=== PATIENT | female | born 1960 | race Caucasian/White ===

== ENCOUNTER 2020-01-18 20:03 | Emergency (ER) | payer MEDICARE, BC, SELFPAY ==
[2020-01-18 20:22] VITALS: BP 141/68; PULSE 72; RESP 16; TEMP 37.1; O2SAT 97; BMI 25.0
--- NOTE | 2020-01-18 20:40 | XR_ITS ---
EXAMINATION: XR ELBOW, RIGHT CLINICAL INFORMATION: Pain. Fall. COMPARISON: None TECHNIQUE: Three views of the right elbow. FINDINGS: There is fluid in the joint consistent with hemarthrosis. The anterior and posterior fat pads of the distal humerus are displaced. There is no displaced fracture. There is no dislocation. Occult fracture cannot be excluded in the presence of hemarthrosis. CTR MRI would be helpful for further assessment. IMPRESSION: 1. Hemarthrosis. 2. No displaced fracture. Occult fracture is not excluded. Consider follow-up MRI or CT for further evaluation.
--- NOTE | 2020-01-18 20:40 | XR_ITS ---
EXAMINATION: XR WRIST, LEFT CLINICAL INFORMATION: Pain. Fall. COMPARISON: None TECHNIQUE: 4 plain film views of the left wrist. FINDINGS: The bones and soft tissues are normal. No fracture. Alignment is anatomic with normal joint spaces. No erosions or abnormal soft tissue calcifications. IMPRESSION: No acute fracture or dislocation seen.
--- NOTE | 2020-01-18 20:40 | XR_ITS ---
EXAMINATION: 1. RIGHT FOREARM. 2. RIGHT WRIST. CLINICAL INFORMATION: Fall. Pain. COMPARISON: Right hand 10/06/2013. Right wrist 08/10/2009. Dictated report only. Images are not available for review TECHNIQUE: 1. Right forearm. 2 views 2. Right wrist. 4 views FINDINGS: 1. Right forearm. No fracture. Radius and ulna are intact. 2. Right wrist. No fracture or dislocation. No soft tissue abnormality. IMPRESSION: 1. Right forearm. No acute abnormality. 2. Right wrist. No acute abnormality.
[2020-01-18] MEDS: oxyCODONE HCl Immed Release 5 MG TABLET PO (21:12)
[2020-01-18] MEDS: Ketorolac Tromethamine 30 MG/ML VIAL IM (21:13)
--- NOTE | 2020-01-18 21:35 | CT_ITS ---
EXAMINATION: CT RIGHT ELBOW. CLINICAL INFORMATION: Trauma. Hemarthrosis on plain film but no displaced fracture. COMPARISON: Plain film exam of the right elbow today TECHNIQUE: Axial images obtained through the right elbow. Coronal and sagittal reformatted images are performed at CT scanner FINDINGS: There is fluid in the joint consistent with hemarthrosis. There is no fracture. There is no dislocation. Joint space is normal. IMPRESSION: Fluid in the joint consistent with a hemarthrosis. There is no fracture. There is no dislocation. If pain persists consider short-term follow-up studies of plain film, CAT scan or MRI.
--- NOTE | 2020-01-18 21:46 | ED_ITS ---
HPI - Fall General Chief Complaint: Fall Stated Complaint: FALL/ELBOW PAIN Time Seen by Provider: 01/18/20 20:40 Source: patient Mode of arrival: ambulatory Limitations: no limitations History of Present Illness HPI Narrative: 59-year-old female presents with right elbow pain, bilateral wrist pain after a fall on outstretched arms. fall occurred just prior to arrival and while she was going up stairs. She stated that she lost her balance and slipped on the step. She is complaining of 10/10 elbow pain, and is unable to move her arm properly. She applied ice prior to arrival but stated that the ice was not helpful. She did not hit her head, lose consciousness, denies dizziness, lightheadedness, chest pain or pressure, palpitations, shortness of breath, abdominal pain, abdominal distention, dysuria, hematuria, fevers and chills. MD complaint: fall Onset (ago): minute(s) ( Just prior to arrival) Fall from: standing Fall witnessed: yes, by family Place fall occurred: home Loss of consciousness: none Prolonged down time: no Symptoms prior to fall: none Context: tripped/slipped Location of injury - extremities: right: elbow ( elbow pain and swelling) and bilateral: hand ( bilateral wrist pain) Severity: severe Severity scale (1-10): 10 Quality: throbbing Associated symptoms (after fall): denies Related Data Previous Rx's Medication Instructions Recorded oxycodone 5 mg PO Q8H PRN #14 tab 01/18/20 Allergies Allergy/AdvReac Type Severity Reaction Status Date / Time No Known Allergies Allergy Unverified 12/24/19 14:37 Review of Systems Review of Systems: Constitutional: No Weight loss, No Fever, No Chills, No Night Sweats, No Fatigue, No Malaise ENT/Mouth: No Hearing loss, No Ear Pain, No Nasal Congestion, No Sinus Pain, No Hoarseness, No sore throat, No Rhinorrhea, No Swallowing Difficulty Eyes: No Eye Pain, No Swelling, No Redness, No Foreign Body, No Discharge, No Vision Changes Cardiovascular: No Chest Pain, No SOB, No Dyspnea on Exertion, No Orthopnea, No Edema, No Palpitations Respiratory: No Cough, No Sputum, No Wheezing, No Smoke Exposure, No Dyspnea Gastrointestinal: No Nausea, No Vomiting, No Diarrhea, No Constipation, No abdominal Pain, No Hematochezia, No Melena Genitourinary: no irregular bleeding, No Dysuria, No Urinary Frequency, No Hematuria, No Urinary Incontinence, No Urgency, No Flank Pain, No Urinary Flow Changes, No Hesitancy Musculoskeletal: positive joint pain bilateral wrists and right elbow, right elbow swelling, No Myalgias, Skin: No Skin Lesions, No rash Neuro: No Weakness, No Numbness, No Paresthesias, No Loss of Consciousness, No Dizziness, No Headache Psych: No Anxiety/Panic, No Depression, No SI/HI/AH/VH, No Social Issues, Heme/Lymph: No Bruising, No Bleeding,No Lymphadenopathy Endocrine: No Polyuria, No Polydipsia, No Temperature Intolerance [facility] Past Medical History Attestation statement: The following information was validated with the patient. Social History Social History Smoking Status: Never smoker Use of substances other than those prescribed or required for medical reasons: No Advance Directives: No Advance Directives Information Provided: Yes Physical Exam Vital Signs: Vital Signs: Vital Signs Temp Pulse Resp BP Pulse Ox 01/18/20 22:33 97.9 F 69 16 152/65 H 98 01/18/20 20:22 98.8 F 72 16 141/68 H 97 Body Mass Index 25.0 Appearance: Alert. Oriented X3. No acute distress. Eyes: Pupils equal, round and reactive to light. ENT: Pharynx normal. Neck: Normal inspection. Neck supple. CVS: Normal heart rate and rhythm. Pulses normal. Respiratory: No respiratory distress. Breath sounds normal. Abdomen: Soft and nontender. Skin: Skin warm and dry. Normal skin color. Normal skin turgor. Extremities: bilateral wrist pain to palpation both radial and ulnar processes, right elbow tenderness to the olecranon, decreased range of motion to the right elbow decreased flexion and extension, unable to pronate and supinate right arm at the elbow. Moderate swelling noted to the lateral aspect of the right elbow. No lower extremity edema. Brisk capillary refill to bilateral upper extremities, Pulses equal to all extremities. Neuro: Oriented X 3. No motor deficit. No sensory deficit. Course Course Course Narrative: based on patient's presentation will order x-rays of bilateral wrists, right elbow, and right forearm. We will give Toradol and oxycodone for pain management. X-rays are negative for fracture, shows hemarthrosis to the right elbow with suggestion for CT scan Rule out occult fracture. Discussion with patient regarding plan of care, patient agrees to CT scan. CT scan negative for occult fracture. Plan of care is to apply sling and have patient follow-up with Dr. Dalton. Discussion with Dr. Datlon via tiger text, he will see her in the office. Patient verbalized understanding of and agrees to plan of care discharge home. Consultations Consultation #1: Sha Time: 22:36 MDM - Fall Differential Diagnosis Differential diagnosis: Likely dislocation, fracture and compression fracture Medical Records Attestation: I reviewed the patient's medical records. Imaging Data X-ray bilateral wrists, right elbow: Attestation: I personally reviewed and interpreted this imaging study as follows: Radiologist's impression: EXAMINATION: XR WRIST, LEFT CLINICAL INFORMATION: Pain. Fall. COMPARISON: None TECHNIQUE: 4 plain film views of the left wrist. FINDINGS: The bones and soft tissues are normal. No fracture. Alignment is anatomic with normal joint spaces. No erosions or abnormal soft tissue calcifications. IMPRESSION: No acute fracture or dislocation seen. EXAMINATION: 1. RIGHT FOREARM. 2. RIGHT WRIST. CLINICAL INFORMATION: Fall. Pain. COMPARISON: Right hand 10/06/2013. Right wrist 08/10/2009. Dictated report only. Images are not available for review TECHNIQUE: 1. Right forearm. 2 views 2. Right wrist. 4 views FINDINGS: 1. Right forearm. No fracture. Radius and ulna are intact. 2. Right wrist. No fracture or dislocation. No soft tissue abnormality. IMPRESSION: 1. Right forearm. No acute abnormality. 2. Right wrist. No acute abnormality. TECHNIQUE: Three views of the right elbow. FINDINGS: There is fluid in the joint consistent with hemarthrosis. The anterior and posterior fat pads of the distal humerus are displaced. There is no displaced fracture. There is no dislocation. Occult fracture cannot be excluded in the presence of hemarthrosis. CTR MRI would be helpful for further assessment. IMPRESSION: 1. Hemarthrosis. 2. No displaced fracture. Occult fracture is not excluded. Consider follow-up MRI or CT for further evaluation. right elbow CT scan: Attestation: I personally reviewed and interpreted this imaging study as follows: Radiologist's impression: EXAMINATION: CT RIGHT ELBOW. CLINICAL INFORMATION: Trauma. Hemarthrosis on plain film but no displaced fracture. COMPARISON: Plain film exam of the right elbow today TECHNIQUE: Axial images obtained through the right elbow. Coronal and sagittal reformatted images are performed at CT scanner FINDINGS: There is fluid in the joint consistent with hemarthrosis. There is no fracture. There is no dislocation. Joint space is normal. IMPRESSION: Fluid in the joint consistent with a hemarthrosis. There is no fracture. There is no dislocation. If pain persists consider short-term follow-up studies of plain film, CAT scan or MRI. Discharge Plan Discharge Clinical Impression: Hemarthrosis involving elbow joint Patient Disposition: Home, Self-Care Instructions: Hemarthrosis (ED) Additional Instructions: you were evaluated for right elbow pain after a fall. X-rays indicate hemarthrosis, CT scan is negative for fracture. Hemarthrosis is a blood collection inside the joint. Please follow-up with orthopedics. I contacted Dr. Dalton regarding your case. Please call and ask for an appointment. Please use oxycodone as needed for pain management. This medication is narcotic and has high risk for addiction and abuse. Please use ice, elevation, And Motrin and Tylenol as needed for breakthrough pain management. Thank you for choosing this emergency department for evaluation. Please follow-up with primary care physician as needed. Return to the emergency department for any new, concerning, or worsening symptoms. Prescriptions: New oxycodone 5 mg tablet 5 mg PO Q8H PRN (Reason: pain) Qty: 14 RF: 0 Referrals: Tor Dalton MD [Physician] - 2 days ( hemarthrosis right elbow) Interventions: ED Discharge Assessment Last Done: 01/18/20 23:08 Discharge Date/Time: 01/18/20 22:55
[2020-01-18 22:33] VITALS: BP 152/65; PULSE 69; RESP 16; TEMP 36.6; O2SAT 98
== END 2020-01-18 22:55 | disposition home or self-care (01) ==
PROVIDERS: Emergency Provider Internal Medicine; PCP Internal Medicine
DX: M25.021 Hemarthrosis, right elbow (principal); S59.901A Unspecified injury of right elbow, initial encounter; W10.8XXA Fall (on) (from) other stairs and steps, initial encounter; M25.532 Pain in left wrist; M25.531 Pain in right wrist; Y93.89 Activity, other specified; Y92.019 Unspecified place in single-family (private) house as the place of occurrence of the external cause; Y99.9 Unspecified external cause status
CPT/HCPCS: 73070; 73090; 73110; 73200; 96372; 99284; J1885

== ENCOUNTER → 2020-01-22 10:22 | Outpatient (BNVA) | payer MEDICARE, BC, SELFPAY | PROVIDERS: PCP Internal Medicine; Referring Provider Internal Medicine; Visit Provider Physician Assistant | DX: S42.401A Unspecified fracture of lower end of right humerus, initial encounter for closed fracture (principal); X58.XXXA Exposure to other specified factors, initial encounter; Y93.9 Activity, unspecified; Y92.9 Unspecified place or not applicable; Y99.9 Unspecified external cause status; Z79.891 Long term (current) use of opiate analgesic | CPT/HCPCS: 99203 ==

== ENCOUNTER 2020-02-05 09:53 | Outpatient (REF) | payer MEDICARE, BC, SELFPAY ==
--- NOTE | 2020-02-05 09:54 | XR_ITS ---
EXAMINATION: XR ELBOW, RIGHT CLINICAL INFORMATION: Follow-up fracture COMPARISON: Previous x-ray and right elbow 01/18/2020 TECHNIQUE: AP, lateral, and oblique views of the right elbow. FINDINGS: There is a vertical lucency seen in the lateral radial head and cortical angulation of the volar or anterior radial head on the lateral view suggestive of a nondisplaced fracture. No other fracture is seen. There is an osteophyte at the triceps tendon insertion to the olecranon and lateral humeral epicondyle. There is a joint effusion. This appears decreased from previous exam. XR/XR elbow RT min 3V IMPRESSION: Probable nondisplaced radial head fracture. Joint effusion decreased from recent exam.
== END 2020-02-05 09:54 | disposition home or self-care (01) ==
LOC: HO.HOSX 09:53
PROVIDERS: Visit Provider Physician Assistant
DX: S42.401A Unspecified fracture of lower end of right humerus, initial encounter for closed fracture (principal); S52.121A Displaced fracture of head of right radius, initial encounter for closed fracture
CPT/HCPCS: 73080; 99212

== ENCOUNTER 2020-03-09 07:03 | Outpatient (REF) | payer MEDICARE, BC, SELFPAY ==
--- NOTE | 2020-03-09 | XR_ITS ---
EXAMINATION: XR ELBOW, RIGHT CLINICAL INFORMATION: M25.521 - pain right elbow. COMPARISON: Radiographs right elbow 02/05/2020, 01/18/2020; CT right elbow 01/18/2020 TECHNIQUE: AP, lateral, and oblique views of the right elbow. FINDINGS: There is subtle transverse linear increased attenuation at base radial head suggesting healed fracture. There is no visible fracture line or interval acute fracture or dislocation or destructive process. Elbow effusion is essentially resolved. There is no joint narrowing. There is minor spurring again seen epicondyles, coronoid process, and olecranon. XR/XR elbow RT min 3V IMPRESSION: Changes suggesting healed fracture base radial head. No acute fracture or destructive process.
[2020-03-09 11:23] LABS: MANUAL DIFF FLAG NO
[2020-03-09 11:41] LABS: Basophils Percent Auto 0.3 % (0-2); Eosinophils Absolute Auto 0.1 X10*3/uL (0.0-0.4); Eosinophils Percent Auto 1.2 % (0-4); Hematocrit 47.4 % (37-47); Imm Gran Abs Auto 0.01 X10*3/uL (0.00-0.03); Imm Gran Pct Auto 0.2 % (0.0-0.4); Lymphocytes Absolute Auto 1.8 X10*3/uL (1.2-4.9); Lymphocytes Percent Auto 28.4 % (20-40); Mean Corpuscular HGB Conc 31.6 g/dl (31.0-35.0); Mean Corpuscular Hemoglobin 29.9 pg (27.0-33.0); Mean Corpuscular Volume 94.6 fL (80-98); Mean Platelet Volume 9.4 fL (9.4-12.3); Monocytes Absolute Auto 0.4 X10*3/uL (0.1-1.2); Monocytes Percent Auto 5.6 % (2-11); Neutrophils Absolute Auto 4.2 X10*3/uL (2.0-8.3); Neutrophils Percent Auto 64.3 % (45-73); Platelet Count 306 X10*3/uL (160-400); Red Blood Count 5.01 X10*6/uL (4.20-5.50); Red Cell Distribution Width 14.5 % (11.0-16.0); White Blood Count 6.5 X10*3/uL (4.8-10.8)
[2020-03-09 11:44] LABS: Glucose Urine UA NEG (NEG); Leukocyte Esterase Urine NEG (NEG); Nitrite Urine NEG (NEG); Urine Blood 2+ (NEG); Urine Ketones NEG (NEG); Urine Protein NEG (NEG-TRACE)
[2020-03-09 11:51] LABS: Appearance Urine CLEAR; Color Urine YELLOW
[2020-03-09 12:07] LABS: Mucus Urine TRACE /LPF; Squamous Epithelial Cell Urine TRACE /LPF; WBC Urine 0 /HPF (0-4)
[2020-03-09 12:14] LABS: Alanine Aminotransferase 24 U/L (0-31); Albumin Level 4.4 g/dL (3.5-5.0); Alkaline Phosphatase 80 U/L (39-117); Anion Gap 12 (12-20); Aspartate Amino Transferase 21 U/L (5-31); Bilirubin Total 0.8 mg/dL (0.0-1.0); Blood Urea Nitrogen 16 mg/dL (9-16); C Reactive Protein 0.08 mg/dL (< or = 0.50); Calcium 9.4 mg/dL (8.4-10.2); Carbon Dioxide 30 mmol/L (22-29); Chloride 104 mmol/L (96-108); Cholesterol 207 mg/dL; Estimated Glomerular Filt Rate > 60; Glucose Fasting 85 mg/dL (60-99); HDL Cholesterol 65 mg/dL; LDL Cholesterol Calculated 123 mg/dl; Potassium 5.1 mmol/l (3.3-5.1); Sodium 141 mmol/L (135-145); Total Protein 7.2 g/dL (6.5-8.0); Triglycerides 95 mg/dL
[2020-03-09 12:20] LABS: Erythrocyte Sedimentation Rate 6 MM/HR (0-20)
[2020-03-09 12:36] LABS: TSH reflex Free T4 0.95 mIU/mL (0.32-4.0); Vitamin D 25-OH Total 33.4 ng/mL (>30)
== END 2020-03-09 07:04 | disposition home or self-care (01) ==
LOC: HO.HMGCLDS 07:03
PROVIDERS: PCP Internal Medicine; Visit Provider Student in an Organized Health Care Education/Training Program
DX: L40.50 Arthropathic psoriasis, unspecified (principal); Z79.899 Other long term (current) drug therapy; E78.5 Hyperlipidemia, unspecified; R94.5 Abnormal results of liver function studies; M79.7 Fibromyalgia; R31.9 Hematuria, unspecified; M35.3 Polymyalgia rheumatica; E55.9 Vitamin D deficiency, unspecified; F32.9 Major depressive disorder, single episode, unspecified; M25.521 Pain in right elbow; S52.123D Displaced fracture of head of unspecified radius, subsequent encounter for closed fracture with routine healing
CPT/HCPCS: 36415; 73080; 80053; 80061; 81001; 82306; 82550; 84443; 85025; 85652; 86140; 99212

== ENCOUNTER 2020-03-09 11:30 | Outpatient (RCR) | payer MEDICARE, BC, SELFPAY ==
--- NOTE | 2020-02-17 13:16 | MHC.OT.OEV ---
[address] [phone] F: [phone] Occupational Therapy Evaluation Diagnosis: RIGHT RADIAL HEAD FRACTURE Date of Onset: 01/18/20 Date of Surgery: Attending Provider: Sebastien Carter Prescribed Treatment: EVAL AND TREAT History of Current Condition: REPORTS SHE TRIPPED UP THE STAIRS AND BRACED HERSELF WITH BOTH ARMS, FOOSH. FOUND TO HAVE NONDISPLACED FRACTURE OF HEAD OF RIGHT RADIUS Significant Medical History: PSORIATIC ARTHRITIS, R WRIST ARTHRTIS WITH CORTISONE INJECTIONS, FIBROMYALGIA, BACK PROBLEMS, H/O C6/67 FUSION (2004) Precautions/Contraindications: UNIVERSAL Patient Goals: TO HAVE LESS PAIN Hand Dominance: Right Prior Level of Function and Occupation Self Care, Employment, Leisure: RETIRED FROM [employer]. 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 Living Situation, Family and/or Social Support: LIVES WITH SHANIKA AND SHANIKA'S TWO GRANDCHILDREN (5 AND 12) Current Level of Function and Occupation Self Care, Employment, Leisure: DIFFICULTIES WITH OPENING TIGHT JAR, PUTTING HAIR INTO PONYTAIL, MILD DIFFICULTIES WITH WASHING DISHES Sleep: DIFFICULTIES GETTING COMFORTABLE AT NIGHT DUE TO PAIN Pain Assessment Pain Score: 2 Pain Scale Used: Numeric (0 - 10) Pain Location and Description: R LATERAL ELBOW, ACHY AND BURNING Aggravating Factors: ROTATIONAL MOVEMENT Alleviating Factors: OCCASIONAL IBUPROPHEN 800, HAS USED ICE/HEAT WITH GOOD RESULTS Skin and Soft Tissue Assessment Skin and Soft Tissue: Swelling Comments: MILD EDEMA TO LATERAL ELBOW Sensory Assessment Temperature: Light Touch: WFL Proprioception: Vibration: Comments: Edema Assessment Upper Extremity: WNL Dexterity Assessment Dexterity: WFL Special Tests Comments: AROM(PROM) Strength Shoulder Flexion: Extension: Abduction: Internal Rotation: External Rotation: Comments: WFL Flexion: Extension: Abduction: Internal Rotation: External Rotation: Comments: Elbow Flexion: R 135, L 150 Extension: R 14, L 3 Pronation: R 80, L 82 Supination: R 70, L 90 Comments: DISCOMFORT AT END RANGE ELBOW FLEX AND EXT Flexion: Extension: Pronation: Supination: Comments: Wrist Flexion: Extension: Ulnar Deviation: Radial Deviation: Comments: WFL Flexion: Extension: Ulnar Deviation: Radial Deviation: Comments: Digits Index MCP: PIP: DIP: Long MCP: PIP: DIP: Ring MCP: PIP: DIP: Small MCP: PIP: DIP: Comments: Gross Grasp: R 25, L 40 Lateral Pinch: R 9, L 9 Two-Point Pinch: Three-Jaw Juan: 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 Patient demonstrates Patient verbalizes Barriers to Learning: None Readiness for Learning: Accepting Who was educated? Patient Comments: Plan of Care Assessment: DEBI IS 4 WEEKS, 2 DAYS S/P FOOSH RESULTING IN NONDISPLACED FRACTURE OF HEAD OF RIGHT RADIUS. SHE REPORTS MINIMAL DIFFICULTIES WITH BADLs AND IADLs AND HAS DISCONTINUED USE OF SLING. AT TIME OF EVALUATION, SHE HAS LOW PAIN WITH END RANGE EXTENSION AND FLEXION OF ELBOW AND OCCASIONAL DISCOMFORT WITH SUPINATION AND PRONATION. ONGOING OT WOULD BE WARRANTED FOR ROM, UE STRENGTHENING, PAIN MANAGEMENT AND PATIENT EDUCATION, AND ACHIEVE OPTIMAL FUNCTIONAL LEVEL. 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 STRENGTH >40 POUNDS COMPLETE IADLs WITH <1/10 PAIN R SUPINATION >85 PAINFREE AT REST REPORT NO INTERRUPTION IN SLEEP DUE TO PAIN ELBOW FLEX >150 DEGREES Frequency and Duration: The patient will be seen 2x/WEEK FOR 4 WEEKS Treatment Plan: Therapeutic Exercise Therapeutic Activity Home Exercise Program Splinting Neuro Re-ed Patient Education Desensitization/Sensory Re-ed Edema Control ADL Training Ultrasound NMES Iontophoresis Paraffin Fluidotherapy MHP Cold Packs Joint Mobilization Soft Tissue Mobilization Kinesiotaping Electronically Signed By: KELSIE VEE OTR/L Please sign and return to therapist, Thank you for your referral.
--- NOTE | 2020-04-05 10:31 | MHC.OT.DC ---
[address] [phone] F: [phone] Occupational Therapy Discharge Note Provider: Sebastien Carter Diagnosis: RIGHT RADIAL HEAD FRACTURE Date of Evaluation: 02/17/20 Date of Discharge: 04/05/20 Treatments to Date: 4 Cancellations to Date: 0 No Shows to Date: 0 Discharge Status: Improved Function Independent with HEP Patient Elected to Stop Discharge Summary: MS. LAU ATTENDED OUTPATIENT OT FOR FOUR SESSIONS IN WHICH SHE HAD ACHIEVED FUNCTIONAL ROM AT HER RIGHT ELBOW AND WAS BEGINNING LIGHT RESISTIVE EXERCISES. AT HER LAST OT VISIT, SHE REPORTED LOW PAIN AND ABILITY TO COMPLETE MOST ADLs/IADLs. SHE HAS ELECTED TO DISCONTINUE OT SERVICES. Electronically Signed By: KELSIE VEE OTR/L Please Sign and return to therapist, thank you for your referral.
== END 2020-04-05 10:37 | disposition home or self-care (01) ==
LOC: HO.OT 11:30
PROVIDERS: Visit Provider Physician Assistant
DX: S52.121D Displaced fracture of head of right radius, subsequent encounter for closed fracture with routine healing (principal)
CPT/HCPCS: 73080; 97110; 97165

== ENCOUNTER → 2020-03-17 08:01 | Outpatient (BNVA) | payer MEDICARE, BC, SELFPAY | PROVIDERS: PCP Internal Medicine; Visit Provider Student in an Organized Health Care Education/Training Program | DX: L40.50 Arthropathic psoriasis, unspecified (principal); Z79.899 Other long term (current) drug therapy; Z79.891 Long term (current) use of opiate analgesic | CPT/HCPCS: Q3014 ==

== ENCOUNTER → 2020-04-21 10:09 | Outpatient (BNVA) | payer MEDICARE, BC, SELFPAY | PROVIDERS: PCP Internal Medicine; Visit Provider Surgery Vascular Surgery | DX: I83.12 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 of left lower extremity with inflammation (principal) | CPT/HCPCS: 99202 ==

== ENCOUNTER 2020-04-27 07:36 | Outpatient (REF) | payer MEDICARE, BC, SELFPAY ==
--- NOTE | 2020-04-27 07:39 | US_ITS ---
EXAMINATION: US VENOUS LOWER EXTREMITY (Reflux Exam), RIGHT AND LEFT CLINICAL INDICATION: Right leg pain and varicose veins. Previous lower extremity venous stripping performed at another institution. COMPARISON: None TECHNIQUE: Color flow triplex imaging and compression Doppler was performed to evaluate both the deep and the superficial systems bilaterally. To evaluate the superficial system, the examination was performed in the upright position. Color-flow Doppler ultrasound and compression ultrasound were utilized. In addition, maneuvers were utilized to demonstrate reflux. FINDINGS: 1. DEEP VENOUS ULTRASOUND OF THE RIGHT LOWER EXTREMITY: Respiratory variation, normal compression and augmented flow are noted in the right common femoral vein as well as the right popliteal vein and there is no evidence of deep venous thrombosis at these locations. There is no evidence of reflux in the deep system in either the common femoral vein or the popliteal vein. No popliteal fossa cyst. No popliteal artery aneurysm. 2. SUPERFICIAL ULTRASOUND WITH DOPPLER OF RIGHT LOWER EXTREMITY: The right great saphenous vein is not identified from the level of the saphenofemoral junction to the ankle. There is a 2 mm distal thigh entry specialists without reflux. The small saphenous vein is not identified. 3. DEEP VENOUS ULTRASOUND OF THE LEFT LOWER EXTREMITY: Respiratory variation, normal compression and augmented flow are noted in the left common femoral vein as well as the left popliteal vein and there is no evidence of deep venous thrombosis at these locations. There is no evidence of reflux in the deep system in either the common femoral vein or the popliteal vein. No popliteal fossa cyst. No popliteal artery aneurysm. 4. SUPERFICIAL ULTRASOUND WITH DOPPLER OF LEFT LOWER EXTREMITY: Left great saphenous vein remnant at the saphenofemoral junction measures 6 mm without reflux, at the mid thigh not seen, [id number] 3 mm with reflux seen up to 1 second in duration, [id number] 2 mm with reflux up to 3.2 seconds, at mid calf 1 mm without reflux and at the ankle measures 2 mm without reflux. The left small saphenous vein measures 2 mm and shows no reflux. Within the mid thigh there is a 3 mm varicose vein with reflux up to 3.2 seconds. US/US venous duplex LE BI IMPRESSION: 1. No evidence of reflux or thrombus in the common femoral veins or popliteal veins bilaterally. 2. Status post bilateral vein stripping with small greater saphenous vein segments with reflux identified in small vessels of the left lower extremity from [id number] to [id number] as described. No reflux at either saphenofemoral junction.
== END 2020-04-27 07:37 | disposition home or self-care (01) ==
LOC: HO.US 07:36
PROVIDERS: PCP Internal Medicine; Visit Provider Surgery Vascular Surgery
DX: I83.12 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 of left lower extremity with inflammation (principal); I83.893 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 of bilateral lower extremities with other complications
CPT/HCPCS: 93970

== ENCOUNTER → 2020-05-12 10:51 | Outpatient (BNVA) | payer MEDICARE, BC, SELFPAY | PROVIDERS: PCP Internal Medicine; Visit Provider Surgery Vascular Surgery | DX: I83.12 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 of left lower extremity with inflammation (principal) | CPT/HCPCS: 99212 ==

== ENCOUNTER → 2020-05-27 07:48 | Outpatient (BNVA) | payer MEDICARE, BC, SELFPAY | PROVIDERS: PCP Internal Medicine; Visit Provider Surgery Vascular Surgery | DX: I83.12 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 of left lower extremity with inflammation (principal) | CPT/HCPCS: 36482 ==

== ENCOUNTER 2020-05-30 15:14 | Outpatient (REF) | payer MEDICARE, BC, SELFPAY ==
--- NOTE | ~2020-05-30 | US_ITS ---
EXAMINATION: US VENOUS ULTRASOUND WITH DOPPLER LOWER EXTREMITY, LEFT CLINICAL INFORMATION: Post left VenaSeal procedure. COMPARISON: Previous exam 04/27/2020. TECHNIQUE: Ultrasound of the deep veins is performed from the hip to the calf with compression sonography and color and pulse Doppler assessment. Spectral analysis with color-flow imaging is performed. FINDINGS: There is normal venous compression and respiratory variation and augmented flow. The visualized common femoral vein, superficial femoral vein, profunda femoral vein, popliteal vein, and the trifurcation region shows no evidence of deep venous thrombosis. There is no significant popliteal fossa cyst. There is echogenic material seen in the left greater saphenous vein remnant. This is 2.5 cm from the saphenofemoral femoral junction. The remainder greater saphenous vein or greater saphenous vein remnant appears small and occluded. US/US venous duplex LE LT IMPRESSION: No DVT demonstrated in the left lower extremity.
== END 2020-05-30 15:15 | disposition home or self-care (01) ==
LOC: HO.US 15:14
PROVIDERS: PCP Internal Medicine; Visit Provider Surgery Vascular Surgery
DX: M79.605 Pain in left leg (principal)
CPT/HCPCS: 93971

== ENCOUNTER → 2020-06-09 09:39 | Outpatient (BNVA) | payer MEDICARE, BC, SELFPAY | PROVIDERS: PCP Internal Medicine; Visit Provider Surgery Vascular Surgery | DX: I83.12 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 of left lower extremity with inflammation (principal) | CPT/HCPCS: 99212 ==

== ENCOUNTER 2020-06-21 10:59 | Outpatient (REF) | payer MEDICARE, BC, SELFPAY ==
[2020-06-21 14:43] LABS: MANUAL DIFF FLAG NO
[2020-06-21 14:47] LABS: Glucose Urine UA NEG (NEG); Leukocyte Esterase Urine NEG (NEG); Nitrite Urine NEG (NEG); PH 5.5 (5.0-8.0); Specific Gravity - Urine >= 1.030 (1.005-1.025); Urine Blood 2+ (NEG); Urine Ketones NEG (NEG); Urine Protein NEG (NEG-TRACE)
[2020-06-21 14:48] LABS: Appearance Urine CLOUDY; Basophils Percent Auto 0.4 % (0-2); Color Urine YELLOW; Eosinophils Absolute Auto 0.1 X10*3/uL (0.0-0.4); Eosinophils Percent Auto 0.9 % (0-4); Hematocrit 45.5 % (37-47); Hemoglobin 14.4 g/dl (12.0-16.0); Lymphocytes Absolute Auto 1.5 X10*3/uL (1.2-4.9); Lymphocytes Percent Auto 26.7 % (20-40); Mean Corpuscular HGB Conc 31.6 g/dl (31.0-35.0); Mean Corpuscular Hemoglobin 29.8 pg (27.0-33.0); Mean Platelet Volume 9.6 fL (9.4-12.3); Monocytes Absolute Auto 0.3 X10*3/uL (0.1-1.2); Monocytes Percent Auto 5.4 % (2-11); Neutrophils Absolute Auto 3.8 X10*3/uL (2.0-8.3); Neutrophils Percent Auto 66.6 % (45-73); Platelet Count 254 X10*3/uL (160-400); Red Blood Count 4.84 X10*6/uL (4.20-5.50); Red Cell Distribution Width 13.9 % (11.0-16.0); White Blood Count 5.7 X10*3/uL (4.8-10.8)
[2020-06-21 15:13] LABS: Amorphous Sediment Urine 4+ /LPF; Bacteria Urine TRACE /LPF; Squamous Epithelial Cell Urine TRACE /LPF; WBC Urine 0-2 /HPF (0-4)
[2020-06-21 15:16] LABS: Alanine Aminotransferase 23 U/L (0-31); Albumin Level 4.3 g/dL (3.5-5.0); Alkaline Phosphatase 74 U/L (39-117); Anion Gap 11 (12-20); Aspartate Amino Transferase 23 U/L (5-31); Bilirubin Total 0.8 mg/dL (0.0-1.0); Blood Urea Nitrogen 21 mg/dL (9-16); C Reactive Protein 0.14 mg/dL (< or = 0.50); Calcium 9.2 mg/dL (8.4-10.2); Carbon Dioxide 29 mmol/L (22-29); Chloride 106 mmol/L (96-108); Cholesterol 166 mg/dL; Estimated Glomerular Filt Rate > 60; Glucose Fasting 88 mg/dL (60-99); HDL Cholesterol 61 mg/dL; LDL Cholesterol Calculated 93 mg/dl; Sodium 141 mmol/L (135-145); Total Protein 6.8 g/dL (6.5-8.0); Triglycerides 61 mg/dL
[2020-06-21 15:42] LABS: TSH reflex Free T4 1.02 uIU/mL (0.32-4.0); Vitamin D 25-OH Total 35.3 ng/mL (>30)
[2020-06-21 15:43] LABS: Erythrocyte Sedimentation Rate 6 MM/HR (0-20)
== END 2020-06-21 11:00 | disposition home or self-care (01) ==
LOC: HO.HMGCLDS 10:59
PROVIDERS: PCP Internal Medicine; Visit Provider Student in an Organized Health Care Education/Training Program
DX: L40.50 Arthropathic psoriasis, unspecified (principal); E78.00 Pure hypercholesterolemia, unspecified; E55.9 Vitamin D deficiency, unspecified; M79.7 Fibromyalgia
CPT/HCPCS: 36415; 80053; 80061; 81001; 82306; 84443; 85025; 85652; 86140

== ENCOUNTER → 2020-06-22 08:22 | Outpatient (BNVA) | payer MEDICARE, BC, SELFPAY | PROVIDERS: PCP Internal Medicine; Referring Provider Internal Medicine; Visit Provider Student in an Organized Health Care Education/Training Program | DX: L40.50 Arthropathic psoriasis, unspecified (principal); Z79.899 Other long term (current) drug therapy | CPT/HCPCS: 99212 ==

== ENCOUNTER → 2020-07-13 11:56 | Outpatient (BNVA) | payer MEDICARE, BC, SELFPAY | PROVIDERS: Visit Provider Physician Assistant | DX: Z01.818 Encounter for other preprocedural examination (principal); Z86.010 Personal history of colon polyps; Z79.899 Other long term (current) drug therapy | CPT/HCPCS: Q3014 ==

== ENCOUNTER 2020-09-16 07:57 | Day surgery (SDC) | payer MEDICARE, BC, SELFPAY ==
[2020-09-12 13:51] VITALS: BMI 22.6
--- NOTE | 2020-09-14 14:00 | P.CONAN_ITS ---
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) 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 of left lower extremity with inflammation (Acute) PTSD (post-traumatic stress disorder) (Acute) History of colon polyps (Acute) Insomnia (Acute) Polymyalgia rheumatica (Acute) Pain in left shoulder (Acute) Failed neck syndrome (Acute) Depression (Acute) Anxiety (Acute) Osteopenia (Acute) Elevated LFTs (Acute) Vitamin D deficiency (Acute) Lumbar degenerative disc disease (Acute) Fibromyalgia (Acute) Pure hypercholesterolemia (Acute) 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 of both lower extremities with pain (Acute) Past Medical History Medical History Anxiety Depression Elevated LFTs Failed neck syndrome Fibromyalgia History of colon polyps Insomnia 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 Lumbar degenerative disc disease Osteopenia Pain in left shoulder Polymyalgia rheumatica Psoriatic arthritis Pure hypercholesterolemia 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 of both lower extremities with pain Vitamin D deficiency Family History Family History Mother Lung cancer Father Drug addict Surgical History Surgical History Hx of abdominoplasty Hx of section Hx of colonoscopy S/P cervical spinal fusion Social History Social History Household Members: Significant Other and Family Are you a primary reproductive healthcare assistant to a significant other at home: No Alcohol intake: never Patient Tobacco Use Status: Never used Tobacco Use of substances other than those prescribed or required for medical reasons: No Are you DNR?: No Advance Directives: No Advance Directives Information Provided: No Advance Directives on File: No Recently lost weight without trying: No Eating poorly because of decreased appetite: No Nutrition Risks: No Nutritional Risk Meds Allergies Allergy/AdvReac Type Severity Reaction Status Date / Time No Known Allergies Allergy Verified 09/12/20 13:47 Home Medications Medication Instructions Recorded Confirmed Last Taken Type diclofenac sodium 1 % topical gel 2 g TRANSDERMAL BID PRN 05/10/20 09/12/20 Unknown History clonazepam 0.5 mg tablet 0.5 mg PO BID 07/04/20 09/12/20 Unknown History trazodone 100 mg tablet 100 mg PO BEDTIME PRN 07/04/20 09/12/20 Unknown History quetiapine 200 mg tablet 200 mg PO 08/17/20 08/17/20 Unknown History venlafaxine 150 mg 150 mg PO DAILY 08/17/20 09/12/20 Unknown History capsule,extended release 24 hr venlafaxine 37.5 mg 37.5 mg PO DAILY 08/17/20 09/12/20 Unknown History capsule,extended release 24 hr Exam Exam Date and Time: September 14, 2020 1400 Height,Weight and Vital Signs: Height 5 ft 3 in Weight 58.06 kg Pertinent Lab Results Pertinent Lab Results: Laboratory Tests 06/21/20 06/21/20 11:10 11:10 WBC 5.7 Hgb 14.4 Hct 45.5 Plt Count 254 Sodium 141 Potassium 5.0 Chloride 106 Carbon Dioxide 29 BUN 21 H Creatinine 0.73 Assessment and Plan Assessment Anesthesia Assessment: Chart Reviewed Documented by User: Nik Longoria 09/16/20 09:20 [facility] Past Medical History Medical History Anxiety Depression Elevated LFTs Failed neck syndrome Fibromyalgia History of colon polyps Insomnia 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 Lumbar degenerative disc disease Osteopenia Pain in left shoulder Polymyalgia rheumatica Psoriatic arthritis Pure hypercholesterolemia 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 of both lower extremities with pain Vitamin D deficiency Family History Family History Mother Lung cancer Father Drug addict Surgical History Surgical History Hx of abdominoplasty Hx of section Hx of colonoscopy S/P cervical spinal fusion Social History Social History Household Members: Significant Other and Family Are you a primary reproductive healthcare assistant to a significant other at home: No Alcohol intake: never Patient Tobacco Use Status: Never used Tobacco Use of substances other than those prescribed or required for medical reasons: No Are you DNR?: No Advance Directives: No Advance Directives Information Provided: No Advance Directives on File: No Recently lost weight without trying: No Eating poorly because of decreased appetite: No Nutrition Risks: No Nutritional Risk Meds Allergies Allergy/AdvReac Type Severity Reaction Status Date / Time No Known Allergies Allergy Verified 09/12/20 13:47 Home Medications Medication Instructions Recorded Confirmed Last Taken Type diclofenac sodium 1 % topical gel 2 g TRANSDERMAL BID PRN 05/10/20 09/12/20 Unknown History clonazepam 0.5 mg tablet 0.5 mg PO BID 07/04/20 09/12/20 Unknown History trazodone 100 mg tablet 100 mg PO BEDTIME PRN 07/04/20 09/12/20 Unknown History quetiapine 200 mg tablet 200 mg PO 08/17/20 08/17/20 Unknown History venlafaxine 150 mg 150 mg PO DAILY 08/17/20 09/12/20 Unknown History capsule,extended release 24 hr venlafaxine 37.5 mg 37.5 mg PO DAILY 08/17/20 09/12/20 Unknown History capsule,extended release 24 hr Exam Airway Mallampati Class: II TM Dist: >3cm Neck ROM: Full Loose/Missing/Broken Teeth: No Heart: [id number] Lungs: cta b/l Assessment and Plan Assessment Anesthesia Assessment: Anesthesia Plan Discussed, PAT Visit and Chart Reviewed Final Anesthetic Review NPO: Yes ASA Class: III Final Preanesthetic Review: No Changes in Pt Med Stat, Meds/Allgs Chart Reviewe d, Consent Obtained/Reviewed and Anes Risks/Benef Reviewed Patient Risk: Intermediate Procedure Risk: Low Assessment/Block/Sedation in SS: Assess/Block/Sedation-SS Anesthetic Plan Anesthetic Plan: MAC: and Agree w/ Assess. and Plan Disposition: Standard PACU
[2020-09-16 08:43] VITALS: BP 127/66; PULSE 60; RESP 16; TEMP 36.8; O2SAT 99
[2020-09-16] MEDS: Lactated Ringers 1,000 ML 100 ML IVCONT (08:47)
--- NOTE | 2020-09-16 09:13 | W.PM.OPN ---
Operative Note Operative Note Date of Service: 09/16/20 Narrative: Pre-op diagnosis: Colon cancer screening, history of colon polyps Post-op diagnosis: other (Colon polyps, diverticulosis, hemorrhoids) Procedure: COLONOSCOPY TILL CECUM WITH SNARE POLYPECTOMY Consent: Indications for the procedure and potential complications of bleeding, perforation, reaction to medications and missed diagnosis were discussed with the patient and informed consent was obtained. Instrument: Olympus PCF H 190 L variable stiffness pediatric colonoscope Monitoring: Vital signs and clinical assessment, intermittent blood pressure monitoring, continuous EKG monitoring, Pulse oximetry and Carbon Dioxide monitoring were done throughout the procedure. Colon withdrawl time was 15 minutes. Procedure: The patient was placed in the left lateral decubitis position and pre-procedure medications were administered. After a digital rectal examination of the ano-rectum, the video colonoscope was inserted into the rectum and advanced through the colon to the cecum. The colonoscope was slowly withdrawn in a retrograde panoramic fashion and the colon mucosa was carefully examined including a retroflexed view of the rectum. Findings and interventions are described below. Procedure Difficulty: Without difficulty Findings: Terminal Ileum: Not evaluated Cecum: Normal Ascending Colon: Normal Transverse Colon: Two 12 - 20 mm sessile polyps removed with a hot snare Descending Colon: Normal Sigmoid Colon: A 15 to 18 mm sessile polyp removed with a hot snare. Moderate diverticulosis Rectum: Normal Ano-rectum: Moderate internal hemorrhoids Colon preparation: Excellent Impression and Post Procedure Diagnosis: Colonoscopy Findings: Three medium sized polyps removed Moderate diverticulosis seen in the sigmoid colon Moderate hemorrhoids on retroflexed exam. Plan: Await pathology results Patient has an appointment on 09/29/20 in the [facility] with POLLO Leon . Repeat Colonoscopy interval based on path results - in 3 years if polyps are adenomatous and due to hx of adenomatous colon polyps. Above findings were reviewed with the patient and colon polyps and diverticulosis handouts were given in the discharge area Surgeon: Drew Avila MD Anesthesia: MAC (Dr De Los Santos) Was an Joint Cleaning Machine Operator used for this Procedure?: Yes Joint Cleaning Machine Operator: Milka Pete Estimated blood loss (mL): 0 Pathology: other (A. TC polyps x 2, B. SC polyp x1) Condition: stable Disposition: PACU
--- NOTE | 2020-09-16 09:13 | MHC.SHP ---
Pre-Procedural Eval Section A The patient is an INPATIENT: No The History & Physical has been completed within 30 days and I have reviewed it.: No Section B Chief Complaint: Hx of Colon Polyps Details of Present Illness: Colon cancer screening, history of colon polyps Relevant Family History (Specify if Yes): No Relevant Social History: None Present Medications: see Short Stay Collaborative assessment Medical History: Significant History (Anxiety Depression Elevated LFTs Failed neck syndrome Fibromyalgia History of colon polyps Insomnia Lumbar degenerative disc disease Osteopenia Pain in left shoulder Polymyalgia rheumatica Psoriatic arthritis Pure hypercholesterolemia 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 of both lower extremities with pain Vitamin D defi) History of Previous Operations: Relevant previous surgery/procedure and date(s) (Hx of abdominoplasty Hx of section S/P cervical spinal fusion) Allergies: Allergies Allergy/AdvReac Type Severity Reaction Status Date / Time No Known Allergies Allergy Verified 09/12/20 13:47 Review of Systems Sugical H&P ROS: Negative: Constitution, Cardiovascular, Respiratory and Gastrointestinal Exam Surgical H&P Exam: Normal: Heart, Normal: Lungs, Normal: Extremities and Normal: Abdomen Plan Diagnosis/Plan: Unchanged I have reviewed the history and physical and performed a pertinent physical examination on my patient. No changes have occurred unless specified.
[2020-09-16 09:54] VITALS: BP 97/47; PULSE 62; RESP 16; TEMP 36.4; O2SAT 96
[2020-09-16 10:09] VITALS: BP 118/62; PULSE 58; RESP 16; O2SAT 100
== END 2020-09-16 10:34 | disposition home or self-care (01) ==
PROVIDERS: PCP Internal Medicine; Visit Provider Internal Medicine Gastroenterology
PROC: 0DJD8ZZ Inspection of Lower Intestinal Tract, Via Natural or Artificial Opening Endoscopic (ICD-10-PCS; CPT 45378; principal; 2020-09-16 09:20)
DX: Z12.11 Encounter for screening for malignant neoplasm of colon (principal); Z86.010 Personal history of colon polyps; D12.3 Benign neoplasm of transverse colon; D12.5 Benign neoplasm of sigmoid colon; K57.30 Diverticulosis of large intestine without perforation or abscess without bleeding; K64.8 Other hemorrhoids; R94.5 Abnormal results of liver function studies; F32.9 Major depressive disorder, single episode, unspecified; M85.80 Other specified disorders of bone density and structure, unspecified site; M35.3 Polymyalgia rheumatica; E55.9 Vitamin D deficiency, unspecified; Z79.899 Other long term (current) drug therapy
CPT/HCPCS: 45385; 88305

== ENCOUNTER 2020-09-19 12:17 | Outpatient (REF) | payer MEDICARE, BC, SELFPAY ==
[2020-09-19 13:53] LABS: MANUAL DIFF FLAG NO
[2020-09-19 14:05] LABS: Basophils Percent Auto 0.6 % (0-2); Eosinophils Percent Auto 0.6 % (0-4); Hematocrit 46.2 % (37-47); Hemoglobin 14.7 g/dl (12.0-16.0); Imm Gran Abs Auto 0.01 X10*3/uL (0.00-0.03); Imm Gran Pct Auto 0.2 % (0.0-0.4); Lymphocytes Absolute Auto 1.5 X10*3/uL (1.2-4.9); Mean Corpuscular HGB Conc 31.8 g/dl (31.0-35.0); Mean Corpuscular Hemoglobin 29.3 pg (27.0-33.0); Mean Corpuscular Volume 92.2 fL (80-98); Mean Platelet Volume 9.3 fL (9.4-12.3); Monocytes Absolute Auto 0.3 X10*3/uL (0.1-1.2); Monocytes Percent Auto 4.7 % (2-11); Neutrophils Absolute Auto 3.5 X10*3/uL (2.0-8.3); Neutrophils Percent Auto 65.9 % (45-73); Platelet Count 257 X10*3/uL (160-400); Red Blood Count 5.01 X10*6/uL (4.20-5.50); Red Cell Distribution Width 13.5 % (11.0-16.0); White Blood Count 5.3 X10*3/uL (4.8-10.8)
[2020-09-19 14:25] LABS: Alanine Aminotransferase 15 U/L (0-31); Albumin Level 4.4 g/dL (3.5-5.0); Alkaline Phosphatase 76 U/L (39-117); Anion Gap 13 (12-20); Aspartate Amino Transferase 22 U/L (5-31); Bilirubin Total 0.6 mg/dL (0.0-1.0); Blood Urea Nitrogen 15 mg/dL (9-16); Calcium 9.5 mg/dL (8.4-10.2); Carbon Dioxide 28 mmol/L (22-29); Chloride 107 mmol/L (96-108); Estimated Glomerular Filt Rate > 60; Glucose Random 83 mg/dL (60-115); Potassium 4.8 mmol/L (3.3-5.1); Sodium 143 mmol/L (135-145); Total Protein 6.9 g/dL (6.5-8.0)
[2020-09-19 14:43] LABS: Erythrocyte Sedimentation Rate 5 MM/HR (0-20)
== END 2020-09-19 12:18 | disposition home or self-care (01) ==
LOC: HO.HMGCLDS 12:17
PROVIDERS: PCP Internal Medicine; Visit Provider Student in an Organized Health Care Education/Training Program
DX: L40.50 Arthropathic psoriasis, unspecified (principal)
CPT/HCPCS: 36415; 80053; 85025; 85652; 86140

== ENCOUNTER → 2020-09-22 07:42 | Outpatient (BNVA) | payer MEDICARE, BC, SELFPAY | PROVIDERS: PCP Internal Medicine; Visit Provider Student in an Organized Health Care Education/Training Program | DX: L40.50 Arthropathic psoriasis, unspecified (principal); Z79.899 Other long term (current) drug therapy | CPT/HCPCS: 99212 ==

== ENCOUNTER → 2020-09-29 11:36 | Outpatient (BNVA) | payer MEDICARE, BC, SELFPAY | PROVIDERS: Referring Provider Internal Medicine; Visit Provider Physician Assistant | DX: K57.90 Diverticulosis of intestine, part unspecified, without perforation or abscess without bleeding (principal); Z86.010 Personal history of colon polyps | CPT/HCPCS: 99212 ==

== ENCOUNTER 2020-11-03 08:11 | Outpatient (REF) | payer MEDICARE, BC, SELFPAY ==
[2020-11-03 11:41] LABS: MANUAL DIFF FLAG NO
[2020-11-03 11:48] LABS: Basophils Percent Auto 0.4 % (0-2); Eosinophils Absolute Auto 0.1 X10*3/uL (0.0-0.4); Eosinophils Percent Auto 2.3 % (0-4); Hematocrit 47.1 % (37-47); Hemoglobin 14.7 g/dl (12.0-16.0); Imm Gran Abs Auto 0.01 X10*3/uL (0.00-0.03); Imm Gran Pct Auto 0.2 % (0.0-0.4); Lymphocytes Absolute Auto 1.7 X10*3/uL (1.2-4.9); Lymphocytes Percent Auto 34.6 % (20-40); Mean Corpuscular HGB Conc 31.2 g/dl (31.0-35.0); Mean Corpuscular Hemoglobin 29.1 pg (27.0-33.0); Mean Corpuscular Volume 93.1 fL (80-98); Mean Platelet Volume 9.4 fL (9.4-12.3); Monocytes Absolute Auto 0.3 X10*3/uL (0.1-1.2); Neutrophils Absolute Auto 2.8 X10*3/uL (2.0-8.3); Neutrophils Percent Auto 56.5 % (45-73); Platelet Count 260 X10*3/uL (160-400); Red Blood Count 5.06 X10*6/uL (4.20-5.50); Red Cell Distribution Width 14.1 % (11.0-16.0); White Blood Count 4.9 X10*3/uL (4.8-10.8)
[2020-11-03 12:03] LABS: Alanine Aminotransferase 25 U/L (0-31); Albumin Level 4.3 g/dL (3.5-5.0); Alkaline Phosphatase 77 U/L (39-117); Anion Gap 12 (12-20); Aspartate Amino Transferase 29 U/L (5-31); Bilirubin Total 0.7 mg/dL (0.0-1.0); Blood Urea Nitrogen 30 mg/dL (9-16); Calcium 9.6 mg/dL (8.4-10.2); Carbon Dioxide 29 mmol/L (22-29); Chloride 105 mmol/L (96-108); Cholesterol 176 mg/dL; Estimated Glomerular Filt Rate > 60; Glucose Fasting 96 mg/dL (60-99); HDL Cholesterol 58 mg/dL; LDL Cholesterol Calculated 103 mg/dl; Potassium 4.8 mmol/L (3.3-5.1); Sodium 141 mmol/L (135-145); Total Protein 6.9 g/dL (6.5-8.0); Triglycerides 78 mg/dL
[2020-11-03 12:10] LABS: Glucose Urine UA NEG (NEG); Leukocyte Esterase Urine NEG (NEG); Nitrite Urine NEG (NEG); Specific Gravity - Urine 1.025 (1.005-1.025); UACC Culture Trigger NO; Urine Blood 2+ (NEG); Urine Ketones NEG (NEG); Urine Protein NEG (NEG-TRACE)
[2020-11-03 12:14] LABS: TSH reflex Free T4 1.25 uIU/mL (0.32-4.0); Vitamin D 25-OH Total 33.9 ng/mL (>30)
[2020-11-03 12:16] LABS: Erythrocyte Sedimentation Rate 6 MM/HR (0-20)
[2020-11-03 12:21] LABS: Appearance Urine HAZY; Color Urine YELLOW
[2020-11-03 12:45] LABS: Calcium Oxalate Crystals Urine TRACE /LPF; RBC Urine 0-2 /HPF (0); Squamous Epithelial Cell Urine TRACE /LPF; WBC Urine 0-2 /HPF (0-4)
== END 2020-11-03 08:12 | disposition home or self-care (01) ==
LOC: HO.HMGCLDS 08:11
PROVIDERS: PCP Internal Medicine; Visit Provider Internal Medicine
DX: L40.50 Arthropathic psoriasis, unspecified (principal); M51.36 Other intervertebral disc degeneration, lumbar region; E78.00 Pure hypercholesterolemia, unspecified; R79.89 Other specified abnormal findings of blood chemistry; M79.7 Fibromyalgia; E55.9 Vitamin D deficiency, unspecified
CPT/HCPCS: 36415; 80053; 80061; 81001; 81003; 82306; 84443; 85025; 85652

== ENCOUNTER 2020-12-27 07:51 | Outpatient (REF) | payer MEDICARE, BC, SELFPAY ==
[2020-12-27 09:12] LABS: MANUAL DIFF FLAG NO
[2020-12-27 09:17] LABS: Basophils Percent Auto 0.4 % (0-2); Eosinophils Absolute Auto 0.1 X10*3/uL (0.0-0.4); Eosinophils Percent Auto 2.4 % (0-4); Hematocrit 46.3 % (37-47); Hemoglobin 14.9 g/dl (12.0-16.0); Imm Gran Abs Auto 0.01 X10*3/uL (0.00-0.03); Imm Gran Pct Auto 0.2 % (0.0-0.4); Lymphocytes Absolute Auto 1.4 X10*3/uL (1.2-4.9); Mean Corpuscular HGB Conc 32.2 g/dl (31.0-35.0); Mean Corpuscular Hemoglobin 29.9 pg (27.0-33.0); Mean Corpuscular Volume 92.8 fL (80-98); Mean Platelet Volume 9.3 fL (9.4-12.3); Monocytes Absolute Auto 0.3 X10*3/uL (0.1-1.2); Monocytes Percent Auto 5.3 % (2-11); Neutrophils Absolute Auto 3.3 X10*3/uL (2.0-8.3); Neutrophils Percent Auto 63.7 % (45-73); Platelet Count 273 X10*3/uL (160-400); Red Blood Count 4.99 X10*6/uL (4.20-5.50); Red Cell Distribution Width 14.4 % (11.0-16.0); White Blood Count 5.1 X10*3/uL (4.8-10.8)
[2020-12-27 09:41] LABS: Alanine Aminotransferase 20 U/L (0-31); Albumin Level 4.2 g/dL (3.5-5.0); Alkaline Phosphatase 79 U/L (39-117); Anion Gap 12 (12-20); Aspartate Amino Transferase 24 U/L (5-31); Bilirubin Total 0.3 mg/dL (0.0-1.0); Blood Urea Nitrogen 20 mg/dL (9-16); C Reactive Protein 0.09 mg/dL (< or = 0.50); Calcium 9.6 mg/dL (8.4-10.2); Carbon Dioxide 29 mmol/L (22-29); Chloride 106 mmol/L (96-108); Estimated Glomerular Filt Rate > 60; Glucose Random 94 mg/dL (60-115); Sodium 142 mmol/L (135-145); Total Protein 6.6 g/dL (6.5-8.0)
[2020-12-27 10:31] LABS: Erythrocyte Sedimentation Rate 4 MM/HR (0-20)
== END 2020-12-27 07:52 | disposition home or self-care (01) ==
LOC: HO.LAB 07:51
PROVIDERS: Absent Provider Student in an Organized Health Care Education/Training Program; PCP Internal Medicine; Visit Provider Nurse Practitioner Family
DX: L40.50 Arthropathic psoriasis, unspecified (principal); Z79.899 Other long term (current) drug therapy
CPT/HCPCS: 36415; 80053; 85025; 85652; 86140; 99212

== ENCOUNTER 2021-04-18 08:52 | Outpatient (REF) | payer MEDICARE, BC, SELFPAY ==
[2021-04-18 10:17] LABS: MANUAL DIFF FLAG NO
[2021-04-18 10:29] LABS: Basophils Percent Auto 0.6 % (0-2); Eosinophils Absolute Auto 0.1 X10*3/uL (0.0-0.4); Eosinophils Percent Auto 2.2 % (0-4); Hematocrit 47.1 % (37.0-47.0); Hemoglobin 15.1 g/dl (12.0-16.0); Imm Gran Abs Auto 0.01 X10*3/uL (0.00-0.03); Imm Gran Pct Auto 0.2 % (0.0-0.4); Lymphocytes Absolute Auto 1.6 X10*3/uL (1.2-4.9); Lymphocytes Percent Auto 32.3 % (20-40); Mean Corpuscular HGB Conc 32.1 g/dl (31.0-35.0); Mean Corpuscular Hemoglobin 29.9 pg (27.0-33.0); Mean Corpuscular Volume 93.3 fL (80.0-98.0); Monocytes Absolute Auto 0.3 X10*3/uL (0.1-1.2); Monocytes Percent Auto 5.7 % (2-11); Neutrophils Absolute Auto 2.9 x10*3/uL (2.0-8.3); Platelet Count 268 X10*3/uL (160-400); Red Blood Count 5.05 X10*6/uL (4.20-5.50); Red Cell Distribution Width 14.2 % (11.0-16.0); White Blood Count 4.9 X10*3/uL (4.8-10.8)
[2021-04-18 10:55] LABS: Alanine Aminotransferase 56 U/L (0-31); Albumin Level 4.2 g/dL (3.5-5.0); Alkaline Phosphatase 80 U/L (39-117); Anion Gap 7 (12-20); Aspartate Amino Transferase 44 U/L (5-31); Bilirubin Total 0.5 mg/dL (0.0-1.0); Blood Urea Nitrogen 19 mg/dL (9-16); C Reactive Protein 0.12 mg/dL (< or = 0.50); Calcium 9.9 mg/dL (8.4-10.2); Carbon Dioxide 30 mmol/L (22-29); Chloride 107 mmol/L (96-108); Estimated Glomerular Filt Rate > 60; Glucose Random 75 mg/dL (60-115); Potassium 4.9 mmol/L (3.3-5.1); Sodium 139 mmol/L (135-145); Total Protein 6.9 g/dL (6.5-8.0)
[2021-04-18 11:53] LABS: Erythrocyte Sedimentation Rate 5 MM/HR (0-20)
== END 2021-04-18 08:53 | disposition home or self-care (01) ==
LOC: HO.LAB 08:52
PROVIDERS: PCP Internal Medicine; Visit Provider Nurse Practitioner Family
DX: L40.50 Arthropathic psoriasis, unspecified (principal); Z79.899 Other long term (current) drug therapy
CPT/HCPCS: 36415; 80053; 85025; 85652; 86140; 99212

== ENCOUNTER 2021-04-26 08:33 | Outpatient (REF) | payer MEDICARE, BC, SELFPAY ==
--- NOTE | ~2021-04-26 | MM_ITS ---
EXAMINATION: BONE DENSITOMETRY CLINICAL INDICATION: Menopause. COMPARISON: Previous BD dated 03/19/2019 and baseline BD dated 05/05/2010. TECHNIQUE: Using a eRALOS3 DXA System (software version: 13.1) manufactured by [employer], dual-energy x-ray absorptiometry was performed of the lumbar spine and left hip. The images are of good technical quality. Summary results are attached. FINDINGS: AP SPINE L1-L4: Current: BMD 1.072 g/cm2, Z-score 0.6, T-score -0.9, normal, 4.8% decrease from previous, 15.2% decrease from baseline (<5% change is not significant). Prior: BMD 1.126 g/cm2. Baseline: BMD 1.264 g/cm2. LEFT FEMUR, NECK: Current: BMD 0.852 g/cm2, Z-score 0.1, T-score -1.3, osteopenia. Prior: BMD 0.856 g/cm2. Baseline: BMD 1.023 g/cm2. LEFT FEMUR, TOTAL: Current: BMD 0.975 g/cm2, Z-score 0.8, T-score -0.3, normal, 1.3% decrease from previous, 14.3% decrease from baseline (<5% change is not significant). Prior: BMD 0.988 g/cm2. Baseline: BMD 1.138 g/cm2. IDENTIFIED RISK FACTORS: Menopause, history of fracture (adult), glucocorticoids (chronic), rheumatoid arthritis. HISTORY OF FRACTURE: Elbow. MEDICATIONS: Calcium, vitamin D. MM/XR DEXA axial skeleton IMPRESSION: 1. DIAGNOSIS: Osteopenia based on the lowest T-score value of -1.3 in the femoral neck applying World Health Organization criteria. 2. 10-YEAR FRACTURE RISK PREDICTION, FRAX: Major osteoporotic fracture (clinical spine, forearm, hip or shoulder) 25.4%. Hip fracture 2.8%. 3. Treatment Recommendations: NOF guidelines recommend consideration for treatment in postmenopausal women and men age 50 and older presenting with the following: -A hip or vertebral (clinical or morphometric) fracture. -T-score less than or equal to -2.5 at the femoral neck or spine after appropriate evaluation to exclude secondary causes. -Low bone mass at the hip or spine and a 10-year fracture probability by FRAX of greater than or equal to 3% for hip fracture or greater than or equal to 20% for major osteoporotic fracture based on the [place] adapted WHO algorithm. 4. Other Recommendations: All treatment decisions require clinical judgment and consideration of individual patient factors, including patient preferences, comorbidities, previous drug use, risk factors not captured in the FRAX model (e.g. frailty, falls, vitamin D deficiency, increased bone turnover, interval significant decline in bone density) and possible under or overestimation of fracture risk by FRAX. Additional medical evaluation for secondary cause of low bone mineral density may be appropriate. FUTURE SCAN RECOMMENDATION: People with diagnosed cases of osteoporosis or at high risk for fracture should have regular bone mineral density tests. For patients eligible for Medicare, routine testing is allowed once every 2 years. The testing frequency can be increased to one year for patients who have rapidly progressing disease, those who are receiving or discontinuing medical therapy to restore bone mass, or have additional risk factors.
== END 2021-04-26 08:34 | disposition home or self-care (01) ==
LOC: HO.MAMMO 08:33
PROVIDERS: Visit Provider Nurse Practitioner Family
DX: Z13.820 Encounter for screening for osteoporosis (principal); M85.80 Other specified disorders of bone density and structure, unspecified site; Z78.0 Asymptomatic menopausal state; Z79.899 Other long term (current) drug therapy
CPT/HCPCS: 77080

== ENCOUNTER 2021-05-15 08:03 | Outpatient (REF) | payer MEDICARE, BC, SELFPAY ==
[2021-05-15 09:57] LABS: Alanine Aminotransferase 37 U/L (0-31); Albumin Level 4.4 g/dL (3.5-5.0); Alkaline Phosphatase 86 U/L (39-117); Anion Gap 11 (12-20); Aspartate Amino Transferase 39 U/L (5-31); Bilirubin Total 0.6 mg/dL (0.0-1.0); Blood Urea Nitrogen 20 mg/dL (9-16); Calcium 9.9 mg/dL (8.4-10.2); Carbon Dioxide 31 mmol/L (22-29); Chloride 103 mmol/L (96-108); Estimated Glomerular Filt Rate > 60; Glucose Random 98 mg/dL (60-115); Potassium 4.8 mmol/L (3.3-5.1); Sodium 140 mmol/L (135-145); Total Protein 7.2 g/dL (6.5-8.0)
== END 2021-05-15 08:04 | disposition home or self-care (01) ==
LOC: HO.LAB 08:03
PROVIDERS: PCP Internal Medicine; Visit Provider Nurse Practitioner Family
DX: L40.50 Arthropathic psoriasis, unspecified (principal)
CPT/HCPCS: 36415; 80053

== ENCOUNTER 2021-06-21 08:38 | Outpatient (REF) | payer MEDICARE, BC, SELFPAY ==
[2021-06-21 09:07] LABS: MANUAL DIFF FLAG NO
[2021-06-21 09:43] LABS: Basophils Percent Auto 0.5 % (0-2); Eosinophils Absolute Auto 0.2 X10*3/uL (0.0-0.4); Hematocrit 47.1 % (37.0-47.0); Hemoglobin 14.9 g/dl (12.0-16.0); Imm Gran Abs Auto 0.01 X10*3/uL (0.00-0.03); Imm Gran Pct Auto 0.2 % (0.0-0.4); Lymphocytes Absolute Auto 1.3 X10*3/uL (1.2-4.9); Lymphocytes Percent Auto 29.2 % (20-40); Mean Corpuscular HGB Conc 31.6 g/dl (31.0-35.0); Mean Corpuscular Hemoglobin 29.6 pg (27.0-33.0); Mean Corpuscular Volume 93.6 fL (80.0-98.0); Mean Platelet Volume 9.2 fL (9.4-12.3); Monocytes Absolute Auto 0.3 X10*3/uL (0.1-1.2); Monocytes Percent Auto 6.1 % (2-11); Neutrophils Absolute Auto 2.6 x10*3/uL (2.0-8.3); Platelet Count 264 X10*3/uL (160-400); Red Blood Count 5.03 X10*6/uL (4.20-5.50); Red Cell Distribution Width 13.8 % (11.0-16.0); White Blood Count 4.4 X10*3/uL (4.8-10.8)
[2021-06-21 10:10] LABS: Alanine Aminotransferase 26 U/L (0-31); Albumin Level 4.2 g/dL (3.5-5.0); Alkaline Phosphatase 81 U/L (39-117); Anion Gap 13 (12-20); Aspartate Amino Transferase 26 U/L (5-31); Bilirubin Total 0.5 mg/dL (0.0-1.0); Blood Urea Nitrogen 19 mg/dL (9-16); C Reactive Protein 0.13 mg/dL (< or = 0.50); Calcium 10.1 mg/dL (8.4-10.2); Carbon Dioxide 29 mmol/L (22-29); Chloride 105 mmol/L (96-108); Cholesterol 162 mg/dL; Estimated Glomerular Filt Rate > 60; Glucose Fasting 89 mg/dL (60-99); HDL Cholesterol 51 mg/dL; LDL Cholesterol Calculated 93 mg/dl; Potassium 5.1 mmol/L (3.3-5.1); Sodium 142 mmol/L (135-145); Total Protein 6.9 g/dL (6.5-8.0); Triglycerides 91 mg/dL
[2021-06-21 10:24] LABS: Erythrocyte Sedimentation Rate 5 MM/HR (0-20)
[2021-06-21 10:26] LABS: Appearance Urine CLEAR; Color Urine YELLOW; Glucose Urine UA NEG (NEG); Leukocyte Esterase Urine NEG (NEG); Nitrite Urine NEG (NEG); PH 5.5 (5.0-8.0); Specific Gravity - Urine >= 1.030 (1.005-1.025); UACC Culture Trigger NO; Urine Blood 2+ (NEG); Urine Ketones NEG (NEG); Urine Protein NEG (NEG-TRACE)
[2021-06-21 10:34] LABS: TSH reflex Free T4 1.27 uIU/mL (0.32-4.0); Vitamin D 25-OH Total 33.2 ng/mL (>30)
[2021-06-21 11:13] LABS: Mucus Urine 1+ /LPF; Squamous Epithelial Cell Urine 1+ /LPF; WBC Urine 0-2 /HPF (0-4)
== END 2021-06-21 08:39 | disposition home or self-care (01) ==
LOC: HO.LAB 08:38
PROVIDERS: PCP Internal Medicine; Visit Provider Internal Medicine
DX: L40.50 Arthropathic psoriasis, unspecified (principal); M79.7 Fibromyalgia; E78.00 Pure hypercholesterolemia, unspecified; I10 Essential (primary) hypertension; E55.9 Vitamin D deficiency, unspecified
CPT/HCPCS: 36415; 80053; 80061; 81001; 82306; 84443; 85025; 85652; 86140

== ENCOUNTER 2021-07-19 08:47 | Outpatient (REF) | payer MEDICARE, BC, SELFPAY ==
[2021-07-19 09:02] LABS: MANUAL DIFF FLAG NO
[2021-07-19 09:20] LABS: Basophils Percent Auto 0.7 % (0-2); Eosinophils Absolute Auto 0.1 X10*3/uL (0.0-0.4); Eosinophils Percent Auto 1.8 % (0-4); Hematocrit 44.1 % (37.0-47.0); Hemoglobin 14.3 g/dl (12.0-16.0); Imm Gran Abs Auto 0.01 X10*3/uL (0.00-0.03); Imm Gran Pct Auto 0.2 % (0.0-0.4); Lymphocytes Absolute Auto 1.3 X10*3/uL (1.2-4.9); Lymphocytes Percent Auto 27.5 % (20-40); Mean Corpuscular HGB Conc 32.4 g/dl (31.0-35.0); Mean Corpuscular Hemoglobin 30.1 pg (27.0-33.0); Mean Corpuscular Volume 92.8 fL (80.0-98.0); Mean Platelet Volume 9.1 fL (9.4-12.3); Monocytes Absolute Auto 0.3 X10*3/uL (0.1-1.2); Monocytes Percent Auto 5.5 % (2-11); Neutrophils Absolute Auto 2.9 x10*3/uL (2.0-8.3); Neutrophils Percent Auto 64.3 % (45-73); Platelet Count 237 X10*3/uL (160-400); Red Blood Count 4.75 X10*6/uL (4.20-5.50); Red Cell Distribution Width 13.4 % (11.0-16.0); White Blood Count 4.5 X10*3/uL (4.8-10.8)
[2021-07-19 09:47] LABS: Alanine Aminotransferase 25 U/L (0-31); Alkaline Phosphatase 85 U/L (39-117); Anion Gap 11 (12-20); Aspartate Amino Transferase 23 U/L (5-31); Bilirubin Total 0.4 mg/dL (0.0-1.0); Blood Urea Nitrogen 17 mg/dL (9-16); C Reactive Protein 0.12 mg/dL (< or = 0.50); Calcium 9.7 mg/dL (8.4-10.2); Carbon Dioxide 29 mmol/L (22-29); Chloride 107 mmol/L (96-108); Estimated Glomerular Filt Rate > 60; Glucose Random 75 mg/dL (60-115); Potassium 4.8 mmol/L (3.3-5.1); Sodium 142 mmol/L (135-145); Total Protein 6.6 g/dL (6.5-8.0)
[2021-07-19 10:00] LABS: Erythrocyte Sedimentation Rate 6 MM/HR (0-20)
== END 2021-07-19 08:48 | disposition home or self-care (01) ==
LOC: HO.LAB 08:47
PROVIDERS: PCP Internal Medicine; Visit Provider Nurse Practitioner Family
DX: L40.50 Arthropathic psoriasis, unspecified (principal)
CPT/HCPCS: 36415; 80053; 85025; 85652; 86140

== ENCOUNTER → 2021-07-20 07:45 | Outpatient (BNVA) | payer MEDICARE, BC, SELFPAY | PROVIDERS: PCP Internal Medicine; Visit Provider Nurse Practitioner Family | DX: L40.50 Arthropathic psoriasis, unspecified (principal); Z79.899 Other long term (current) drug therapy | CPT/HCPCS: 99212 ==

== ENCOUNTER 2021-10-18 08:30 | Outpatient (REF) | payer MEDICARE, BC, SELFPAY ==
[2021-10-18 10:14] LABS: Alanine Aminotransferase 24 U/L (0-31); Albumin Level 4.3 g/dL (3.5-5.0); Alkaline Phosphatase 88 U/L (39-117); Anion Gap 12 (12-20); Aspartate Amino Transferase 27 U/L (5-31); Bilirubin Total 0.6 mg/dL (0.0-1.0); Blood Urea Nitrogen 15 mg/dL (9-16); C Reactive Protein 0.17 mg/dL (< or = 0.50); Calcium 9.8 mg/dL (8.4-10.2); Carbon Dioxide 31 mmol/L (22-29); Chloride 103 mmol/L (96-108); Estimated Glomerular Filt Rate > 60; Glucose Random 109 mg/dL (60-115); Potassium 5.1 mmol/L (3.3-5.1); Sodium 141 mmol/L (135-145); Total Protein 6.9 g/dL (6.5-8.0)
[2021-10-18 10:41] LABS: Erythrocyte Sedimentation Rate 6 MM/HR (0-20)
[2021-10-19 08:44] LABS: MANUAL DIFF FLAG NO
[2021-10-19 08:48] LABS: Basophils Percent Auto 0.4 % (0-2); Eosinophils Absolute Auto 0.1 X10*3/uL (0.0-0.4); Eosinophils Percent Auto 1.8 % (0-4); Hematocrit 46.5 % (37.0-47.0); Hemoglobin 15.4 g/dl (12.0-16.0); Imm Gran Abs Auto 0.03 X10*3/uL (0.00-0.03); Imm Gran Pct Auto 0.5 % (0.0-0.4); Lymphocytes Absolute Auto 1.3 X10*3/uL (1.2-4.9); Lymphocytes Percent Auto 22.8 % (20-40); Mean Corpuscular HGB Conc 33.1 g/dl (31.0-35.0); Mean Corpuscular Volume 90.5 fL (80.0-98.0); Mean Platelet Volume 9.5 fL (9.4-12.3); Monocytes Absolute Auto 0.3 X10*3/uL (0.1-1.2); Monocytes Percent Auto 5.5 % (2-11); Neutrophils Absolute Auto 3.9 x10*3/uL (2.0-8.3); Platelet Count 235 X10*3/uL (160-400); Red Blood Count 5.14 X10*6/uL (4.20-5.50); White Blood Count 5.6 X10*3/uL (4.8-10.8)
== END 2021-10-18 08:31 | disposition home or self-care (01) ==
LOC: HO.LAB 08:30
PROVIDERS: PCP Internal Medicine; Visit Provider Nurse Practitioner Family
DX: M79.7 Fibromyalgia (principal); L40.50 Arthropathic psoriasis, unspecified
CPT/HCPCS: 36415; 80053; 85025; 85652; 86140

== ENCOUNTER → 2021-10-19 07:51 | Outpatient (BNVA) | payer MEDICARE, BC, SELFPAY | PROVIDERS: PCP Internal Medicine; Visit Provider Nurse Practitioner Family | DX: L40.50 Arthropathic psoriasis, unspecified (principal); M79.7 Fibromyalgia; Z79.899 Other long term (current) drug therapy | CPT/HCPCS: 99212 ==

== ENCOUNTER 2021-11-28 06:49 | Outpatient (REF) | payer MEDICARE, BC, SELFPAY ==
[2021-11-28 07:03] LABS: MANUAL DIFF FLAG NO
[2021-11-28 07:29] LABS: Basophils Percent Auto 0.4 % (0-2); Eosinophils Absolute Auto 0.1 X10*3/uL (0.0-0.4); Eosinophils Percent Auto 2.4 % (0-4); Hematocrit 46.6 % (37.0-47.0); Hemoglobin 15.2 g/dl (12.0-16.0); Imm Gran Abs Auto 0.01 X10*3/uL (0.00-0.03); Imm Gran Pct Auto 0.2 % (0.0-0.4); Lymphocytes Absolute Auto 1.9 X10*3/uL (1.2-4.9); Lymphocytes Percent Auto 37.3 % (20-40); Mean Corpuscular HGB Conc 32.6 g/dl (31.0-35.0); Mean Corpuscular Hemoglobin 29.7 pg (27.0-33.0); Monocytes Absolute Auto 0.3 X10*3/uL (0.1-1.2); Monocytes Percent Auto 6.3 % (2-11); Neutrophils Absolute Auto 2.7 x10*3/uL (2.0-8.3); Neutrophils Percent Auto 53.4 % (45-73); Platelet Count 244 X10*3/uL (160-400); Red Blood Count 5.12 X10*6/uL (4.20-5.50); Red Cell Distribution Width 13.6 % (11.0-16.0); White Blood Count 5.1 X10*3/uL (4.8-10.8)
[2021-11-28 07:47] LABS: Appearance Urine Clear; Color Urine Yellow; Glucose Urine UA Negative (Negative); Leukocyte Esterase Urine Negative (Negative); Nitrite Urine Negative (Negative); Specific Gravity - Urine 1.015 (1.005-1.025); Urine Blood Moderate (2+) (Negative); Urine Ketones Negative (Negative); Urine Protein Negative (Neg-Trace)
[2021-11-28 07:52] LABS: Bacteria Urine None Seen (None Seen); Hyaline Casts Urine 0-2 /LPF (0-2); Squamous Epithelial Cell Urine 0-2 /HPF (0-2); WBC Urine 0-5 /HPF (0-5)
[2021-11-28 08:02] LABS: Alanine Aminotransferase 50 U/L (0-31); Albumin Level 4.3 g/dL (3.5-5.0); Alkaline Phosphatase 87 U/L (39-117); Anion Gap 14 (12-20); Aspartate Amino Transferase 46 U/L (5-31); Bilirubin Total 0.9 mg/dL (0.0-1.0); Blood Urea Nitrogen 16 mg/dL (9-16); Calcium 9.3 mg/dL (8.4-10.2); Carbon Dioxide 29 mmol/L (22-29); Chloride 103 mmol/L (96-108); Cholesterol 189 mg/dL; Estimated Glomerular Filt Rate > 60; Glucose Fasting 95 mg/dL (60-99); HDL Cholesterol 59 mg/dL; LDL Cholesterol Calculated 118 mg/dl; Potassium 4.7 mmol/L (3.3-5.1); Sodium 141 mmol/L (135-145); Total Protein 6.8 g/dL (6.5-8.0); Triglycerides 62 mg/dL
[2021-11-28 08:30] LABS: TSH reflex Free T4 1.99 uIU/mL (0.32-4.0); Vitamin D 25-OH Total 42.8 ng/mL (>30)
== END 2021-11-28 06:50 | disposition home or self-care (01) ==
LOC: HO.LAB 06:49
PROVIDERS: PCP Internal Medicine; Visit Provider Internal Medicine
DX: E55.9 Vitamin D deficiency, unspecified (principal); M79.7 Fibromyalgia; E78.00 Pure hypercholesterolemia, unspecified
CPT/HCPCS: 36415; 80053; 80061; 81001; 82306; 84443; 85025

== ENCOUNTER 2022-01-17 08:48 | Outpatient (REF) | payer MEDICARE, BC, SELFPAY ==
[2022-01-17 09:02] LABS: MANUAL DIFF FLAG NO
[2022-01-17 09:15] LABS: Basophils Percent Auto 0.4 % (0-2); Eosinophils Absolute Auto 0.1 X10*3/uL (0.0-0.4); Eosinophils Percent Auto 1.2 % (0-4); Hematocrit 44.8 % (37.0-47.0); Hemoglobin 14.8 g/dl (12.0-16.0); Imm Gran Abs Auto 0.01 X10*3/uL (0.00-0.03); Imm Gran Pct Auto 0.2 % (0.0-0.4); Lymphocytes Absolute Auto 1.4 X10*3/uL (1.2-4.9); Lymphocytes Percent Auto 28.4 % (20-40); Mean Corpuscular Volume 90.9 fL (80.0-98.0); Mean Platelet Volume 8.9 fL (9.4-12.3); Monocytes Absolute Auto 0.3 X10*3/uL (0.1-1.2); Monocytes Percent Auto 5.4 % (2-11); Neutrophils Absolute Auto 3.2 x10*3/uL (2.0-8.3); Neutrophils Percent Auto 64.4 % (45-73); Platelet Count 241 X10*3/uL (160-400); Red Blood Count 4.93 X10*6/uL (4.20-5.50); Red Cell Distribution Width 13.4 % (11.0-16.0)
[2022-01-17 09:59] LABS: Alanine Aminotransferase 24 U/L (0-31); Aspartate Amino Transferase 24 U/L (5-31); C Reactive Protein 0.18 mg/dL (< or = 0.50); Cholesterol 179 mg/dL; Estimated Glomerular Filt Rate > 60; HDL Cholesterol 58 mg/dL; LDL Cholesterol Calculated 105 mg/dl; Triglycerides 83 mg/dL
[2022-01-17 10:01] LABS: Erythrocyte Sedimentation Rate 8 MM/HR (0-20)
[2022-01-17 10:20] LABS: Vitamin D 25-OH Total 43.7 ng/mL (>30)
[2022-01-17 10:26] LABS: Appearance Urine Clear; Color Urine Yellow; Glucose Urine UA Negative (Negative); Leukocyte Esterase Urine Trace (Negative); Nitrite Urine Negative (Negative); PH 5.5 (5.0-9.0); UMIC TRIGGER UACC YES; Urine Blood Moderate (2+) (Negative); Urine Ketones Negative (Negative); Urine Protein Negative (Neg-Trace)
[2022-01-17 10:28] LABS: Bacteria Urine None Seen (None Seen); Hyaline Casts Urine 0-2 /LPF (0-2); Squamous Epithelial Cell Urine 0-2 /HPF (0-2); WBC Urine 0-5 /HPF (0-5)
== END 2022-01-17 08:49 | disposition home or self-care (01) ==
LOC: HO.LAB 08:48
PROVIDERS: PCP Internal Medicine; Visit Provider Nurse Practitioner Family
DX: E78.00 Pure hypercholesterolemia, unspecified (principal); E55.9 Vitamin D deficiency, unspecified; L40.50 Arthropathic psoriasis, unspecified; Z79.899 Other long term (current) drug therapy
CPT/HCPCS: 36415; 80061; 81001; 82306; 82565; 84450; 84460; 85025; 85652; 86140

== ENCOUNTER → 2022-01-19 07:58 | Outpatient (BNVA) | payer MEDICARE, BC, SELFPAY | PROVIDERS: PCP Internal Medicine; Visit Provider Nurse Practitioner Family | DX: L40.50 Arthropathic psoriasis, unspecified (principal); M79.7 Fibromyalgia | CPT/HCPCS: 99212 ==

== ENCOUNTER 2022-04-05 07:20 | Outpatient (REF) | payer MEDICARE, BC, SELFPAY ==
[2022-04-05 07:36] LABS: MANUAL DIFF FLAG NO
[2022-04-05 07:55] LABS: Basophils Percent Auto 0.4 % (0-2); Eosinophils Absolute Auto 0.1 X10*3/uL (0.0-0.4); Eosinophils Percent Auto 1.7 % (0-4); Hemoglobin 15.4 g/dl (12.0-16.0); Imm Gran Abs Auto 0.01 X10*3/uL (0.00-0.03); Imm Gran Pct Auto 0.2 % (0.0-0.4); Lymphocytes Absolute Auto 1.8 X10*3/uL (1.2-4.9); Lymphocytes Percent Auto 32.3 % (20-40); Mean Corpuscular HGB Conc 32.8 g/dl (31.0-35.0); Mean Corpuscular Volume 91.4 fL (80.0-98.0); Mean Platelet Volume 9.1 fL (9.4-12.3); Monocytes Absolute Auto 0.3 X10*3/uL (0.1-1.2); Monocytes Percent Auto 5.5 % (2-11); Neutrophils Absolute Auto 3.3 x10*3/uL (2.0-8.3); Neutrophils Percent Auto 59.9 % (45-73); Platelet Count 245 X10*3/uL (160-400); Red Blood Count 5.14 X10*6/uL (4.20-5.50); Red Cell Distribution Width 13.1 % (11.0-16.0); White Blood Count 5.5 X10*3/uL (4.8-10.8)
[2022-04-05 08:41] LABS: Alanine Aminotransferase 33 U/L (0-31); Albumin Level 4.3 g/dL (3.5-5.0); Alkaline Phosphatase 79 U/L (39-117); Anion Gap 10 (12-20); Aspartate Amino Transferase 25 U/L (5-31); Bilirubin Total 0.8 mg/dL (0.0-1.0); Blood Urea Nitrogen 26 mg/dL (9-16); Calcium 9.6 mg/dL (8.4-10.2); Carbon Dioxide 30 mmol/L (22-29); Chloride 106 mmol/L (96-108); Cholesterol 255 mg/dL; Estimated Glomerular Filt Rate > 60; Glucose Fasting 94 mg/dL (60-99); HDL Cholesterol 60 mg/dL; LDL Cholesterol Calculated 177 mg/dl; Potassium 5.2 mmol/L (3.3-5.1); Sodium 141 mmol/L (135-145); TSH reflex Free T4 1.35 uIU/mL (0.32-4.0); Total Protein 6.9 g/dL (6.5-8.0); Triglycerides 92 mg/dL; Vitamin D 25-OH Total 35.7 ng/mL (>30)
[2022-04-05 09:04] LABS: Appearance Urine Clear; Color Urine Yellow; Glucose Urine UA Negative (Negative); Leukocyte Esterase Urine Negative (Negative); Nitrite Urine Negative (Negative); UMIC TRIGGER UACC YES; Urine Blood Moderate (2+) (Negative); Urine Ketones Negative (Negative); Urine Protein Negative (Neg-Trace)
[2022-04-05 09:08] LABS: Bacteria Urine None Seen (None Seen); Hyaline Casts Urine 0-2 /LPF (0-2); Squamous Epithelial Cell Urine 0-2 /HPF (0-2); WBC Urine 0-5 /HPF (0-5)
== END 2022-04-05 07:21 | disposition home or self-care (01) ==
LOC: HO.LAB 07:20
PROVIDERS: PCP Internal Medicine; Visit Provider Internal Medicine
DX: E78.00 Pure hypercholesterolemia, unspecified (principal); E55.9 Vitamin D deficiency, unspecified
CPT/HCPCS: 36415; 80053; 80061; 81001; 81003; 82306; 84443; 85025

== ENCOUNTER 2022-05-11 07:29 | Outpatient (REF) | payer MEDICARE, BC, SELFPAY ==
[2022-05-11 08:39] LABS: C Reactive Protein 1.88 mg/dL (< or = 0.50); Potassium 4.5 mmol/L (3.3-5.1)
[2022-05-11 09:02] LABS: Erythrocyte Sedimentation Rate 12 MM/HR (0-20)
== END 2022-05-11 07:30 | disposition home or self-care (01) ==
LOC: HO.LAB 07:29
PROVIDERS: PCP Internal Medicine; Visit Provider Nurse Practitioner Family
DX: L40.50 Arthropathic psoriasis, unspecified (principal); E87.5 Hyperkalemia
CPT/HCPCS: 36415; 84132; 85652; 86140

== ENCOUNTER → 2022-05-14 07:51 | Outpatient (BNVA) | payer MEDICARE, BC, SELFPAY | PROVIDERS: PCP Internal Medicine; Visit Provider Nurse Practitioner Family | DX: L40.50 Arthropathic psoriasis, unspecified (principal); M35.3 Polymyalgia rheumatica; M79.7 Fibromyalgia | CPT/HCPCS: 99212 ==

== ENCOUNTER 2022-07-20 06:30 | Outpatient (REF) | payer MEDICARE, BC, SELFPAY ==
[2022-07-20 06:40] LABS: MANUAL DIFF FLAG NO
[2022-07-20 07:34] LABS: Basophils Percent Auto 0.6 % (0-2); Eosinophils Absolute Auto 0.1 X10*3/uL (0.0-0.4); Eosinophils Percent Auto 2.4 % (0-4); Hematocrit 45.1 % (37.0-47.0); Hemoglobin 14.6 g/dl (12.0-16.0); Imm Gran Abs Auto 0.01 X10*3/uL (0.00-0.03); Imm Gran Pct Auto 0.2 % (0.0-0.4); Lymphocytes Absolute Auto 2.1 X10*3/uL (1.2-4.9); Lymphocytes Percent Auto 38.6 % (20-40); Mean Corpuscular HGB Conc 32.4 g/dl (31.0-35.0); Mean Corpuscular Hemoglobin 28.9 pg (27.0-33.0); Mean Corpuscular Volume 89.1 fL (80.0-98.0); Mean Platelet Volume 9.2 fL (9.4-12.3); Monocytes Absolute Auto 0.3 X10*3/uL (0.1-1.2); Monocytes Percent Auto 5.4 % (2-11); Neutrophils Absolute Auto 2.9 x10*3/uL (2.0-8.3); Neutrophils Percent Auto 52.8 % (45-73); Platelet Count 292 X10*3/uL (160-400); Red Blood Count 5.06 X10*6/uL (4.20-5.50); Red Cell Distribution Width 13.4 % (11.0-16.0); White Blood Count 5.4 X10*3/uL (4.8-10.8)
[2022-07-20 08:13] LABS: Alanine Aminotransferase 17 U/L (0-31); Albumin Level 4.1 g/dL (3.5-5.0); Alkaline Phosphatase 79 U/L (39-117); Anion Gap 12 (12-20); Aspartate Amino Transferase 23 U/L (5-31); Bilirubin Total 0.5 mg/dL (0.0-1.0); Blood Urea Nitrogen 23 mg/dL (9-16); Carbon Dioxide 28 mmol/L (22-29); Chloride 108 mmol/L (96-108); Cholesterol 162 mg/dL; Estimated Glomerular Filt Rate > 60; Glucose Fasting 94 mg/dL (60-99); HDL Cholesterol 46 mg/dL; LDL Cholesterol Calculated 101 mg/dl; Potassium 4.7 mmol/L (3.3-5.1); Sodium 143 mmol/L (135-145); Total Protein 6.3 g/dL (6.5-8.0); Triglycerides 77 mg/dL
[2022-07-20 08:21] LABS: Appearance Urine Turbid; Color Urine Yellow; Glucose Urine UA Negative (Negative); Leukocyte Esterase Urine Negative (Negative); Nitrite Urine Negative (Negative); PH 5.5 (5.0-9.0); Specific Gravity - Urine 1.015 (1.005-1.025); UMIC TRIGGER UACC YES; Urine Blood Moderate (2+) (Negative); Urine Ketones Negative (Negative); Urine Protein Negative (Neg-Trace)
[2022-07-20 08:32] LABS: TSH reflex Free T4 1.56 uIU/mL (0.32-4.0); Vitamin D 25-OH Total 43.2 ng/mL (>30)
[2022-07-20 08:37] LABS: Bacteria Urine None Seen (None Seen); Hyaline Casts Urine 0-2 /LPF (0-2); WBC Urine 0-5 /HPF (0-5)
== END 2022-07-20 06:31 | disposition home or self-care (01) ==
LOC: HO.LAB 06:30
PROVIDERS: PCP Internal Medicine; Visit Provider Internal Medicine
DX: E78.00 Pure hypercholesterolemia, unspecified (principal); E55.9 Vitamin D deficiency, unspecified; I10 Essential (primary) hypertension; R30.0 Dysuria
CPT/HCPCS: 36415; 80053; 80061; 81001; 82306; 84443; 85025

== ENCOUNTER 2022-07-31 09:47 | Outpatient (REF) | payer MEDICARE, BC, SELFPAY ==
--- NOTE | ~2022-07-31 | US_ITS ---
EXAMINATION: US RETROPERITONEAL LIMITED (RENAL ONLY) CLINICAL INFORMATION: Benign essential microscopic hematuria. COMPARISON: Renal ultrasound 03/25/2014 and 02/16/2008. TECHNIQUE: Real-time imaging of the kidneys. FINDINGS: RIGHT KIDNEY: 10.4 x 4.7 x 6.4 cm (SAG x AP x TRV). The kidney is normal in size, contour, and echogenicity. Renal cortical thickness is normal. No renal calculi or hydronephrosis. A 4.0 cm benign-appearing cyst. Followup imaging is not routinely recommended for benign appearing cysts. LEFT KIDNEY: 10.9 x 5.0 x 5.1 cm (SAG x AP x TRV). The kidney is normal in size, contour, and echogenicity. Renal cortical thickness is normal. No calculi or focal parenchymal lesions. No hydronephrosis. US/US renal BI IMPRESSION: No hydronephrosis or nephrolithiasis. Benign-appearing right renal cyst. Followup imaging is not routinely recommended for benign appearing cysts.
== END 2022-07-31 09:48 | disposition home or self-care (01) ==
LOC: HO.HMGCX 09:47
PROVIDERS: PCP Internal Medicine; Visit Provider Internal Medicine
DX: R31.1 Benign essential microscopic hematuria (principal); N28.1 Cyst of kidney, acquired
CPT/HCPCS: 76775

== ENCOUNTER 2022-09-07 12:23 | Outpatient (REF) | payer MEDICARE, BC, SELFPAY ==
[2022-09-07 13:46] LABS: C Reactive Protein 0.13 mg/dL (< or = 0.50)
[2022-09-07 13:54] LABS: Erythrocyte Sedimentation Rate 7 MM/HR (0-20)
== END 2022-09-07 12:24 | disposition home or self-care (01) ==
LOC: HO.LAB 12:23
PROVIDERS: PCP Internal Medicine; Visit Provider Nurse Practitioner Family
DX: L40.50 Arthropathic psoriasis, unspecified (principal)
CPT/HCPCS: 36415; 85652; 86140

== ENCOUNTER → 2022-09-11 08:09 | Outpatient (BNVA) | payer MEDICARE, BC, SELFPAY | PROVIDERS: PCP Internal Medicine; Visit Provider Internal Medicine Rheumatology | DX: L40.50 Arthropathic psoriasis, unspecified (principal); M25.551 Pain in right hip; M25.552 Pain in left hip; M79.7 Fibromyalgia; Z79.899 Other long term (current) drug therapy | CPT/HCPCS: 99212 ==

== ENCOUNTER 2022-09-12 06:56 | Outpatient (REF) | payer MEDICARE, BC, SELFPAY ==
--- NOTE | ~2022-09-12 | XR_ITS ---
EXAMINATION: XR HIP, LEFT CLINICAL INFORMATION: Pain in left hip COMPARISON: Left hip 07/30/2016 TECHNIQUE: Two views of the left hip. FINDINGS: There is no significant interval change. There is no fracture or malalignment. There are small marginal osteophytes. There is mild superolateral joint space narrowing. XR/XR hip LT min 2V IMPRESSION: Mild osteoarthritis of the left hip.
--- NOTE | ~2022-09-12 | XR_ITS ---
EXAMINATION: XR HIP, RIGHT CLINICAL INFORMATION: Pain in right hip COMPARISON: Right hip 07/30/2016 TECHNIQUE: Two views of the right hip. FINDINGS: There is no significant interval change. There is no fracture or malalignment. There are small marginal osteophytes. There is mild superior lateral joint space narrowing. XR/XR hip RT min 2V IMPRESSION: Mild osteoarthritis of the right hip.
== END 2022-09-12 06:57 | disposition home or self-care (01) ==
LOC: HO.XRAY 06:56
PROVIDERS: PCP Internal Medicine; Visit Provider Internal Medicine Rheumatology
DX: M25.551 Pain in right hip (principal); M25.552 Pain in left hip
CPT/HCPCS: 73502

== ENCOUNTER 2022-11-22 06:25 | Outpatient (REF) | payer MEDICARE, BC, SELFPAY ==
[2022-11-22 06:34] LABS: MANUAL DIFF FLAG NO
[2022-11-22 07:37] LABS: Appearance Urine Clear; Color Urine Yellow; Glucose Urine UA Negative (Negative); Leukocyte Esterase Urine Negative (Negative); Nitrite Urine Negative (Negative); PH 5.5 (5.0-9.0); UMIC TRIGGER UACC YES; Urine Blood Large (3+) (Negative); Urine Ketones Trace mg/dL (Negative); Urine Protein Trace mg/dL (Neg-Trace)
[2022-11-22 07:42] LABS: Bacteria Urine None Seen (None Seen); Hyaline Casts Urine 0-2 /LPF (0-2); WBC Urine 0-5 /HPF (0-5)
[2022-11-22 07:47] LABS: Basophils Percent Auto 0.4 % (0-2); Eosinophils Absolute Auto 0.4 X10*3/uL (0.0-0.4); Eosinophils Percent Auto 4.6 % (0-4); Hematocrit 47.9 % (37.0-47.0); Hemoglobin 15.5 g/dl (12.0-16.0); Imm Gran Abs Auto 0.02 X10*3/uL (0.00-0.03); Imm Gran Pct Auto 0.3 % (0.0-0.4); Lymphocytes Absolute Auto 1.8 X10*3/uL (1.2-4.9); Lymphocytes Percent Auto 22.3 % (20-40); Mean Corpuscular HGB Conc 32.4 g/dl (31.0-35.0); Mean Corpuscular Volume 89.5 fL (80.0-98.0); Mean Platelet Volume 9.4 fL (9.4-12.3); Monocytes Absolute Auto 0.6 X10*3/uL (0.1-1.2); Monocytes Percent Auto 6.9 % (2-11); Neutrophils Absolute Auto 5.2 x10*3/uL (2.0-8.3); Neutrophils Percent Auto 65.5 % (45-73); Platelet Count 243 X10*3/uL (160-400); Red Blood Count 5.35 X10*6/uL (4.20-5.50); Red Cell Distribution Width 13.7 % (11.0-16.0)
[2022-11-22 08:20] LABS: Alanine Aminotransferase 33 U/L (0-31); Albumin Level 4.3 g/dL (3.5-5.0); Alkaline Phosphatase 92 U/L (39-117); Anion Gap 12 (12-20); Aspartate Amino Transferase 33 U/L (5-31); Bilirubin Total 0.8 mg/dL (0.0-1.0); Blood Urea Nitrogen 13 mg/dL (9-16); Carbon Dioxide 26 mmol/L (22-29); Chloride 105 mmol/L (96-108); Cholesterol 183 mg/dL; Estimated Glomerular Filt Rate > 60; Glucose Fasting 95 mg/dL (60-99); HDL Cholesterol 59 mg/dL; LDL Cholesterol Calculated 108 mg/dl; Potassium 4.3 mmol/L (3.3-5.1); Sodium 139 mmol/L (135-145); Total Protein 7.5 g/dL (6.5-8.0); Triglycerides 82 mg/dL
[2022-11-22 08:29] LABS: TSH reflex Free T4 1.94 uIU/mL (0.32-4.0); Vitamin D 25-OH Total 50.6 ng/mL (>30)
== END 2022-11-22 06:26 | disposition home or self-care (01) ==
LOC: HO.LAB 06:25
PROVIDERS: PCP Internal Medicine; Visit Provider Internal Medicine
DX: E78.00 Pure hypercholesterolemia, unspecified (principal); E55.9 Vitamin D deficiency, unspecified; I10 Essential (primary) hypertension
CPT/HCPCS: 36415; 80053; 80061; 81001; 82306; 84443; 85025

== ENCOUNTER 2022-11-26 08:42 | Outpatient (AMB) | payer MEDICARE, BC, SELFPAY ==
[2022-11-26 08:53] VITALS: BP 110/78; PULSE 67; O2SAT 98; BMI 23.9
--- NOTE | 2022-11-26 08:53 | MHC.PC.OV ---
Vital Signs 11/26/22 08:53 Height 5 ft 2 in Weight 130 lb 8 oz BMI 23.9 BP 110/78 Blood Pressure Location Lt brachial Position Sitting Pulse 67 Pulse Source Pulse Oximeter Pulse Oximetry (%) 98 Oxygen Delivery Method Room Air Intake Visit Reasons: hyperlipidemia, osteopenia, elevated LFTs Collar Setter Required: No Accompanied by: Self / Same As Patient Allergies No Known Allergies Allergy (Verified 11/26/22 09:12) Medication List - Last Reconciled 11/26/22 by Jermaine Berg MD apremilast (Otezla) 30 mg PO BID clonazepam 0.5 mg PO BID PRN lidocaine 4% (Aspercreme (lidocaine)) 2 patches topical DAILY PRN simvastatin 20 mg PO DAILY 90 days tramadol 1 to 2 tablets every 4 to 6 hours as needed for pain (no more than 3 to 4 times a day); 30 days Tobacco use date assessed: 11/26/22 Dental Screening Dental Screen Date: 11/26/22 Did you have a dental visit in the last 12 months?: Yes Did you have a dental problem in the last 6 months where you did not have access to dental care?: No Was dental information given to patient?: Patient has dentist HPI hyperlipidemia, osteopenia, elevated LFTs HPI Details Patient comes in today for her follow up visit States that she feels okay Still has on and off headaches but states that these are mostly manageable; denies any dizziness Denies any chest pains, no SOB No nausea/vomiting, no abdominal pain No change in bowel habits noted Continues to have chronic left-sided neck pain and left shoulder pain that she states are mostly unchanged from before; states that her current meds help her manage the pain Needs her Tramadol Rx refilled Had her follow up labs done a few days ago - to discuss her results [facility] Medical History Anxiety Closed fracture of head of radius with routine healing Depression Elevated LFTs Failed neck syndrome Fibromyalgia Fracture of radial head, right, closed History of colon polyps 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 Lumbar degenerative disc disease Occult fracture of right elbow Osteopenia Pain in left shoulder Polymyalgia rheumatica Psoriatic arthritis Pure hypercholesterolemia 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 of both lower extremities with pain 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 of left lower extremity with inflammation Vitamin D deficiency Surgical History Hx of abdominoplasty Hx of section Hx of colonoscopy S/P cervical spinal fusion Family History Mother Lung cancer Father Drug addict Other Mental health problem Substance abuse Social History Household Members: Significant Other and Family Housing: House Are you a primary transitional care manager to a significant other at home: No Alcohol intake: never Patient Tobacco Use Status: Never used Tobacco e-Cigarette/Vaping Use: Never Used Second Hand Smoke Exposure: Yes service: No Current occupational status: disabled Cognitive needs: No Hearing needs: No Vision needs: Yes (glasses) Questionnaire PHQ-9 Over the last 2 weeks, how often have you been bothered by any of the following problems? 1. Little interest or pleasure in doing things: several days 2. Feeling down, depressed, or hopeless: several days 3. Trouble falling or staying asleep, or sleeping too much: nearly every day 4. Feeling tired or having little energy: more than half the days 5. Poor appetite or overeating: not at all 6. Feeling bad about yourself - or that you are a failure or have let yourself or your family down: several days 7. Trouble concentrating on things, such as reading the newspaper or watching television: more than half the days 8. Moving or speaking so slowly that other people could have noticed. Or the opposite - being so fidgety or restless that you have been moving around a lot more than usual: several days 9. Thoughts that you would be better off or of hurting yourself in some way: not at all Total score: 11 Depression Screening Interpretation: Positive Depression Screening Follow-up: Existing condition and In treatment 41834 - PHQ-9 Billing: Yes Source: Developed by Drs. Yared Ge, Bella Moore, Ellis Ellis and colleagues, with an educational neil from [employer]. Thrive Questionnaire Date Thrive assessed: 11/26/22 I am a: Patient What is your living situation today?: I have a steady place to live Within the past 12 months, did the food you bought not last and you didn't have the money to get more?: Never true Within the past 12 months, did you worry whether your food would run out before you got money to buy more?: Never true Do you have trouble paying for medicines?: No Do you have trouble getting transportation to medical appointments?: No Do you have trouble paying your heating and electricity bill?: No Do you have trouble taking care of your child, family member or friend?: No Do you have trouble with day-to-day activities such as bathing, preparing meals, shopping, managing finances, etc.?: No Are you currently unemployed and looking for a job?: No Are you interested in more education?: No Please select the resources that you would like help with: None Currently or been in a relationship where the following occur: no concerns reported AUDIT C Alcohol Use Questionnaire (AUDIT-C) 1. How often do you have a drink containing alcohol?: Never 3. How often do you have six or more drinks on one occasion?: Never Total Score: 0 Score Reviewed/Action Taken: Yes JOSELO-7 AMB Questionnaire JOSELO-7 Date JOSELO - 7 assessed: 11/26/22 Feeling nervous, anxious, or on edge: 3 = Nearly every day Not being able to stop or control worryin = Nearly every day Worrying too much about different things: 3 = Nearly every day Trouble relaxin = Nearly every day Being so restless that it is hard to sit still: 3 = Nearly every day Becoming easily annoyed or irritable: 2 = More than half the days Feeling afraid as if something awful might happen: 0 = Not at all Total JOSELO-7 score (0-4 normal; 5-9 mild; 10-14 moderate; 15-21 severe): 17 Source: Developed by Drs. Yared Ge, Bella Moore, Ellis Ellis and colleagues, with an educational neil from [employer]. Review of Systems Const Denies chills, Reports fatigue, Denies fever(s) and Reports headache(s) (on and off) ENT Denies dysphagia, Denies dizziness, Denies otalgia, Reports headache(s) (on and off), Reports neck pain (chronic), Denies odynophagia and Denies sore throat Card Denies chest pain, Denies palpitations and Denies dyspnea Resp Denies cough and Denies dyspnea GI Denies abdominal pain, Denies constipation, Denies dysphagia, Denies heartburn, Denies diarrhea, Denies nausea, Denies odynophagia and Denies vomiting Denies difficulty voiding, Denies nocturia and Denies dysuria Musc Reports back pain, Reports arthralgias (left shoulder area - chronic) and Reports neck pain (chronic) Skin/Breast Denies rash Neuro Denies dizziness and Reports headache(s) (on and off) Psych Reports anxiety and Reports depression (increasing lately) Endo Reports fatigue and Denies palpitations Physical exam (Primary Care) Vital Signs: Last Vital Signs Pulse 67 11/26/22 08:53 BP 110/78 11/26/22 08:53 Pulse Ox 98 11/26/22 08:53 Oxygen Delivery Method Room Air 11/26/22 08:53 BMI result Body Mass Index 23.9 Tobacco/Smoking Status: Tobacco use Status Tobacco use date assessed 11/26/22 11/26/22 08:59 Patient Tobacco Use Status Never used Tobacco 11/26/22 08:59 e-Cigarette/Vaping Use Never Used 11/26/22 08:59 PHQ-9: PHQ-9 Score PHQ-9: Total score 11 11/26/22 08:59 Depression Screening Interpretation: Positive Depression Screening Follow-up: Existing condition and In treatment Thrive Assessment: Date of Thrive Assessment Date Thrive assessed 11/26/22 11/26/22 08:59 Currently or been in a relationship where the following occur: no concerns reported Const General: no acute distress and alert HENMT Ears: TM's normal bilaterally and EAC's normal Throat: Yes posterior oropharynx normal and Yes tonsils normal (no TP congestion noted) Neck Neck: Yes no lymphadenopathy and Yes supple Resp Auscultation: clear to auscultation bilaterally, no rales and no wheezes Cardio Rate: regular rate Rhythm: regular rhythm Heart sounds: no murmurs GI Palpation (GI): Soft to palpation and nontender Auscultation: normal bowel sounds Back/Spine/Pelvis Cervical Spine: cervical muscular tenderness (especially over the left side) and Cervical spine tenderness Thoracic/Lumbar Spine: paraspinal muscle tenderness bilaterally in the upper thoracic Extrem General: Yes no clubbing, cyanosis or edema Right upper extremity: shoulder/upper arm Details: tenderness; no swelling Left upper extremity: shoulder/upper arm Details: tenderness; no swelling Results Reviewed Results Reviewed: Laboratory Tests 11/22/22 11/22/22 11/22/22 06:33 06:33 06:42 WBC 8.0 Hgb 15.5 Hct 47.9 H Plt Count 243 Sodium 139 Potassium 4.3 Creatinine 0.79 Estimated GFR > 60 Fasting Glucose 95 Calcium 10.0 D AST 33 H ALT 33 H Triglycerides 82 Cholesterol 183 LDL Cholesterol, Calc 108 HDL Cholesterol 59 25-OH Vitamin D Total 50.6 TSH 1.94 Ur Specific [place] 1.020 Urine Protein Trace Urine Glucose (UA) Negative Urine Blood Large (3+) H Assessment and Plan Assessment & Plan (1) Pure hypercholesterolemia: Code(s): E78.00 - Pure hypercholesterolemia, unspecified Plan: Results of her labs done a few days ago reviewed and discussed with patient - advised that her cholesterol levels have increased slightly from previous but most of her increase involves her HDL Reinforced low cholesterol diet Continue Simvastatin 20 mg QD Will recheck her labs in 4 months for follow-up (2) Lumbar degenerative disc disease: Code(s): M51.36 - Other intervertebral disc degeneration, lumbar region Plan: Reinforced activity and weight-lifting restrictions to minimize flare ups of her back pain Repeat lumbar spine x-rays done a couple of years ago showed only mild lumbar spondylotic changes; SI joints were normal bilaterally (3) Fibromyalgia: Code(s): M79.7 - Fibromyalgia Plan: Patient is again encouraged to continue to stay active and exercise regularly to help manage her fibromyalgia symptoms Continue Tramadol 50 mg 1-2 tablets every 4-6 hours as needed (Rx refilled) and Baclofen 20 mg TID PRN (4) Psoriatic arthritis: Comment: Otezla: 2018- present Methotrexate: 2016 - 01/19/2022. Patient's disease is stable, trial off methotrexate to see how she does. Code(s): L40.50 - Arthropathic psoriasis, unspecified Plan: Continue Otezla 30 mg 1 tablet BID; was taken off Methotrexate by rheumatology a few months ago Follow-up with rheumatology as scheduled (5) Elevated LFTs: Code(s): R79.89 - Other specified abnormal findings of blood chemistry Plan: Advised that her LFTs are again slightly elevated on her recent labs Will continue to monitor her LFTs regularly (6) Vitamin D deficiency: Code(s): E55.9 - Vitamin D deficiency, unspecified Plan: Corrected - continue Vitamin D 600 units QD (7) Osteopenia: Code(s): M85.80 - Other specified disorders of bone density and structure, unspecified site Qualifiers: Osteopenia location: unspecified Qualified Code(s): M85.80 - Other specified disorders of bone density and structure, unspecified site Plan: Repeat BMD done in April 2021 showed (+) osteopenia with 4.8% decline in AP spine BMD from her previous BMD in 02/2019 and 1.3% decline in left femoral BMD from previous in 02/2019 -? will continue to monitor regularly Patient again encouraged to exercise regularly to help slow down decline in her BMD Reminded to continue on her Vitamin D and calcium supplements daily (8) Benign microscopic hematuria: Code(s): R31.1 - Benign essential microscopic hematuria Plan: Still has 2+ blood in her urine (chronic finding); patient remains asymptomatic Renal US last done in 03/2014 revealed (+) right renal cyst that is mostly unchanged from US in 2007 Repeat renal US done a few months ago in July 2022 showed the same findings; no further follow up imaging studies is recommended at this point (9) Renal cyst, right: Code(s): N28.1 - Cyst of kidney, acquired Plan: (+) right renal cyst noted on sonogram done in 2007 and in 2013 as well as most recently in July 2022 - no further follow up imaging studies is recommended (10) Insomnia: Code(s): G47.00 - Insomnia, unspecified Qualifiers: Insomnia type: unspecified Qualified Code(s): G47.00 - Insomnia, unspecified Plan: Sleep hygiene reinforced Continue Trazodone 100 mg QHS (11) Anxiety: Code(s): F41.9 - Anxiety disorder, unspecified Plan: Continue Clonazepam 0.5 mg 1 tablet 2 to 3 times a day as needed for anxiety (12) Depression: Code(s): F32.9 - Major depressive disorder, single episode, unspecified Qualifiers: Depression Type: unspecified Qualified Code(s): F32.9 - Major depressive disorder, single episode, unspecified Plan: Continue Venlafaxine ER 187.5 mg (150 + 37.5 mg) QD Was not able to tolerate Seroquel in the past Follow-up with Psychiatry as scheduled Plan Follow up in 4 months Orders: Orders Comprehensive [place]. Panel Fast 4 Months E78.00 - Pure hypercholesterolemia, unspecified Lipid Panel 4 Months E78.00 - Pure hypercholesterolemia, unspecified TSH reflex Free T4 4 Months E78.00 - Pure hypercholesterolemia, unspecified Vitamin D 25-OH Total 4 Months E55.9 - Vitamin D deficiency, unspecified Complete Blood Count Auto Diff 4 Months I10 - Essential (primary) hypertension UA CC w/rflx Micro + Cult 4 Months R30.0 - Dysuria Medications: Refilled tramadol 1 to 2 tablets every 4 to 6 hours as needed for pain (no more than 3 to 4 times a day); 30 days 90 tabs 1RF Coding Level of Care Code Est Pt Level 4 (86927) Diagnoses Pure hypercholesterolemia E78.00 Lumbar degenerative disc disease M51.36 Fibromyalgia M79.7 Psoriatic arthritis L40.50 Elevated LFTs R79.89 Vitamin D deficiency E55.9 Osteopenia M85.80 Osteopenia location: unspecified Benign microscopic hematuria R31.1 Renal cyst, right N28.1 Insomnia G47.00 Insomnia type: unspecified Anxiety F41.9 Depression F32.9 Depression Type: unspecified
== END 2022-11-26 09:27 | disposition home or self-care (01) ==
PROVIDERS: Visit Provider Internal Medicine
DX: E78.00 Pure hypercholesterolemia, unspecified (principal); L40.50 Arthropathic psoriasis, unspecified; E55.9 Vitamin D deficiency, unspecified; F41.9 Anxiety disorder, unspecified; F32.9 Major depressive disorder, single episode, unspecified; M51.36 Other intervertebral disc degeneration, lumbar region; M79.7 Fibromyalgia; R79.89 Other specified abnormal findings of blood chemistry; M85.80 Other specified disorders of bone density and structure, unspecified site; R31.1 Benign essential microscopic hematuria; N28.1 Cyst of kidney, acquired; G47.00 Insomnia, unspecified
CPT/HCPCS: 99214

== ENCOUNTER 2022-12-27 12:21 | Outpatient (AMB) | payer MEDICARE, BC, SELFPAY ==
--- NOTE | 2022-12-27 13:12 | MHC.OFFWIV ---
Intake Vital Signs 12/27/22 13:18 Height 5 ft 2 in Weight 134 lb 4 oz BMI 24.6 BP 134/76 Blood Pressure Location Lt brachial Position Sitting Pulse 78 Pulse Source Pulse Oximeter Temp 97.8 F Temp Source Temporal Artery Scan Pulse Oximetry (%) 98 Oxygen Delivery Method Room Air Intake Visit Reasons: EST/ear infection [id number] Intake Note: patient here for pain on left side of her head/ear. she thought she had something wrong with her tooth and was seen and they said it was not related. Patient Tobacco Use Status: Never used Tobacco Allergies No Known Allergies Allergy (Verified 12/27/22 13:13) Do you need a note to return to daycare/school/sports/work: No HPI HPI Comments History of Present Illness Details The patient presents urgent care for evaluation of right ear pain. She states that it started up over the weekend and she has been having about 2-3 days worth of ear pain and pressure radiating upper head and into her cheek and jaw. She states that the pain has been present intermittently for about a month and went to her dentist thinking it may be related to a tooth infection and the dentist took x-rays and evaluated her and felt that this was not related to dental issues at all. Patient has a history of otitis externa and has been intermittently using ear drops thinking this might alleviate her discomfort. 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 Lumbar degenerative disc disease Occult fracture of right elbow Osteopenia Pain in left shoulder Polymyalgia rheumatica Psoriatic arthritis Pure hypercholesterolemia 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 of both lower extremities with pain 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 of left lower extremity with inflammation Vitamin D deficiency Surgical History Hx of abdominoplasty Hx of section Hx of colonoscopy S/P cervical spinal fusion Family History Mother Lung cancer Father Drug addict Other Mental health problem Substance abuse Social History Household Members: Significant Other and Family Housing: House Are you a primary client care representative to a significant other at home: No Alcohol intake: never Patient Tobacco Use Status: Never used Tobacco e-Cigarette/Vaping Use: Never Used Second Hand Smoke Exposure: Yes service: No Current occupational status: disabled Cognitive needs: No Hearing needs: No Vision needs: Yes (glasses) Review of Systems Const Denies increased appetite Card Denies radiating jaw, neck or arm pain and Denies dyspnea Resp Denies hemoptysis and Denies dyspnea Physical Exam Vital Signs: Last Vital Signs Temp 97.8 F 12/27/22 13:18 Pulse 78 12/27/22 13:18 BP 134/76 12/27/22 13:18 Pulse Ox 98 12/27/22 13:18 Oxygen Delivery Method Room Air 12/27/22 13:18 BMI result Body Mass Index 24.6 Const General: healthy appearing and no acute distress HEENT Other: Right ear canal occluded with cerumen Head: Yes normal to inspection Throat: Yes posterior oropharynx normal Chest Chest palpation & inspection: normal inspection of the chest Resp Effort & Inspection: normal respiratory effort and able to speak in complete sentences Assessment & Plan Assessment & Plan (1) Cerumen impaction: Code(s): H61.20 - Impacted cerumen, unspecified ear Plan Cerumen impaction The patient presents for evaluation of decreased hearing and cerumen impaction. Hydrogen peroxide was instilled in the ear and the ear was subsequently irrigated with warm water. The impaction was removed well. Patient tolerated the procedure well. Right ear TM appears irritated and red. Will treat with antibiotics. Patient was plan Medications: New amoxicillin 875 mg PO BID 14 tabs 0RF 7 days Coding Level of Care Code Est Pt Level 3 (58022) Diagnoses Cerumen impaction H61.20
[2022-12-27 13:18] VITALS: BP 134/76; PULSE 78; TEMP 36.6; O2SAT 98; BMI 24.6
== END 2022-12-27 14:04 | disposition home or self-care (01) ==
PROVIDERS: PCP Internal Medicine; Visit Provider Emergency Medicine
DX: H61.22 Impacted cerumen, left ear (principal)
CPT/HCPCS: 99213

== ENCOUNTER 2023-01-18 09:13 | Outpatient (AMB) | payer MEDICARE, BC, SELFPAY ==
[2023-01-18 09:15] VITALS: BP 122/86; PULSE 62; O2SAT 99; BMI 24.0
--- NOTE | 2023-01-18 09:15 | AM.OFFVISMDC ---
Intake Vital Signs 01/18/23 09:15 Height 5 ft 2 in Weight 131 lb BMI 24.0 BP 122/86 Blood Pressure Location Lt brachial Position Sitting Pulse 62 Pulse Source Pulse Oximeter Temp Source Skin Pulse Oximetry (%) 99 Oxygen Delivery Method Room Air Intake Visit Reasons: SWV G0439 Intake Note: Patient is here for an Annual Wellness Visit. Allergies No Known Allergies Allergy (Verified 01/18/23 09:40) Medication List - Last Reconciled 01/18/23 by NEEMA Clay apremilast (Otezla) 30 mg PO BID clonazepam 0.5 mg PO BID PRN lidocaine 4% (Aspercreme (lidocaine)) 2 patches topical DAILY PRN simvastatin 20 mg PO DAILY 90 days tramadol 1 to 2 tablets every 4 to 6 hours as needed for pain (no more than 3 to 4 times a day); 30 days HPI SWV G0439 HPI Details Patient is a 62-year-old female presents today for subsequent wellness visit. Patient of Dr. Berg. Patient is up-to-date with her health preventative screenings and immunizations. Pap smear negative 2020 with [facility] Gynecology. Mammogram normal 07/2022. Bone density screen 04/2021 which showed osteopenia. Colonoscopy due 2023. [place] of care was reviewed with the patient and she was provided with a screening schedule. End of life planning was discussed with the patient and she was provided with healthcare proxy and MOLST forms. [facility] Medical History History of colon polyps Insomnia 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 of left lower extremity with inflammation Polymyalgia rheumatica Pain in left shoulder Failed neck syndrome Depression Anxiety Osteopenia Elevated LFTs Vitamin D deficiency Lumbar degenerative disc disease Fibromyalgia Pure hypercholesterolemia 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 of both lower extremities with pain detention methotrexate user Closed fracture of head of radius with routine healing Fracture of radial head, right, closed Occult fracture of right elbow Psoriatic arthritis Surgical History Hx of colonoscopy Hx of abdominoplasty S/P cervical spinal fusion Hx of section Family History Mother Lung cancer Father Drug addict Other Mental health problem Substance abuse Social History Household Members: Significant Other and Family Housing: House Are you a primary director career to a significant other at home: No Alcohol intake: never Patient Tobacco Use Status: Never used Tobacco e-Cigarette/Vaping Use: Never Used Second Hand Smoke Exposure: Yes service: No Current occupational status: disabled Cognitive needs: No Hearing needs: No Vision needs: Yes (glasses) Questionnaire Medicare Wellness Checkup What [age] your [age]?: 65-69 (60) What gender do you identify with?: female During the past 4 weeks, how much have you been bothered by emotional problems such as feeling anxious, depressed, irritable, sad or downhearted, and blue?: quite a bit During the past 4 weeks, has your physical & emotional health limited your social activities with family, friends, neighbors, or groups?: quite a bit During the past 4 weeks, how much bodily pain have you generally had?: severe pain During the past 4 weeks, was someone available to help you if you needed & wanted help?: yes, as much as I wanted During the past 4 weeks, what was the hardest physical activity you could do for at least 2 minutes?: moderate Can you get to places out of walking distance without help? (For eg., can you travel alone on buses, taxis or drive your car?): Yes Can you go shopping for groceries or clothes without someone's help?: Yes Can you prepare your own meals?: Yes Can you do your housework without help?: Yes Because of any health problems, do you need the help of another person with your personal care needs such as eating, bathing, dressing or getting around the house?: No Can you handle your own money without help?: Yes During the past 4 weeks, how would you rate your health in general?: very good During the past 4 weeks how have things been going for you?: good & bad parts about equal Are you having difficulties driving your car?: no Do you always fasten your seat belt when you are in a car?: yes, usually During past 4 weeks, have you been bothered by the following: never: Falling or dizzy when standing up, Sexual problems?, Trouble eating well? and Problems using the telephone?, seldom: Teeth or denture problems? and always: Tiredness or fatigue? Have you fallen 2 or more times in the past year?: No Are you afraid of falling?: No Are you a smoker?: no During the past 4 weeks, how many drinks of wine, beer, or other alcoholic beverages did you have?: no alcohol at all Do you exercise for about 20 minutes 3 or more times a week?: yes, some of the time (try going for walks) Have you been given information to help with the following?: no: Hazards in your house that might hurt you? and no: Keeping track of your medications? How often do you have trouble taking medicines the way you have been told to take them?: I always take medicine as prescribed How confident are you that you can control & manage most of your health problems?: somewhat confident What is your race?: White Mini Mental State Exam (MMSE) Orientation What is the (year) (season) (date) (day) (month)?: year, season, date, day and month Score Score: 5 Activity of Daily Living Bathing - sponge bath, tub bath or shower: receives no assistance (gets in/out by self, if usual bathing means Dressing - getting clothes from closets & drawers, including inner/outer garments & fasteners.: gets clothes & gets completely dressed without help Toileting - going to the 'toilet room' for urine/bowel elimination & cleaning self/arranging clothes: goes to toilet room, cleans self, arranges clothes without help Transfer: moves in & out of bed and chair without help (may use support object) Continence: controls urination/bowel movements completely by self Feeding: feeds self without help Total Score: 0 Information obtained from: patient Using telephone: independent Traveling: independent Shopping: independent Preparing meals: independent Housework: independent Taking medicine: independent Managing money: independent PHQ-9 Over the last 2 weeks, how often have you been bothered by any of the following problems? 1. Little interest or pleasure in doing things: several days 2. Feeling down, depressed, or hopeless: several days 3. Trouble falling or staying asleep, or sleeping too much: nearly every day 4. Feeling tired or having little energy: nearly every day 5. Poor appetite or overeating: not at all 6. Feeling bad about yourself - or that you are a failure or have let yourself or your family down: several days 7. Trouble concentrating on things, such as reading the newspaper or watching television: several days 8. Moving or speaking so slowly that other people could have noticed. Or the opposite - being so fidgety or restless that you have been moving around a lot more than usual: not at all 9. Thoughts that you would be better off or of hurting yourself in some way: not at all Total score: 10 Depression Screening Interpretation: Negative Depression Screening Done: Yes 61427 - PHQ-9 Billing: Yes Source: Developed by Drs. Yared Ge, Bella Moore, Ellis Ellis and colleagues, with an educational neil from [employer]. JOSELO-7 AMB Questionnaire JOSELO-7 Date JOSELO - 7 assessed: 11/26/22 Feeling nervous, anxious, or on edge: 3 = Nearly every day Not being able to stop or control worryin = Nearly every day Worrying too much about different things: 3 = Nearly every day Trouble relaxin = Nearly every day Being so restless that it is hard to sit still: 3 = Nearly every day Becoming easily annoyed or irritable: 2 = More than half the days Feeling afraid as if something awful might happen: 0 = Not at all Total JOSELO-7 score (0-4 normal; 5-9 mild; 10-14 moderate; 15-21 severe): 17 Source: Developed by Drs. Yared Ge, Bella Moore, Ellis Ellis and colleagues, with an educational neil from [employer]. JOSELO-7 Assessment Billing JOSELO-7 Assessment Tool: JOSELO-7 Assessment 15121 AUDIT C Alcohol Use Questionnaire (AUDIT-C) 1. How often do you have a drink containing alcohol?: Never 3. How often do you have six or more drinks on one occasion?: Never Total Score: 0 Score Reviewed/Action Taken: No Thrive Questionnaire Date Thrive assessed: 11/26/22 I am a: Patient What is your living situation today?: I have a steady place to live Within the past 12 months, did the food you bought not last and you didn't have the money to get more?: Never true Within the past 12 months, did you worry whether your food would run out before you got money to buy more?: Never true Do you have trouble paying for medicines?: No Do you have trouble getting transportation to medical appointments?: No Do you have trouble paying your heating and electricity bill?: No Do you have trouble taking care of your child, family member or friend?: No Do you have trouble with day-to-day activities such as bathing, preparing meals, shopping, managing finances, etc.?: No Are you currently unemployed and looking for a job?: No Are you interested in more education?: No Please select the resources that you would like help with: None Currently or been in a relationship where the following occur: no concerns reported Physical Exam Vital Signs: Last Vital Signs Pulse 62 01/18/23 09:15 BP 122/86 01/18/23 09:15 Pulse Ox 99 01/18/23 09:15 Oxygen Delivery Method Room Air 01/18/23 09:15 BMI result Body Mass Index 24.0 Const General: cooperative and no acute distress Orientation/consciousness: patient oriented x3 HEENT Other: Whisper test: pass Neuro Other: Balance: Normal Get up and walk: able to Romberg: negative Tandem gait: able to General: patient oriented x3 Office Procedures Flu Questionnaire Does the patient have a severe egg allergy?: No Does the patient have severe life threatening allergies?: No Does the patient have a fever or illness today?: No Has the patient ever had Guillain-Temple Syndrome?: No Has the patient ever had any past reaction to a flu shot?: No Immunizations flu vacc [id number] 6mos up(PF) 60 mcg(15 mcgx4)/0.5 mL IM syringe Performing Provider: NEEMA Clay [facility] Administered by: AMANDA Burns on 01/18/23 09:52 Dose Route Admin Location Dispensed Lot Number Expiration Date NDC Primary Montessori Teacher 0.5 mL IM Left Deltoid 0.5 mL [id number] 10/06/23 25719-820-20 [employer] VIS Given Date VIS Provided VIS Publication Date 01/18/23 Single Vaccine 20 Eligibility Eligibility Date Funding Source Not [facility] Eligible 01/18/23 Private Assessment & Plan Assessment & Plan (1) Adult general medical exam: Code(s): Z00.00 - Encounter for general adult medical examination without abnormal findings (2) Psoriatic arthritis: Comment: Otezla: 2018- present Methotrexate: 2017 - 01/19/2022. Patient's disease is stable, trial off methotrexate to see how she does. Code(s): L40.50 - Arthropathic psoriasis, unspecified Plan: Patient is on Otezla Continue to follow-up with [facility] (3) PTSD (post-traumatic stress disorder): Code(s): F43.10 - Post-traumatic stress disorder, unspecified Plan: Continue to follow-up with therapist (4) Insomnia: Code(s): G47.00 - Insomnia, unspecified Qualifiers: Insomnia type: unspecified Qualified Code(s): G47.00 - Insomnia, unspecified Plan: Reinforced sleep hygiene (5) Polymyalgia rheumatica: Code(s): M35.3 - Polymyalgia rheumatica Plan: Continue to follow-up with rheumatology (6) Failed neck syndrome: Code(s): M96.1 - Postlaminectomy syndrome, not elsewhere classified Plan: Continue tramadol as prescribed - patient reports takes only as needed (7) Depression: Code(s): F32.9 - Major depressive disorder, single episode, unspecified Qualifiers: Depression Type: unspecified Qualified Code(s): F32.9 - Major depressive disorder, single episode, unspecified Plan: Patient is followed with therapist (8) Anxiety: Code(s): F41.9 - Anxiety disorder, unspecified Plan: Continue to follow-up with therapist (9) Fibromyalgia: Code(s): M79.7 - Fibromyalgia Plan: Continue to follow-up with [facility] (10) Pure hypercholesterolemia: Code(s): E78.00 - Pure hypercholesterolemia, unspecified Plan: Continue current treatment. Low cholesterol diet. Orders: Orders Influenza [id number] Immunization Today Z23 - Encounter for immunization Quality Reporting (2020) Depression/Bipolar (159/160/161/177) PHQ-9: Total score: 10 Coding Level of Care Code Medicare Subsequent (G0439) Diagnoses Adult general medical exam Z00.00 Psoriatic arthritis L40.50 PTSD (post-traumatic stress disorder) F43.10 Insomnia, unspecified type G47.00 Insomnia type: unspecified Polymyalgia rheumatica M35.3 Failed neck syndrome M96.1 Depression, unspecified depression type F32.9 Depression Type: unspecified Anxiety F41.9 Fibromyalgia M79.7 Pure hypercholesterolemia E78.00 CPT Codes Advance Care Planning - Time spent: 1-15 minutes, not on file ([id number]) Additional Codes JOSELO-7 Assessment Billing - JOSELO-7 Assessment Tool: JOSELO-7 Assessment 64296 ([id number]) Advance Care Planning Date of discussion: 01/18/23 Who was present: pt and press feeder broomcorn Forms completed: None Time spent: 1-15 minutes, not on file Actual minutes spent: 2 Did not discuss due to Cultural/Spiritual beliefs: No
== END 2023-01-18 09:57 | disposition home or self-care (01) ==
PROVIDERS: PCP Internal Medicine; Visit Provider Nurse Practitioner Family
DX: Z00.00 Encounter for general adult medical examination without abnormal findings (principal); L40.50 Arthropathic psoriasis, unspecified; M35.3 Polymyalgia rheumatica; F43.10 Post-traumatic stress disorder, unspecified; Z23 Encounter for immunization; G47.00 Insomnia, unspecified; M96.1 Postlaminectomy syndrome, not elsewhere classified; F32.9 Major depressive disorder, single episode, unspecified; F41.9 Anxiety disorder, unspecified; M79.7 Fibromyalgia; E78.00 Pure hypercholesterolemia, unspecified
CPT/HCPCS: 1124F; 90471; 90686; G0439

== ENCOUNTER 2023-02-12 10:37 | Outpatient (AMB) | payer MEDICARE, BC, SELFPAY ==
[2023-02-12 10:46] VITALS: BP 102/70; PULSE 83; TEMP 36.5; O2SAT 99; BMI 24.4
--- NOTE | 2023-02-12 10:46 | MHC.OFFVIS ---
Intake Vital Signs 02/12/23 10:46 Height 5 ft 2 in Weight 133 lb 6.075 oz BMI 24.4 BP 102/70 Blood Pressure Location Lt brachial Position Sitting Pulse 83 Pulse Source Pulse Oximeter Temp 97.7 F Temp Source Skin Pulse Oximetry (%) 99 Oxygen Delivery Method Room Air Intake Visit Reasons: psa Intake Note: Patient here for PMR flare. Generalized joint and bone pain making it difficult to sleep at night. Left shoulder is really bad . Drop Pit Worker Required: No Accompanied by: Self / Same As Patient Allergies No Known Allergies Allergy (Verified 02/12/23 10:49) Medication List - Last Reconciled 02/12/23 by Jg Canas MD apremilast (Otezla) 30 mg PO BID clonazepam 0.5 mg PO BID PRN ibuprofen 800 mg PO BID PRN simvastatin 20 mg PO DAILY 90 days tramadol 1 to 2 tablets every 4 to 6 hours as needed for pain (no more than 3 to 4 times a day); 30 days HPI HPI Comments History of Present Illness Details The patient presents for evaluation of multiple areas of pain. She is followed for what is thought to be psoriatic arthritis and fibromyalgia. At her last visit she had been off the methotrexate for a few months because of LFT elevations. She remained on the Otezla 30 mg b.i.d.. She has had no return of psoriasis but there has been gradual increase in joint pain involving the neck, shoulders, wrists, lower back, lateral hips, anterior thighs and groin, and sometimes the knees in the last 5 months. Symptoms are worse after she has a prolonged period of sitting. They also bother her quite a bit at night. There has been no headache, jaw claudication or visual disturbance. She does have ibuprofen at home but is afraid to take it because of LFT abnormalities. She also has tramadol that is provided by her primary doctor but feels it does not help and makes her feel dysphoric. She has anxiety takes occasional clonazepam. 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 Closed fracture of head of radius with routine healing Fracture of radial head, right, closed Occult fracture of right elbow Psoriatic arthritis Surgical History Hx of colonoscopy Hx of abdominoplasty S/P cervical spinal fusion Hx of section Family History Mother Lung cancer Father Drug addict Other Mental health problem Substance abuse Social History Household Members: Significant Other and Family Housing: House Are you a primary customer care agent to a significant other at home: No Alcohol intake: never Patient Tobacco Use Status: Never used Tobacco e-Cigarette/Vaping Use: Never Used Second Hand Smoke Exposure: Yes service: No Current occupational status: disabled Cognitive needs: No Hearing needs: No Vision needs: Yes (glasses) Review of Systems Const Details: She has been less active, fatigues easily. Negative for appetite change, weight change, fever, chills, malaise Eyes Details: Negative for vision change, dry eyes,headaches and dizziness ENT Details: Negative for hearing change, tinnitus, oral ulcer, nose bleeds and oral dryness. Card Details: Negative chest pain, edema and syncope Resp Details: Negative for SOB, cough and wheezing GI Details: Negative indigestion/heartburn, nausea, abdominal pain, bowel changes, diarrhea, constipation and bloody stool. Skin/Breast Details: Negative for itching, rash, hives, Raynaud's symptoms, sun sensitivity, and skin cancer Psych Details: Intermittent anxiety symptoms, helped with occasional clonazepam. Endo Details: Negative for polyuria and polydypsia Aiden/Lymph Details: Negative for excessive bruising or bleeding. Physical Exam Vital Signs: Last Vital Signs Temp 97.7 F 02/12/23 10:46 Pulse 83 02/12/23 10:46 BP 102/70 02/12/23 10:46 Pulse Ox 99 02/12/23 10:46 Oxygen Delivery Method Room Air 02/12/23 10:46 BMI result Body Mass Index 24.4 APPEARANCE: Patient in no acute distress EYES no redness, pupils equal and reactive to light, eyelids normal no temporal artery tenderness, redness or swelling. EXTREMITIES: No edema, no calf tenderness, normal peripheral pulses. SKIN: No inflammatory or neoplastic lesions. Normal color and turgor. I do not see any areas of hair thinning. JOINT EXAM: ? Cervical Spine:? Mild discomfort with extremes of range of motion. There may be some diminishment in the range of lateral flexion. Slight tenderness in the posterior cervical spinal muscles. Thoracic Spine: No scoliosis.? No tenderness on palpation. Lumbar Spine:? Alignment normal.? Mild lumbar pain with flexion at 60 degrees. There is some paraspinal muscle tenderness. Hands:? Right: Slight thickening at the PIP joints 2 through 4. These are minimally tender but have pain-free range of motion. No other areas of swelling or tenderness. Left: Slight pain with PIP range of motion and some mild thickening and tenderness at the PIP is. No air other areas of tenderness or swelling. Wrists: Slight pain with flexion extension at 75 degrees with some minimal dorsal tenderness but no swelling, increased warmth or erythema. Elbows: There is mild pain with extremes of range of motion but over the joint spaces there is no tenderness, swelling, increased warmth or erythema. Shoulders:?? Mild to moderate pain with abduction at 90 degrees or any attempted internal or external rotation. Pain is felt anteriorly and over the top of the shoulder. There is [id number] anterior, subacromial and posterior tenderness without swelling, adenopathy or abductor weakness. Hips:? There is mild to moderate pain in the groin and buttock region with extremes of normal internal rotation, external rotation or abduction. Hip bursa: Mild to moderate bilateral trochanteric tenderness. Knees:?? Normal pain-free range of motion with mild medial tenderness without effusion, soft tissue swelling, increased warmth or erythema.? ns. Ankles:? Left: Normal pain-free range of motion with some mild tenderness but no swelling. Right: Normal pain-free range of motion with mild tenderness but no swelling, increased warmth or erythema. Feet: There is mild tenderness at the 1st MTP bilaterally with there is some mild bony enlargement, a bit more prominent on the right. No other tenderness or swelling in the feet. Tender points:? Tenderness to digital palpation at the occiput, trapezius, second rib, lateral epicondyle, knees, greater trochanter and gluteal area bilaterally. ? Results Reviewed Results Reviewed: Laboratory Tests 09/07/22 11/22/22 11/22/22 12:52 06:33 06:33 WBC 8.0 Hgb 15.5 ESR 7 Creatinine 0.79 25-OH Vitamin D Total 50.6 Assessment & Plan Assessment & Plan (1) Hip pain, bilateral: Code(s): M25.551 - Pain in right hip; M25.552 - Pain in left hip (2) meterman use of drug: Code(s): Z79.899 - Other detention (current) drug therapy (3) Elevated transaminase level: Code(s): R74.01 - Elevation of levels of liver transaminase levels (4) Fibromyalgia: Code(s): M79.7 - Fibromyalgia (5) Psoriatic arthritis: Comment: Enbrel not clearly helpful Otezla: 2018- present Methotrexate: 2016 - 01/19/2022. LFT elevations - Patient's disease is stable, trial off methotrexate to see how she does. Code(s): L40.50 - Arthropathic psoriasis, unspecified Plan The patient has some gradual return of joint pain over the past 4-5 months. She does not have any small joint swelling to speak of but there is significant morning stiffness and painful range of motion in the hips and the shoulders. This looks more like a presentation of PMR although in the past she was on prednisone and the conclusion was that she had psoriatic arthritis when psoriasis appeared. Currently there is no psoriasis evident however. She has a number of tender points so I think has some underlying fibromyalgia associated with her anxiety disorder. It would appear the methotrexate was the best drug for her in the past but she has had intermittent transaminase elevations. She also had a trial of Enbrel to about 10 years ago. That seemingly had some modest benefit but then was stopped because of insurance issues and lack of efficacy. She is on a Otezla now but clearly she is having a lot of joint pain. Her shoulder pains are certainly more prominent than previously. The hip pains had been a little present when I had seen her before. Radiographs of the hips have shown some mild changes of OA. I think we need to check inflammatory markers and T spot and hepatitis serologies. We discussed a possible trial of prednisone but she is not sure she wants to go back on it; she associated it with weight gain in the past. I think if we are going to treat her as psoriatic arthritis then the next choice would be a trial with Humira. We will discuss that when she returns in a week or 2. In the meantime she is under dosing on the ibuprofen, She could take, if her GI tract tolerates it, 800 mg 3 times a day. Review of her old record, today's history and exam, discussion of possible therapies resulted in a visit that was 44 minutes. Orders: Orders Complete Blood Count Auto Diff Today M25.551 - Pain in right hip, M25.552 - Pain in left hip, Z79.899 - Other terminal operations supervisor (current) drug therapy C Reactive Protein Today M25.551 - Pain in right hip, M25.552 - Pain in left hip, Z79.899 - Other terminal operations supervisor (current) drug therapy XR shoulder RT min 2V Today L40.50 - Arthropathic psoriasis, unspecified Erythrocyte Sedimentation Rate Today M25.551 - Pain in right hip, M25.552 - Pain in left hip, Z79.899 - Other detention (current) drug therapy Comprehensive Met. Panel Today M25.551 - Pain in right hip, M25.552 - Pain in left hip, Z79.899 - Other terminal operations supervisor (current) drug therapy Protein Creatinine Ratio, Ur Today M25.551 - Pain in right hip, M25.552 - Pain in left hip, Z79.899 - Other detention (current) drug therapy T Spot TB Today Z79.899 - Other terminal operations supervisor (current) drug therapy Hepatitis A,B,C Profile Today R74.01 - Elevation of levels of liver transaminase levels XR shoulder LT min 2V Today L40.50 - Arthropathic psoriasis, unspecified Coding Level of Care Code Est Pt Level 5 (52919) Diagnoses Hip pain, bilateral M25.551; M25.552 meterman use of drug Z79.899 Elevated transaminase level R74.01 Fibromyalgia M79.7 Psoriatic arthritis L40.50
== END 2023-02-12 11:40 | disposition home or self-care (01) ==
PROVIDERS: PCP Internal Medicine; Visit Provider Internal Medicine Rheumatology
DX: L40.50 Arthropathic psoriasis, unspecified (principal); M25.551 Pain in right hip; M25.552 Pain in left hip; Z79.899 Other long term (current) drug therapy; R74.01 Elevation of levels of liver transaminase levels; M79.7 Fibromyalgia
CPT/HCPCS: 99215

== ENCOUNTER 2023-02-12 10:37 | Outpatient (REF) | payer MEDICARE, BC, SELFPAY ==
--- NOTE | ~2023-02-12 | XR_ITS ---
EXAMINATION: XR SHOULDER, RIGHT CLINICAL INFORMATION: Arthropathic psoriasis. Right shoulder pain COMPARISON: 12/11/2017 TECHNIQUE: AP external rotation, Grashey, scapular Y, and axillary views of the right shoulder. FINDINGS: The bones and soft tissues are normal. No fracture. Glenohumeral and acromioclavicular alignment is anatomic with normal joint space. No abnormal soft tissue calcifications. XR/XR shoulder RT min 2V IMPRESSION: Normal right shoulder.
--- NOTE | ~2023-02-12 | XR_ITS ---
EXAMINATION: XR SHOULDER, LEFT CLINICAL INFORMATION: Left shoulder pain COMPARISON: None available. TECHNIQUE: AP external rotation, Grashey, scapular Y, and axillary views of the left shoulder. FINDINGS: The bones and soft tissues are normal. No fracture. Glenohumeral and acromioclavicular alignment is anatomic with normal joint space. No abnormal soft tissue calcifications. XR/XR shoulder LT min 2V IMPRESSION: Normal left shoulder.
[2023-02-12 12:29] LABS: MANUAL DIFF FLAG NO
[2023-02-12 13:43] LABS: Basophils Percent Auto 0.4 % (0-2); Eosinophils Absolute Auto 0.1 X10*3/uL (0.0-0.4); Eosinophils Percent Auto 1.3 % (0-4); Hematocrit 46.9 % (37.0-47.0); Hemoglobin 15.1 g/dl (12.0-16.0); Imm Gran Abs Auto 0.03 X10*3/uL (0.00-0.03); Imm Gran Pct Auto 0.4 % (0.0-0.4); Lymphocytes Percent Auto 24.3 % (20-40); Mean Corpuscular HGB Conc 32.2 g/dl (31.0-35.0); Mean Corpuscular Hemoglobin 28.8 pg (27.0-33.0); Mean Corpuscular Volume 89.3 fL (80.0-98.0); Mean Platelet Volume 9.1 fL (9.4-12.3); Monocytes Absolute Auto 0.5 X10*3/uL (0.1-1.2); Monocytes Percent Auto 6.6 % (2-11); Neutrophils Absolute Auto 5.5 x10*3/uL (2.0-8.3); Platelet Count 293 X10*3/uL (160-400); Red Blood Count 5.25 X10*6/uL (4.20-5.50); Red Cell Distribution Width 13.6 % (11.0-16.0); White Blood Count 8.2 X10*3/uL (4.8-10.8)
[2023-02-12 13:59] LABS: Appearance Urine Clear; Color Urine Yellow; Glucose Urine UA Negative (Negative); Leukocyte Esterase Urine Negative (Negative); Nitrite Urine Negative (Negative); PH 5.5 (5.0-9.0); Specific Gravity - Urine <= 1.005 (1.005-1.025); UMIC TRIGGER UACC YES; Urine Blood Trace (Negative); Urine Ketones Negative (Negative); Urine Protein Negative (Neg-Trace)
[2023-02-12 14:04] LABS: Bacteria Urine None Seen (None Seen); Hyaline Casts Urine 0-2 /LPF (0-2); RBC Urine 0-2 /HPF (0-2); Squamous Epithelial Cell Urine 0-2 /HPF (0-2); WBC Urine 0-5 /HPF (0-5)
[2023-02-12 14:10] LABS: Alanine Aminotransferase 21 U/L (0-31); Albumin Level 4.4 g/dL (3.5-5.0); Alkaline Phosphatase 78 U/L (39-117); Anion Gap 10 (12-20); Aspartate Amino Transferase 26 U/L (5-31); Bilirubin Total 0.4 mg/dL (0.0-1.0); Blood Urea Nitrogen 16 mg/dL (9-16); C Reactive Protein 0.28 mg/dL (< or = 0.50); Calcium 10.2 mg/dL (8.4-10.2); Carbon Dioxide 30 mmol/L (22-29); Chloride 105 mmol/L (96-108); Estimated Glomerular Filt Rate > 60; Glucose Random 83 mg/dL (60-115); Potassium 4.4 mmol/L (3.3-5.1); Sodium 141 mmol/L (135-145); Total Protein 7.6 g/dL (6.5-8.0)
[2023-02-12 14:25] LABS: Erythrocyte Sedimentation Rate 26 MM/HR (0-20)
[2023-02-12 14:30] LABS: Total Protein Urine Random < 7 mg/dL (<12)
[2023-02-13 04:26] LABS: HBS Num1 0.27 mIU/mL (0-7.99); HBc Num1 0.09 S/CO (0.00-0.79); HBsAGNum1 0.28 S/CO (0.00-0.99); Hepatitis A Antibody IgM 0.58 Index (0-0.79); Hepatitis B Core Antibody Nonreactive (Nonreactive); Hepatitis B Surface Antigen Negative (Negative); ~HepC Num1 0.05 S/CO (0.00-0.79); ~Hepatitis A Antibody IgM Nonreactive (Nonreactive); ~Hepatitis B Surface Antibody NONREACTIVE (Nonreactive); ~Hepatitis C Antibody Nonreactive (Nonreactive)
[2023-02-14 19:03] LABS: TS Negative Control Passed; TS Panel A 0; TS Panel B 0; TS Positive Control Passed; TSpotTB Negative (Negative)
== END 2023-02-12 10:38 | disposition home or self-care (01) ==
LOC: HO.LAB 10:37
PROVIDERS: PCP Internal Medicine; Visit Provider Internal Medicine Rheumatology
DX: L40.50 Arthropathic psoriasis, unspecified (principal); M25.551 Pain in right hip; M25.552 Pain in left hip; R74.01 Elevation of levels of liver transaminase levels; M79.7 Fibromyalgia; Z79.899 Other long term (current) drug therapy; Z11.59 Encounter for screening for other viral diseases; Z72.89 Other problems related to lifestyle
CPT/HCPCS: 36415; 73030; 80053; 81001; 82570; 84156; 85025; 85652; 86140; 86481; 86704; 86706; 86709; 86803; 87340; 99212

== ENCOUNTER 2023-02-20 09:02 | Outpatient (AMB) | payer MEDICARE, BC, SELFPAY ==
[2023-02-20 09:06] VITALS: BP 124/80; PULSE 79; O2SAT 99; BMI 24.0
--- NOTE | 2023-02-20 09:06 | A.OFFPC_ITS ---
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 Accompanied by: Self / Same As Patient Allergies No Known Allergies Allergy (Verified 02/20/23 09:36) Medication List - Last Reconciled 02/20/23 by Jermaine Berg MD apremilast (Otezla) 30 mg PO BID clonazepam 0.5 mg PO BID PRN ibuprofen 800 mg PO BID PRN simvastatin 20 mg PO DAILY 90 days tramadol 1 to 2 tablets every 4 to 6 hours as needed for pain (no more than 3 to 4 times a day); 30 days Tobacco use date assessed: 02/20/23 Dental Screening Dental Screen Date: 02/20/23 Did you have a dental visit in the last 12 months?: Yes Did you have a dental problem in the last 6 months where you did not have access to dental care?: No Was dental information given to patient?: Patient has dentist HPI worker's comp follow up HPI Details Patient comes in today for her workers' comp follow up She continues to experience increased chronic neck pain and bilateral shoulder pain (worse on the left side) and feels that her pain has increased significantly over the past few weeks She was seen recently by rheumatology (Dr. Canas) and sent for some labs for evaluation Has a follow up appt with Dr. Canas next week and it looks like he will be switching her over to Humira as her current Otezla does not seem to be helping lately She reports still feeling fatigued often Still has on and off headaches, which she thinks are mostly related to her chronic neck and shoulder pain She denies any chest pains, no increased SOB No nausea/vomiting, no abdominal pains No change in bowel habits noted? Past History: So far, patient has failed several trials of pain management regimens and multiple pain medications in the past, including Oxycodone/Oxycontin, Fentanyl and Hydrocodone, as well as surgical intervention (S/P left C6-C7 cervical spine decompression) She was recommended to go for aquatherapy and behavioral therapy by Dr[facility] Niraj [facility] in the [facility] but these have not been done/pursued as WC has reportedly declined to cover any further testings, interventions/treatments or specialty consultations, and all previous attempts to refer her to pain management here at [facility] have also not been completed or helpful Patient was also regularly following up with Dr. Yates for her neck issues in the past but she has been advised to just see pain management as they have nothing else to offer her in terms of intervention or treatment She has been following up with orthopedics for her right shoulder pain and has received cortisone injections as needed in the past, which she states helped temporarily She is still doing the ROM exercises that she was previously taught for her shoulders on a regular basis to help manage her symptoms and preserve as much of her mobility and joint function as possible and is now just following up with rheumatology here at [facility] Medical History History of colon polyps Insomnia 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 of left lower extremity with inflammation Polymyalgia rheumatica Pain in left shoulder Failed neck syndrome Depression Anxiety Osteopenia Elevated LFTs Vitamin D deficiency Lumbar degenerative disc disease Fibromyalgia Pure hypercholesterolemia 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 of both lower extremities with pain 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 Closed fracture of head of radius with routine healing Fracture of radial head, right, closed Occult fracture of right elbow Psoriatic arthritis Surgical History Hx of colonoscopy Hx of abdominoplasty S/P cervical spinal fusion Hx of section Family History Mother Lung cancer Father Drug addict Other Mental health problem Substance abuse Social History Household Members: Significant Other and Family Housing: House Are you a primary patient care manager to a significant other at home: No Alcohol intake: never Patient Tobacco Use Status: Never used Tobacco e-Cigarette/Vaping Use: Never Used Second Hand Smoke Exposure: Yes service: No Current occupational status: disabled Cognitive needs: No Hearing needs: No Vision needs: Yes (glasses) Questionnaire PHQ-9 Over the last 2 weeks, how often have you been bothered by any of the following problems? 1. Little interest or pleasure in doing things: several days 2. Feeling down, depressed, or hopeless: several days 3. Trouble falling or staying asleep, or sleeping too much: nearly every day 4. Feeling tired or having little energy: nearly every day 5. Poor appetite or overeating: not at all 6. Feeling bad about yourself - or that you are a failure or have let yourself or your family down: several days 7. Trouble concentrating on things, such as reading the newspaper or watching television: several days 8. Moving or speaking so slowly that other people could have noticed. Or the opposite - being so fidgety or restless that you have been moving around a lot more than usual: not at all 9. Thoughts that you would be better off or of hurting yourself in some way: not at all Total score: 10 Depression Screening Interpretation: Positive Depression Screening Follow-up: Existing condition, Follow-up Visit Requested and Declines treatment (feels that her depression/mood is most related to her physical issues and limitations) Depression Screening Done: Yes 07991 - PHQ-9 Billing: Yes Source: Developed by Drs. Yared Ge, Bella Moore, Ellis Ellis and colleagues, with an educational neil from [employer]. Thrive Questionnaire Date Thrive assessed: 02/20/23 I am a: Patient What is your living situation today?: I have a steady place to live Within the past 12 months, did the food you bought not last and you didn't have the money to get more?: Never true Within the past 12 months, did you worry whether your food would run out before you got money to buy more?: Never true Do you have trouble paying for medicines?: No Do you have trouble getting transportation to medical appointments?: No Do you have trouble paying your heating and electricity bill?: No Do you have trouble taking care of your child, family member or friend?: No Do you have trouble with day-to-day activities such as bathing, preparing meals, shopping, managing finances, etc.?: No Are you currently unemployed and looking for a job?: No Are you interested in more education?: No Please select the resources that you would like help with: None Currently or been in a relationship where the following occur: no concerns reported AUDIT C Alcohol Use Questionnaire (AUDIT-C) 1. How often do you have a drink containing alcohol?: Never 3. How often do you have six or more drinks on one occasion?: Never Total Score: 0 Score Reviewed/Action Taken: Yes JOSELO-7 AMB Questionnaire JOSELO-7 Date JOSELO - 7 assessed: 02/20/23 Feeling nervous, anxious, or on edge: 3 = Nearly every day Not being able to stop or control worryin = Nearly every day Worrying too much about different things: 3 = Nearly every day Trouble relaxin = Nearly every day Being so restless that it is hard to sit still: 3 = Nearly every day Becoming easily annoyed or irritable: 2 = More than half the days Feeling afraid as if something awful might happen: 0 = Not at all Total JOSELO-7 score (0-4 normal; 5-9 mild; 10-14 moderate; 15-21 severe): 17 Source: Developed by Drs. Yared Ge, Bella Moore, Ellis Ellis and colleagues, with an educational neil from [employer]. JOSELO-7 Assessment Billing JOSELO-7 Assessment Tool: JOSELO-7 Assessment 44141 Review of Systems Const Reports fatigue, Denies fever(s) and Reports headache(s) (on and off) ENT Denies dysphagia, Denies dizziness, Denies otalgia, Reports headache(s) (on and off), Reports neck pain (chronic), Denies odynophagia and Denies sore throat Card Denies chest pain, Denies palpitations and Denies dyspnea Resp Denies cough and Denies dyspnea GI Denies abdominal pain, Denies constipation, Denies dysphagia, Denies heartburn, Denies diarrhea, Denies nausea, Denies odynophagia and Denies vomiting Denies difficulty voiding, Denies nocturia, Denies dysuria and Denies urinary urgency Musc Reports back pain, Reports arthralgias (left shoulder area - chronic) and Re ports neck pain (chronic) Skin/Breast Denies rash Neuro Denies dizziness and Reports headache(s) (on and off) Psych Reports anxiety and Reports depression (increasing lately) Endo Reports fatigue and Denies palpitations Physical exam (Primary Care) Vital Signs: Last Vital Signs Pulse 79 02/20/23 09:06 BP 124/80 02/20/23 09:06 Pulse Ox 99 02/20/23 09:06 Oxygen Delivery Method Room Air 02/20/23 09:06 BMI result Body Mass Index 24.0 Tobacco/Smoking Status: Tobacco use Status Tobacco use date assessed 02/20/23 02/20/23 09:12 Patient Tobacco Use Status Never used Tobacco 02/20/23 09:12 e-Cigarette/Vaping Use Never Used 02/20/23 09:12 PHQ-9: PHQ-9 Score PHQ-9: Total score 10 02/20/23 09:12 Depression Screening Interpretation: Positive Depression Screening Follow-up: Existing condition, Follow-up Visit Requested and Declines treatment (feels that her depression/mood is most related to her physical issues and limitations) Thrive Assessment: Date of Thrive Assessment Date Thrive assessed 02/20/23 02/20/23 09:12 Currently or been in a relationship where the following occur: no concerns reported Const General: no acute distress and alert HENMT Throat: Yes posterior oropharynx normal and Yes tonsils normal (no TP congestion noted) Neck Neck: Yes no lymphadenopathy and Yes supple Resp Auscultation: clear to auscultation bilaterally, no rales and no wheezes Cardio Rate: regular rate Rhythm: regular rhythm Heart sounds: no murmurs GI Palpation (GI): Soft to palpation and nontender Auscultation: normal bowel sounds Back/Spine/Pelvis Cervical Spine: cervical muscular tenderness (especially over the left side) and Cervical spine tenderness Thoracic/Lumbar Spine: paraspinal muscle tenderness bilaterally in the upper thoracic Extrem General: Yes no clubbing, cyanosis or edema Right upper extremity: shoulder/upper arm Details: tenderness; no swelling Left upper extremity: shoulder/upper arm Details: tenderness; no swelling Assessment and Plan Assessment & Plan (1) Failed neck syndrome: Code(s): M96.1 - Postlaminectomy syndrome, not elsewhere classified Plan: Patient reports no changes or further developments in her case overall for the past few years as she has not been able to get coverage for any further treatments / management recommended by all of the specialists that she has been seeing, including attempts to go back to pain management in [place] or here locally in [place] Has also reportedly been advised by Dr. Yates that they have nothing else to offer her and recommended that she just follow up with pain management (2) Pain in left shoulder: Code(s): M25.512 - Pain in left shoulder Qualifiers: Chronicity: chronic Qualified Code(s): M25.512 - Pain in left shoulder; G89.29 - Other chronic pain Plan: Continue Tramadol 50 mg 1 to 2 tablets every 4 to 6 hours as needed for pain (3) Fibromyalgia: Code(s): M79.7 - Fibromyalgia Plan: She reports experiencing increasing diffuse pain and joint pains over the past few weeks - per rheumatology, may be experiencing symptoms of PMR and flare up of her fibromyalgia She was sent for some labs by rheumatology and will be seen again next week for follow up and it appears that Dr. Canas is planning to switch her over from Otezla to Humira as it seems that Otezla is no longer helping patient with her symptoms Patient is encouraged again to stay active and exercise regularly to help manage her fibromyalgia symptoms Continue Tizanidine 4 mg every 8 hours as needed (4) Polymyalgia rheumatica: Code(s): M35.3 - Polymyalgia rheumatica Plan: Is currently on Otezla 30 mg BID; was also on Methotrexate in the past but she was taken off her Methotrexate a few months ago Follow up with rheumatology as scheduled - it appears that rheumatology is planning to switch her over to Humira at her next appointment (5) Anxiety: Code(s): F41.9 - Anxiety disorder, unspecified Plan: Feels that she is doing okay on just her Clonazepam taken PRN Follow up with psychiatry as scheduled (6) Depression: Code(s): F32.9 - Major depressive disorder, single episode, unspecified Qualifiers: Depression Type: unspecified Qualified Code(s): F32.9 - Major depressive disorder, single episode, unspecified Plan: Was on Venlafaxine ER 150mg QD and Quetiapine 200 mg Q HS in the past but patient apparently stopped taking these on her own at some point States that she does not feel any worse since stopping her Rx Follow up with psychiatry as scheduled Plan Follow up in 4 months Coding Level of Care Code Est Pt Level 3 (10050) Diagnoses Failed neck syndrome M96.1 Chronic left shoulder pain M25.512; G89.29 Chronicity: chronic Fibromyalgia M79.7 Polymyalgia rheumatica M35.3 Anxiety F41.9 Depression, unspecified depression type F32.9 Depression Type: unspecified Additional Codes JOSELO-7 Assessment Billing - JOSELO-7 Assessment Tool: JOSELO-7 Assessment [id number] ([id number])
== END 2023-02-20 09:45 | disposition home or self-care (01) ==
PROVIDERS: PCP Internal Medicine; Visit Provider Internal Medicine
DX: M35.3 Polymyalgia rheumatica (principal); M25.512 Pain in left shoulder; G89.29 Other chronic pain; M96.1 Postlaminectomy syndrome, not elsewhere classified; M79.7 Fibromyalgia; F41.9 Anxiety disorder, unspecified; F32.9 Major depressive disorder, single episode, unspecified
CPT/HCPCS: 99213

== ENCOUNTER 2023-02-26 07:47 | Outpatient (AMB) | payer MEDICARE, BC, SELFPAY ==
--- NOTE | 2023-02-26 07:50 | MHC.OFFVIS ---
Intake Vital Signs 02/26/23 07:51 Height 5 ft 2 in Weight 131 lb 6.328 oz BMI 24.0 BP 138/70 Blood Pressure Location Rt brachial Position Sitting Pulse 78 Pulse Source Pulse Oximeter Temp 97.6 F Temp Source Skin Pulse Oximetry (%) 98 Oxygen Delivery Method Room Air Intake Visit Reasons: psa Intake Note: Patient presents today to follow up on test results and PsA. Last seen by Dr. Canas on 02/12/23. Reports sx's have not improved since then. Practice Support Specialist Required: No Accompanied by: Self / Same As Patient Allergies No Known Allergies Allergy (Verified 02/26/23 07:55) Medication List - Last Reconciled 02/26/23 by Jg Canas MD apremilast (Otezla) 30 mg PO BID clonazepam 0.5 mg PO BID PRN ibuprofen 800 mg PO BID PRN simvastatin 20 mg PO DAILY 90 days tramadol 1 to 2 tablets every 4 to 6 hours as needed for pain (no more than 3 to 4 times a day); 30 days HPI HPI Comments History of Present Illness Details The patient returns with continued pains and the shoulders, thighs, hips, neck and hands. She remains on Otezla 30 mg b.i.d.. Increasing the ibuprofen up to 800 t.i.d. helped a bit but she still is very uncomfortable. She has tramadol and clonazepam from other providers that are helpful as well. There has been no return of psoriasis. In the past she was on Enbrel and then subsequently methotrexate. The Enbrel was not all that effective but the methotrexate was helpful for a number of years. She does recall swollen joints in the hands that were helped when she was started on those medications. Methotrexate was held recently because of elevated liver enzymes so it is looking like we can not really use that again. She does not seem to have any side effects so far with the ibuprofen. The pains are worse at night. There is a significant amount of stiffness in the hands, shoulders and hips in the mornings. 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 Closed fracture of head of radius with routine healing Fracture of radial head, right, closed Occult fracture of right elbow Psoriatic arthritis Surgical History Hx of colonoscopy Hx of abdominoplasty S/P cervical spinal fusion Hx of section Family History Mother Lung cancer Father Drug addict Other Mental health problem Substance abuse Social History Household Members: Significant Other and Family Housing: House Are you a primary resident care assistant to a significant other at home: No Alcohol intake: never Patient Tobacco Use Status: Never used Tobacco e-Cigarette/Vaping Use: Never Used Second Hand Smoke Exposure: Yes service: No Current occupational status: disabled Cognitive needs: No Hearing needs: No Vision needs: Yes (glasses) Review of Systems Const Details: Fatigue and low energy. Pains are interfering with sleep. Negative for appetite change, weight change, fever, chills, malaise Eyes Details: Negative for vision change, dry eyes,headaches and dizziness ENT Details: Negative for hearing change, tinnitus, oral ulcer, nose bleeds and oral dryness. Card Details: Negative chest pain, edema and syncope Resp Details: Negative for SOB, cough and wheezing GI Details: Negative indigestion/heartburn, nausea, abdominal pain, bowel changes, diarrhea, constipation and bloody stool. Skin/Breast Details: Negative for itching, rash, hives, Raynaud's symptoms, sun sensitivity, and skin cancer Psych Details: Negative for anxiety, depression and stress Aiden/Lymph Details: Negative for excessive bruising or bleeding. Physical Exam Vital Signs: Last Vital Signs Temp 97.6 F 02/26/23 07:51 Pulse 78 02/26/23 07:51 BP 138/70 02/26/23 07:51 Pulse Ox 98 02/26/23 07:51 Oxygen Delivery Method Room Air 02/26/23 07:51 BMI result Body Mass Index 24.0 APPEARANCE: Patient in no acute distress EYES no redness, pupils equal and reactive to light, eyelids normal no temporal artery tenderness, redness or swelling. EXTREMITIES: No edema, no calf tenderness, normal peripheral pulses. SKIN: No inflammatory or neoplastic lesions. Normal color and turgor. I do not see any areas of hair thinning. JOINT EXAM: ? Cervical Spine:? Mild discomfort with extremes of range of motion. There may be some diminishment in the range of lateral flexion. Slight tenderness in the posterior cervical spinal muscles. Thoracic Spine: No scoliosis.? No tenderness on palpation. Lumbar Spine:? Alignment normal.? Mild lumbar pain with flexion at 60 degrees. There is some paraspinal muscle tenderness. Hands:? Right: Slight thickening at the PIP joints 2 through 4. These are minimally tender but have pain-free range of motion. There is mild tenderness without swelling at the 3rd MCP joint. No other areas of swelling or tenderness. Left: Slight pain with PIP range of motion and some mild thickening and tenderness at the PIP is. No air other areas of tenderness or swelling. Wrists: Right: Mild discomfort with 75 degrees flexion extension. No tenderness or swelling. Left: Slight pain with flexion extension at 75 degrees with some minimal dorsal tenderness but no swelling, increased warmth or erythema. Elbows: There is mild pain with extremes of range of motion but over the joint spaces there is no tenderness, swelling, increased warmth or erythema. Shoulders:?? Right: Mild pain with the extremes of abduction or rotation. Mild anterior tenderness without adenopathy, weakness or swelling. Left: Mild to moderate pain with abduction at 120 degrees or any attempted internal or external rotation. Pain is felt anteriorly and over the top of the shoulder. There is [id number] anterior, subacromial and posterior tenderness without swelling, adenopathy or abductor weakness. Hips:? There is mild to moderate pain in the groin and buttock region with extremes of normal internal rotation, external rotation or abduction. Hip bursa: Mild to moderate bilateral trochanteric tenderness. Knees:?? Normal pain-free range of motion with mild medial tenderness without effusion, soft tissue swelling, increased warmth or erythema.? ns. Ankles:? Left: Normal pain-free range of motion with some mild tenderness but no swelling. Right: Normal pain-free range of motion with mild tenderness but no swelling, increased warmth or erythema. Feet: There is mild tenderness at the 1st MTP bilaterally with there is some mild bony enlargement, a bit more prominent on the right. No other tenderness or swelling in the feet. Tender points:? Mild tenderness to digital palpation at the occiput, trapezius, right second rib, lateral epicondyle, knees, greater trochanter bilaterally. ? Office Procedures Joint Injection/Drain Joint Injection/Drain Primary Site: left shoulder Injected: 40 mg of, Kenalog, with 1 mL of and 1% plain lidocaine Coding Details: With the patient's consent the left shoulder was prepped with ChloraPrep and alcohol. Under a topical ethyl chloride spray the left subacromial space was injected with 40 mg of triamcinolone and 1 cc of 1% lidocaine. The patient tolerated the procedure without any acute adverse effects. 30663 - Large joint Procedure code (CPT) selection complete Results Reviewed Results Reviewed: Laboratory Tests 02/12/23 12:27 WBC 8.2 Hgb 15.1 ESR 26 H AST 26 ALT 21 C-Reactive Protein 0.28 Hep Bs Antigen Negative Hepatitis C Ab (EIA) Nonreactive TB Test (T-Spot) Com Negative [place] [address] XRay Report Signed Patient: Carissa Santos MR#: [id number] : 1960 Acct:[id number] Age/Sex: 62 / F ADM Date: 02/12/[address]: Jg Canas MD Ordering Physician: Jg Canas MD Date of Service: 02/12/23 Procedure(s): XR shoulder LT min 2V Accession Number(s): [id number] cc: Jermaine Berg MD; Jg Canas MD~ EXAMINATION: XR SHOULDER, LEFT CLINICAL INFORMATION: Left shoulder pain COMPARISON: None available. TECHNIQUE: AP external rotation, Grashey, scapular Y, and axillary views of the left shoulder. FINDINGS: The bones and soft tissues are normal. No fracture. Glenohumeral and acromioclavicular alignment is anatomic with normal joint space. No abnormal soft tissue calcifications. XR/XR shoulder LT min 2V IMPRESSION: Normal left shoulder. Dictated By: Junior Shah MD [address] [address] XRay Report Signed Patient: Carissa Santos MR#: [id number] : 1960 Acct:[id number] Age/Sex: 62 / F ADM Date: 02/12/[address]: Jg Canas MD Ordering Physician: Jg Canas MD Date of Service: 02/12/23 Procedure(s): XR shoulder RT min 2V Accession Number(s): [id number] cc: Jermaine Berg MD; Jg Canas MD~ EXAMINATION: XR SHOULDER, RIGHT CLINICAL INFORMATION: Arthropathic psoriasis. Right shoulder pain COMPARISON: 12/11/2017 TECHNIQUE: AP external rotation, Grashey, scapular Y, and axillary views of the right shoulder. FINDINGS: The bones and soft tissues are normal. No fracture. Glenohumeral and acromioclavicular alignment is anatomic with normal joint space. No abnormal soft tissue calcifications. XR/XR shoulder RT min 2V IMPRESSION: Normal right shoulder. Dictated By: Junior Shah MD Signed By: <Electronically signed by Junior Shah MD in OV> 02/14/23 1455 Assessment & Plan Assessment & Plan (1) Fibromyalgia: Code(s): M79.7 - Fibromyalgia (2) Tendinitis of left rotator cuff: Code(s): M75.82 - Other shoulder lesions, left shoulder (3) Psoriatic arthritis: Comment: Allanbrel not clearly helpful Otezla: 2018- present Methotrexate: 2017 - 01/19/2022. LFT elevations - methotrexate discontinued. She did okay until summer 2022 when she had a flare overall joint pains. Code(s): L40.50 - Arthropathic psoriasis, unspecified Plan She continues with many areas of pain. There is some small joint tenderness in the wrist and MCP regions. Most of her discomfort is in the shoulders and hips. The sed rate is higher and in the elevated range as compared to previously and the CRP has risen as well. I think this is return of inflammation from her psoriatic arthritis. The hepatitis serologies and TB serologies were negative. I think we should augment her treatment with the addition of Humira. We reviewed potential side effect some wrist of Humira treatment. I gave her some written information on that drug to review. The methotrexate use seems to be not advisable because of her frequent elevated LFTs. Similarly leflunomide would cause a problem in that regard. She had trials with Enbrel in the past that were not that effective. I think we should try to get prior authorization for the use of Humira. In the meantime she can continue with the ibuprofen. The left shoulder pain is consistent with some rotator cuff tendinitis. This could be on an impingement basis or from her inflammatory disease i.e. her psoriatic arthritis. In any case corticosteroid injection there seems a reasonable option. We reviewed potential benefits and side effects of such injections. With the patient's consent the left shoulder was prepped with ChloraPrep and alcohol. Under a topical ethyl chloride spray the left subacromial space was injected with 40 mg of triamcinolone and 1 cc of 1% lidocaine. The patient tolerated the procedure without any acute adverse effects. She should rest the shoulder for a few days and then begin some gentle [id number] exercises. We will get back to her when we get prior authorization for the Humira. She probably will need a teaching session with the nurse to review techniques administration. Follow-up in 2 months is recommended. Orders: Orders AMB Joint Injection/Aspiration Today M75.82 - Other shoulder lesions, left shoulder Coding Level of Care Code Est Pt Level 4 (90163) Diagnoses Fibromyalgia M79.7 Tendinitis of left rotator cuff M75.82 Psoriatic arthritis L40.50 CPT Codes Coding - 47880 Large joint: 37619 - Large joint ([id number])
[2023-02-26 07:51] VITALS: BP 138/70; PULSE 78; TEMP 36.4; O2SAT 98; BMI 24.0
== END 2023-02-26 08:33 | disposition home or self-care (01) ==
PROVIDERS: PCP Internal Medicine; Visit Provider Internal Medicine Rheumatology
DX: L40.50 Arthropathic psoriasis, unspecified (principal); M79.7 Fibromyalgia; M75.82 Other shoulder lesions, left shoulder
CPT/HCPCS: 20610; 99214

== ENCOUNTER → 2023-02-26 07:47 | Outpatient (BNVA) | payer MEDICARE, BC, SELFPAY | PROVIDERS: PCP Internal Medicine; Visit Provider Internal Medicine Rheumatology | DX: M79.7 Fibromyalgia (principal); M75.82 Other shoulder lesions, left shoulder; L40.50 Arthropathic psoriasis, unspecified | CPT/HCPCS: 20610; 99212 ==

== ENCOUNTER 2023-03-20 06:13 | Outpatient (REF) | payer MEDICARE, BC, SELFPAY ==
[2023-03-20 06:32] LABS: MANUAL DIFF FLAG NO
[2023-03-20 07:16] LABS: Basophils Percent Auto 0.7 % (0-2); Eosinophils Absolute Auto 0.2 X10*3/uL (0.0-0.4); Eosinophils Percent Auto 3.3 % (0-4); Hemoglobin 15.5 g/dl (12.0-16.0); Imm Gran Abs Auto 0.01 X10*3/uL (0.00-0.03); Imm Gran Pct Auto 0.2 % (0.0-0.4); Lymphocytes Percent Auto 33.9 % (20-40); Mean Corpuscular HGB Conc 32.3 g/dl (31.0-35.0); Mean Corpuscular Hemoglobin 28.7 pg (27.0-33.0); Mean Corpuscular Volume 88.9 fL (80.0-98.0); Monocytes Absolute Auto 0.3 X10*3/uL (0.1-1.2); Monocytes Percent Auto 5.6 % (2-11); Neutrophils Absolute Auto 3.4 x10*3/uL (2.0-8.3); Neutrophils Percent Auto 56.3 % (45-73); Platelet Count 241 X10*3/uL (160-400); Red Cell Distribution Width 13.9 % (11.0-16.0)
[2023-03-20 07:41] LABS: Alanine Aminotransferase 18 U/L (0-31); Albumin Level 4.2 g/dL (3.5-5.0); Alkaline Phosphatase 70 U/L (39-117); Anion Gap 12 (12-20); Aspartate Amino Transferase 21 U/L (5-31); Bilirubin Total 0.8 mg/dL (0.0-1.0); Blood Urea Nitrogen 18 mg/dL (9-16); Calcium 9.8 mg/dL (8.4-10.2); Carbon Dioxide 30 mmol/L (22-29); Chloride 104 mmol/L (96-108); Cholesterol 209 mg/dL (<200); Estimated Glomerular Filt Rate > 60; Glucose Fasting 91 mg/dL (60-99); HDL Cholesterol 63 mg/dL (>40); LDL Cholesterol Calculated 128 mg/dL (<100); Potassium 4.8 mmol/L (3.3-5.1); Sodium 141 mmol/L (135-145); Total Protein 7.2 g/dL (6.5-8.0); Triglycerides 91 mg/dL (<150)
[2023-03-20 08:03] LABS: TSH reflex Free T4 2.35 uIU/mL (0.32-4.0); Vitamin D 25-OH Total 40.6 ng/mL (>30)
[2023-03-20 08:16] LABS: Appearance Urine Clear; Color Urine Yellow; Glucose Urine UA Negative (Negative); Leukocyte Esterase Urine Negative (Negative); Nitrite Urine Negative (Negative); PH 6.5 (5.0-9.0); UMIC TRIGGER UACC YES; Urine Blood Trace (Negative); Urine Ketones Negative (Negative); Urine Protein Negative (Neg-Trace)
[2023-03-20 08:48] LABS: Bacteria Urine None Seen (None Seen); Hyaline Casts Urine 0-2 /LPF (0-2); Squamous Epithelial Cell Urine 0-2 /HPF (0-2); WBC Urine 0-5 /HPF (0-5)
== END 2023-03-20 06:14 | disposition home or self-care (01) ==
LOC: HO.LAB 06:13
PROVIDERS: PCP Internal Medicine; Visit Provider Internal Medicine
DX: E78.00 Pure hypercholesterolemia, unspecified (principal); E55.9 Vitamin D deficiency, unspecified; I10 Essential (primary) hypertension
CPT/HCPCS: 36415; 80053; 80061; 81001; 82306; 84443; 85025

== ENCOUNTER 2023-03-21 08:26 | Outpatient (AMB) | payer MEDICARE, BC, SELFPAY ==
[2023-03-21 08:29] VITALS: BP 116/80; PULSE 64; O2SAT 98; BMI 24.2
--- NOTE | 2023-03-21 08:29 | A.OFFPC_ITS ---
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 Accompanied by: Self / Same As Patient Allergies No Known Allergies Allergy (Verified 03/21/23 09:22) Medication List - Last Reconciled 03/21/23 by Jermaine Berg MD adalimumab (Humira(CF) Pen) 40 mg (0.4 mL) subcut Q2W 56 days apremilast (Otezla) 30 mg PO BID clonazepam 0.5 mg PO BID PRN ibuprofen 800 mg PO BID PRN simvastatin 20 mg PO DAILY 90 days tramadol 1 to 2 tablets every 4 to 6 hours as needed for pain (no more than 3 to 4 times a day); 30 days Tobacco use date assessed: 03/21/23 Dental Screening Dental Screen Date: 03/21/23 Did you have a dental visit in the last 12 months?: Yes Did you have a dental problem in the last 6 months where you did not have access to dental care?: No Was dental information given to patient?: Patient has dentist HPI hyperlipidemia, elevated LFTs, depression HPI Details Patient comes in today for her follow up visit States that she is still experiencing diffuse myalgia and multiple joint pains Was going to be started on Humira by rheumatology and was taken off Otezla but states that she could not afford the $3000 co-pay every couple of months that she would have to pay up for Humira so she has not started on that yet Is presently trying to apply for patient assistance for Humira States that her overall pain has increased significantly since she stopped taking her Otezla when Dr. Canas asked her to stop it She denies any headaches or dizziness Denies any chest pains, no increased SOB No nausea/vomiting, no abdominal pain No change in bowel habits noted Had her follow up labs done yesterday - to discuss her results [facility] Medical History History of colon polyps Insomnia 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 of left lower extremity with inflammation Polymyalgia rheumatica Pain in left shoulder Failed neck syndrome Depression Anxiety Osteopenia Elevated LFTs Vitamin D deficiency Lumbar degenerative disc disease Fibromyalgia Pure hypercholesterolemia 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 of both lower extremities with pain 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 Closed fracture of head of radius with routine healing Fracture of radial head, right, closed Occult fracture of right elbow Psoriatic arthritis Surgical History Hx of colonoscopy Hx of abdominoplasty S/P cervical spinal fusion Hx of section Family History Mother Lung cancer Father Drug addict Other Mental health problem Substance abuse Social History Household Members: Significant Other and Family Housing: House Are you a primary acute care registered nurse to a significant other at home: No Alcohol intake: never Patient Tobacco Use Status: Never used Tobacco e-Cigarette/Vaping Use: Never Used Second Hand Smoke Exposure: Yes service: No Current occupational status: disabled Cognitive needs: No Hearing needs: No Vision needs: Yes (glasses) Questionnaire PHQ-9 Over the last 2 weeks, how often have you been bothered by any of the following problems? 1. Little interest or pleasure in doing things: several days 2. Feeling down, depressed, or hopeless: several days 3. Trouble falling or staying asleep, or sleeping too much: nearly every day 4. Feeling tired or having little energy: nearly every day 5. Poor appetite or overeating: not at all 6. Feeling bad about yourself - or that you are a failure or have let yourself or your family down: several days 7. Trouble concentrating on things, such as reading the newspaper or watching television: several days 8. Moving or speaking so slowly that other people could have noticed. Or the opposite - being so fidgety or restless that you have been moving around a lot more than usual: not at all 9. Thoughts that you would be better off or of hurting yourself in some way: not at all Total score: 10 Depression Screening Interpretation: Positive Depression Screening Follow-up: Existing condition, Follow-up Visit Requested and Declines treatment (feels that her depression/mood is most related to her physical issues and limitations) Depression Screening Done: Yes 16238 - PHQ-9 Billing: Yes Source: Developed by Drs. Yared Ge, Bella Moore, Ellis Ellis and colleagues, with an educational neil from [employer]. Thrive Questionnaire Date Thrive assessed: 02/20/23 I am a: Patient What is your living situation today?: I have a steady place to live Within the past 12 months, did the food you bought not last and you didn't have the money to get more?: Never true Within the past 12 months, did you worry whether your food would run out before you got money to buy more?: Never true Do you have trouble paying for medicines?: No Do you have trouble getting transportation to medical appointments?: No Do you have trouble paying your heating and electricity bill?: No Do you have trouble taking care of your child, family member or friend?: No Do you have trouble with day-to-day activities such as bathing, preparing meals, shopping, managing finances, etc.?: No Are you currently unemployed and looking for a job?: No Are you interested in more education?: No Please select the resources that you would like help with: None Currently or been in a relationship where the following occur: no concerns reported AUDIT C Alcohol Use Questionnaire (AUDIT-C) 1. How often do you have a drink containing alcohol?: Never 3. How often do you have six or more drinks on one occasion?: Never Total Score: 0 Score Reviewed/Action Taken: Yes JOSELO-7 AMB Questionnaire JOSELO-7 Date JOSELO - 7 assessed: 03/21/23 Feeling nervous, anxious, or on edge: 3 = Nearly every day Not being able to stop or control worryin = Nearly every day Worrying too much about different things: 3 = Nearly every day Trouble relaxin = Nearly every day Being so restless that it is hard to sit still: 3 = Nearly every day Becoming easily annoyed or irritable: 2 = More than half the days Feeling afraid as if something awful might happen: 0 = Not at all Total JOSELO-7 score (0-4 normal; 5-9 mild; 10-14 moderate; 15-21 severe): 17 Source: Developed by Drs. Yared Ge, Bella Moore, Ellis Ellis and colleagues, with an educational neil from [employer]. JOSELO-7 Assessment Billing JOSELO-7 Assessment Tool: JOSELO-7 Assessment [id number] Review of Systems Const Denies chills, Reports fatigue, Denies fever(s) and Denies headache(s) ENT Denies dysphagia, Denies dizziness, Denies otalgia, Denies headache(s), Reports neck pain (chronic), Denies odynophagia and Denies sore throat Card Denies chest pain, Denies palpitations and Denies dyspnea Resp Denies cough and Denies dyspnea GI Denies abdominal pain, Denies constipation, Denies dysphagia, Denies heartburn, Denies diarrhea, Denies nausea, Denies odynophagia and Denies vomiting Denies difficulty voiding, Denies nocturia and Denies dysuria Musc Reports back pain, Reports myalgias (diffuse), Reports arthralgias (left shoulder area - chronic) and Reports neck pain (chronic) Skin/Breast Denies rash Neuro Denies dizziness and Denies headache(s) Psych Reports anxiety and Reports depression (increasing lately) Endo Reports fatigue and Denies palpitations Physical exam (Primary Care) Vital Signs: Last Vital Signs Pulse 64 03/21/23 08:29 BP 116/80 03/21/23 08:29 Pulse Ox 98 03/21/23 08:29 Oxygen Delivery Method Room Air 03/21/23 08:29 BMI result Body Mass Index 24.2 Tobacco/Smoking Status: Tobacco use Status Tobacco use date assessed 03/21/23 03/21/23 08:37 Patient Tobacco Use Status Never used Tobacco 03/21/23 08:37 e-Cigarette/Vaping Use Never Used 03/21/23 08:37 PHQ-9: PHQ-9 Score PHQ-9: Total score 10 03/21/23 08:37 Depression Screening Interpretation: Positive Depression Screening Follow-up: Existing condition, Follow-up Visit Requested and Declines treatment (feels that her depression/mood is most related to her physical issues and limitations) Thrive Assessment: Date of Thrive Assessment Date Thrive assessed 02/20/23 03/21/23 08:37 Currently or been in a relationship where the following occur: no concerns reported Const General: no acute distress and alert HENMT Ears: TM's normal bilaterally and EAC's normal Throat: Yes posterior oropharynx normal and Yes tonsils normal (no TP congestion noted) Neck Neck: Yes no lymphadenopathy and Yes supple Resp Auscultation: clear to auscultation bilaterally, no rales and no wheezes Cardio Rate: regular rate Rhythm: regular rhythm Heart sounds: no murmurs GI Palpation (GI): Soft to palpation and nontender Auscultation: normal bowel sounds Back/Spine/Pelvis Cervical Spine: cervical muscular tenderness (especially over the left side) and Cervical spine tenderness Thoracic/Lumbar Spine: paraspinal muscle tenderness bilaterally in the upper thoracic Skin Rashes: no rashes Extrem General: Yes no clubbing, cyanosis or edema Right upper extremity: shoulder/upper arm Details: tenderness; no swelling Left upper extremity: shoulder/upper arm Details: tenderness; no swelling Results Reviewed Results Reviewed: Laboratory Tests 11/22/22 11/22/22 03/20/23 06:33 06:33 06:27 WBC Hgb Hct Plt Count Sodium Potassium Creatinine Estimated GFR Fasting Glucose AST ALT Triglycerides Cholesterol 183 LDL Cholesterol, Calc 108 HDL Cholesterol 25-OH Vitamin D Total TSH Ur Specific [place] 1.010 Urine Protein Urine Glucose (UA) Urine Blood 03/20/23 03/20/23 03/20/23 06:27 06:28 06:28 WBC 6.0 Hgb 15.5 Hct 48.0 H Plt Count 241 Sodium 141 Potassium 4.8 Creatinine Estimated GFR Fasting Glucose 91 AST 21 ALT 18 Triglycerides 91 Cholesterol 209 H LDL Cholesterol, Calc 128 H HDL Cholesterol 25-OH Vitamin D Total TSH Ur Specific [place] Urine Protein Negative Urine Glucose (UA) Negative Urine Blood Trace H 03/20/23 03/20/23 06:28 06:28 WBC Hgb Hct Plt Count Sodium Potassium Creatinine 0.75 Estimated GFR > 60 Fasting Glucose AST ALT Triglycerides Cholesterol LDL Cholesterol, Calc HDL Cholesterol 63 25-OH Vitamin D Total 40.6 TSH 2.35 Ur Specific [place] Urine Protein Urine Glucose (UA) Urine Blood Assessment and Plan Assessment & Plan (1) Pure hypercholesterolemia: Code(s): E78.00 - Pure hypercholesterolemia, unspecified Plan: Results of her labs done yesterday reviewed and discussed with patient - advised that her cholesterol levels have again increased slightly from previous Reinforced low cholesterol diet; patient admits that her diet has not been that great during the recent holidays Continue Simvastatin 20 mg QD for now Will recheck her labs and fasting lipids in 4 months for follow-up (2) Lumbar degenerative disc disease: Code(s): M51.36 - Other intervertebral disc degeneration, lumbar region Plan: Reinforced activity and weight-lifting restrictions to minimize flare ups of her back pain Repeat lumbar spine x-rays done a couple of years ago showed only mild lumbar spondylotic changes; SI joints were normal bilaterally (3) Fibromyalgia: Code(s): M79.7 - Fibromyalgia Plan: Patient is again encouraged to continue to stay active and exercise regularly to help manage her fibromyalgia symptoms Continue Tramadol 50 mg 1-2 tablets every 4-6 hours as needed (Rx refilled) and Baclofen 20 mg TID PRN (4) Psoriatic arthritis: Comment: Enbrel not clearly helpful Otezla: 2018- present Methotrexate: 2016 - 01/19/2022. LFT elevations - methotrexate discontinued. She did okay until summer 2022 when she had a flare overall joint pains. Code(s): L40.50 - Arthropathic psoriasis, unspecified Plan: She was taken off Otezla recently and was going to be started on Humira but she could not afford the co-pay and is presently awaiting approval of her patient assistance application for the medication Methotrexate was also discontinued by rheumatology a few months ago Follow-up with rheumatology as scheduled As she will be starting hopefully on Humira soon and considering that she has been on several biologics Rx over the past few years, will have her get an echocardiogram to at least establish a baseline scan just in case she starts experiencing any side effects or symptoms down the road (5) Elevated LFTs: Code(s): R79.89 - Other specified abnormal findings of blood chemistry Plan: Reassured that her LFTs are back to normal on her recent labs Will continue to monitor her LFTs regularly (6) Vitamin D deficiency: Code(s): E55.9 - Vitamin D deficiency, unspecified Plan: Continue Vitamin D 600 units QD (7) Osteopenia: Code(s): M85.80 - Other specified disorders of bone density and structure, unspecified site Qualifiers: Osteopenia location: unspecified Qualified Code(s): M85.80 - Other specified disorders of bone density and structure, unspecified site Plan: Repeat BMD done in April 2021 showed (+) osteopenia with 4.8% decline in AP spine BMD from her previous BMD in 02/2019 and 1.3% decline in left femoral BMD from previous in 02/2019 -? will continue to monitor regularly Patient again encouraged to exercise regularly to help slow down decline in her BMD and is reminded to continue on her Vitamin D and calcium supplements daily (8) Benign microscopic hematuria: Code(s): R31.1 - Benign essential microscopic hematuria Plan: Still has (+) trace blood in her urine (chronic finding); patient remains asymptomatic Renal US last done in 03/2014 revealed (+) right renal cyst that is mostly unchanged from US in 2007 Repeat renal US done a few months ago in July 2022 showed the same findings; no further follow up imaging studies is recommended at this point (9) Renal cyst, right: Code(s): N28.1 - Cyst of kidney, acquired Plan: (+) right renal cyst noted on sonogram done in 2007 and in 2013 as well as most recently in July 2022 - no further follow up imaging studies is recommended (10) Insomnia: Code(s): G47.00 - Insomnia, unspecified Qualifiers: Insomnia type: unspecified Qualified Code(s): G47.00 - Insomnia, unspecified Plan: Sleep hygiene reinforced Continue Trazodone 100 mg QHS (11) Anxiety: Code(s): F41.9 - Anxiety disorder, unspecified Plan: Continue Clonazepam 0.5 mg 1 tablet 2 to 3 times a day as needed for anxiety (12) Depression: Code(s): F32.9 - Major depressive disorder, single episode, unspecified Qualifiers: Depression Type: unspecified Qualified Code(s): F32.9 - Major depressive disorder, single episode, unspecified Plan: Continue Venlafaxine ER 187.5 mg (150 + 37.5 mg) QD Was not able to tolerate Seroquel in the past Follow-up with Psychiatry as scheduled Plan Follow up in 4 months Orders: Orders CA echo transthoracic complete Today R06.09 - Other forms of dyspnea Lipid Panel 4 Months E78.00 - Pure hypercholesterolemia, unspecified Complete Blood Count Auto Diff 4 Months I10 - Essential (primary) hypertension TSH reflex Free T4 4 Months E78.00 - Pure hypercholesterolemia, unspecified Comprehensive [place]. Panel Fast 4 Months E78.00 - Pure hypercholesterolemia, unspecified UA CC w/rflx Micro + Cult 4 Months R30.0 - Dysuria Vitamin D 25-OH Total 4 Months E55.9 - Vitamin D deficiency, unspecified Coding Level of Care Code Est Pt Level 4 (96577) Diagnoses Pure hypercholesterolemia E78.00 Lumbar degenerative disc disease M51.36 Fibromyalgia M79.7 Psoriatic arthritis L40.50 Elevated LFTs R79.89 Vitamin D deficiency E55.9 Osteopenia, unspecified location M85.80 Osteopenia location: unspecified Benign microscopic hematuria R31.1 Renal cyst, right N28.1 Insomnia, unspecified type G47.00 Insomnia type: unspecified Anxiety F41.9 Depression, unspecified depression type F32.9 Depression Type: unspecified Additional Codes JOSELO-7 Assessment Billing - JOSELO-7 Assessment Tool: JOSELO-7 Assessment [id number] ([id number])
== END 2023-03-21 09:41 | disposition home or self-care (01) ==
PROVIDERS: PCP Internal Medicine; Visit Provider Internal Medicine
DX: E78.00 Pure hypercholesterolemia, unspecified (principal); M51.36 Other intervertebral disc degeneration, lumbar region; M79.7 Fibromyalgia; L40.50 Arthropathic psoriasis, unspecified; R79.89 Other specified abnormal findings of blood chemistry; E55.9 Vitamin D deficiency, unspecified; M85.80 Other specified disorders of bone density and structure, unspecified site; R31.1 Benign essential microscopic hematuria; N28.1 Cyst of kidney, acquired; G47.00 Insomnia, unspecified; F41.9 Anxiety disorder, unspecified; F32.9 Major depressive disorder, single episode, unspecified
CPT/HCPCS: 96127; 99214

== ENCOUNTER → 2023-04-09 14:42 | Outpatient (REF) | payer MEDICARE, BC, SELFPAY | LOC: HO.CARD 14:42 | PROVIDERS: PCP Internal Medicine; Visit Provider Internal Medicine | DX: R06.09 Other forms of dyspnea (principal) | CPT/HCPCS: 93306; 93356 ==

== ENCOUNTER → 2023-04-09 14:44 | Outpatient (BNV) | payer MEDICARE, BC, SELFPAY | PROVIDERS: PCP Internal Medicine; Visit Provider Internal Medicine Cardiovascular Disease | DX: R06.09 Other forms of dyspnea (principal) | CPT/HCPCS: 93306 ==

== ENCOUNTER 2023-05-01 08:18 | Outpatient (AMB) | payer MEDICARE, BC, SELFPAY ==
--- NOTE | 2023-05-01 08:23 | A.OFFVIS_ITS ---
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 Canas, presents today for follow up and test results. Reports starting Humira about 2 weeks ago and has noticed improvement. 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 Ferrer 62 yoF returns for follow-up of Psoriatic Arthriti. She was started on Humira at last visit (02/2023) due to continued pains and the shoulders, thighs, hips, neck and hands. She had also received an inection to the shoulder which seemed to help. She was to remain on Otezla 30 mg b.i.d. but had stopped the medication because of possible misunderstaning the instructions. Therefore, she was off of medication since February 26 until 2 weeks ago when she did the first Humira injection (04/17/2023). She also takes buprofen up to 800 t.i.d. helped a bit but she still is very uncomfortable. She has tramadol and clonazepam from other providers that are helpful as well. There has been no return of psoriasis. She does not seem to have any side effects so far with the ibuprofen. Before adding Humira, the pains are worse at night and there is a significant amount of stiffness in the hands, shoulders and hips in the mornings. She has seen some improvement since the first injection. Med Profile: In the past she was on Enbrel and then subsequently methotrexate. The Enbrel was not all that effective but the methotrexate was helpful for a number of years. She does recall swollen joints in the hands that were helped when she was started on those medications. Methotrexate was held recently because of elevated liver enzymes so it is looking like we can not really use that again. 02/2023 Assmt: She continues with many a reas of pain. There is some small joint tenderness in the wrist and MCP regions. Most of her discomfort is in the shoulders and hips. The sed rate is higher and in the elevated range as compared to previously and the CRP has risen as well. I think this is return of inflammation from her psoriatic arthritis. The hepatitis serologies and TB serologies were negative. I think we should augment her treatment with the addition of Humira. We reviewed potential side effect some wrist of Humira treatment. I gave her some written information on that drug to review. The methotrexate use seems to be not advisable because of her frequent elevated LFTs. Similarly leflunomide would cause a problem in that regard. She had trials with Enbrel in the past that were not that effective. I think we should try to get prior authorization for the use of Humira. In the meantime she can continue with the ibuprofen. The left shoulder pain is consistent with some rotator cuff tendinitis. This could be on an impingement basis or from her inflammatory disease i.e. her psoriatic arthritis. In any case corticosteroid injection there seems a reasonable option. We reviewed potential benefits and side effects of such injections. With the patient's consent the left shoulder was prepped with ChloraPrep and alcohol. Under a topical ethyl chloride spray the left subacromial space was injected with 40 mg of triamcinolone and 1 cc of 1% lidocaine. The patient tolerated the procedure without any acute adverse effects. She should rest the shoulder for a few days and then begin some gentle [id number] exercises. We will get back to her when we get prior authorization for the Humira. She probably will need a teaching session with the nurse to review techniques administration. Follow-up in 2 months is recommended. 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 Closed fracture of head of radius with routine healing Fracture of radial head, right, closed Occult fracture of right elbow Psoriatic arthritis Surgical History Hx of colonoscopy Hx of abdominoplasty S/P cervical spinal fusion Hx of section Family History Mother Lung cancer Father Drug addict Other Mental health problem Substance abuse Social History Household Members: Significant Other and Family Housing: House Are you a primary ambulatory care nurse to a significant other at home: No Alcohol intake: never Patient Tobacco Use Status: Never used Tobacco e-Cigarette/Vaping Use: Never Used Second Hand Smoke Exposure: Yes service: No Current occupational status: disabled Cognitive needs: No Hearing needs: No Vision needs: Yes (glasses) Review of Systems Const All systems reviewed & are unremarkable except as noted in HPI and below Physical Exam Vital Signs: Last Vital Signs Temp 97.4 F 05/01/23 08:24 Pulse 82 05/01/23 08:24 BP 110/62 05/01/23 08:24 Pulse Ox 99 05/01/23 08:24 Oxygen Delivery Method Room Air 05/01/23 08:24 BMI result Body Mass Index 25.1 APPEARANCE: Patient in no acute distress EYES no redness, pupils equal and reactive to light, eyelids normal no temporal artery tenderness, redness or swelling. EXTREMITIES: No edema, no calf tenderness, normal peripheral pulses. SKIN: No inflammatory or neoplastic lesions. Normal color and turgor. I do not see any areas of hair thinning. JOINT EXAM: ? Cervical Spine:? Mild discomfort with extremes of range of motion. There may be some diminishment in the range of lateral flexion. Slight tenderness in the posterior cervical spinal muscles. Thoracic Spine: No scoliosis.? No tenderness on palpation. Lumbar Spine:? Alignment normal.? Mild lumbar pain with flexion at 60 degrees. There is some paraspinal muscle tenderness. Hands:? Right: Slight thickening at the PIP joints 2 through 4. These are minimally tender but have pain-free range of motion. There is mild tenderness without swelling at the 3rd MCP joint. No other areas of swelling or tenderness. Left: Slight pain with PIP range of motion and some mild thickening and tenderness at the PIP is. No air other areas of tenderness or swelling. Wrists: Right: Mild discomfort with 75 degrees flexion extension. No tenderness or swelling. Left: Slight pain with flexion extension at 75 degrees with some minimal dorsal tenderness but no swelling, increased warmth or erythema. Elbows: There is mild pain with extremes of range of motion but over the joint spaces there is no tenderness, swelling, increased warmth or erythema. Shoulders:?? Right: Mild pain with the extremes of abduction or rotation. Mild anterior tenderness without adenopathy, weakness or swelling. Left: Mild to moderate pain with abduction at 120 degrees or any attempted internal or external rotation. Pain is felt anteriorly and over the top of the shoulder. There is [id number] anterior, subacromial and posterior tenderness without swelling, adenopathy or abductor weakness. Hips:? There is mild to moderate pain in the groin and buttock region with extremes of normal internal rotation, external rotation or abduction. Hip bursa: Mild to moderate bilateral trochanteric tenderness. Knees:?? Normal pain-free range of motion with mild medial tenderness without effusion, soft tissue swelling, increased warmth or erythema.? ns. Ankles:? Left: Normal pain-free range of motion with some mild tenderness but no swelling. Right: Normal pain-free range of motion with mild tenderness but no swelling, increased warmth or erythema. Feet: There is mild tenderness at the 1st MTP bilaterally with there is some mild bony enlargement, a bit more prominent on the right. No other tenderness or swelling in the feet. Tender points:? Mild tenderness to digital palpation at the occiput, trapezius, right second rib, lateral epicondyle, knees, greater trochanter bilaterally. ? Results Reviewed Results Reviewed: Laboratory Tests 02/12/23 02/12/23 02/12/23 12:27 12:27 12:27 ESR 26 H AST 26 ALT 21 C-Reactive Protein 0.28 25-OH Vitamin D Total Hepatitis A IgM Ab Nonreactive Hep Bs Antigen Negative Hep Bs Antibody NONREACTIVE TB Test Nil Control Passed TB Test Positive Cntr Passed 03/20/23 03/20/23 06:28 06:28 ESR AST 21 ALT 18 C-Reactive Protein 25-OH Vitamin D Total 40.6 Hepatitis A IgM Ab Hep Bs Antigen Hep Bs Antibody TB Test Nil Control TB Test Positive Cnt 02/2023 EXAMINATION: XR SHOULDER, RIGHT CLINICAL INFORMATION: Arthropathic psoriasis. Right shoulder pain COMPARISON: 12/11/2017 TECHNIQUE: AP external rotation, Grashey, scapular Y, and axillary views of the right shoulder. FINDINGS: The bones and soft tissues are normal. No fracture. Glenohumeral and acromioclavicular alignment is anatomic with normal joint space. No abnormal soft tissue calcifications. XR/XR shoulder RT min 2V IMPRESSION: Normal right shoulder. EXAMINATION: XR SHOULDER, LEFT CLINICAL INFORMATION: Left shoulder pain COMPARISON: None available. TECHNIQUE: AP external rotation, Grashey, scapular Y, and axillary views of the left shoulder. FINDINGS: The bones and soft tissues are normal. No fracture. Glenohumeral and acromioclavicular alignment is anatomic with normal joint space. No abnormal soft tissue calcifications. XR/XR shoulder LT min 2V IMPRESSION: Normal left shoulder. Assessment & Plan Assessment & Plan (1) Tendinitis of left rotator cuff: Code(s): M75.82 - Other shoulder lesions, left shoulder (2) Psoriatic arthritis: Comment: Bronson not clearly helpful Otezla: 2017- 2023 Humira 04/2023 - Present Methotrexate: 2016 - 01/19/2022. LFT elevations - methotrexate discontinued. She did okay until summer 2022 when she had a flare overall joint pains. Code(s): L40.50 - Arthropathic psoriasis, unspecified (3) snf use of drug: Code(s): Z79.899 - Other senior care (current) drug therapy Plan #PsA: Ms Ferrer had stopped the Otezla and was without medication for approximately 2 months. Since she has been off medication for 2 months, most of her symptoms are still present on PE. I think the patient misunderstood the instructions at the last visit, where the addition of HUMIRA was to augment the Otezla. Nonetheless, we will continue with HUMIRA 40 mg Q2W and have decided to use up the otezla that she has until it is done to aid in this ramping up period, then continue with HUMIRA solo. If she finds that there was more efficacy and symptom relief with both, we will resubmit for Otezla. 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 Patient knows to stop medication if she develops fever, an infection or would that has delayed healing. EKG was WNL to start HUMIRA. #Tendinitis of Left RC: ROM and pain is Improved with corticosteroid injection from last visit but still present. Xray shows normal shoulder bilaterally. Will reassess in 6 weeks. I spent 35 minutes reviewing chart, evaluating patient and documenting. Orders: Orders Comprehensive Met. Panel Today L40.50 - Arthropathic psoriasis, unspecified, Z79.899 - Other senior care (current) drug therapy Erythrocyte Sedimentation Rate Today L40.50 - Arthropathic psoriasis, unspecified, Z79.899 - Other senior care (current) drug therapy C Reactive Protein Today L40.50 - Arthropathic psoriasis, unspecified, Z79.899 - Other parts counterman (current) drug therapy Complete Blood Count Auto Diff Today L40.50 - Arthropathic psoriasis, unspecified, Z79.899 - Other senior care (current) drug therapy Coding Level of Care Code Est Pt Level 4 (09141) Diagnoses Tendinitis of left rotator cuff M75.82 Psoriatic arthritis L40.50 intermodal customer service use of drug Z79.899
[2023-05-01 08:24] VITALS: BP 110/62; PULSE 82; TEMP 36.3; O2SAT 99; BMI 25.1
== END 2023-05-01 09:11 | disposition home or self-care (01) ==
PROVIDERS: PCP Internal Medicine; Visit Provider Nurse Practitioner Family
DX: M75.82 Other shoulder lesions, left shoulder (principal); L40.50 Arthropathic psoriasis, unspecified; Z79.899 Other long term (current) drug therapy
CPT/HCPCS: 99214

== ENCOUNTER → 2023-05-01 08:18 | Outpatient (BNVA) | payer MEDICARE, BC, SELFPAY | PROVIDERS: PCP Internal Medicine; Visit Provider Nurse Practitioner Family | DX: M75.82 Other shoulder lesions, left shoulder (principal); L40.50 Arthropathic psoriasis, unspecified; Z79.899 Other long term (current) drug therapy | CPT/HCPCS: 99212 ==

== ENCOUNTER 2023-06-08 07:58 | Outpatient (REF) | payer MEDICARE, BC, SELFPAY ==
[2023-06-08 08:15] LABS: MANUAL DIFF FLAG NO
[2023-06-08 08:40] LABS: Basophils Percent Auto 0.7 % (0-2); Eosinophils Absolute Auto 0.2 X10*3/uL (0.0-0.4); Eosinophils Percent Auto 4.1 % (0-4); Hematocrit 46.8 % (37.0-47.0); Hemoglobin 15.3 g/dl (12.0-16.0); Lymphocytes Percent Auto 45.9 % (20-40); Mean Corpuscular HGB Conc 32.7 g/dl (31.0-35.0); Mean Corpuscular Hemoglobin 29.1 pg (27.0-33.0); Mean Corpuscular Volume 89.1 fL (80.0-98.0); Mean Platelet Volume 9.1 fL (9.4-12.3); Monocytes Absolute Auto 0.3 X10*3/uL (0.1-1.2); Monocytes Percent Auto 6.8 % (2-11); Neutrophils Absolute Auto 1.9 x10*3/uL (2.0-8.3); Neutrophils Percent Auto 42.5 % (45-73); Platelet Count 252 X10*3/uL (160-400); Red Blood Count 5.25 X10*6/uL (4.20-5.50); Red Cell Distribution Width 13.2 % (11.0-16.0); White Blood Count 4.4 X10*3/uL (4.8-10.8)
[2023-06-08 09:09] LABS: Alanine Aminotransferase 20 U/L (0-31); Albumin Level 4.1 g/dL (3.5-5.0); Alkaline Phosphatase 72 U/L (39-117); Anion Gap 8 (12-20); Aspartate Amino Transferase 21 U/L (5-31); Bilirubin Total 0.5 mg/dL (0.0-1.0); Blood Urea Nitrogen 16 mg/dL (9-16); C Reactive Protein 0.16 mg/dL (< or = 0.50); Calcium 9.6 mg/dL (8.4-10.2); Carbon Dioxide 31 mmol/L (22-29); Chloride 106 mmol/L (96-108); Estimated Glomerular Filt Rate > 60; Glucose Random 92 mg/dL (60-115); Potassium 4.4 mmol/L (3.3-5.1); Sodium 141 mmol/L (135-145); Total Protein 6.9 g/dL (6.5-8.0)
[2023-06-08 09:26] LABS: Erythrocyte Sedimentation Rate 5 MM/HR (0-20)
== END 2023-06-08 07:59 | disposition home or self-care (01) ==
LOC: HO.LAB 07:58
PROVIDERS: PCP Internal Medicine; Visit Provider Nurse Practitioner Family
DX: L40.50 Arthropathic psoriasis, unspecified (principal); Z79.899 Other long term (current) drug therapy
CPT/HCPCS: 36415; 80053; 85025; 85652; 86140

== ENCOUNTER 2023-06-12 08:23 | Outpatient (AMB) | payer MEDICARE, BC, SELFPAY ==
--- NOTE | 2023-06-12 08:32 | A.OFFVIS_ITS ---
Intake Vital Signs 06/12/23 08:34 Height 5 ft 2 in Weight 137 lb 2.04 oz BMI 25.1 BP 100/70 Blood Pressure Location Rt brachial Position Sitting Pulse 72 Pulse Source Pulse Oximeter Temp 98.1 F Temp Source Skin Pulse Oximetry (%) 100 Oxygen Delivery Method Room Air Intake Visit Reasons: PsO/PsA Intake Note: Patient last seen 05/01/23 by Adrian, presents today for follow up and test results. Reports feeling better since taking Humira and Otezla. Front End Technician Required: No Accompanied by: Self / Same As Patient Allergies No Known Allergies Allergy (Verified 06/12/23 08:32) HPI HPI Comments History of Present Illness Details Today Ms. Carissa Davis yoF returns for follow-up of Psoriatic Arthritis. She continues on Humira at last visit (02/2023) and Otezla 30mg QD and is doing well. She reports that restarting Otezla was a good decision for her joints. due to continued pains and the shoulders, thighs, hips, neck and hands. Her hips do continue to hurt especially at night, it makes sleeping difficult. She has to constantly turn from her sides. She takes buprofen up to 800 t.i.d. occasionally if she has a hard day with the grandchildren. She has tramadol 50 mg up to 4 tablets per day prn and clonazepam from other providers that are helpful as well. There has been no return of psoriasis. She does not seem to have any side effects so far with the medications. Before adding Humira, the pains are worse at night and there was a significant amount of stiffness in the hands, shoulders and hips in the mornings. She has seen much improvement with the HUMIRA and Otezla. 05/01/2023 Visit: Ms. Carissa Davis yoJanusz returns for follow-up of Psoriatic Arthriti. She was started on Humira at last visit (02/2023) due to continued pains and the shoulders, thighs, hips, neck and hands. She had also received an inection to the shoulder which seemed to help. She was to remain on Otezla 30 mg b.i.d. but had stopped the medication because of possible misunderstaning the instructions. Therefore, she was off of medication since February 26 until 2 weeks ago when she did the first Humira injection (04/17/2023). She also takes buprofen up to 800 t.i.d. helped a bit but she still is very uncomfortable. She has tramadol and clonazepam from other providers that are helpful as well. There has been no return of psoriasis. She does not seem to have any side effects so far with the ibuprofen. Before adding Humira, the pains are worse at night and there is a significant amount of stiffness in the hands, shoulders and hips in the mornings. She has seen some improvement since the first injection. Med Profile: In the past she was on Enbrel and then subsequently methotrexate. The Enbrel was not all that effective but the methotrexate was helpful for a number of years. She does recall swollen joints in the hands that were helped when she was started on those medications. Methotrexate was held recently because of elevated liver enzymes so it is looking like we can not really use that again. 02/26/[address] [facility] [address] Young: Elvira maloney continues with many areas of pain. There is some small joint tenderness in the wrist and MCP regions. Most of her discomfort is in the shoulders and hips. The sed rate is higher and in the elevated range as compared to previously and the CRP has risen as well. I think this is return of inflammation from her psoriatic arthritis. The hepatitis serologies and TB serologies were negative. I think we should augment her treatment with the addition of Humira. We reviewed potential side effect some wrist of Humira treatment. I gave her some written information on that drug to review. The methotrexate use seems to be not advisable because of her frequent elevated LFTs. Similarly leflunomide would cause a problem in that regard. She had trials with Enbrel in the past that were not that effective. I think we should try to get prior authorization for the use of Humira. In the meantime she can continue with the ibuprofen. The left shoulder pain is consistent with some rotator cuff tendinitis. This could be on an impingement basis or from her inflammatory disease i.e. her psoriatic arthritis. In any case corticosteroid injection there seems a reasonable option. We reviewed potential benefits and side effects of such injections. With the patient's consent the left shoulder was prepped with ChloraPrep and alcohol. Under a topical ethyl chloride spray the left subacromial space was injected with 40 mg of triamcinolone and 1 cc of 1% lidocaine. The patient tolerated the procedure without any acute adverse effects. She should rest the shoulder for a few days and then begin some gentle [id number] exercises. We will get back to her when we get prior authorization for the Humira. She probably will need a teaching session with the nurse to review techniques administration. Follow-up in 2 months is recommended. 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 Closed fracture of head of radius with routine healing Fracture of radial head, right, closed Occult fracture of right elbow Psoriatic arthritis Surgical History Hx of colonoscopy Hx of abdominoplasty S/P cervical spinal fusion Hx of section Family History Mother Lung cancer Father Drug addict Other Mental health problem Substance abuse Social History Household Members: Significant Other and Family Housing: House Are you a primary children's zoo caretaker to a significant other at home: No Alcohol intake: never Patient Tobacco Use Status: Never used Tobacco e-Cigarette/Vaping Use: Never Used Second Hand Smoke Exposure: Yes service: No Current occupational status: disabled Cognitive needs: No Hearing needs: No Vision needs: Yes (glasses) Review of Systems Const All systems reviewed & are unremarkable except as noted in HPI and below Physical Exam Vital Signs: Last Vital Signs Temp 98.1 F 06/12/23 08:34 Pulse 72 06/12/23 08:34 BP 100/70 06/12/23 08:34 Pulse Ox 100 06/12/23 08:34 Oxygen Delivery Method Room Air 06/12/23 08:34 BMI result Body Mass Index 25.1 APPEARANCE: Patient in no acute distress, groomed EYES no redness, no temporal artery tenderness, redness or swelling. EXTREMITIES: No edema, no calf tenderness, normal peripheral pulses. SKIN: No inflammatory or neoplastic lesions. Normal color and turgor. I do not see any areas of hair thinning. JOINT EXAM: Cervical Spine:? Mild discomfort with extremes of range of motion. There may be some diminishment in the range of lateral flexion. Slight tenderness in the posterior cervical spinal muscles. Thoracic Spine: No scoliosis.? No tenderness on palpation. Lumbar Spine:? Alignment normal.? Mild lumbar pain with flexion at 60 degrees. There is some paraspinal muscle mild tenderness. Hands:? Right: Slight thickening at the PIP joints 2 through 4. These are minimally tender but have pain-free range of motion. There is no more mild tenderness without swelling at the 3rd MCP joint. No other areas of swelling or tenderness. Left: no more slight pain with PIP range of motion and some mild thickening and but no tenderness at the PIPs. No other areas of tenderness or swelling. Wrists: Right: Mild discomfort with 75 degrees flexion extension. No tenderness or swelling. Left: Slight pain with flexion extension at 75 degrees with some minimal dorsal tenderness but no swelling, increased warmth or erythema. Elbows: There is no more mild pain with extremes of range of motion but over the joint spaces there is no tenderness, swelling, increased warmth or erythema. Shoulders:?? Right: Slight discomfort with the extremes of abduction or rotation. Mild anterior tenderness without adenopathy, weakness or swelling. Left: Mild to moderate pain with abduction at 120 degrees or any attempted internal or external rotation. Pain is felt anteriorly and over the top of the shoulder. There is [id number]-[id number] anterior, subacromial and posterior tenderness without swelling, adenopathy or abductor weakness. Hips:? There is mild to moderate pain in the groin and buttock region with extremes of normal internal rotation, external rotation or abduction. Hip bursa: Mild to moderate bilateral trochanteric tenderness. Knees:?? Normal pain-free range of motion with mild medial tenderness without effusion, soft tissue swelling, increased warmth or erythema. Ankles:? Left: Normal pain-free range of motion with some mild tenderness but no swelling. Right: Normal pain-free range of motion with mild tenderness but no swelling, increased warmth or erythema. Feet: There is mild tenderness at the 1st MTP bilaterally with there is some mild bony enlargement, a bit more prominent on the right. No other tenderness or swelling in the feet. Tender points:? Mild tenderness to digital palpation at the occiput, trapezius, right second rib, lateral epicondyle, knees, greater trochanter bilaterally. ? Office Procedures Joint Injection/Drain Joint Injection/Drain Details: Each TB site injected Primary Site: other Secondary Site: other Prep: site was prepped using aseptic technique Injected: 40 mg of and with 1 mL of Approach Used: posterolateral Procedure: The patient tolerated the procedure well Coding 17190 - Large joint 57350 - Glenohumeral/Tronchanteric Bursa/Intraarticular Procedure code (CPT) selection complete Results Reviewed Results Reviewed: Laboratory Tests 02/12/23 02/12/23 02/12/23 12:27 12:27 12:27 ESR 26 H AST 26 ALT 21 C-Reactive Protein 0.28 25-OH Vitamin D Total Hepatitis A IgM Ab Nonreactive Hep Bs Antigen Negative Hep Bs Antibody NONREACTIVE TB Test Nil Control Passed TB Test Positive Cntrl Passed 03/20/23 03/20/23 06:28 06:28 ESR AST 21 ALT 18 C-Reactive Protein 25-OH Vitamin D Total 40.6 Hepatitis A IgM Ab Hep Bs Antigen Hep Bs Antibody TB Test Nil Control TB Test Positive Cntrl 02/2023 EXAMINATION: XR SHOULDER, RIGHT CLINICAL INFORMATION: Arthropathic psoriasis. Right shoulder pain COMPARISON: 12/11/2017 TECHNIQUE: AP external rotation, Grashey, scapular Y, and axillary views of the right shoulder. FINDINGS: The bones and soft tissues are normal. No fracture. Glenohumeral and acromioclavicular alignment is anatomic with normal joint space. No abnormal soft tissue calcifications. XR/XR shoulder RT min 2V IMPRESSION: Normal right shoulder. EXAMINATION: XR SHOULDER, LEFT CLINICAL INFORMATION: Left shoulder pain COMPARISON: None available. TECHNIQUE: AP external rotation, Grashey, scapular Y, and axillary views of the left shoulder. FINDINGS: The bones and soft tissues are normal. No fracture. Glenohumeral and acromioclavicular alignment is anatomic with normal joint space. No abnormal soft tissue calcifications. XR/XR shoulder LT min 2V IMPRESSION: Normal left shoulder. Laboratory Tests 06/08/23 08:14 WBC 4.4 L RBC 5.25 Hgb 15.3 Hct 46.8 Plt Count 252 ESR 5 AST 21 ALT 20 C-Reactive Protein 0.16 Assessment & Plan Assessment & Plan (1) Tendinitis of left rotator cuff: Code(s): M75.82 - Other shoulder lesions, left shoulder (2) Psoriatic arthritis: Comment: [facility] not clearly helpful Otezla: 2017- 2023 Humira 04/2023 - Present Methotrexate: 2016 - 01/19/2022. LFT elevations - methotrexate discontinued. She did okay until summer 2022 when she had a flare overall joint pains. Code(s): L40.50 - Arthropathic psoriasis, unspecified (3) intermediate use of drug: Code(s): Z79.899 - Other [place] [facility] ([facility] drug therapy Plan #PsA: Ms Ferrer restarted the Otezla and has seen the benefit. She is doing with the addition of HUMIRA augmented by the Otezla. We will continue both medication. 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 We will continue to monitor labs for CBC on Humira. Patient knows to stop medication if she develops fever, an infection or would that has delayed healing. EKG was WNL to start HUMIRA. #Tendinitis of Left RC: ROM and pain continues to feel better with corticosteroid injection from 02/2023 visit but mild discomfort still present. At least she can cotton picker her grandchildren. Xray shows normal shoulder bilaterally. #Bilateral Trochanteric Bursitis: Marked tenderness that interferes with sleep. Reasonable to inject today. Discussed with patient precautions for the next few days. Gave patient list of exercises to start in the next few weeks of the injections. Will reassess in 16 weeks. I spent 35 minutes reviewing chart, evaluating patient and documenting. Orders: Orders Alanine Aminotransferase 4 Months L40.50 - Arthropathic psoriasis, unspecified, M75.82 - Other shoulder lesions, left shoulder, Z79.899 - Other terminal [facility] (current) drug therapy Creatinine 4 Months L40.50 - Arthropathic psoriasis, unspecified, M75.82 - Other shoulder lesions, left shoulder, Z79.899 - Other terminal [facility] (current) drug therapy Erythrocyte Sedimentation Rate 4 Months L40.50 - Arthropathic psoriasis, u nspecified, M75.82 - Other shoulder lesions, left shoulder, Z79.899 - Other [place] [facility] drug therapy C Reactive Protein 4 Months L40.50 - Arthropathic psoriasis, unspecified, M75.82 - Other shoulder lesions, left shoulder, Z79.899 - Other terminal [facility] (current) drug therapy Complete Blood Count Auto Diff 4 Months L40.50 - Arthropathic psoriasis, unspecified, M75.82 - Other shoulder lesions, left shoulder, Z79.899 - Other [place] [facility] drug therapy Aspartate Amino Transferase 4 Months L40.50 - Arthropathic psoriasis, unspecified, M75.82 - Other shoulder lesions, left shoulder, Z79.899 - Other terminal [facility] (current) drug therapy AMB Joint Injection/Aspiration Today M70.61 - Trochanteric bursitis, right hip, M70.62 - Trochanteric bursitis, left hip Coding Level of Care Code Est Pt Level 4 (76299) Diagnoses Tendinitis of left rotator cuff M75.82 Psoriatic arthritis L40.50 intermediate use of drug Z79.899 CPT Codes Coding - 37985 Large joint: 52974 - Large joint ([id number]) Coding - Joint 7: 32858 - Glenohumeral/Tronchanteric Bursa/Intraarticular ([id number])
[2023-06-12 08:34] VITALS: BP 100/70; PULSE 72; TEMP 36.7; O2SAT 100; BMI 25.1
== END 2023-06-12 09:12 | disposition home or self-care (01) ==
PROVIDERS: PCP Internal Medicine; Visit Provider Nurse Practitioner Family
DX: L40.50 Arthropathic psoriasis, unspecified (principal); M75.82 Other shoulder lesions, left shoulder; Z79.899 Other long term (current) drug therapy; M70.61 Trochanteric bursitis, right hip; M70.62 Trochanteric bursitis, left hip
CPT/HCPCS: 20610; 99214

== ENCOUNTER → 2023-06-12 08:23 | Outpatient (BNVA) | payer MEDICARE, BC, SELFPAY | PROVIDERS: PCP Internal Medicine; Visit Provider Nurse Practitioner Family | DX: M75.82 Other shoulder lesions, left shoulder (principal); M70.62 Trochanteric bursitis, left hip; M70.61 Trochanteric bursitis, right hip; L40.50 Arthropathic psoriasis, unspecified; Z79.899 Other long term (current) drug therapy | CPT/HCPCS: 20610; 99212 ==

== ENCOUNTER 2023-07-24 07:22 | Outpatient (REF) | payer MEDICARE, BC, SELFPAY ==
[2023-07-24 07:33] LABS: MANUAL DIFF FLAG NO
[2023-07-24 08:49] LABS: Basophils Percent Auto 0.6 % (0-2); Eosinophils Absolute Auto 0.2 X10*3/uL (0.0-0.4); Eosinophils Percent Auto 2.9 % (0-4); Hematocrit 48.7 % (37.0-47.0); Hemoglobin 15.8 g/dl (12.0-16.0); Imm Gran Abs Auto 0.03 X10*3/uL (0.00-0.03); Imm Gran Pct Auto 0.6 % (0.0-0.4); Lymphocytes Absolute Auto 2.3 X10*3/uL (1.2-4.9); Lymphocytes Percent Auto 42.5 % (20-40); Mean Corpuscular HGB Conc 32.4 g/dl (31.0-35.0); Mean Corpuscular Hemoglobin 29.2 pg (27.0-33.0); Mean Platelet Volume 9.1 fL (9.4-12.3); Monocytes Absolute Auto 0.4 X10*3/uL (0.1-1.2); Neutrophils Absolute Auto 2.5 x10*3/uL (2.0-8.3); Neutrophils Percent Auto 46.4 % (45-73); Platelet Count 271 X10*3/uL (160-400); Red Blood Count 5.41 X10*6/uL (4.20-5.50); Red Cell Distribution Width 13.8 % (11.0-16.0); White Blood Count 5.4 X10*3/uL (4.8-10.8)
[2023-07-24 08:54] LABS: Appearance Urine Clear; Color Urine Yellow; Glucose Urine UA Negative (Negative); Leukocyte Esterase Urine Negative (Negative); Nitrite Urine Negative (Negative); Specific Gravity - Urine 1.015 (1.005-1.025); UMIC TRIGGER UACC YES; Urine Blood Moderate (2+) (Negative); Urine Ketones Negative (Negative); Urine Protein Negative (Neg-Trace)
[2023-07-24 08:58] LABS: Bacteria Urine None Seen (None Seen); Hyaline Casts Urine 0-2 /LPF (0-2); Squamous Epithelial Cell Urine 0-2 /HPF (0-2); WBC Urine 0-5 /HPF (0-5)
[2023-07-24 11:09] LABS: Alanine Aminotransferase 29 U/L (0-31); Albumin Level 4.1 g/dL (3.5-5.0); Alkaline Phosphatase 79 U/L (39-117); Anion Gap 9 (12-20); Aspartate Amino Transferase 25 U/L (5-31); Bilirubin Total 0.5 mg/dL (0.0-1.0); Blood Urea Nitrogen 16 mg/dL (9-16); Calcium 9.4 mg/dL (8.4-10.2); Carbon Dioxide 29 mmol/L (22-29); Chloride 106 mmol/L (96-108); Cholesterol 192 mg/dL (<200); Estimated Glomerular Filt Rate > 60; Glucose Fasting 87 mg/dL (60-99); HDL Cholesterol 64 mg/dL (>40); LDL Cholesterol Calculated 117 mg/dL (<100); Potassium 3.8 mmol/L (3.3-5.1); Sodium 140 mmol/L (135-145); Total Protein 7.2 g/dL (6.5-8.0); Triglycerides 59 mg/dL (<150)
[2023-07-24 11:32] LABS: TSH reflex Free T4 1.25 uIU/mL (0.32-4.0); Vitamin D 25-OH Total 37.5 ng/mL (>30)
== END 2023-07-24 07:23 | disposition home or self-care (01) ==
LOC: HO.LAB 07:22
PROVIDERS: PCP Internal Medicine; Visit Provider Internal Medicine
DX: I10 Essential (primary) hypertension (principal); E78.00 Pure hypercholesterolemia, unspecified; E55.9 Vitamin D deficiency, unspecified
CPT/HCPCS: 36415; 80053; 80061; 81001; 82306; 84443; 85025

== ENCOUNTER 2023-07-25 09:04 | Outpatient (AMB) | payer MEDICARE, BC, SELFPAY ==
[2023-07-25 09:24] VITALS: BP 142/80; PULSE 55; O2SAT 100; BMI 24.3
--- NOTE | 2023-07-25 09:24 | MHC.PC.OV ---
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 Wood Required: No Accompanied by: Self / Same As Patient Allergies No Known Allergies Allergy (Verified 07/25/23 10:12) Medication List - Last Reconciled 07/25/23 by Jermaine Berg MD adalimumab (Humira(CF) Pen) 40 mg (0.4 mL) subcut Q2W 56 days apremilast (Otezla) 30 mg PO BID clonazepam 0.5 mg PO BID PRN ibuprofen 800 mg PO BID PRN simvastatin 20 mg PO DAILY 90 days tramadol 1 to 2 tablets every 4 to 6 hours as needed for pain (no more than 3 to 4 times a day); 30 days Tobacco use date assessed: 07/25/23 Dental Screening Dental Screen Date: 07/25/23 Did you have a dental visit in the last 12 months?: Yes Did you have a dental problem in the last 6 months where you did not have access to dental care?: No Was dental information given to patient?: Patient has dentist HPI hyperlipidemia, psoriatic arthritis HPI Details Patient comes in today for her follow up visit States that she feels okay Is now on both Humira as well as Otezla and states that her pain is again much better controlled States that she mistakenly assumed that she had to stop taking her Otezla and she was started on Humira and recalls that her pain increased significantly while she was off Otezla She currently denies any headaches or dizziness Denies any chest pains, no SOB No nausea/vomiting, no abdominal pain No change in bowel habits noted Needs a couple of her Rx refilled; is also requesting for a refill on her Clonazepam as she is currently still only seeing a clinician who cannot prescribe meds and has not seen a psychiatrist yet Patient also adds that she has been experiencing some issues with her swallowing for a few weeks now - feels that it takes longer than usual for what she is trying to swallow to go down all the way to her stomach, and this applies to both liquids and solids She denies any pain when swallowing Had her follow up labs done yesterday - to discuss her results [facility] Medical History Greater trochanteric bursitis of both hips History of colon polyps Insomnia 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 of left lower extremity with inflammation Polymyalgia rheumatica Pain in left shoulder Failed neck syndrome Depression Anxiety Osteopenia Elevated LFTs Vitamin D deficiency Lumbar degenerative disc disease Fibromyalgia Pure hypercholesterolemia 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 of both lower extremities with pain 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 Closed fracture of head of radius with routine healing Fracture of radial head, right, closed Occult fracture of right elbow Psoriatic arthritis Surgical History Hx of colonoscopy Hx of abdominoplasty S/P cervical spinal fusion Hx of section Family History Mother Lung cancer Father Drug addict Other Mental health problem Substance abuse Social History Household Members: Significant Other and Family Housing: House Are you a primary career development coordinator to a significant other at home: No Alcohol intake: never Patient Tobacco Use Status: Never used Tobacco e-Cigarette/Vaping Use: Never Used Second Hand Smoke Exposure: Yes service: No Current occupational status: disabled Cognitive needs: No Hearing needs: No Vision needs: Yes (glasses) Questionnaire PHQ-9 Over the last 2 weeks, how often have you been bothered by any of the following problems? 1. Little interest or pleasure in doing things: more than half the days 2. Feeling down, depressed, or hopeless: more than half the days 3. Trouble falling or staying asleep, or sleeping too much: nearly every day 4. Feeling tired or having little energy: nearly every day 5. Poor appetite or overeating: not at all 6. Feeling bad about yourself - or that you are a failure or have let yourself or your family down: more than half the days 7. Trouble concentrating on things, such as reading the newspaper or watching television: nearly every day 8. Moving or speaking so slowly that other people could have noticed. Or the opposite - being so fidgety or restless that you have been moving around a lot more than usual: not at all 9. Thoughts that you would be better off or of hurting yourself in some way: not at all Total score: 15 Depression Screening Interpretation: Positive Depression Screening Follow-up: Existing condition and In treatment Depression Screening Done: Yes 03056 - PHQ-9 Billing: Yes Source: Developed by Drs. Yared Ge, Bella Moore, Ellis Ellis and colleagues, with an educational neil from [employer]. Thrive Questionnaire Date Thrive assessed: 07/25/23 I am a: Patient What is your living situation today?: I have a steady place to live Within the past 12 months, did the food you bought not last and you didn't have the money to get more?: Never true Within the past 12 months, did you worry whether your food would run out before you got money to buy more?: Never true Do you have trouble paying for medicines?: No Do you have trouble getting transportation to medical appointments?: No Do you have trouble paying your heating and electricity bill?: No Do you have trouble taking care of your child, family member or friend?: No Do you have trouble with day-to-day activities such as bathing, preparing meals, shopping, managing finances, etc.?: No Are you currently unemployed and looking for a job?: No Are you interested in more education?: No Please select the resources that you would like help with: None Currently or been in a relationship where the following occur: no concerns reported THRIVE Score: 0 AUDIT C Alcohol Use Questionnaire (AUDIT-C) 1. How often do you have a drink containing alcohol?: Never 3. How often do you have six or more drinks on one occasion?: Never Total Score: 0 Score Reviewed/Action Taken: Yes JOSELO-7 AMB Questionnaire JOSELO-7 Date JOSELO - 7 assessed: 07/25/23 Feeling nervous, anxious, or on edge: 3 = Nearly every day Not being able to stop or control worryin = Nearly every day Worrying too much about different things: 3 = Nearly every day Trouble relaxin = More than half the days Being so restless that it is hard to sit still: 3 = Nearly every day Becoming easily annoyed or irritable: 2 = More than half the days Feeling afraid as if something awful might happen: 0 = Not at all Total JOSELO-7 score (0-4 normal; 5-9 mild; 10-14 moderate; 15-21 severe): 16 Source: Developed by Drs. Yared Ge, Bella Moore, Ellis Ellis and colleagues, with an educational neil from [employer]. JOSELO-7 Assessment Billing JOSELO-7 Assessment Tool: JOSELO-7 Assessment [id number] Review of Systems Const Denies chills, Reports fatigue, Denies fever(s) and Denies headache(s) ENT Reports dysphagia (lately - see HPI), Denies dizziness, Denies otalgia, Denies headache(s), Reports neck pain (chronic), Denies odynophagia and Denies sore throat Card Denies chest pain, Denies palpitations and Denies dyspnea Resp Denies cough and Denies dyspnea GI Denies abdominal pain, Denies constipation, Reports dysphagia (lately - see HPI), Denies heartburn, Denies diarrhea, Denies nausea, Denies odynophagia and Denies vomiting Denies difficulty voiding, Denies nocturia and Denies dysuria Musc Reports back pain, Reports myalgias (diffuse), Reports arthralgias (left shoulder area - chronic) and Reports neck pain (chronic) Skin/Breast Denies rash Neuro Details: notes increased shaking of both hands especially with increased anxiety - is concerned that these could be due to tremors Denies dizziness and Denies headache(s) Psych Reports anxiety and Reports depression (increasing lately) Endo Reports fatigue and Denies palpitations Physical exam (Primary Care) Vital Signs: Last Vital Signs Pulse 55 07/25/23 09:24 BP 142/80 H 07/25/23 09:24 Pulse Ox 100 07/25/23 09:24 Oxygen Delivery Method Room Air 07/25/23 09:24 BMI result Body Mass Index 24.3 Tobacco/Smoking Status: Tobacco use Status Tobacco use date assessed 07/25/23 07/25/23 09:29 Patient Tobacco Use Status Never used Tobacco 07/25/23 09:29 e-Cigarette/Vaping Use Never Used 07/25/23 09:29 PHQ-9: PHQ-9 Score PHQ-9: Total score 15 07/25/23 11:25 Depression Screening Interpretation: Positive Depression Screening Follow-up: Existing condition and In treatment Thrive Assessment: Date of Thrive Assessment Date Thrive assessed 07/25/23 07/25/23 09:29 Currently or been in a relationship where the following occur: no concerns reported Const General: no acute distress and alert HENMT Ears: TM's normal bilaterally and EAC's normal Throat: Yes posterior oropharynx normal and Yes tonsils normal (no TP congestion noted) Neck Neck: Yes no lymphadenopathy and Yes supple Thyroid: Thyroid normal Resp Auscultation: clear to auscultation bilaterally, no rales and no wheezes Cardio Rate: regular rate Rhythm: regular rhythm Heart sounds: no murmurs GI Palpation (GI): Soft to palpation and nontender Auscultation: normal bowel sounds General: Yes no CVA tenderness Back/Spine/Pelvis Back: no CVA tenderness Cervical Spine: cervical muscular tenderness (especially over the left side) and Cervical spine tenderness Thoracic/Lumbar Spine: paraspinal muscle tenderness bilaterally in the upper thoracic Skin Rashes: no rashes Neuro Other: (+) shaking of both hands but these stop when her hands are held and being examined Extrem General: Yes no clubbing, cyanosis or edema Right upper extremity: shoulder/upper arm Details: tenderness; no swelling Left upper extremity: shoulder/upper arm Details: tenderness; no swelling Results Reviewed Results Reviewed: Laboratory Tests 07/24/23 07/24/23 07:31 07:35 WBC 5.4 Hgb 15.8 Hct 48.7 H Plt Count 271 Sodium 140 Potassium 3.8 Creatinine 0.66 Estimated GFR > 60 Fasting Glucose 87 Calcium 9.4 AST 25 ALT 29 Triglycerides 59 Cholesterol 192 LDL Cholesterol, Calc 117 H HDL Cholesterol 64 25-OH Vitamin D Total 37.5 TSH 1.25 Ur Specific Arpin 1.015 Urine Protein Negative Urine Glucose (UA) Negative Urine Blood Moderate (2+) H Urine Nitrite Negative Ur Leukocyte Esterase Negative Assessment and Plan Assessment & Plan (1) Pure hypercholesterolemia: Code(s): E78.00 - Pure hypercholesterolemia, unspecified Plan: Results of her labs done yesterday reviewed and discussed with patient - advised that her cholesterol levels have now improved slightly from previous Reinforced low cholesterol diet Continue Simvastatin 20 mg QD Will recheck her labs and fasting lipids in 4 months for follow-up (2) Difficulty swallowing: Code(s): R13.10 - Dysphagia, unspecified Qualifiers: Dysphagia type: unspecified Qualified Code(s): R13.10 - Dysphagia, unspecified Plan: Will send her for an upper GI series JAME for further evaluation (3) Lumbar degenerative disc disease: Code(s): M51.36 - Other intervertebral disc degeneration, lumbar region Plan: Reinforced activity and weight-lifting restrictions to minimize flare ups of her back pain Repeat lumbar spine x-rays done a couple of years ago showed only mild lumbar spondylotic changes; SI joints were normal bilaterally (4) Fibromyalgia: Code(s): M79.7 - Fibromyalgia Plan: Patient is again encouraged to continue to stay active and exercise regularly to help manage her fibromyalgia symptoms Continue Tramadol 50 mg 1-2 tablets every 4-6 hours as needed (Rx refilled) and Baclofen 20 mg TID PRN (5) Psoriatic arthritis: Comment: Enbrel not clearly helpful Otezla: 2017- 2023 Humira 04/2023 - Present Methotrexate: 2016 - 01/19/2022. LFT elevations - methotrexate discontinued. She did okay until summer 2022 when she had a flare overall joint pains. Code(s): L40.50 - Arthropathic psoriasis, unspecified Plan: Continue Humira 40 mg SQ every 2 weeks and Otezla 30 mg BID - states that her pain has been better controlled now that she is on both Rx Methotrexate was discontinued by rheumatology a few months ago Patient had a baseline echocardiogram done back in April 2023 that came out grossly normal Follow-up with rheumatology as scheduled (6) Elevated LFTs: Code(s): R79.89 - Other specified abnormal findings of blood chemistry Plan: Reassured that her LFTs have remained normal on her recent labs Will continue to monitor her LFTs regularly (7) Vitamin D deficiency: Code(s): E55.9 - Vitamin D deficiency, unspecified Plan: Continue Vitamin D 600 units QD (8) Osteopenia: Code(s): M85.80 - Other specified disorders of bone density and structure, unspecified site Qualifiers: Osteopenia location: unspecified Qualified Code(s): M85.80 - Other specified disorders of bone density and structure, unspecified site Plan: Repeat BMD done in April 2021 showed (+) osteopenia with 4.8% decline in AP spine BMD from her previous BMD in 02/2019 and 1.3% decline in left femoral BMD from previous in 02/2019 -? will continue to monitor regularly Patient again encouraged to exercise regularly to help slow down decline in her BMD and is reminded to continue on her Vitamin D and calcium supplements daily (9) Benign microscopic hematuria: Code(s): R31.1 - Benign essential microscopic hematuria Plan: Still has (+) trace blood in her urine (chronic finding); patient remains asymptomatic Renal US last done in 03/2014 revealed (+) right renal cyst that is mostly unchanged from US in 2007 Repeat renal US done in July 2022 showed the same findings; no further follow up imaging studies is recommended at this point (10) Renal cyst, right: Code(s): N28.1 - Cyst of kidney, acquired Plan: (+) right renal cyst noted on sonogram done in 2007 and in 2013 as well as most recently in July 2022 - no further follow up imaging studies is recommended (11) Insomnia: Code(s): G47.00 - Insomnia, unspecified Qualifiers: Insomnia type: unspecified Qualified Code(s): G47.00 - Insomnia, unspecified Plan: Sleep hygiene reinforced Continue Trazodone 100 mg QHS (12) Anxiety: Code(s): F41.9 - Anxiety disorder, unspecified Plan: Continue Clonazepam 0.5 mg 1 tablet 2 to 3 times a day as needed for anxiety - Rx refilled (13) Depression: Code(s): F32.9 - Major depressive disorder, single episode, unspecified Qualifiers: Depression Type: unspecified Qualified Code(s): F32.9 - Major depressive disorder, single episode, unspecified Plan: Continue Venlafaxine ER 187.5 mg (150 + 37.5 mg) QD Was not able to tolerate Seroquel in the past Follow-up with Psychiatry as scheduled Plan Follow up in 4 months Orders: Orders TSH reflex Free T4 4 Months E78.00 - Pure hypercholesterolemia, unspecified Vitamin D 25-OH Total 4 Months E55.9 - Vitamin D deficiency, unspecified [place] upper GI series 24 R13.10 - Dysphagia, unspecified Complete Blood Count Auto Diff 4 Months D64.9 - Anemia, unspecified Comprehensive [place]. Panel Fast 4 Months E78.00 - Pure hypercholesterolemia, unspecified Lipid Panel 4 Months E78.00 - Pure hypercholesterolemia, unspecified UA CC w/rflx Micro + Cult 4 Months R30.0 - Dysuria Medications: New clonazepam 0.5 mg PO BID PRN 60 tabs 0RF anxiety Refilled simvastatin 20 mg PO DAILY 90 tabs 3RF 90 days tramadol 1 to 2 tablets every 4 to 6 hours as needed for pain (no more than 3 to 4 times a day); 90 tabs 1RF 30 days Coding Level of Care Code Est Pt Level 4 (33058) Diagnoses Pure hypercholesterolemia E78.00 Dysphagia, unspecified type R13.10 Dysphagia type: unspecified Lumbar degenerative disc disease M51.36 Fibromyalgia M79.7 Psoriatic arthritis L40.50 Elevated LFTs R79.89 Vitamin D deficiency E55.9 Osteopenia, unspecified location M85.80 Osteopenia location: unspecified Benign microscopic hematuria R31.1 Renal cyst, right N28.1 Insomnia, unspecified type G47.00 Insomnia type: unspecified Anxiety F41.9 Depression, unspecified depression type F32.9 Depression Type: unspecified Additional Codes JOSELO-7 Assessment Billing - JOSELO-7 Assessment Tool: JOSELO-7 Assessment [id number] ([id number])
== END 2023-07-25 10:29 | disposition home or self-care (01) ==
PROVIDERS: PCP Internal Medicine; Visit Provider Internal Medicine
DX: E78.00 Pure hypercholesterolemia, unspecified (principal); R13.10 Dysphagia, unspecified; M51.36 Other intervertebral disc degeneration, lumbar region; M79.7 Fibromyalgia; R79.89 Other specified abnormal findings of blood chemistry; E55.9 Vitamin D deficiency, unspecified; M85.80 Other specified disorders of bone density and structure, unspecified site; R31.1 Benign essential microscopic hematuria; N28.1 Cyst of kidney, acquired; G47.00 Insomnia, unspecified; F41.9 Anxiety disorder, unspecified
CPT/HCPCS: 99214

== ENCOUNTER 2023-08-29 13:35 | Outpatient (AMB) | payer MEDICARE, BC, SELFPAY ==
--- NOTE | 2023-08-29 13:41 | MHC.PC.OV ---
Vital Signs 08/29/23 13:42 Height 5 ft 2 in Weight 133 lb 4 oz BMI 24.4 BP 120/72 Blood Pressure Location Lt brachial Position Sitting Pulse 68 Pulse Source Pulse Oximeter Pulse Oximetry (%) 98 Oxygen Delivery Method Room Air Intake Visit Reasons: Worker's Comp Follow up Intake Note: Patient is here to follow up on workerSocial 2 Step, incident happened in 2003. Online Journalist Required: No Landscape Engineer: Not Required per policy Accompanied by: Self / Same As Patient Allergies No Known Allergies Allergy (Verified 08/29/23 13:54) Medication List - Last Reconciled 08/29/23 by Jermaine Berg MD adalimumab (Humira(CF) Pen) 40 mg (0.4 mL) subcut Q2W 56 days clonazepam 0.5 mg PO BID PRN ibuprofen 800 mg PO BID PRN simvastatin 20 mg PO DAILY 90 days tramadol 1 to 2 tablets every 4 to 6 hours as needed for pain (no more than 3 to 4 times a day); 30 days Tobacco use date assessed: 08/29/23 Dental Screening Dental Screen Date: 07/25/23 HPI Worker's Comp Follow up HPI Details Patient comes in today for her Proxino' comp follow up States that she continues to experience increased chronic neck pain and bilateral shoulder pain (worse on the left side) Is currently on Humira 40 mg Q 2 weeks and she feels that this is helping her much better than Otezla did - she has failed Otezla in the past Patient reports still feeling fatigued often and still has on and off headache Thinks that her headaches are likely related to her chronic neck and shoulder pain She denies any chest pains, no increased SOB No nausea/vomiting, no abdominal pains No change in bowel habits noted? Past History: Patient has failed several documented trials of pain management regimens and multiple pain medications in the past, including Oxycodone/Oxycontin, Fentanyl and Hydrocodone, as well as surgical intervention (S/P left C6-C7 cervical spine decompression) She was recommended to go for aquatherapy and behavioral therapy by Dr. Niraj [facility] in the [facility] but these have not been done as has reportedly declined to cover any further testings, interventions/treatments or specialty consultations, and all previous attempts to refer her to pain management here at [facility] [place] have also not been completed or helpful Patient was also regularly following up with Dr. Yates for her neck issues in the past but she has been advised to just see pain management as they have nothing else to offer her in terms of intervention or treatment She has been following up with orthopedics for her right shoulder pain and has received cortisone injections as needed in the past, which she states helped temporarily She is still doing the ROM exercises that she was previously taught for her shoulders on a regular basis to help manage her symptoms and preserve as much of her mobility and joint function as possible and is now just following up with rheumatology here at [facility] Medical History Greater trochanteric bursitis of both hips History of colon polyps Insomnia 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 of left lower extremity with inflammation Polymyalgia rheumatica Pain in left shoulder Failed neck syndrome Depression Anxiety Osteopenia Elevated LFTs Vitamin D deficiency Lumbar degenerative disc disease Fibromyalgia Pure hypercholesterolemia 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 Closed fracture of head of radius with routine healing Fracture of radial head, right, closed Occult fracture of right elbow Psoriatic arthritis Surgical History Hx of colonoscopy Hx of abdominoplasty S/P cervical spinal fusion Hx of section Family History Mother Lung cancer Father Drug addict Other Mental health problem Substance abuse Social History Household Members: Significant Other and Family Housing: House Are you a primary long term care phlebotomist to a significant other at home: No Alcohol intake: never Patient Tobacco Use Status: Never used Tobacco e-Cigarette/Vaping Use: Never Used Second Hand Smoke Exposure: Yes service: No Current occupational status: disabled Cognitive needs: No Hearing needs: No Vision needs: Yes (glasses) Questionnaire Thrive Questionnaire Date Thrive assessed: 07/25/23 JOSELO-7 AMB Questionnaire JOSELO-7 Date JOSELO - 7 assessed: 07/25/23 Source: Developed by Drs. Yared Ge, Bella Moore, Ellis Ellis and colleagues, with an educational neil from [employer]. Review of Systems Const Denies chills, Reports fatigue, Denies fever(s) and Reports headache(s) (on and off) ENT Denies dysphagia, Denies dizziness, Denies otalgia, Reports headache(s) (on and off), Reports neck pain (chronic), Denies odynophagia and Denies sore throat Card Denies chest pain, Denies palpitations and Denies dyspnea Resp Denies cough and Denies dyspnea GI Denies abdominal pain, Denies constipation, Denies dysphagia, Denies heartburn, Denies diarrhea, Denies nausea, Denies odynophagia and Denies vomiting Denies difficulty voiding, Denies nocturia, Denies dysuria and Denies urinary urgency Musc Reports back pain, Reports arthralgias (left shoulder area - chronic) and Reports neck pain (chronic) Skin/Breast Denies rash Neuro Denies dizziness and Reports headache(s) (on and off) Psych Reports anxiety and Reports depression (increasing lately) Endo Reports fatigue and Denies palpitations Physical exam (Primary Care) Vital Signs: Last Vital Signs Pulse 68 08/29/23 13:42 BP 120/72 08/29/23 13:42 Pulse Ox 98 08/29/23 13:42 Oxygen Delivery Method Room Air 08/29/23 13:42 BMI result Body Mass Index 24.4 Tobacco/Smoking Status: Tobacco use Status Tobacco use date assessed 08/29/23 08/29/23 13:46 Patient Tobacco Use Status Never used Tobacco 08/29/23 13:46 e-Cigarette/Vaping Use Never Used 08/29/23 13:46 Thrive Assessment: Date of Thrive Assessment Date Thrive assessed 07/25/23 08/29/23 13:46 Const General: no acute distress and alert HENMT Throat: Yes posterior oropharynx normal and Yes tonsils normal (no TP congestion noted) Neck Neck: Yes no lymphadenopathy and Yes supple Resp Auscultation: clear to auscultation bilaterally, no rales and no wheezes Cardio Rate: regular rate Rhythm: regular rhythm Heart sounds: no murmurs GI Palpation (GI): Soft to palpation and nontender Auscultation: normal bowel sounds General: Yes no CVA tenderness Back/Spine/Pelvis Back: no CVA tenderness Cervical Spine: cervical muscular tenderness (especially over the left side) and Cervical spine tenderness Thoracic/Lumbar Spine: paraspinal muscle tenderness bilaterally in the upper thoracic Extrem General: Yes no clubbing, cyanosis or edema Right upper extremity: shoulder/upper arm Details: tenderness; no swelling Left upper extremity: shoulder/upper arm Details: tenderness; no swelling Assessment and Plan Assessment & Plan (1) Failed neck syndrome: Code(s): M96.1 - Postlaminectomy syndrome, not elsewhere classified Plan: Patient reports no changes or further developments in her case overall for the past few years as she has not been able to get coverage for any further treatments / management recommended by all of the specialists that she has been seeing, including attempts to go back to pain management in [place] or here locally in [place] Has also reportedly been advised by Dr. Yates that they have nothing else to offer her and recommended that she just follow up with pain management (2) Pain in left shoulder: Code(s): M25.512 - Pain in left shoulder Qualifiers: Chronicity: chronic Qualified Code(s): M25.512 - Pain in left shoulder; G89.29 - Other chronic pain Plan: Continue Tramadol 50 mg 1 to 2 tablets every 4 to 6 hours as needed for pain (3) Fibromyalgia: Code(s): M79.7 - Fibromyalgia Plan: She reports experiencing increasing diffuse pain and joint pains over the past few weeks - per rheumatology, may be experiencing symptoms of PMR and flare up of her fibromyalgia She was sent for some labs by rheumatology and was eventually switched from Otezla to Humira, which patient states has been working better for her and she reports (+) improvement of her diffuse pain Patient is encouraged again to stay active and exercise regularly to help manage her fibromyalgia symptoms Continue Tizanidine 4 mg every 8 hours as needed (4) Polymyalgia rheumatica: Code(s): M35.3 - Polymyalgia rheumatica Plan: She is now on Humira 40 mg Q 2 weeks; she was also taken off Methotrexate several months ago Follow up with rheumatology as scheduled (5) Anxiety: Code(s): F41.9 - Anxiety disorder, unspecified Plan: Feels that she is doing okay on just her Clonazepam taken as needed Follow up with psychiatry as scheduled (6) Depression: Code(s): F32.9 - Major depressive disorder, single episode, unspecified Qualifiers: Depression Type: unspecified Qualified Code(s): F32.9 - Major depressive disorder, single episode, unspecified Plan: Was on Venlafaxine ER 150mg QD and Quetiapine 200 mg Q HS in the past but patient apparently stopped taking these on her own at some point States that she does not feel any worse since stopping her Rx Follow up with psychiatry as scheduled Plan Follow up in 4 months Coding Level of Care Code Est Pt Level 3 (76189) Diagnoses Failed neck syndrome M96.1 Chronic left shoulder pain M25.512; G89.29 Chronicity: chronic Fibromyalgia M79.7 Polymyalgia rheumatica M35.3 Anxiety F41.9 Depression, unspecified depression type F32.9 Depression Type: unspecified
[2023-08-29 13:42] VITALS: BP 120/72; PULSE 68; O2SAT 98; BMI 24.4
== END 2023-08-29 14:09 | disposition home or self-care (01) ==
LOC: HO.HMGH 13:35
PROVIDERS: PCP Internal Medicine; Visit Provider Internal Medicine
DX: M96.1 Postlaminectomy syndrome, not elsewhere classified (principal); M25.512 Pain in left shoulder; M35.3 Polymyalgia rheumatica; G89.29 Other chronic pain; M79.7 Fibromyalgia; F41.9 Anxiety disorder, unspecified; F32.9 Major depressive disorder, single episode, unspecified
CPT/HCPCS: 99213

== ENCOUNTER 2023-09-23 08:34 | Outpatient (REF) | payer MEDICARE, BC, SELFPAY ==
--- NOTE | ~2023-09-23 | FL_ITS ---
EXAMINATION: XR FLUOROSCOPY UPPER GI WITH AIR CLINICAL INFORMATION: Epigastric pain COMPARISON: None TECHNIQUE: Fluoroscopic air contrast upper GI examination was performed utilizing standard techniques with thin and thick barium and effervescent granules. Numerous spot images were obtained. FINDINGS: Status post ACDF C6-C7 Dual and single contrast images of the esophagus demonstrate a normal caliber, and contour. There is a granular appearance of the esophageal mucosa. No evidence of stricture, mass, or ulcerations identified. Esophageal peristalsis was mildly disorganized. A small type I hiatal hernia is present. No significant gastroesophageal reflux was seen during the course of the examination and on reflux views. Dual contrast and single contrast images of the stomach demonstrated a normal contour. There is a thickened appearance of the areae gastricae. No masses or ulcerations are seen. Contrast freely passed into the gastric antrum and duodenal bulb without delay. Single and air-contrast images of the duodenal bulb demonstrate no abnormality. The duodenal sweep has a normal appearance, course, and mucosal fold appearance. The imaged proximal jejunum has a normal fold pattern and caliber. FLUOROSCOPY TIME: 3 minutes 50 seconds Number of Spot Images: 12 Number of Cine: 13 DOSE AREA PRODUCT: 1990 uGy-m2 (microgray-meter squared) FL/FL upper GI w air IMPRESSION: 1. Granular appearance of the mid esophageal mucosa that likely represent esophagitis. 2. Mildly disorganized esophageal peristalsis 3. Thickened appearance of the areae gastricae likely representing gastritis due to H. pylori 4. Status post ACDF C6-C7 This procedure was performed by Patrick Bello PA-C, and supervised by Dr. Mirza
== END 2023-09-23 08:35 | disposition home or self-care (01) ==
LOC: HO.XRAY 08:34
PROVIDERS: PCP Internal Medicine; Visit Provider Internal Medicine
DX: R13.10 Dysphagia, unspecified (principal)
CPT/HCPCS: 74240; 74246

== ENCOUNTER → 2023-09-23 08:36 | Outpatient (BNV) | payer MEDICARE, BC, SELFPAY | PROVIDERS: PCP Internal Medicine; Visit Provider Physician Assistant Surgical | DX: R10.13 Epigastric pain (principal) | CPT/HCPCS: 74246 ==

== ENCOUNTER 2023-10-02 08:34 | Outpatient (REF) | payer MEDICARE, BC, SELFPAY ==
[2023-10-02 08:57] LABS: MANUAL DIFF FLAG NO
[2023-10-02 09:16] LABS: Basophils Percent Auto 0.8 % (0-2); Eosinophils Absolute Auto 0.2 X10*3/uL (0.0-0.4); Hematocrit 47.1 % (37.0-47.0); Hemoglobin 15.7 g/dl (12.0-16.0); Imm Gran Abs Auto 0.01 X10*3/uL (0.00-0.03); Imm Gran Pct Auto 0.2 % (0.0-0.4); Lymphocytes Absolute Auto 1.9 X10*3/uL (1.2-4.9); Lymphocytes Percent Auto 40.3 % (20-40); Mean Corpuscular HGB Conc 33.3 g/dl (31.0-35.0); Mean Corpuscular Hemoglobin 29.8 pg (27.0-33.0); Mean Corpuscular Volume 89.5 fL (80.0-98.0); Mean Platelet Volume 9.1 fL (9.4-12.3); Monocytes Absolute Auto 0.3 X10*3/uL (0.1-1.2); Monocytes Percent Auto 6.1 % (2-11); Neutrophils Absolute Auto 2.3 x10*3/uL (2.0-8.3); Neutrophils Percent Auto 47.6 % (45-73); Platelet Count 230 X10*3/uL (160-400); Red Blood Count 5.26 X10*6/uL (4.20-5.50); Red Cell Distribution Width 13.5 % (11.0-16.0); White Blood Count 4.8 X10*3/uL (4.8-10.8)
[2023-10-02 09:40] LABS: Alanine Aminotransferase 17 U/L (0-31); Aspartate Amino Transferase 22 U/L (5-31); C Reactive Protein 0.11 mg/dL (< or = 0.50); Estimated Glomerular Filt Rate > 60
[2023-10-02 09:54] LABS: Erythrocyte Sedimentation Rate 3 MM/HR (0-20)
== END 2023-10-02 08:35 | disposition home or self-care (01) ==
LOC: HO.LAB 08:34
PROVIDERS: PCP Internal Medicine; Visit Provider Nurse Practitioner Family
DX: L40.50 Arthropathic psoriasis, unspecified (principal); M75.82 Other shoulder lesions, left shoulder; Z79.899 Other long term (current) drug therapy
CPT/HCPCS: 36415; 82565; 84450; 84460; 85025; 85652; 86140

== ENCOUNTER 2023-10-04 07:44 | Outpatient (AMB) | payer MEDICARE, BC, SELFPAY ==
[2023-10-04 07:58] VITALS: BP 118/62; PULSE 69; O2SAT 98; BMI 24.2
--- NOTE | 2023-10-04 07:58 | MHC.OFFVIS ---
Vital Signs 10/04/23 07:58 Height 5 ft 2 in Weight 132 lb 4.438 oz BMI 24.2 BP 118/62 Blood Pressure Location Rt brachial Position Sitting Pulse 69 Pulse Source Pulse Oximeter Pulse Oximetry (%) 98 Oxygen Delivery Method Room Air Intake Visit Reasons: PSO/PSA/CM Intake Note: Pt last seen by Mariajose on 06/12/23 presents today for 3mo follow up visit. Reports cortisone injections have bee really helpful. Supervisor Conditioning Yard Required: No Accompanied by: Self / Same As Patient Allergies No Known Allergies Allergy (Verified 10/04/23 08:04) Medication List - Last Reconciled 10/04/23 by Jak Gomes MD adalimumab (Humira(CF) Pen) 40 mg (0.4 mL) subcut Q2W 56 days clonazepam 0.5 mg PO BID PRN ibuprofen 800 mg PO BID PRN simvastatin 20 mg PO DAILY 90 days tramadol 1 to 2 tablets every 4 to 6 hours as needed for pain (no more than 3 to 4 times a day); 30 days HPI Comments Details: This is a 62-year-old female with psoriasis and psoriatic arthritis who presents for follow-up. She is on Otezla 30 mg Twice daily and Humira 40 mg every other week. Doing very well overall. Denies any skin rashes or joint pain or swelling. States that she received bilateral hip bursa steroid injections last visit and they were quite helpful. 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 Closed fracture of head of radius with routine healing Fracture of radial head, right, closed Occult fracture of right elbow Psoriatic arthritis Surgical History Hx of colonoscopy Hx of abdominoplasty S/P cervical spinal fusion Hx of section Family History Mother Lung cancer Father Drug addict Other Mental health problem Substance abuse Social History Household Members: Significant Other and Family Housing: House Are you a primary hospice care transitions coordinator to a significant other at home: No Alcohol intake: never Patient Tobacco Use Status: Never used Tobacco e-Cigarette/Vaping Use: Never Used Second Hand Smoke Exposure: Yes service: No Current occupational status: disabled Cognitive needs: No Hearing needs: No Vision needs: Yes (glasses) Review of Systems Musc Denies arthralgias and Denies joint swelling Skin/Breast Denies rash Physical Exam Vital Signs: Last Vital Signs Pulse 69 10/04/23 07:58 BP 118/62 10/04/23 07:58 Pulse Ox 98 10/04/23 07:58 Oxygen Delivery Method Room Air 10/04/23 07:58 BMI result Body Mass Index 24.2 Const General: cooperative, healthy appearing and comfortable Nutritional Appearance: average body habitus Orientation/consciousness: patient oriented x3 Limitations: no limitations HEENT Head: Yes normocephalic and Yes atraumatic Mouth: moist mucous membranes Resp Effort & Inspection: normal respiratory effort and able to speak in complete sentences Auscultation: clear to auscultation bilaterally Cardio Rate: regular rate Rhythm: regular rhythm Skin General skin exam: no rashes or lesions noted Neuro General: patient oriented x3 Extrem Other: No active synovitis Assessment & Plan Assessment & Plan (1) Psoriatic arthritis: Comment: Enbrel not clearly helpful Otezla: 2017- 2023 Humira 04/2023 - Present. Methotrexate: 2016 - 01/19/2022. LFT elevations - methotrexate discontinued. She did okay until summer 2022 when she had a flare overall joint pains. Code(s): L40.50 - Arthropathic psoriasis, unspecified Category: Medical Plan: This is a 62-year-old female with psoriasis and psoriatic arthritis who presents for follow-up. Doing very well on Otezla 30 mg Twice daily and Humira 40 mg every other week. She pays out of pocket for her Otezla. She is doing very well today with no active synovitis and no active psoriasis skin rashes. Advised patient to lower her Otezla to 30 mg daily. Continue Humira prescribed. 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 I gave patient a printout of home exercises for greater trochanteric pain syndrome Plan I spent 25 minutes reviewing patient's chart, evaluating patient, ordering diagnostic workup, counseling patient and documenting in the chart Orders: Orders Complete Blood Count Auto Diff 4 Months L40.50 - Arthropathic psoriasis, unspecified Comprehensive Met. Panel 4 Months L40.50 - Arthropathic psoriasis, unspecified C Reactive Protein 4 Months L40.50 - Arthropathic psoriasis, unspecified Erythrocyte Sedimentation Rate 4 Months L40.50 - Arthropathic psoriasis, unspecified Coding Level of Care Code Est Pt Level 4 (02249) Diagnoses Psoriatic arthritis L40.50 senior living use of drug Z79.899 Greater trochanteric bursitis of both hips M70.61; M70.62
== END 2023-10-04 08:28 | disposition home or self-care (01) ==
PROVIDERS: PCP Internal Medicine; Visit Provider Student in an Organized Health Care Education/Training Program
DX: L40.50 Arthropathic psoriasis, unspecified (principal); Z79.899 Other long term (current) drug therapy; M70.61 Trochanteric bursitis, right hip; M70.62 Trochanteric bursitis, left hip
CPT/HCPCS: 99214

== ENCOUNTER → 2023-10-04 07:44 | Outpatient (BNVA) | payer MEDICARE, BC, SELFPAY | PROVIDERS: PCP Internal Medicine; Visit Provider Student in an Organized Health Care Education/Training Program | DX: L40.50 Arthropathic psoriasis, unspecified (principal); M70.61 Trochanteric bursitis, right hip; M70.62 Trochanteric bursitis, left hip; Z79.899 Other long term (current) drug therapy | CPT/HCPCS: 99212 ==

== ENCOUNTER 2023-12-13 06:34 | Outpatient (REF) | payer MEDICARE, BC, SELFPAY ==
[2023-12-13 06:47] LABS: MANUAL DIFF FLAG NO
[2023-12-13 07:12] LABS: Basophils Percent Auto 0.6 % (0-2); Eosinophils Absolute Auto 0.3 X10*3/uL (0.0-0.4); Eosinophils Percent Auto 6.1 % (0-4); Hematocrit 48.8 % (37.0-47.0); Hemoglobin 15.8 g/dl (12.0-16.0); Imm Gran Abs Auto 0.01 X10*3/uL (0.00-0.03); Imm Gran Pct Auto 0.2 % (0.0-0.4); Lymphocytes Absolute Auto 2.2 X10*3/uL (1.2-4.9); Lymphocytes Percent Auto 43.5 % (20-40); Mean Corpuscular HGB Conc 32.4 g/dl (31.0-35.0); Mean Corpuscular Hemoglobin 29.2 pg (27.0-33.0); Mean Corpuscular Volume 90.2 fL (80.0-98.0); Mean Platelet Volume 9.3 fL (9.4-12.3); Monocytes Absolute Auto 0.3 X10*3/uL (0.1-1.2); Monocytes Percent Auto 6.1 % (2-11); Neutrophils Absolute Auto 2.2 x10*3/uL (2.0-8.3); Neutrophils Percent Auto 43.5 % (45-73); Platelet Count 223 X10*3/uL (160-400); Red Blood Count 5.41 X10*6/uL (4.20-5.50); Red Cell Distribution Width 13.6 % (11.0-16.0); White Blood Count 5.1 X10*3/uL (4.8-10.8)
[2023-12-13 07:32] LABS: Appearance Urine Clear; Color Urine Yellow; Glucose Urine UA Negative (Negative); Leukocyte Esterase Urine Negative (Negative); Nitrite Urine Negative (Negative); PH 5.5 (5.0-9.0); UMIC TRIGGER UACC YES; Urine Blood Moderate (2+) (Negative); Urine Ketones Negative (Negative); Urine Protein Negative (Neg-Trace)
[2023-12-13 07:43] LABS: Alanine Aminotransferase 17 U/L (0-31); Albumin Level 4.2 g/dL (3.5-5.0); Alkaline Phosphatase 67 U/L (39-117); Anion Gap 11 (12-20); Aspartate Amino Transferase 23 U/L (5-31); Bilirubin Total 0.7 mg/dL (0.0-1.0); Blood Urea Nitrogen 19 mg/dL (9-16); Calcium 9.6 mg/dL (8.4-10.2); Carbon Dioxide 28 mmol/L (22-29); Chloride 107 mmol/L (96-108); Cholesterol 183 mg/dL (<200); Estimated Glomerular Filt Rate > 60; Glucose Fasting 86 mg/dL (60-99); HDL Cholesterol 59 mg/dL (>40); LDL Cholesterol Calculated 109 mg/dL (<100); Potassium 4.1 mmol/L (3.3-5.1); Sodium 142 mmol/L (135-145); Total Protein 7.1 g/dL (6.5-8.0); Triglycerides 77 mg/dL (<150)
[2023-12-13 08:00] LABS: Vitamin D 25-OH Total 46.4 ng/mL (>30)
[2023-12-13 08:27] LABS: Bacteria Urine None Seen (None Seen); Hyaline Casts Urine 0-2 /LPF (0-2); Squamous Epithelial Cell Urine 0-2 /HPF (0-2); WBC Urine 0-5 /HPF (0-5)
== END 2023-12-13 06:35 | disposition home or self-care (01) ==
LOC: HO.LAB 06:34
PROVIDERS: PCP Internal Medicine; Visit Provider Internal Medicine
DX: E78.00 Pure hypercholesterolemia, unspecified (principal); E55.9 Vitamin D deficiency, unspecified; D64.9 Anemia, unspecified
CPT/HCPCS: 36415; 80053; 80061; 81001; 81003; 82306; 84443; 85025

== ENCOUNTER 2023-12-17 09:14 | Outpatient (AMB) | payer OTHER, MEDICARE, BC, SELFPAY ==
[2023-12-17 09:18] VITALS: BP 124/82; PULSE 62; O2SAT 99; BMI 23.8
--- NOTE | 2023-12-17 09:18 | A.OFFPC_ITS ---
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 Accompanied by: Self / Same As Patient Allergies No Known Allergies Allergy (Verified 12/17/23 09:35) Medication List - Last Reconciled 12/17/23 by eJrmaine Berg MD adalimumab (Humira(CF) Pen) 40 mg (0.4 mL) subcut Q2W 56 days apremilast (Otezla) 30 mg PO DAILY clonazepam 0.5 mg PO BID PRN ibuprofen 800 mg PO BID PRN simvastatin 20 mg PO DAILY 90 days tramadol 1 to 2 tablets every 4 to 6 hours as needed for pain (no more than 3 to 4 times a day); 30 days Tobacco use date assessed: 12/17/23 Dental Screening Dental Screen Date: 12/17/23 Did you have a dental visit in the last 12 months?: Yes Did you have a dental problem in the last 6 months where you did not have access to dental care?: No Was dental information given to patient?: Patient has dentist HPI [facility] f/u HPI Details Patient comes in today for her workers' comp follow up visit States that she continues to experience increased chronic neck pain and bilateral shoulder pain (worse on the left side), which she has had for years now She is currently on Humira 40 mg Q 2 weeks and Otezla 30 mg, which was lowered from BID to QD dosing by rheumatology a couple of months ago as she was reportedly doing very well on her current regimen with regards to her psoriatic arthritis She feels that to some extent, these help with her chronic neck/cervical and shoulder pains as well Patient reports still feeling fatigued often Also still has on and off headaches - thinks that her headaches are most likely related to her chronic neck and shoulder pain issues Denies any dizziness She denies any chest pains, no increased SOB No nausea/vomiting, no abdominal pains No change in bowel habits noted She will need her Tramadol and Clonazepam Rx refilled today? Past History: Patient has failed several documented trials of pain management regimens and multiple pain medications in the past, including Oxycodone, Oxycontin, Fentanyl and Hydrocodone, as well as surgical intervention (S/P left C6-C7 cervical spine decompression) She was recommended to go for aquatherapy and behavioral therapy by Dr[facility] Niraj [facility] in the [facility] but these have not been done as has reportedly declined to cover any further testings, interventions/treatments or specialty consultations, and all previous attempts to refer her to pain management here at [facility] have also not been completed or helpful Patient was also regularly following up with Dr. Yates for her neck issues in the past but she has been advised to just see pain management as they have nothi ng else to offer her in terms of intervention or treatment She has been following up with orthopedics for her right shoulder pain and has received cortisone injections as needed in the past, which she states helped temporarily She has been doing the ROM exercises that she was previously taught for her shoulders on a regular basis to help manage her symptoms and preserve as much of her mobility and joint function as possible and she is now just following up with rheumatology here at [facility], primarily for her psoriatic arthritis and joint pains [facility] Greater trochanteric bursitis of both hips History of colon polyps Insomnia 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 of left lower extremity with inflammation Polymyalgia rheumatica Pain in left shoulder Failed neck syndrome Depression Anxiety Osteopenia Elevated LFTs Vitamin D deficiency Lumbar degenerative disc disease Fibromyalgia Pure hypercholesterolemia 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 of 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 lower extremities with pain 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 Closed fracture of head of radius with routine healing Fracture of radial head, right, closed Occult fracture of right elbow Psoriatic arthritis Surgical History Hx of colonoscopy Hx of abdominoplasty S/P cervical spinal fusion Hx of section Family History Mother Lung cancer Father Drug addict Other Mental health problem Substance abuse Social History Household Members: Significant Other and Family Housing: House Are you a primary healthcare specialist to a significant other at home: No Alcohol intake: never Patient Tobacco Use Status: Never used Tobacco e-Cigarette/Vaping Use: Never Used Second Hand Smoke Exposure: Yes service: No Current occupational status: disabled Cognitive needs: No Hearing needs: No Vision needs: Yes (glasses) Questionnaire PHQ-9 Over the last 2 weeks, how often have you been bothered by any of the following problems? 1. Little interest or pleasure in doing things: more than half the days 2. Feeling down, depressed, or hopeless: more than half the days 3. Trouble falling or staying asleep, or sleeping too much: nearly every day 4. Feeling tired or having little energy: nearly every day 5. Poor appetite or overeating: not at all 6. Feeling bad about yourself - or that you are a failure or have let yourself or your family down: more than half the days 7. Trouble concentrating on things, such as reading the newspaper or watching television: nearly every day 8. Moving or speaking so slowly that other people could have noticed. Or the opposite - being so fidgety or restless that you have been moving around a lot more than usual: not at all 9. Thoughts that you would be better off or of hurting yourself in some way: not at all Total score: 15 Depression Screening Interpretation: Positive Depression Screening Follow-up: Existing condition and In treatment Depression Screening Done: Yes 22367 - PHQ-9 Billing: Yes Source: Developed by Drs. Yared Ge, Bella Moore, Ellis Ellis and colleagues, with an educational neil from [employer]. Thrive Questionnaire Date Thrive assessed: 12/17/23 I am a: Patient What is your living situation today?: I have a steady place to live Within the past 12 months, did the food you bought not last and you didn't have the money to get more?: Never true Within the past 12 months, did you worry whether your food would run out before you got money to buy more?: Never true Do you have trouble paying for medicines?: No Do you have trouble getting transportation to medical appointments?: No Do you have trouble paying your heating and electricity bill?: No Do you have trouble taking care of your child, family member or friend?: No Do you have trouble with day-to-day activities such as bathing, preparing meals, shopping, managing finances, etc.?: No Are you currently unemployed and looking for a job?: No Are you interested in more education?: No Please select the resources that you would like help with: None Currently or been in a relationship where the following occur: No concerns reported THRIVE Score: 0 AUDIT C Alcohol Use Questionnaire (AUDIT-C) 1. How often do you have a drink containing alcohol?: Never 3. How often do you have six or more drinks on one occasion?: Never Total Score: 0 Score Reviewed/Action Taken: Yes JOSELO-7 AMB Questionnaire JOSELO-7 Date JOSELO - 7 assessed: 12/17/23 Feeling nervous, anxious, or on edge: 3 = Nearly every day Not being able to stop or control worryin = Nearly every day Worrying too much about different things: 3 = Nearly every day Trouble relaxin = Nearly every day Being so restless that it is hard to sit still: 3 = Nearly every day Becoming easily annoyed or irritable: 1 = Several days Feeling afraid as if something awful might happen: 1 = Several days Total JOSELO-7 score (0-4 normal; 5-9 mild; 10-14 moderate; 15-21 severe): 17 Source: Developed by Drs. Yared Ge, Bella Moore, Ellis Ellis and colleagues, with an educational neil from [employer]. Review of Systems Const Denies chills, Reports fatigue, Denies fever(s) and Reports headache(s) (on and off) ENT Denies dysphagia, Denies dizziness, Denies otalgia, Reports headache(s) (on and off), Reports neck pain (chronic), Denies odynophagia and Denies sore throat Card Denies chest pain, Denies palpitations and Denies dyspnea Resp Denies cough and Denies dyspnea GI Denies abdominal pain, Denies constipation, Denies dysphagia, Denies heartburn, Denies diarrhea, Denies nausea, Denies odynophagia and Denies vomiting Denies difficulty voiding, Denies nocturia, Denies dysuria and Denies urinary urgency Musc Reports back pain, Reports arthralgias (left shoulder area - chronic) and Reports neck pain (chronic) Skin/Breast Denies rash Neuro Denies dizziness and Reports headache(s) (on and off) Psych Reports anxiety and Reports depression Endo Reports fatigue and Denies palpitations Physical exam (Primary Care) Vital Signs: Last Vital Signs Pulse 62 12/17/23 09:18 BP 124/82 12/17/23 09:18 Pulse Ox 99 12/17/23 09:18 Oxygen Delivery Method Room Air 12/17/23 09:18 BMI result Body Mass Index 23.8 Tobacco/Smoking Status: Tobacco use Status Tobacco use date assessed 12/17/23 12/17/23 09:24 Patient Tobacco Use Status Never used Tobacco 12/17/23 09:19 e-Cigarette/Vaping Use Never Used 12/17/23 09:19 PHQ-9: PHQ-9 Score PHQ-9: Total score 15 12/17/23 09:31 Depression Screening Interpretation: Positive Depression Screening Follow-up: Existing condition and In treatment Thrive Assessment: Date of Thrive Assessment Date Thrive assessed 12/17/23 12/17/23 09:24 Currently or been in a relationship where the following occur: No concerns reported Const General: no acute distress and alert HENMT Throat: Yes posterior oropharynx normal and Yes tonsils normal (no TP congestion noted) Neck Neck: Yes no lymphadenopathy and Yes supple Thyroid: Thyroid normal Resp Auscultation: clear to auscultation bilaterally, no rales and no wheezes Cardio Rate: regular rate Rhythm: regular rhythm Heart sounds: no murmurs GI Palpation (GI): Soft to palpation and nontender Auscultation: normal bowel sounds General: Yes no CVA tenderness Back/Spine/Pelvis Back: no CVA tenderness Cervical Spine: cervical muscular tenderness (especially over the left side) and Cervical spine tenderness Thoracic/Lumbar Spine: paraspinal muscle tenderness bilaterally in the upper thoracic and No lumbar spinal tenderness Skin Rashes: no rashes Extrem General: Yes no clubbing, cyanosis or edema Right upper extremity: shoulder/upper arm Details: tenderness; no swelling Left upper extremity: shoulder/upper arm Details: tenderness; no swelling Assessment and Plan Assessment & Plan (1) Failed neck syndrome: Code(s): M96.1 - Postlaminectomy syndrome, not elsewhere classified Plan: Patient reports no further changes or developments in her case overall for the past few years as she has not been able to get coverage for any further treatments / management recommended by all of the specialists that she has been seeing, including attempts to go back to pain management in [place] or here locally in [place] Has reportedly been advised by Dr. Trudy a while back that they have nothing else to offer her and recommended that she just follow up with pain management (2) Pain in left shoulder: Code(s): M25.512 - Pain in left shoulder Qualifiers: Chronicity: chronic Qualified Code(s): M25.512 - Pain in left shoulder; G89.29 - Other chronic pain Plan: Continue Tramadol 50 mg 1 to 2 tablets every 4 to 6 hours as needed for pain - Rx refilled (3) Fibromyalgia: Code(s): M79.7 - Fibromyalgia Plan: She reports experiencing increasing diffuse pain and joint pains often - per rheumatology, she is likely experiencing flare ups of her fibromyalgia She is currently on Otezla and Humira, which patient states have been working well for her and she reports (+) improvement of her diffuse pain - Otezla was lowered to QD dosing by rheumatology a couple of months ago Patient is encouraged again to continue to stay active and exercise regularly to help manage her fibromyalgia symptoms Continue Tizanidine 4 mg every 8 hours as needed (4) Psoriatic arthritis: Comment: [facility]onson not clearly helpful Otezla: 2017- 2023 Humira 04/2023 - Present. Methotrexate: 2016 - 01/19/2022. LFT elevations - methotrexate discontinued. She did okay until summer 2022 when she had a flare overall joint pains. Code(s): L40.50 - Arthropathic psoriasis, unspecified Plan: She is now on Humira 40 mg Q 2 weeks and Otezla 30 mg QD; she was taken off Methotrexate about a year ago now Follow up with rheumatology as scheduled (5) Anxiety: Code(s): F41.9 - Anxiety disorder, unspecified Plan: Feels that she is doing okay on just her Clonazepam taken 0.5 mg BID as needed - Rx refilled Follow up with psychiatry as scheduled (6) Depression: Code(s): F32.9 - Major depressive disorder, single episode, unspecified Qualifiers: Depression Type: unspecified Qualified Code(s): F32.9 - Major depressive disorder, single episode, unspecified Plan: She was on Venlafaxine ER 150mg QD and Quetiapine 200 mg Q HS in the past but patient apparently stopped taking these on her own at some point States that she does not feel any worse since stopping her Rx Follow up with psychiatry as scheduled Plan Follow up in 4 months Medications: Refilled tramadol 1 to 2 tablets every 4 to 6 hours as needed for pain (no more than 3 to 4 times a day); 30 days 90 tabs 1RF clonazepam 0.5 mg PO BID PRN 60 tabs 0RF anxiety Coding Level of Care Code Est Pt Level 3 (32588) Diagnoses Failed neck syndrome M96.1 Chronic left shoulder pain M25.512; G89.29 Chronicity: chronic Fibromyalgia M79.7 Psoriatic arthritis L40.50 Anxiety F41.9 Depression, unspecified depression type F32.9 Depression Type: unspecified
== END 2023-12-17 09:56 | disposition home or self-care (01) ==
PROVIDERS: PCP Internal Medicine; Visit Provider Internal Medicine
DX: M25.512 Pain in left shoulder (principal); L40.50 Arthropathic psoriasis, unspecified; M96.1 Postlaminectomy syndrome, not elsewhere classified; G89.29 Other chronic pain; M79.7 Fibromyalgia; F41.9 Anxiety disorder, unspecified; F32.9 Major depressive disorder, single episode, unspecified
CPT/HCPCS: 99213

== ENCOUNTER 2024-01-13 11:14 | Outpatient (REF) | payer MEDICARE, BC, SELFPAY ==
[2024-01-13 11:26] LABS: MANUAL DIFF FLAG NO
[2024-01-13 11:46] LABS: Basophils Percent Auto 0.4 % (0-2); Eosinophils Absolute Auto 0.1 X10*3/uL (0.0-0.4); Eosinophils Percent Auto 1.8 % (0-4); Hematocrit 47.2 % (37.0-47.0); Hemoglobin 15.5 g/dl (12.0-16.0); Imm Gran Abs Auto 0.03 X10*3/uL (0.00-0.03); Imm Gran Pct Auto 0.4 % (0.0-0.4); Lymphocytes Absolute Auto 2.1 X10*3/uL (1.2-4.9); Lymphocytes Percent Auto 27.9 % (20-40); Mean Corpuscular HGB Conc 32.8 g/dl (31.0-35.0); Mean Corpuscular Hemoglobin 29.8 pg (27.0-33.0); Mean Corpuscular Volume 90.6 fL (80.0-98.0); Mean Platelet Volume 9.4 fL (9.4-12.3); Monocytes Absolute Auto 0.4 X10*3/uL (0.1-1.2); Monocytes Percent Auto 5.4 % (2-11); Neutrophils Absolute Auto 4.9 x10*3/uL (2.0-8.3); Neutrophils Percent Auto 64.1 % (45-73); Platelet Count 239 X10*3/uL (160-400); Red Blood Count 5.21 X10*6/uL (4.20-5.50); Red Cell Distribution Width 13.5 % (11.0-16.0); White Blood Count 7.6 X10*3/uL (4.8-10.8)
[2024-01-13 12:18] LABS: Alanine Aminotransferase 22 U/L (0-31); Albumin Level 4.1 g/dL (3.5-5.0); Alkaline Phosphatase 80 U/L (39-117); Anion Gap 6 (12-20); Aspartate Amino Transferase 26 U/L (5-31); Bilirubin Total 0.3 mg/dL (0.0-1.0); Blood Urea Nitrogen 18 mg/dL (9-16); C Reactive Protein 0.17 mg/dL (< or = 0.50); Calcium 9.9 mg/dL (8.4-10.2); Carbon Dioxide 31 mmol/L (22-29); Chloride 108 mmol/L (96-108); Estimated Glomerular Filt Rate > 60; Glucose Random 77 mg/dL (60-115); Potassium 4.4 mmol/L (3.3-5.1); Sodium 141 mmol/L (135-145); Total Protein 6.8 g/dL (6.5-8.0)
[2024-01-13 12:20] LABS: Erythrocyte Sedimentation Rate 3 MM/HR (0-20)
== END 2024-01-13 11:15 | disposition home or self-care (01) ==
LOC: HO.LAB 11:14
PROVIDERS: PCP Internal Medicine; Visit Provider Student in an Organized Health Care Education/Training Program
DX: L40.50 Arthropathic psoriasis, unspecified (principal)
CPT/HCPCS: 36415; 80053; 85025; 85652; 86140

== ENCOUNTER 2024-01-20 09:05 | Outpatient (AMB) | payer MEDICARE, BC, OTHER, SELFPAY ==
[2024-01-20 09:14] VITALS: BP 130/80; PULSE 63; O2SAT 99; BMI 24.6
--- NOTE | 2024-01-20 09:14 | AM.OFFVISMDC ---
Intake Vital Signs 01/20/24 09:14 Height 5 ft 2 in Weight 134 lb 8 oz BMI 24.6 BP 130/80 Blood Pressure Location Lt brachial Position Sitting Pulse 63 Pulse Source Pulse Oximeter Pulse Oximetry (%) 99 Oxygen Delivery Method Room Air Intake Visit Reasons: SA[facility] [employer] Rolls Required: No Accompanied by: Self / Same As Patient Allergies No Known Allergies Allergy (Verified 01/20/24 09:53) Medication List - Last Reconciled 01/20/24 by Jermaine Berg MD adalimumab (Humira(CF) Pen) 40 mg (0.4 mL) subcut Q2W 56 days apremilast (Otezla) 30 mg PO DAILY clonazepam 0.5 mg PO BID PRN ibuprofen 800 mg PO BID PRN simvastatin 20 mg PO DAILY 90 days tramadol 1 to 2 tablets every 4 to 6 hours as needed for pain (no more than 3 to 4 times a day); 30 days Do you need a note to return to daycare/school/sports/work: No HPI SAWV HPI Details Patient comes in today for her Annual Medicare Wellness Exam AND follow up visit States that she has been experiencing increased pain and discomfort in her right ear for a while now She denies any ear drainage but notes that every time the wind blows and her ear is not covered, she would feel some pain in the ear Thinks that this started after her most recent bout with COVID several months ago She currently denies any fever or sore throat and denies any cough/cold symptoms at present She denies any headaches or dizziness Denies any chest pains, no increased SOB No nausea/vomiting, still has on and off epigastric pain but states that this has not been as bad as it was a few months ago No change in bowel habits noted She had her follow up labs done last week - to discuss her results She would also like to know how her upper GI series done a few months ago came out Would also like to get her flu shot today [place] of care was reviewed and updated today Patient has a healthcare proxy in place and on file; they were provided with a MOLST form and instructed to complete these as soon as possible IPPE/AWV: c/o of Annual Wellness Visit, subsequent visit. Medical / Social History Reviewed Past Medical History Yes . [place] of Care / Care Team list updated Yes . Surgical/Hospitalization History Yes . Current Medications (including OTC and supplements) Yes . Family History Yes . Tobacco Control form Yes . AUDIT-C (Alcohol use) form Yes . Illicit drug use in Social History Yes . Current diagnosis of depression? No Appropriate PHQ2/PHQ9 completed Yes . Data entered by Donor Relations Coordinator and reviewed by provider Home Safety Throw rugs? No Grab bars? No Raised toilet seats? No Working smoke detectors? Yes Working carbon monoxide detectors? Yes Data entered by Donor Relations Coordinator and reviewed by provider Activities of Daily Living (ADLs) Difficulty bathing or showering? No Difficulty dressing? No Difficulty using the toilet? No Difficulty getting in and out of bed? No Difficulty walking? No Receives help from another person with any of the above tasks? No Instrumental Activities of Daily Living (IADLs) Uses the telephone without help Gets to places out of walking distance without help Goes shopping for groceries without help Prepares own meals without help Does own minor home maintenance without help Does own laundry without help Does own housework without help Manages own money without help Currently takes medications? Yes Takes medication without help End-of-Life Planning Discussed advance directive Yes Advance directive on file Discussed wishes expressed in advance directive agreed to following patient's wishes Fall Risk: Fall History Have you had any falls with injury in the past year? No . Have you had two or more falls in the past year? No . Fall Risk Assessment: No falls in the past year . HRA filled out by the patient, reviewed by Provider and scanned. 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 Closed fracture of head of radius with routine healing Fracture of radial head, right, closed Occult fracture of right elbow Psoriatic arthritis Surgical History (Updated 01/20/24 @ 10:54 by Jermaine Berg MD) Hx of colonoscopy Hx of abdominoplasty S/P cervical spinal fusion Hx of section Family History Mother Lung cancer Father Drug addict Other Mental health problem Substance abuse Social History Household Members: Significant Other and Family Housing: House Are you a primary home health care provider to a significant other at home: No Alcohol intake: never Patient Tobacco Use Status: Never used Tobacco e-Cigarette/Vaping Use: Never Used Second Hand Smoke Exposure: Yes service: No Current occupational status: disabled Cognitive needs: No Hearing needs: No Vision needs: Yes (glasses) Questionnaire Medicare Wellness Checkup What [age] 65-69 (63) What gender do you identify with?: female During the past 4 weeks, how much have you been bothered by emotional problems such as feeling anxious, depressed, irritable, sad or downhearted, and blue?: quite a bit During the past 4 weeks, has your physical & emotional health limited your social activities with family, friends, neighbors, or groups?: moderately During the past 4 weeks, how much bodily pain have you generally had?: severe pain During the past 4 weeks, was someone available to help you if you needed & wanted help?: yes, quite a bit During the past 4 weeks, what was the hardest physical activity you could do for at least 2 minutes?: moderate Can you get to places out of walking distance without help? (For eg., can you travel alone on buses, taxis or drive your car?): Yes Can you go shopping for groceries or clothes without someone's help?: Yes Can you prepare your own meals?: Yes Can you do your housework without help?: Yes Because of any health problems, do you need the help of another person with your personal care needs such as eating, bathing, dressing or getting around the house?: No Can you handle your own money without help?: Yes During the past 4 weeks, how would you rate your health in general?: good During the past 4 weeks how have things been going for you?: good & bad parts about equal Are you having difficulties driving your car?: no Do you always fasten your seat belt when you are in a car?: yes, sometimes During past 4 weeks, have you been bothered by the following: never: Falling or dizzy when standing up and Problems using the telephone?, seldom: Trouble eating well?, sometimes: Sexual problems?, often: Teeth or denture problems? and always: Tiredness or fatigue? Have you fallen 2 or more times in the past year?: No Are you afraid of falling?: Yes Are you a smoker?: no During the past 4 weeks, how many drinks of wine, beer, or other alcoholic beverages did you have?: no alcohol at all Do you exercise for about 20 minutes 3 or more times a week?: yes, some of the time Have you been given information to help with the following?: no: Hazards in your house that might hurt you? and no: Keeping track of your medications? How often do you have trouble taking medicines the way you have been told to take them?: I always take medicine as prescribed How confident are you that you can control & manage most of your health problems?: somewhat confident What is your race?: White Mini Mental State Exam (MMSE) Orientation What is the (year) (season) (date) (day) (month)?: year, season, date, day and month Where are we (state) (county) (town or city) (hospital) (floor)?: state, county, town or city, hospital/clinic and floor Score Score: 10 Activity of Daily Living Bathing - sponge bath, tub bath or shower: receives no assistance (gets in/out by self, if usual bathing means Dressing - getting clothes from closets & drawers, including inner/outer garments & fasteners.: gets clothes & gets completely dressed without help Toileting - going to the 'toilet room' for urine/bowel elimination & cleaning self/arranging clothes: goes to toilet room, cleans self, arranges clothes without help Transfer: moves in & out of bed and chair without help (may use support object) Continence: controls urination/bowel movements completely by self Feeding: feeds self without help Total Score: 0 Information obtained from: patient Using telephone: independent Traveling: independent Shopping: independent Preparing meals: independent Housework: independent Taking medicine: independent Managing money: independent PHQ-9 Over the last 2 weeks, how often have you been bothered by any of the following problems? 1. Little interest or pleasure in doing things: more than half the days 2. Feeling down, depressed, or hopeless: more than half the days 3. Trouble falling or staying asleep, or sleeping too much: nearly every day 4. Feeling tired or having little energy: nearly every day 5. Poor appetite or overeating: not at all 6. Feeling bad about yourself - or that you are a failure or have let yourself or your family down: more than half the days 7. Trouble concentrating on things, such as reading the newspaper or watching television: nearly every day 8. Moving or speaking so slowly that other people could have noticed. Or the opposite - being so fidgety or restless that you have been moving around a lot more than usual: nearly every day 9. Thoughts that you would be better off or of hurting yourself in some way: not at all Total score: 18 Depression Screening Interpretation: Positive Depression Screening Follow-up: Existing condition and In treatment Depression Screening Done: Yes 60403 - PHQ-9 Billing: Yes Source: Developed by Drs. Yared Ge, Bella Moore, Ellis Ellis and colleagues, with an educational neil from [employer]. PHQ-2/PHQ-9 PHQ-2 Over the last 2 weeks, how often have you been bothered by any of the following problems? 1. Little interest or pleasure in doing things: more than half the days 2. Feeling down, depressed, or hopeless: more than half the days Total score: 4 If score is 3 or greater, continue 3. Trouble falling or staying asleep, or sleeping too much: nearly every day 4. Feeling tired or having little energy: nearly every day 5. Poor appetite or overeating: not at all 6. Feeling bad about yourself - or that you are a failure or have let yourself or your family down: more than half the days 7. Trouble concentrating on things, such as reading the newspaper or watching television: nearly every day 8. Moving or speaking so slowly that other people could have noticed. Or the opposite - being so fidgety or restless that you have been moving around a lot more than usual: nearly every day 9. Thoughts that you would be better off or of hurting yourself in some way: not at all Total score: 18 0-4 None-Minimal, 5-9 Mild, 10-14 Moderate, 15-19 Moderately Severe, 20-27 Severe Source: Developed by Drs. Yared Ge, Bella Moore, Ellis Ellis and colleagues, with an educational neil from [employer]. Thrive Questionnaire Date Thrive assessed: 01/20/24 I am a: Patient What is your living situation today?: I have a steady place to live Within the past 12 months, did the food you bought not last and you didn't have the money to get more?: Never true Within the past 12 months, did you worry whether your food would run out before you got money to buy more?: Never true Do you have trouble paying for medicines?: No Do you have trouble getting transportation to medical appointments?: No Do you have trouble paying your heating and electricity bill?: No Do you have trouble taking care of your child, family member or friend?: No Do you have trouble with day-to-day activities such as bathing, preparing meals, shopping, managing finances, etc.?: No Are you currently unemployed and looking for a job?: I choose not to answer this question Are you interested in more education?: No Please select the resources that you would like help with: None Currently or been in a relationship where the following occur: No concerns reported THRIVE Score: 0 JOSELO-7 AMB Questionnaire JOSELO-7 Date JOSELO - 7 assessed: 01/20/24 Feeling nervous, anxious, or on edge: 3 = Nearly every day Not being able to stop or control worryin = Nearly every day Worrying too much about different things: 3 = Nearly every day Trouble relaxin = Nearly every day Being so restless that it is hard to sit still: 3 = Nearly every day Becoming easily annoyed or irritable: 1 = Several days Feeling afraid as if something awful might happen: 1 = Several days Total JOSELO-7 score (0-4 normal; 5-9 mild; 10-14 moderate; 15-21 severe): 17 Source: Developed by Drs. Yared Ge, Bella Moore, Ellis Ellis and colleagues, with an educational neil from [employer]. Review of Systems Const Denies chills, Denies fatigue, Denies fever(s) and Denies headache(s) ENT Denies dysphagia, Denies dizziness, Reports otalgia (increased pain in the right ear; no drainage), Denies headache(s), Reports neck pain (chronic; more on the left side), Denies odynophagia and Denies sore throat Card Denies chest pain, Denies palpitations and Denies dyspnea Resp Denies cough and Denies dyspnea GI Reports abdominal pain (on and off, over the epigastric area), Denies constipation, Denies dysphagia, Denies heartburn, Denies diarrhea, Denies nausea, Denies odynophagia and Denies vomiting Denies difficulty voiding, Denies nocturia and Denies dysuria Musc Reports back pain, Reports arthralgias (in the left shoulder - chronic) and Reports neck pain (chronic; more on the left side) Skin/Breast Denies rash Neuro Denies dizziness and Denies headache(s) Endo Denies fatigue and Denies palpitations Physical Exam Vital Signs: Last Vital Signs Pulse 63 01/20/24 09:14 BP 130/80 01/20/24 09:14 Pulse Ox 99 01/20/24 09:14 Oxygen Delivery Method Room Air 01/20/24 09:14 BMI result Body Mass Index 24.6 IPPE/AWV: Balance Romberg Yes . Tandem walk Yes . Walk and Turn Yes . Rise from sit to stand Yes . Vision Corrective lens No Vision screen pass Hearing Whisper test pass . Urinary incont. no. EKG Not clinically necessary. Const General: no acute distress and alert Orientation/consciousness: patient oriented x3 HEENT Ears: TM normal on the left, EAC's normal and TM abnormal bulging on the right and with fluid behind the TM on the right; not with effusion Throat: Yes posterior oropharynx normal and Yes tonsils normal (no TP congestion) Neck Neck: Yes no lymphadenopathy and Yes tender (on the left side) Thyroid: Thyroid normal Resp Auscultation: clear to auscultation bilaterally, no rales and no wheezes Cardio Rate: regular rate Rhythm: regular rhythm Heart sounds: no murmurs GI Palpation (GI): Soft to palpation, Tenderness to palpation present (GI) (mild) in the epigastrum, no guarding, not rigid and No Rebound tenderness present Auscultation: normal bowel sounds General: Yes no CVA tenderness Back/Spine/Pelvis Back: no CVA tenderness Cervical Spine: Cervical spine tenderness Thoracic/Lumbar Spine: No lumbar spinal tenderness Skin Rashes: no rashes Neuro General: patient oriented x3 Cognition (Neuro): normal cognition Extrem General: Yes no clubbing, cyanosis or edema Psych Thought process: Normal thought process present Office Procedures Flu Questionnaire Does the patient have a severe egg allergy?: No Does the patient have severe life threatening allergies?: No Does the patient have a fever or illness today?: No Has the patient ever had Guillain-[place] Syndrome?: No Has the patient ever had any past reaction to a flu shot?: No Immunizations Fluarix Triv 9542-0588 (PF) 45 mcg (15 mcg x 3)/0.5 mL IM syringe Performing Provider: Jermaine Berg MD [facility] [place] [facility] Administered by: AMANDA Fu on 01/20/24 10:09 Dose Route Admin Location Dispensed Lot Number Expiration Date NDC Station Supervisor 0.5 mL IM Left Deltoid 0.5 mL [id number] 10/05/24 [id number] Datalink VIS Given Date VIS Provided VIS Publication Date 01/20/24 Single Vaccine 20 Eligibility Eligibility Date Funding Source Not [facility] Eligible 01/20/24 Private Results Reviewed Results Reviewed: Laboratory Tests 12/13/23 12/13/23 01/13/24 06:43 06:45 11:21 WBC 7.6 Hgb 15.5 Hct 47.2 H Plt Count 239 ESR 3 Sodium 141 Potassium 4.4 Creatinine 0.77 Estimated GFR > 60 Random Glucose 77 Fasting Glucose 86 Calcium 9.9 AST 26 ALT 22 Triglycerides 77 Cholesterol 183 LDL Cholesterol, Calc 109 H HDL Cholesterol 59 25-OH Vitamin D Total 46.4 TSH 1.50 Ur Specific [place] 1.020 Urine Protein Negative Urine Glucose (UA) Negative Urine Blood Moderate (2+) H Urine Nitrite Negative Ur Leukocyte Esterase Negative Assessment & Plan Assessment & Plan (1) Medicare annual wellness visit, subsequent: Code(s): Z00.00 - Encounter for general adult medical examination without abnormal findings Plan: HRA form discussed and completed with patient; form will be scanned into patient's chart PEPE updated She is up-to-date with her annual mammogram and pap smear/gynecology exam She is scheduled for her repeat colonoscopy in March 2024 Repeat BMD will be due next year (2024) (2) Otitis media of right ear: Code(s): H66.91 - Otitis media, unspecified, right ear Qualifiers: Otitis media type: unspecified Qualified Code(s): H66.91 - Otitis media, unspecified, right ear Plan: Will start her on Augmentin 875 mg BID x 10 days (3) Gastritis: Code(s): K29.70 - Gastritis, unspecified, without bleeding Qualifiers: Gastritis type: unspecified gastritis Chronicity: unspecified Gastritis bleeding: without bleeding Qualified Code(s): K29.70 - Gastritis, unspecified, without bleeding Plan: Results of her upper GI series done a few months ago in September 2023 reviewed and discussed with patient Have advised her that her test revealed (+) granular appearance of the mid esophageal mucosa that likely represent esophagitis. There is mildly disorganized esophageal peristalsis and a thickened appearance of the areae gastricae likely representing gastritis due to H. pylori Will send patient to the lab to check for H. pylori and if positive, this will need to be treated Will start her for now on Omeprazole 40 mg QD Will refer her to GI for consideration for EGD - she has a colonoscopy scheduled in March 2024 and if necessary, they can hopefull combine her EGD with her colonoscopy then (4) Pure hypercholesterolemia: Code(s): E78.00 - Pure hypercholesterolemia, unspecified Plan: Results of her labs done last week reviewed and discussed with patient - advised that her cholesterol levels have again improved slightly from previous Reinforced low cholesterol diet Continue Simvastatin 20 mg QD Will recheck her labs and fasting lipids in 4 months for follow-up (5) Psoriatic arthritis: Comment: Enbrel not clearly helpful Otezla: 2017- 2023 Humira 04/2023 - Present. Methotrexate: 2016 - 01/19/2022. LFT elevations - methotrexate discontinued. She did okay until summer 2022 when she had a flare overall joint pains. Code(s): L40.50 - Arthropathic psoriasis, unspecified Plan: Continue Humira 40 mg SQ every 2 weeks and Otezla 30 mg QD - states that her pain has been better controlled now that she is on both Rx Methotrexate was discontinued by rheumatology a few months ago She had a baseline echocardiogram done back in April 2023 that came out grossly normal Follow-up with rheumatology as scheduled (6) Fibromyalgia: Code(s): M79.7 - Fibromyalgia Plan: Patient is again encouraged to continue to stay active and exercise regularly to help manage her fibromyalgia symptoms Continue Tramadol 50 mg 1-2 tablets every 4-6 hours as needed (Rx refilled) and Baclofen 20 mg TID PRN (7) Failed neck syndrome: Code(s): M96.1 - Postlaminectomy syndrome, not elsewhere classified Plan: She had a cervical spine fusion (ADCF of C5 and C6) back in 2003 but the surgery failed to provide her with any lasting or significant relief of her chronic pain and she is currently on disability because of this issue She has been seen by pain management in the past and has failed trials of several pain meds and opioids as well as interventional treatments Continue Tramadol 50 mg TID PRN for pain (8) Lumbar degenerative disc disease: Code(s): M51.36 - Other intervertebral disc degeneration, lumbar region Qualifiers: Disc-related pain type: discogenic back pain only Qualified Code(s): M51.360 - Other intervertebral disc degeneration, lumbar region with discogenic back pain only Plan: Reinforced activity and weight-lifting restrictions to minimize flare ups of her low back pain Repeat lumbar spine x-rays done a couple of years ago showed only mild lumbar spondylotic changes; SI joints were normal bilaterally (9) Elevated LFTs: Code(s): R79.89 - Other specified abnormal findings of blood chemistry Plan: Were likely related to her weight (steatosis); her LFTs have remained normal on her recent labs Will continue to monitor her LFTs regularly (10) Vitamin D deficiency: Code(s): E55.9 - Vitamin D deficiency, unspecified Plan: Continue OTC Vitamin D supplements daily Will recheck her Vitamin D level in 4 months for follow up (11) Osteopenia: Code(s): M85.80 - Other specified disorders of bone density and structure, unspecified site Qualifiers: Osteopenia location: unspecified Qualified Code(s): M85.80 - Other specified disorders of bone density and structure, unspecified site Plan: Repeat BMD done in April 2021 showed (+) osteopenia with 4.8% decline in AP spine BMD from her previous BMD in 02/2019 and 1.3% decline in left femoral BMD from previous in 02/2019 -? will continue to monitor this regularly Patient is again encouraged to exercise regularly to help slow down the decline of her BMD and she is reminded to continue on her Vitamin D and calcium supplements daily (12) Benign microscopic hematuria: Code(s): R31.1 - Benign essential microscopic hematuria Plan: She still has (+) trace blood in her urine (chronic finding); patient remains asymptomatic Renal US last done in 03/2014 revealed (+) right renal cyst that is mostly unchanged from her US in 2007 Repeat renal US done in July 2022 showed the same findings; no further follow up imaging studies is recommended at this point (13) Renal cyst, right: Code(s): N28.1 - Cyst of kidney, acquired Plan: (+) right renal cyst noted on sonogram done in 2007 and in 2013 as well as most recently in July 2022 - no further follow up imaging studies is recommended (14) Insomnia: Code(s): G47.00 - Insomnia, unspecified Qualifiers: Insomnia type: unspecified Qualified Code(s): G47.00 - Insomnia, unspecified Plan: Sleep hygiene reinforced Continue Trazodone 100 mg Q HS (15) Anxiety: Code(s): F41.9 - Anxiety disorder, unspecified Plan: Continue Clonazepam 0.5 mg 1 tablet 2 to 3 times a day as needed for anxiety (16) Depression: Code(s): F32.9 - Major depressive disorder, single episode, unspecified Qualifiers: Depression Type: unspecified Qualified Code(s): F32.9 - Major depressive disorder, single episode, unspecified Plan: Continue Venlafaxine ER 187.5 mg (150 + 37.5 mg) QD She was not able to tolerate Seroquel in the past Follow-up with Psychiatry as scheduled Plan As requested, flu vaccine given to patient today Follow up in 4 months Orders: Orders Comprehensive [place]. Panel Fast 4 Months E78.00 - Pure hypercholesterolemia, unspecified TSH reflex Free T4 4 Months E78.00 - Pure hypercholesterolemia, unspecified C Reactive Protein 4 Months L40.50 - Arthropathic psoriasis, unspecified Influenza [id number] Immunization Today Z23 - Encounter for immunization Complete Blood Count Auto Diff 4 Months D64.9 - Anemia, unspecified Lipid Panel 4 Months E78.00 - Pure hypercholesterolemia, unspecified H pylori Ag Stool Today K20.90 - Esophagitis, unspecified without bleeding, K29.70 - Gastritis, unspecified, without bleeding UA CC w/rflx Micro + Cult 4 Months R30.0 - Dysuria Vitamin D 25-OH Total 4 Months E55.9 - Vitamin D deficiency, unspecified Erythrocyte Sedimentation Rate 4 Months M79.7 - Fibromyalgia Referrals Gastroenterology Referral K20.90 - Esophagitis, unspecified without bleeding, K29.70 - Gastritis, unspecified, without bleeding Medications: New omeprazole 40 mg PO DAILY 30 days 30 caps 3RF K20.90 - Esophagitis, unspecified without bleeding, K29.70 - Gastritis, unspecified, without bleeding amoxicillin-pot clavulanate 875-125 mg 1 tab PO BID 10 days 20 tabs 0RF Quality Reporting (2019) Depression/Bipolar (159/160/161/177) PHQ-9: Total score: 18 Coding Level of Care Code Medicare Subsequent (G0439) Est Pt Level 4 (29393) Diagnoses Medicare annual wellness visit, subsequent Z00.00 Right otitis media, unspecified otitis media type H66.91 Otitis media type: unspecified Gastritis without bleeding, unspecified chronicity, unspecified gastritis type K29.70 Gastritis type: unspecified gastritis Chronicity: unspecified Gastritis bleeding: without bleeding Pure hypercholesterolemia E78.00 Psoriatic arthritis L40.50 Fibromyalgia M79.7 Failed neck syndrome M96.1 Degeneration of intervertebral disc of lumbar region with discogenic back pain M51.360 Disc-related pain type: discogenic back pain only Elevated LFTs R79.89 Vitamin D deficiency E55.9 Osteopenia, unspecified location M85.80 Osteopenia location: unspecified Benign microscopic hematuria R31.1 Renal cyst, right N28.1 Insomnia, unspecified type G47.00 Insomnia type: unspecified Anxiety F41.9 Depression, unspecified depression type F32.9 Depression Type: unspecified
== END 2024-01-20 10:14 | disposition home or self-care (01) ==
PROVIDERS: PCP Internal Medicine; Visit Provider Internal Medicine
DX: Z00.00 Encounter for general adult medical examination without abnormal findings (principal); H66.91 Otitis media, unspecified, right ear; L40.50 Arthropathic psoriasis, unspecified; K29.70 Gastritis, unspecified, without bleeding; E78.00 Pure hypercholesterolemia, unspecified; M79.7 Fibromyalgia; M96.1 Postlaminectomy syndrome, not elsewhere classified; M51.360 Other intervertebral disc degeneration, lumbar region with discogenic back pain only; E55.9 Vitamin D deficiency, unspecified; M85.80 Other specified disorders of bone density and structure, unspecified site; R31.1 Benign essential microscopic hematuria; N28.1 Cyst of kidney, acquired

== ENCOUNTER 2024-01-20 09:05 | Outpatient (REF) | payer MEDICARE, BC, SELFPAY | END 2024-01-20 09:06 | disposition home or self-care (01) | LOC: HO.LAB 09:05 | PROVIDERS: PCP Internal Medicine; Visit Provider Internal Medicine | DX: Z00.00 Encounter for general adult medical examination without abnormal findings (principal); Z23 Encounter for immunization; H66.91 Otitis media, unspecified, right ear; K29.70 Gastritis, unspecified, without bleeding; E78.00 Pure hypercholesterolemia, unspecified; L40.50 Arthropathic psoriasis, unspecified; M79.7 Fibromyalgia; M96.1 Postlaminectomy syndrome, not elsewhere classified; M51.360 Other intervertebral disc degeneration, lumbar region with discogenic back pain only; R79.89 Other specified abnormal findings of blood chemistry; E55.9 Vitamin D deficiency, unspecified; M85.80 Other specified disorders of bone density and structure, unspecified site; R31.1 Benign essential microscopic hematuria; N28.1 Cyst of kidney, acquired; G47.00 Insomnia, unspecified; F41.9 Anxiety disorder, unspecified; F32.9 Major depressive disorder, single episode, unspecified | CPT/HCPCS: 90471; 90656; 96127; 99212 ==

== ENCOUNTER 2024-01-21 08:11 | Outpatient (REF) | payer MEDICARE, BC, SELFPAY | END 2024-01-21 08:12 | disposition home or self-care (01) | LOC: HO.LNP 08:11 | PROVIDERS: Visit Provider Internal Medicine | DX: K20.90 Esophagitis, unspecified without bleeding (principal); K29.70 Gastritis, unspecified, without bleeding | CPT/HCPCS: 87338 ==

== ENCOUNTER 2024-02-03 07:26 | Outpatient (AMB) | payer MEDICARE, BC, SELFPAY ==
--- NOTE | 2024-02-03 07:30 | MHC.OFFVIS ---
Vital Signs 02/03/24 07:33 Height 5 ft 2 in Weight 134 lb 4.184 oz BMI 24.6 BP 124/72 Blood Pressure Location Rt brachial Position Sitting Pulse 64 Pulse Source Pulse Oximeter Pulse Oximetry (%) 97 Oxygen Delivery Method Room Air Intake Visit Reasons: PsA/CM Intake Note: Patient presents for PsA. Allergies No Known Allergies Allergy (Verified 02/03/24 07:32) Medication List - Last Reconciled 02/03/24 by Jak Gomes MD adalimumab (Humira(CF) Pen) 40 mg (0.4 mL) subcut Q2W 56 days amoxicillin-pot clavulanate 875-125 mg 1 tab PO BID 10 days clonazepam 0.5 mg PO BID PRN ibuprofen 800 mg PO BID PRN omeprazole 40 mg PO DAILY 30 days simvastatin 20 mg PO DAILY 90 days tramadol 1 to 2 tablets every 4 to 6 hours as needed for pain (no more than 3 to 4 times a day); 30 days HPI Comments Details: This is a 63-year-old female with psoriasis and psoriatic arthritis who presents for follow-up. She is on Otezla 30 mg once daily and Humira 40 mg every other week. Doing very well overall. She states that she has been having some recurrence of left hip pain but it is quite mild and does not feel it is bad enough to warrant an injection. He has done some home exercises for trochanteric bursitis but she stopped doing them. She is doing well otherwise with no joint swelling or skin rashes. [facility] Medical History Gastritis Greater trochanteric bursitis of both hips History of colon polyps Insomnia 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 of left lower extremity with inflammation Polymyalgia rheumatica Pain in left shoulder Failed neck syndrome Depression Anxiety Osteopenia Elevated LFTs Vitamin D deficiency Lumbar degenerative disc disease Fibromyalgia Pure hypercholesterolemia 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 of both lower extremities with pain manager terminal methotrexate user Closed fracture of head of radius with routine healing Fracture of radial head, right, closed Occult fracture of right elbow Psoriatic arthritis Surgical History Hx of colonoscopy Hx of abdominoplasty S/P cervical spinal fusion Hx of section Family History Mother Lung cancer Father Drug addict Other Mental health problem Substance abuse Social History Household Members: Significant Other and Family Housing: House Are you a primary critical care cns to a significant other at home: No Alcohol intake: never Patient Tobacco Use Status: Never used Tobacco e-Cigarette/Vaping Use: Never Used Second Hand Smoke Exposure: Yes service: No Current occupational status: disabled Cognitive needs: No Hearing needs: No Vision needs: Yes (glasses) Review of Systems Musc Reports arthralgias Skin/Breast Reports rash Physical Exam Vital Signs: Last Vital Signs Pulse 64 02/03/24 07:33 BP 124/72 02/03/24 07:33 Pulse Ox 97 02/03/24 07:33 Oxygen Delivery Method Room Air 02/03/24 07:33 BMI result Body Mass Index 24.6 Const General: cooperative, healthy appearing and comfortable Nutritional Appearance: average body habitus Orientation/consciousness: patient oriented x3 Limitations: no limitations HEENT Head: Yes normocephalic and Yes atraumatic Mouth: moist mucous membranes Resp Effort & Inspection: normal respiratory effort and able to speak in complete sentences Skin General skin exam: no rashes or lesions noted Neuro General: patient oriented x3 Extrem Other: No active synovitis Left trochanteric bursa area tenderness with negative Armaan's test Nail ridging Assessment & Plan Assessment & Plan (1) Psoriatic arthritis: Comment: Enbrel not clearly helpful Otezla: 2017- 2023 Humira 04/2023 - Present. Methotrexate: 2016 - 01/19/2022. LFT elevations - methotrexate discontinued. She did okay until summer 2022 when she had a flare overall joint pains. Code(s): L40.50 - Arthropathic psoriasis, unspecified Category: Medical Plan: This is a 63-year-old female with psoriasis and psoriatic arthritis who presents for follow-up. Doing very well on Otezla 30 mg once daily and Humira 40 mg every other week. She pays out of pocket for her Otezla. She is doing very well today with no active synovitis and no active psoriasis skin rashes. Discontinue Otezla. Continue Humira prescribed. Labs before next visit in 4 months (2) detention use of drug: Code(s): Z79.899 - Other terminologist (current) drug therapy Category: Medical Plan: Side effects of Humira were discussed with the patient in detail including increased risk of infection, demyelinating disease, reactivation of latent TB, possible increased risk of solid and skin tumors. Patient fully aware. Advised patient to seek medical care JAME if patient has an infection and advised patient to stop the medication until the infection is resolved. (3) Greater trochanteric bursitis of both hips: Code(s): M70.61 - Trochanteric bursitis, right hip; M70.62 - Trochanteric bursitis, left hip Category: Medical Plan: Received bilateral trochanteric bursitis Kenalog injections (06/2023) which were helpful. Symptoms recurring but are quite mild and only affecting her left side. Advised patient to restart home exercises Plan I spent 25 minutes reviewing patient's chart, evaluating patient, ordering diagnostic workup, counseling patient and documenting in the chart Orders: Orders Complete Blood Count Auto Diff 4 Months L40.50 - Arthropathic psoriasis, unspecified Comprehensive Met. Panel 4 Months L40.50 - Arthropathic psoriasis, unspecified Erythrocyte Sedimentation Rate 4 Months L40.50 - Arthropathic psoriasis, unspecified Hepatitis A,B,C Profile 4 Months Z11.59 - Encounter for screening for other viral diseases C Reactive Protein 4 Months L40.50 - Arthropathic psoriasis, unspecified T Spot TB 4 Months Z11.7 - Encounter for testing for latent tuberculosis infection Medications: Refilled adalimumab (Humira(CF) Pen) 40 mg (0.4 mL) subcut Q2W 56 days 2 ea 3RF L40.50 - Arthropathic psoriasis, unspecified Coding Level of Care Code Est Pt Level 4 (80397) Complex EM visit Add On G2211 Diagnoses Psoriatic arthritis L40.50 detention use of drug Z79.899 Greater trochanteric bursitis of both hips M70.61; M70.62
[2024-02-03 07:33] VITALS: BP 124/72; PULSE 64; O2SAT 97; BMI 24.6
== END 2024-02-03 07:59 | disposition home or self-care (01) ==
PROVIDERS: PCP Internal Medicine; Visit Provider Student in an Organized Health Care Education/Training Program
DX: L40.50 Arthropathic psoriasis, unspecified (principal); Z79.899 Other long term (current) drug therapy; M70.61 Trochanteric bursitis, right hip; M70.62 Trochanteric bursitis, left hip
CPT/HCPCS: 99214; G2211

== ENCOUNTER → 2024-02-03 07:26 | Outpatient (BNVA) | payer MEDICARE, BC, SELFPAY | PROVIDERS: PCP Internal Medicine; Visit Provider Student in an Organized Health Care Education/Training Program | DX: L40.50 Arthropathic psoriasis, unspecified (principal); M70.61 Trochanteric bursitis, right hip; M70.62 Trochanteric bursitis, left hip; Z79.899 Other long term (current) drug therapy | CPT/HCPCS: 99212 ==

== ENCOUNTER → 2024-03-09 15:09 | Outpatient (BNVA) | payer MEDICARE, BC, SELFPAY | PROVIDERS: PCP Internal Medicine; Visit Provider Internal Medicine Gastroenterology ==

== ENCOUNTER → 2024-03-09 15:09 | Outpatient (AMB) | payer MEDICARE, BC, SELFPAY ==
--- NOTE | 2024-03-09 15:09 | MHC.OFFVIS ---
Intake Visit Reasons: S/P DOUBLE SCREENING Intake Note: Carissa presents as a telehealth for consult appt for a EGD and COLO. CC: She states pains in her ribcage -- was told there was a tear in her esophagus during a BA swallow. Was told she had an infection and did a stool sample. She was treated for H Pylori by PCP. Lots of pains in her throat. Burps are burning. Feels a ball in her chest. [facility] Required: No Allergies No Known Allergies Allergy (Verified 02/03/24 07:32) HPI HPI S/P DOUBLE SCREENING: Details: 63 yr old f been called for f/u She had colonoscopy 2020 and had polyps removed, due another she had treatment for H pylori was checked after c/o a ball like sensation in chest PCP did ba swallow which revealed possible esophagitis and gastritis she has noted constipation, and stool shape she is taking metamucil and feels its is not helping --she has good intake of water she takes tramadol prn, rarely A/P: 1/ Esophagitis on Ba swallow 2/ Abn bowel habit hx of polyps PLAN: 1/ she has Colonoscopy coming up, we can add EGD -already scheduled with Dr Avila--re eval and r/o polyps, neoplasia, persistent H pylori PFSH Medical History Gastritis Greater trochanteric bursitis of both hips History of colon polyps Insomnia 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 of left lower extremity with inflammation Polymyalgia rheumatica Pain in left shoulder Failed neck syndrome Depression Anxiety Osteopenia Elevated LFTs Vitamin D deficiency Lumbar degenerative disc disease Fibromyalgia Pure hypercholesterolemia 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 of both lower extremities with pain 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 Closed fracture of head of radius with routine healing Fracture of radial head, right, closed Occult fracture of right elbow Psoriatic arthritis Surgical History Hx of colonoscopy Hx of abdominoplasty S/P cervical spinal fusion Hx of section Family History Mother Lung cancer Father Drug addict Other Mental health problem Substance abuse Social History Household Members: Significant Other and Family Housing: House Are you a primary career guidance counselor to a significant other at home: No Alcohol intake: never Patient Tobacco Use Status: Never used Tobacco e-Cigarette/Vaping Use: Never Used Second Hand Smoke Exposure: Yes service: No Current occupational status: disabled Cognitive needs: No Hearing needs: No Vision needs: Yes (glasses) Telehealth Telehealth Telehealth Platform: Telephone Location of provider rendering services: other Location of patient: other Patient Identification confirmed using: Name, : Yes Telehealth method: voice only Patient verbally consented to treatment: Yes Patient verbally consented to billing insurance company: Yes Minutes spent on Phone/Video with Pt.: 10 Assessment & Plan Assessment & Plan (1) Gastritis: Code(s): K29.70 - Gastritis, unspecified, without bleeding Category: Medical Qualifiers: Gastritis type: unspecified gastritis Chronicity: unspecified Gastritis bleeding: without bleeding Qualified Code(s): K29.70 - Gastritis, unspecified, without bleeding Plan: see above Coding Level of Care Code Tele Est Pt Level 3 (02078) Diagnoses Gastritis without bleeding, unspecified chronicity, unspecified gastritis type K29.70 Gastritis type: unspecified gastritis Chronicity: unspecified Gastritis bleeding: without bleeding
== END ==
LOC: HO.HGI 15:09
PROVIDERS: PCP Internal Medicine; Visit Provider Internal Medicine Gastroenterology
DX: K29.70 Gastritis, unspecified, without bleeding (principal)
CPT/HCPCS: 99441

== ENCOUNTER 2024-03-20 08:56 | Day surgery (SDC) | payer MEDICARE, BC, SELFPAY ==
--- NOTE | 2024-03-19 10:53 | HO.ANESPROP2 ---
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) Renal cyst, right (Acute) Benign microscopic hematuria (Acute) Post-menopausal (Acute) Diverticulosis (Acute) Psoriatic arthritis (Acute) PTSD (post-traumatic stress disorder) (Acute) History of colon polyps (Acute) Insomnia (Acute) Failed neck syndrome (Acute) Depression (Acute) Anxiety (Acute) Osteopenia (Acute) Elevated LFTs (Acute) Vitamin D deficiency (Acute) Lumbar degenerative disc disease (Acute) Fibromyalgia (Acute) Pure hypercholesterolemia (Acute) 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 of both lower extremities with pain (Acute) Past Medical History Medical History Gastritis Greater trochanteric bursitis of both hips History of colon polyps Insomnia 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 of left lower extremity with inflammation Polymyalgia rheumatica Pain in left shoulder Failed neck syndrome Depression Anxiety Osteopenia Elevated LFTs Vitamin D deficiency Lumbar degenerative disc disease Fibromyalgia Pure hypercholesterolemia 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 of both lower extremities with pain 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 Closed fracture of head of radius with routine healing Fracture of radial head, right, closed Occult fracture of right elbow Psoriatic arthritis Family History Family History Mother Lung cancer Father Drug addict Other Mental health problem Substance abuse Surgical History Surgical History Hx of colonoscopy Hx of abdominoplasty S/P cervical spinal fusion Hx of section Social History Social History Household Members: Significant Other and Family Housing: House Are you a primary pet caregiver to a significant other at home: No Alcohol intake: never Patient Tobacco Use Status: Never used Tobacco e-Cigarette/Vaping Use: Never Used Second Hand Smoke Exposure: Yes Advance Directives: No Advance Directives Information Provided: Yes service: No Current occupational status: disabled Cognitive needs: No Hearing needs: No Vision needs: Yes (glasses) Meds Allergies Allergy/AdvReac Type Severity Reaction Status Date / Time No Known Allergies Allergy Verified 03/20/24 09:58 Home Medications ?Medication ?Instructions ?Recorded ?Confirmed ?Last Taken ?Type ibuprofen 800 mg tablet 800 mg PO BID PRN 02/12/23 01/20/24 Unknown History Exam Pertinent Lab Results Pertinent Lab Results: Laboratory Tests 01/13/24 11:21 WBC 7.6 Hgb 15.5 Hct 47.2 H Plt Count 239 Sodium 141 Potassium 4.4 Chloride 108 Carbon Dioxide 31 H BUN 18 H Creatinine 0.77 Narrative Narrative: ECHO 2023 Conclusions: - Normal left ventricular size and systolic function. There is mildly increased left ventricular wall thickness. The visually estimated ejection fraction is between 55-60%. There is no evidence of regional wall motion abnormalities. Diastolic function is normal for age. Normal GLS. - Normal right ventricular cavity size and systolic function. - There is mild dilatation of the sinuses of Valsalva measuring 3.50 cm and mild dilatation of the ascending aorta measuring 3.40 cm. Assessment and Plan Assessment Anesthesia Assessment: Chart Reviewed Documented by User: Radha Braga MD 03/20/24 10:27 [facility] Past Medical History Medical History Gastritis Greater trochanteric bursitis of both hips History of colon polyps Insomnia 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 of left lower extremity with inflammation Polymyalgia rheumatica Pain in left shoulder Failed neck syndrome Depression Anxiety Osteopenia Elevated LFTs Vitamin D deficiency Lumbar degenerative disc disease Fibromyalgia Pure hypercholesterolemia 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 of both lower extremities with pain care home methotrexate user Closed fracture of head of radius with routine healing Fracture of radial head, right, closed Occult fracture of right elbow Psoriatic arthritis Family History Family History Mother Lung cancer Father Drug addict Other Mental health problem Substance abuse Family history of problems with anesthesia: No Surgical History Surgical History Hx of colonoscopy Hx of abdominoplasty S/P cervical spinal fusion Hx of section History of Problems with Anesthesia: No Social History Social History Household Members: Significant Other and Family Housing: House Are you a primary pet caregiver to a significant other at home: No Alcohol intake: never Patient Tobacco Use Status: Never used Tobacco e-Cigarette/Vaping Use: Never Used Second Hand Smoke Exposure: Yes Advance Directives: No Advance Directives Information Provided: Yes service: No Current occupational status: disabled Cognitive needs: No Hearing needs: No Vision needs: Yes (glasses) Meds Allergies Allergy/AdvReac Type Severity Reaction Status Date / Time No Known Allergies Allergy Verified 03/20/24 09:58 Home Medications ?Medication ?Instructions ?Recorded ?Confirmed ?Last Taken ?Type ibuprofen 800 mg tablet 800 mg PO BID PRN 02/12/23 01/20/24 Unknown History Exam Height,Weight and Vital Signs: Height 5 ft 2 in Weight 61.235 kg Vital Signs Temp Pulse Resp BP Pulse Ox O2 Del Method 03/20/24 10:01 98.4 F 67 14 104/77 99 Room Air Pertinent Lab Results Pertinent Lab Results: Laboratory Tests 01/13/24 11:21 WBC 7.6 Hgb 15.5 Hct 47.2 H Plt Count 239 Sodium 141 Potassium 4.4 Chloride 108 Carbon Dioxide 31 H BUN 18 H Creatinine 0.77 Airway Mallampati Class: I TM Dist: >3cm Neck ROM: Full (Pain at end of full extension. H/o ACDF) Loose/Missing/Broken Teeth: Yes (Missing tooth bottom left back. Denies broken or loose teeth) Heart: RRR Lungs: CTAB Assessment and Plan Assessment Anesthesia Assessment: Anesthesia Plan Discussed and Chart Reviewed Final Anesthetic Review Family History of Problems with Anesthesia: No History of Problems with Anesthesia: No NPO: Yes ASA Class: II Final Preanesthetic Review: No Changes in Pt Med Stat, Meds/Allgs Chart Reviewed, Consent Obtained/Reviewed and Anes Risks/Benef Reviewed Patient Risk: Low Procedure Risk: Low Assessment/Block/Sedation in SS: Assess/Block/Sedation-SS Anesthetic Plan Anesthetic Plan: TIVA Disposition: Standard PACU
--- NOTE | 2024-03-20 09:44 | MHC.SHP ---
Pre-Procedural Eval Section A - 24 Hr Update-Section A only Date of Service: 03/20/24 The patient is an INPATIENT: No Changes since office visit: Yes Patient answered all questions; No Cold of Flu in the past 2 weeks, No New Medical Problems and No Changes in Medication The patient has been examined within 24 hours of the surgical procedure. The History & Physical has been completed within 30 days and I have reviewed it.: Yes Section B - Complete if H&P > 30 days Chief Complaint: Personal history of colonic polyps Allergies: Allergies Allergy/AdvReac Type Severity Reaction Status Date / Time No Known Allergies Allergy Verified 02/03/24 07:32 Exam Surgical H&P Exam: Normal: Heart, Normal: Lungs, Normal: Extremities and Normal: Abdomen Plan Diagnosis/Plan: Unchanged I have reviewed the history and physical and performed a pertinent physical examination on my patient. No changes have occurred unless specified. Time Spent With Patient Time: Total time managing care of this patient today ____ minutes.
[2024-03-20 10:01] VITALS: BP 104/77; PULSE 67; RESP 14; TEMP 36.9; O2SAT 99; BMI 24.7
[2024-03-20] MEDS: Lactated Ringers 1,000 ML 100 ML IVCONT (10:06)
--- NOTE | 2024-03-20 10:56 | P.OPN-COLO_ITS ---
Colonoscopy Operative Note Operative Note Date of Service: 03/20/24 Narrative: FLEXIBLE TRANSORAL UPPER GASTROINTESTINAL ENDOSCOPY WITH BIOPSIES AND COLONOSCOPY TILL CECUM WITH BIOPSIES Pre-op diagnosis: Surveillance for colon polyps, GERD, abnormal barium swallow Post-op diagnosis: GERD, Gastritis, Colon Polyps, Diverticulosis, hemorrhoids Endoscopist:? Drew Avila MD Anesthesia:?MAC UPPER ENDOSCOPY Consent: Indications for the procedure and potential complications of bleeding, perforation, reaction to medications and missed diagnosis were discussed with the patient and informed consent was obtained. Instrument: Olympus GIF H 190 mid size upper endoscope Monitoring: Vital signs and clinical assessment, continuous EKG monitoring, Pulse oximetry, Carbon Dioxide monitoring and blood pressure monitoring were done throughout the procedure. Procedure: The patient was placed in the left lateral decubitis position and pre-procedure medications were administered and a bite block was placed. The endoscope was inserted into the mouth and advanced under direct vision to the third part of duodenum. A careful inspection was made as the upper endoscope was withdrawn including a retroflexed examination of the proximal stomach; Findings and interventions are described below. Findings: Larynx: Normal Esophagus: GE junction at 38 cms. Mildly tortuous esophagus No esophagitis or Chahal's. Stomach: Moderate diffuse gastric erythema with nodular appearing mucosa in the gastric body - biopsies were obtained from the body and antrum. Grade 2 flap valve on retroflexed examination of the cardia. Duodenum: Normal bulb and descending duodenum Intervention: Biopsies as noted above COLONOSCOPY PROCEDURE NOTE Instrument: Olympus PCF H 190 L variable stiffness pediatric colonoscope Monitoring: Vital signs and clinical assessment, intermittent blood pressure monitoring, continuous EKG monitoring, Pulse oximetry and Carbon Dioxide monitoring were done throughout the procedure. Please see anesthesia flowsheet. Colon withdrawl time was 16 minutes. Procedure: The patient was placed in the left lateral decubitis position and pre-procedure medications were administered. After a digital rectal examination of the ano-rectum, the video colonoscope was inserted into the rectum and advanced through the colon to the cecum. The colonoscope was slowly withdrawn in a retrograde panoramic fashion and the colon mucosa was carefully examined including a retroflexed view of the rectum. Findings and interventions are described below. Procedure Difficulty: without difficulty Findings: Terminal Ileum: Not evaluated Cecum: Normal Ascending Colon: Moderate diverticulosis throughout the entire colon Transverse Colon: A 2-3 mm diminutive appearing polyp in the proximal transverse colon - removed with a cold biopsy. Moderate diverticulosis throughout the entire colon Descending Colon: Moderate diverticulosis throughout the entire colon Sigmoid Colon: Moderate diverticulosis Rectum: Normal Ano-rectum: Moderate internal hemorrhoids Colon preparation: Good after some irrigation. [place] Bowel Preparation Scale Right colon; 2 Transverse colon: 2 Left colon; 2 (0 = Unprepared colon segment with mucosa not seen due to solid stool that cannot be cleared. 1 = Portion of mucosa of the colon segment seen, but other areas of the colon segment not well seen due to staining, residual stool and/or opaque liquid. 2 = Minor amount of residual staining, small fragments of stool and/or opaque liquid, but mucosa of colon segment seen well. 3 = Entire mucosa of colon segment seen well with no residual staining, small fragments of stool or opaque liquid) Impression and Post Procedure Diagnosis: Endoscopy Findings: ESOPHAGUS: GE junction at 38 cms. Mildly tortuous esophagus No esophagitis or Chahal's. STOMACH: Moderate diffuse gastric erythema with nodular appearing mucosa in the gastric body - biopsies were obtained from the body and antrum. DUODENUM: Normal Colonoscopy Findings: One small polyp was removed Moderate diverticulosis seen in the entire colon Moderate hemorrhoids on retroflexed exam. Plan: Repeat Colonoscopy in 5 years if polyps are adenomatous and due to a hx of adenomatous polyps. Above findings were reviewed with the patient and relevant handouts were given and the discharge area. BIOPSIES SHOWED: A. Gastric antrum, biopsy: Gastric antral mucosa with mild chronic gastritis without activity; negative for intestinal metaplasia and dysplasia. B. Gastric body, biopsy: Gastric body mucosa with mild chronic gastritis without activity; negative for intestinal metaplasia and dysplasia. C. Colon, transverse, polyp: Polypoid colonic mucosa with no specific change seen on initial levels. Comment: (A and B): Immunostains for H. pylori were negative
[2024-03-20 11:34] VITALS: BP 98/56; PULSE 88; RESP 20; TEMP 36.2; O2SAT 97
[2024-03-20 11:49] VITALS: BP 118/75; PULSE 72; RESP 16; TEMP 36.2; O2SAT 98
== END 2024-03-20 12:23 | disposition home or self-care (01) ==
PROVIDERS: PCP Internal Medicine; Visit Provider Internal Medicine Gastroenterology
PROC: (CPT 45380; principal; 2024-03-20 11:10)
DX: Z12.11 Encounter for screening for malignant neoplasm of colon (principal); Z86.0101 Personal history of adenomatous and serrated colon polyps; K63.5 Polyp of colon; K57.30 Diverticulosis of large intestine without perforation or abscess without bleeding; K64.8 Other hemorrhoids; R93.3 Abnormal findings on diagnostic imaging of other parts of digestive tract; K22.89 Other specified disease of esophagus; K21.9 Gastro-esophageal reflux disease without esophagitis; K29.50 Unspecified chronic gastritis without bleeding
CPT/HCPCS: 45380; 43239; 88305; 88342; J1596; J2003; J2704

== ENCOUNTER → 2024-03-20 08:56 | Outpatient (BNV) | payer MEDICARE, BC, SELFPAY | PROVIDERS: PCP Internal Medicine; Visit Provider Internal Medicine Gastroenterology | DX: Z12.11 Encounter for screening for malignant neoplasm of colon (principal); Z86.0100 Personal history of colon polyps, unspecified; K63.5 Polyp of colon; K57.90 Diverticulosis of intestine, part unspecified, without perforation or abscess without bleeding; K21.9 Gastro-esophageal reflux disease without esophagitis; K29.70 Gastritis, unspecified, without bleeding; R93.3 Abnormal findings on diagnostic imaging of other parts of digestive tract | CPT/HCPCS: 43239; 45380 ==

== ENCOUNTER 2024-04-16 07:07 | Outpatient (AMB) | payer MEDICARE, BC, SELFPAY ==
--- NOTE | 2024-04-16 07:21 | A.OFFVIS_ITS ---
Vital Signs 04/16/24 07:30 Height 5 ft 2 in Weight 138 lb BMI 25.2 BP 141/83 H Blood Pressure Location Lt brachial Position Sitting Pulse 63 Intake Visit Reasons: Post op from 03/20/24 short stay Intake Note: Patient follow up for Colonoscopy results. Patient cc: abdominal discomfort, constipation, acid reflex with burping. Denies any other GI issues. 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 Pt was previously followed by POLLO Maza Patient is on Humira for psoriatic arthritis TODAY'S VISIT: Patient cc: abdominal discomfort, constipation, acid reflex with burping. Pt feels everything sits in the upper abdomen and it hurts. Had a bagel yesterday and was burping all day. Feels her belly is huge. Complains of chronic constipation - has a BM every other day associated with straining and hard stools Takes Metamucil every other day if she does not have a BM and has not used Miralax in along time. Patient denies symptoms of acid reflux/heartburn, dysphagia, nausea, vomiting, change in appetite. Weight has been going up. Denies recent diarrhea, black stools or rectal bleeding. Patient denies major cardiac or pulmonary problems, loud snoring or sleep apnea Denies problems with anesthesia in the past. Denies being on chronic anticoagulation. Denies smoking and rare ETOH. Worked at the [employer] for 22 years. Broke her neck at work in and stopped working. Lives with her boyfriend and raising his 2 GK. Patient denies known family history of colon polyps, colon cancer or other GI malignancies. LABS IN [facility] : Reviewed IMAGING STUDIES: 09/23/23 UGI SHOWED: 1. Granular appearance of the mid esophageal mucosa that likely represent esophagitis. 2. Mildly disorganized esophageal peristalsis 3. Thickened appearance of the areae gastricae likely representing gastritis due to H. pylori 4. Status post ACDF C6-C7 ENDOSCOPIC STUDIES: 03/20/24 EGD AND COLON WAS PERFORMED: Endoscopy Findings: ESOPHAGUS: GE junction at 38 cms. Mildly tortuous esophagus No esophagitis or Chahal's. STOMACH: Moderate diffuse gastric erythema with nodular appearing mucosa in the gastric body - biopsies were obtained from the body and antrum. DUODENUM: Normal Colonoscopy Findings: One small polyp was removed Moderate diverticulosis seen in the entire colon Moderate hemorrhoids on retroflexed exam. Plan: Repeat Colonoscopy in 5 years if polyps are adenomatous and due to a hx of adenomatous polyps. Above findings were reviewed with the patient and relevant handouts were given and the discharge area. BIOPSIES SHOWED: A. Gastric antrum, biopsy: Gastric antral mucosa with mild chronic gastritis without activity; negative for intestinal metaplasia and dysplasia. B. Gastric body, biopsy: Gastric body mucosa with mild chronic gastritis without activity; negative for intestinal metaplasia and dysplasia. C. Colon, transverse, polyp: Polypoid colonic mucosa with no specific change seen on initial levels (see comment). Comment: (A and B): Immunostains for H. pylori were negative PAST GI HISTORY BY REVIEW OF MEDICAL RECORDS: 03/09/24 PATIENT HAD A TELEVISIT WITH DR. BERNSTEIN: CC: She states pains in her ribcage -- was told there was a tear in her esophagus during a BA swallow. Was told she had an infection and did a stool sample. She was treated for H Pylori by PCP. Lots of pains in her throat. Burps are burning. Feels a ball in her chest. 63 yr old f been called for f/u She had colonoscopy 2020 and had polyps removed, due another she had treatment for H pylori was checked after c/o a ball like sensation in chest PCP did ba swallow which revealed possible esophagitis and gastritis she has noted constipation, and stool shape she is taking metamucil and feels its is not helping --she has good intake of water she takes tramadol prn, rarely A/P: 1/ Esophagitis on Ba swallow 2/ Abn bowel habit hx of polyps PLAN: 1/ she has Colonoscopy coming up, we can add EGD -already scheduled with Dr Austin--re eval and r/o polyps, neoplasia, persistent H pylori PFSH Medical History (Updated 04/16/24 @ 08:04 by Drew Avila MD) Gastritis Greater trochanteric bursitis of both hips History of colon polyps Insomnia 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 of left lower extremity with inflammation Polymyalgia rheumatica Pain in left shoulder Failed neck syndrome Depression Anxiety Osteopenia Elevated LFTs Vitamin D deficiency Lumbar degenerative disc disease Fibromyalgia Pure hypercholesterolemia 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 of both lower extremities with pain USP methotrexate user Closed fracture of head of radius with routine healing Fracture of radial head, right, closed Occult fracture of right elbow Psoriatic arthritis Surgical History Hx of colonoscopy Hx of abdominoplasty S/P cervical spinal fusion Hx of section Family History Mother Lung cancer Father Drug addict Other Mental health problem Substance abuse Social History Household Members: Significant Other and Family Housing: House Are you a primary coronary care unit nurse to a significant other at home: No Do you presently have visiting nurse or other home services: No Alcohol intake: never Patient Tobacco Use Status: Never used Tobacco e-Cigarette/Vaping Use: Never Used Second Hand Smoke Exposure: Yes service: No Current occupational status: disabled Cognitive needs: No Hearing needs: No Vision needs: Yes (glasses) Review of Systems Const All systems reviewed & are unremarkable except as noted in HPI and below Physical Exam Vital Signs: Last Vital Signs Pulse 63 04/16/24 07:30 BP 141/83 H 04/16/24 07:30 BMI result Body Mass Index 25.2 Const General: healthy appearing and no acute distress Nutritional Appearance: average body habitus Orientation/consciousness: patient oriented x3 Limitations: no limitations HEENT Head: Yes normal to inspection Ears: hearing grossly normal bilaterally Eyes Sclerae: sclerae normal Pupils: Equal, round and reactive pupils present Neck Neck: Yes normal visual inspection Chest Chest palpation & inspection: normal inspection of the chest Resp Effort & Inspection: normal respiratory effort Auscultation: clear to auscultation bilaterally Cardio Palpation: normal PMI Rate: regular rate Rhythm: regular rhythm Heart sounds: S1 normal heart sound present, S2 normal heart sound present and no murmurs GI Palpation (GI): Soft to palpation, nontender and No hepatosplenomegaly present Auscultation: normal bowel sounds Rectal Exam - Female: deferred Skin General skin exam: no rashes or lesions noted Neuro General: patient oriented x3, gait normal and moves all extremities Cranial nerves: Yes Equal, round and reactive pupils present Psych Appearance: grossly normal Mental Status: mental status grossly normal Assessment & Plan Assessment & Plan (1) Upper abdominal pain: Code(s): R10.10 - Upper abdominal pain, unspecified Category: Medical (2) History of colon polyps: Comment: Personal history colon adenomas, repeat colonoscopy-a 3 year Discuss family history, FDR begin screening at age 40 Code(s): Z86.010 - Personal history of colon polyps Category: Medical Plan 63 YF with psoriatic arthritis complains of postprandial abdominal discomfort and constipation. 03/20/24 she and colonoscopy were performed in results as noted Patient was advised repeat colonoscopy in 5 years surveilance for colon polyps - placed on colonoscopy recall list Pt was advised to schedule an abd US and take Miralax every other day for constipation Pt handout on Constipation was given to the patient Follow-up in 3 months. Orders: Orders US abdomen complete Today R10.10 - Upper abdominal pain, unspecified Medications: New polyethylene glycol 3350 (Miralax) 17 grams PO DAILY 30 days 510 grams 3RF K59.09 - Other constipation Coding Level of Care Code Est Pt Level 4 (46093) Diagnoses Upper abdominal pain R10.10 History of colon polyps Z86.010 Time Spent (min) 20
[2024-04-16 07:30] VITALS: BP 141/83; PULSE 63; BMI 25.2
== END 2024-04-16 08:17 | disposition home or self-care (01) ==
PROVIDERS: PCP Internal Medicine; Visit Provider Internal Medicine Gastroenterology
DX: R10.10 Upper abdominal pain, unspecified (principal); Z86.0100 Personal history of colon polyps, unspecified
CPT/HCPCS: 99214

== ENCOUNTER → 2024-04-16 07:07 | Outpatient (BNVA) | payer MEDICARE, BC, SELFPAY | PROVIDERS: PCP Internal Medicine; Visit Provider Internal Medicine Gastroenterology | DX: R10.10 Upper abdominal pain, unspecified (principal); Z86.0100 Personal history of colon polyps, unspecified | CPT/HCPCS: 99212 ==

== ENCOUNTER → 2024-04-17 09:02 | Outpatient (BNVA) | payer OTHER, BC, SELFPAY | PROVIDERS: PCP Internal Medicine | DX: M96.1 Postlaminectomy syndrome, not elsewhere classified (principal); L40.50 Arthropathic psoriasis, unspecified; M79.7 Fibromyalgia; G89.29 Other chronic pain; M25.512 Pain in left shoulder; F41.9 Anxiety disorder, unspecified; F32.9 Major depressive disorder, single episode, unspecified; Z79.891 Long term (current) use of opiate analgesic; Z79.899 Other long term (current) drug therapy | CPT/HCPCS: 96127 ==

== ENCOUNTER 2024-04-24 09:30 | Outpatient (REF) | payer MEDICARE, BC, SELFPAY ==
--- NOTE | ~2024-04-24 | US_ITS ---
CLINICAL HISTORY: R10.10 - Upper abdominal pain, unspecified US abdomen complete Comparison: None Findings: The visualized pancreas is normal. The aorta and inferior vena cava are normal caliber. The appearance of the liver suggests fatty infiltration without focal lesion.. There is no intrahepatic bile duct dilatation. The common duct is 6.5 mm in diameter. There are gallstones. The gallbladder is otherwise normal. There is no sonographic Hoffmann sign. The main portal vein is antegrade. The right kidney is 11.0 cm in length. There is a thin-walled, likely Bosniak 1, 3.8 x 3.5 x 3.0 cm cyst. The left kidney is 9.3 cm in length. The spleen is normal. No ascites. IMPRESSION: 1. Hepatocytic ptosis. 2. Cholelithiasis This document has been electronically signed by: Anjum Gamez MD on 04/25/2024 05:48:42
== END 2024-04-24 09:31 | disposition home or self-care (01) ==
LOC: HO.HMGCX 09:30
PROVIDERS: PCP Internal Medicine; Visit Provider Internal Medicine Gastroenterology
DX: R10.10 Upper abdominal pain, unspecified (principal)
CPT/HCPCS: 76700

== ENCOUNTER → 2024-04-24 09:31 | Outpatient (BNV) | payer MEDICARE, BC, SELFPAY | PROVIDERS: PCP Internal Medicine; Visit Provider Specialist | DX: R10.10 Upper abdominal pain, unspecified (principal) | CPT/HCPCS: 76700 ==

== ENCOUNTER 2024-05-20 07:17 | Outpatient (REF) | payer BC, MEDICARE, SELFPAY ==
[2024-05-20 07:39] LABS: MANUAL DIFF FLAG NO
[2024-05-20 08:28] LABS: Basophils Percent Auto 0.5 % (0-2); Eosinophils Absolute Auto 0.2 X10*3/uL (0.0-0.4); Eosinophils Percent Auto 4.4 % (0-4); Hematocrit 49.1 % (37.0-47.0); Imm Gran Abs Auto 0.01 X10*3/uL (0.00-0.03); Imm Gran Pct Auto 0.2 % (0.0-0.4); Lymphocytes Absolute Auto 2.2 X10*3/uL (1.2-4.9); Lymphocytes Percent Auto 49.9 % (20-40); Mean Corpuscular HGB Conc 32.6 g/dl (31.0-35.0); Mean Corpuscular Hemoglobin 29.5 pg (27.0-33.0); Mean Corpuscular Volume 90.4 fL (80.0-98.0); Mean Platelet Volume 9.3 fL (9.4-12.3); Monocytes Absolute Auto 0.3 X10*3/uL (0.1-1.2); Neutrophils Absolute Auto 1.7 x10*3/uL (2.0-8.3); Platelet Count 240 X10*3/uL (160-400); Red Blood Count 5.43 X10*6/uL (4.20-5.50); Red Cell Distribution Width 13.5 % (11.0-16.0); White Blood Count 4.4 X10*3/uL (4.8-10.8)
[2024-05-20 09:05] LABS: Alanine Aminotransferase 22 U/L (0-31); Albumin Level 4.2 g/dL (3.5-5.0); Anion Gap 9 (12-20); Aspartate Amino Transferase 32 U/L (5-31); Bilirubin Total 0.5 mg/dL (0.0-1.0); Blood Urea Nitrogen 20 mg/dL (9-16); Calcium 9.6 mg/dL (8.4-10.2); Carbon Dioxide 31 mmol/L (22-29); Chloride 107 mmol/L (96-108); Cholesterol 218 mg/dL (<200); Estimated Glomerular Filt Rate > 60; Glucose Fasting 91 mg/dL (60-99); HDL Cholesterol 69 mg/dL (>40); LDL Cholesterol Calculated 133 mg/dL (<100); Potassium 4.8 mmol/L (3.3-5.1); Sodium 142 mmol/L (135-145); Total Protein 7.6 g/dL (6.5-8.0); Triglycerides 82 mg/dL (<150)
[2024-05-20 09:12] LABS: Erythrocyte Sedimentation Rate 3 MM/HR (0-20)
[2024-05-20 09:16] LABS: Alkaline Phosphatase 71 U/L (39-117)
[2024-05-20 09:29] LABS: HBS Num1 0.33 mIU/mL (0-7.99); HBc Num1 0.11 S/CO (0.00-0.79); HBsAGNum1 0.34 S/CO (0.00-0.99); Hepatitis A Antibody IgM 0.48 Index (0-0.79); Hepatitis B Core Antibody Nonreactive (Nonreactive); Hepatitis B Surface Antigen Negative (Negative); TSH reflex Free T4 1.78 uIU/mL (0.32-4.0); Vitamin D 25-OH Total 41.3 ng/mL (>30); ~Hepatitis A Antibody IgM Nonreactive (Nonreactive); ~Hepatitis B Surface Antibody NONREACTIVE (Nonreactive); ~Hepatitis C Antibody Nonreactive (Nonreactive)
[2024-05-20 09:50] LABS: Appearance Urine Clear; Color Urine Yellow; Glucose Urine UA Negative (Negative); Leukocyte Esterase Urine Negative (Negative); Nitrite Urine Negative (Negative); PH 6.5 (5.0-9.0); Specific Gravity - Urine 1.015 (1.005-1.025); UMIC TRIGGER UACC YES; Urine Blood Moderate (2+) (Negative); Urine Ketones Negative (Negative); Urine Protein Negative (Neg-Trace)
[2024-05-20 09:54] LABS: Bacteria Urine None Seen (None Seen); Hyaline Casts Urine 0-2 /LPF (0-2); Squamous Epithelial Cell Urine 0-2 /HPF (0-2); WBC Urine 0-5 /HPF (0-5)
[2024-05-23 11:08] LABS: TS Negative Control Passed; TS Panel A 0; TS Panel B 0; TS Positive Control Passed; TSpotTB Negative (Negative)
== END 2024-05-20 07:18 | disposition home or self-care (01) ==
LOC: HO.LAB 07:17
PROVIDERS: Absent Provider Student in an Organized Health Care Education/Training Program; PCP Internal Medicine; Visit Provider Internal Medicine
DX: L40.50 Arthropathic psoriasis, unspecified (principal); E78.00 Pure hypercholesterolemia, unspecified; M79.7 Fibromyalgia; D64.9 Anemia, unspecified; E55.9 Vitamin D deficiency, unspecified; Z11.59 Encounter for screening for other viral diseases; Z11.7 Encounter for testing for latent tuberculosis infection; Z72.89 Other problems related to lifestyle
CPT/HCPCS: 36415; 80053; 80061; 81001; 82306; 84443; 85025; 85652; 86140; 86481; 86704; 86706; 86709; 86803; 87340

== ENCOUNTER 2024-05-22 09:03 | Outpatient (AMB) | payer MEDICARE, BC, OTHER, SELFPAY ==
[2024-05-22 09:15] VITALS: BP 116/76; PULSE 62; BMI 25.6
--- NOTE | 2024-05-22 09:15 | MHC.PC.OV ---
Vital Signs 05/22/24 09:15 Height 5 ft 2 in Weight 140 lb 2 oz BMI 25.6 BP 116/76 Blood Pressure Location Lt brachial Position Sitting Pulse 62 Pulse Source Pulse Oximeter Oxygen Delivery Method Room Air Intake Visit Reasons: hyperlipidemia, gastritis, psoriatic arthritis Supervisor Loading Required: No Accompanied by: Self / Same As Patient Allergies No Known Allergies Allergy (Verified 05/22/24 09:48) Medication List - Last Reconciled 05/22/24 by Jermaine Berg MD adalimumab (Humira(CF) Pen) 40 mg (0.4 mL) subcut Q2W 56 days clonazepam 0.5 mg PO BID PRN ibuprofen 800 mg PO BID PRN omeprazole 40 mg PO DAILY 30 days polyethylene glycol 3350 (Miralax) 17 grams PO DAILY 30 days simvastatin 20 mg PO DAILY 90 days tramadol 1 to 2 tablets every 4 to 6 hours as needed for pain (no more than 3 to 4 times a day); 30 days Tobacco use date assessed: 05/22/24 Dental Screening Dental Screen Date: 05/22/24 Did you have a dental visit in the last 12 months?: Yes Did you have a dental problem in the last 6 months where you did not have access to dental care?: No Was dental information given to patient?: Patient has dentist HPI hyperlipidemia, gastritis, psoriatic arthritis HPI Details Patient comes in today for her follow up visit States that she feels okay Reports that her chronic joint pains are well-managed/maintained on her current regimen of both Humira and Otezla She denies any headaches or dizziness Denies any chest pains, no increased SOB No nausea/vomiting, no abdominal pain No change in bowel habits noted Needs her Clonazepam Rx refilled She had her follow up labs done a few days ago - to discuss her results COUNTS INCLUDE 234 BEDS AT THE [facility] Medical History Pain in left shoulder Gastritis Greater trochanteric bursitis of both hips History of colon polyps Insomnia 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 of left lower extremity with inflammation Polymyalgia rheumatica Failed neck syndrome Depression Anxiety Osteopenia Elevated LFTs Vitamin D deficiency Lumbar degenerative disc disease Fibromyalgia Pure hypercholesterolemia 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 of both lower extremities with pain 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 Closed fracture of head of radius with routine healing Fracture of radial head, right, closed Occult fracture of right elbow Psoriatic arthritis Surgical History Hx of colonoscopy Hx of abdominoplasty S/P cervical spinal fusion Hx of section Family History Mother Lung cancer Father Drug addict Other Mental health problem Substance abuse Social History Household Members: Significant Other and Family Housing: House Are you a primary adult day care worker to a significant other at home: No Do you presently have visiting nurse or other home services: No Alcohol intake: never Patient Tobacco Use Status: Never used Tobacco e-Cigarette/Vaping Use: Never Used Second Hand Smoke Exposure: Yes service: No Current occupational status: disabled Cognitive needs: No Hearing needs: No Vision needs: Yes (glasses) Questionnaire PHQ-9 Over the last 2 weeks, how often have you been bothered by any of the following problems? 1. Little interest or pleasure in doing things: more than half the days 2. Feeling down, depressed, or hopeless: more than half the days (currently has therapist) 3. Trouble falling or staying asleep, or sleeping too much: nearly every day 4. Feeling tired or having little energy: nearly every day 5. Poor appetite or overeating: several days 6. Feeling bad about yourself - or that you are a failure or have let yourself or your family down: nearly every day 7. Trouble concentrating on things, such as reading the newspaper or watching television: several days 8. Moving or speaking so slowly that other people could have noticed. Or the opposite - being so fidgety or restless that you have been moving around a lot more than usual: more than half the days 9. Thoughts that you would be better off or of hurting yourself in some way: not at all Total score: 17 Depression Screening Interpretation: Positive Depression Screening Follow-up: Existing condition and In treatment Depression Screening Done: Yes 38363 - PHQ-9 Billing: Yes Source: Developed by Drs. Yared Ge, Bella Moore, Ellis Ellis and colleagues, with an educational neil from [email or web address]. Thrive Questionnaire Date Thrive assessed: 05/22/24 I am a: Patient What is your living situation today?: I have a steady place to live Within the past 12 months, did the food you bought not last and you didn't have the money to get more?: Never true Within the past 12 months, did you worry whether your food would run out before you got money to buy more?: Never true Do you have trouble paying for medicines?: No Do you have trouble getting transportation to medical appointments?: No Do you have trouble paying your heating and electricity bill?: No Do you have trouble taking care of your child, family member or friend?: No Do you have trouble with day-to-day activities such as bathing, preparing meals, shopping, managing finances, etc.?: No Are you currently unemployed and looking for a job?: No Are you interested in more education?: No Please select the resources that you would like help with: None Currently or been in a relationship where the following occur: No concerns reported THRIVE Score: 0 AUDIT C Alcohol Use Questionnaire (AUDIT-C) 1. How often do you have a drink containing alcohol?: Never 3. How often do you have six or more drinks on one occasion?: Never Total Score: 0 Score Reviewed/Action Taken: Yes JOSELO-7 AMB Questionnaire JOSELO-7 Date JOSELO - 7 assessed: 05/22/24 Feeling nervous, anxious, or on edge: 3 = Nearly every day (currently has therapist) Not being able to stop or control worryin = Nearly every day Worrying too much about different things: 3 = Nearly every day Trouble relaxin = Nearly every day Being so restless that it is hard to sit still: 3 = Nearly every day Becoming easily annoyed or irritable: 3 = Nearly every day Feeling afraid as if something awful might happen: 1 = Several days Total JOSELO-7 score (0-4 normal; 5-9 mild; 10-14 moderate; 15-21 severe): 19 Source: Developed by Drs. Yared Ge, Bella Moore, Ellis Ellis and colleagues, with an educational neil from [email or web address]. Review of Systems Const Denies chills, Reports fatigue, Denies fever(s) and Denies headache(s) ENT Reports dysphagia (lately - see HPI), Denies dizziness, Denies otalgia, Denies headache(s), Reports neck pain (chronic), Denies odynophagia and Denies sore throat Card Denies chest pain, Denies palpitations and Denies dyspnea Resp Denies cough and Denies dyspnea GI Denies abdominal pain, Denies constipation, Reports dysphagia (lately - see HPI), Denies heartburn, Denies diarrhea, Denies nausea, Denies odynophagia and Denies vomiting Denies difficulty voiding, Denies nocturia, Denies dysuria and Denies urinary urgency Musc Reports back pain, Reports myalgias (diffuse), Reports arthralgias (left shoulder area - chronic) and Reports neck pain (chronic) Skin/Breast Denies rash Neuro Details: notes increased shaking of both hands especially with increased anxiety - is concerned that these could be due to tremors Denies dizziness and Denies headache(s) Psych Reports anxiety and Reports depression (increasing lately) Endo Reports fatigue and Denies palpitations Physical exam (Primary Care) Vital Signs: Last Vital Signs Pulse 62 05/22/24 09:15 BP 116/76 05/22/24 09:15 Oxygen Delivery Method Room Air 05/22/24 09:15 BMI result Body Mass Index 25.6 Tobacco/Smoking Status: Tobacco use Status Tobacco use date assessed 05/22/24 05/22/24 09:16 Patient Tobacco Use Status Never used Tobacco 05/22/24 09:16 e-Cigarette/Vaping Use Never Used 05/22/24 09:16 PHQ-9: PHQ-9 Score PHQ-9: Total score 17 05/24/24 18:01 Depression Screening Interpretation: Positive Depression Screening Follow-up: Existing condition and In treatment Thrive Assessment: Date of Thrive Assessment Date Thrive assessed 05/22/24 05/22/24 09:16 Currently or been in a relationship where the following occur: No concerns reported Const General: no acute distress and alert HENMT Ears: TM's normal bilaterally and EAC's normal Throat: Yes posterior oropharynx normal and Yes tonsils normal (no TP congestion noted) Neck Neck: No lymphadenopathy Thyroid: Thyroid normal Resp Auscultation: clear to auscultation bilaterally, no rales and no wheezes Cardio Rate: regular rate Rhythm: regular rhythm Heart sounds: no murmurs GI Palpation (GI): Soft to palpation and nontender Auscultation: normal bowel sounds General: Yes no CVA tenderness Back/Spine/Pelvis Back: no CVA tenderness Cervical Spine: cervical muscular tenderness (especially over the left side) and Cervical spine tenderness Thoracic/Lumbar Spine: paraspinal muscle tenderness bilaterally in the upper thoracic and No lumbar spinal tenderness Skin Rashes: no rashes Extrem General: Yes no clubbing, cyanosis or edema Right upper extremity: shoulder/upper arm Details: tenderness; no swelling Left upper extremity: shoulder/upper arm Details: tenderness; no swelling Results Reviewed Results Reviewed: Laboratory Tests 12/13/23 05/20/24 05/20/24 06:43 07:30 07:38 WBC 4.4 L Hgb 16.0 Hct 49.1 H Plt Count 240 Sodium 142 Potassium 4.8 Creatinine 0.73 Estimated GFR > 60 Fasting Glucose 91 Calcium 9.6 AST 32 H ALT 22 C-Reactive Protein 0.20 Cholesterol 183 218 H Triglycerides 82 LDL Cholesterol, Calc 109 H 133 H HDL Cholesterol 69 25-OH Vitamin D Total 41.3 TSH 1.78 Ur Specific Madelia 1.015 Urine Protein Negative Urine Glucose (UA) Negative Urine Blood Moderate (2+) H Urine Nitrite Negative Ur Leukocyte Esterase Negative Hepatitis A IgM Ab Nonreactive Hep Bs Antigen Negative Hep Bs Antibody NONREACTIVE Hep B Core Total Ab Nonreactive Hepatitis C Ab (EIA) Nonreactive Coding Level of Care Code Est Pt Level 4 (82702) Complex EM visit Add On G2211 Diagnoses Pure hypercholesterolemia E78.00 Psoriatic arthritis L40.50 Fibromyalgia M79.7 Failed neck syndrome M96.1 Degeneration of intervertebral disc of lumbar region with discogenic back pain M51.360 Disc-related pain type: discogenic back pain only Gastritis without bleeding, unspecified chronicity, unspecified gastritis type K29.70 Chronicity: unspecified Gastritis bleeding: without bleeding Gastritis type: unspecified gastritis Elevated LFTs R79.89 Vitamin D deficiency E55.9 Osteopenia, unspecified location M85.80 Osteopenia location: unspecified Benign microscopic hematuria R31.1 Renal cyst, right N28.1 Insomnia, unspecified type G47.00 Insomnia type: unspecified Anxiety F41.9 Depression, unspecified depression type F32.9 Depression Type: unspecified Additional Codes PHQ-9 - 88392 - PHQ-9 Billing: Yes ([id number]) Assessment & Plan Assessment & Plan (1) Pure hypercholesterolemia: Code(s): E78.00 - Pure hypercholesterolemia, unspecified Category: Medical Plan: Results of her labs done a couple of days ago reviewed and discussed with patient - advised that her cholesterol levels have increased slightly from previous this time Reinforced low cholesterol diet - goal is LDL cholesterol of at least < 100 mg/dL Will try switching her from Simvastatin 20 mg QD 2 Atorvastatin 20 mg QD for better efficacy Will recheck her labs and fasting lipids in 4 months for follow-up (2) Psoriatic arthritis: Comment: Enbrel not clearly helpful Otezla: 2023 Humira 04/2023 - Present. Methotrexate: 2016 - 01/19/2022. LFT elevations - methotrexate discontinued. She did okay until summer 2022 when she had a flare overall joint pains. Code(s): L40.50 - Arthropathic psoriasis, unspecified Category: Medical Plan: Continue Humira 40 mg SQ every 2 weeks and Otezla 30 mg QD - states that her pain is again better controlled on both Rx Methotrexate was discontinued by rheumatology last year She had a baseline echocardiogram done back in April 2023 that came out grossly normal Follow-up with rheumatology as scheduled (3) Fibromyalgia: Code(s): M79.7 - Fibromyalgia Category: Medical Plan: Patient is again encouraged to continue to stay active and exercise regularly to help manage her fibromyalgia symptoms Continue Tramadol 50 mg 1-2 tablets every 4-6 hours as needed (Rx refilled) and Baclofen 20 mg TID PRN (4) Failed neck syndrome: Code(s): M96.1 - Postlaminectomy syndrome, not elsewhere classified Category: Medical Plan: She had a cervical spine fusion (ADCF of C5 and C6) back in 2003 but the surgery failed to provide her with any lasting or significant relief of her chronic pain and she is currently on disability because of this issue She has been seen by pain management in the past and has failed trials of several pain meds and opioids as well as interventional treatments Continue Tramadol 50 mg TID PRN for pain (5) Lumbar degenerative disc disease: Code(s): M51.36 - Other intervertebral disc degeneration, lumbar region Category: Medical Qualifiers: Disc-related pain type: discogenic back pain only Qualified Code(s): M51.360 - Other intervertebral disc degeneration, lumbar region with discogenic back pain only Plan: Reinforced activity and weight-lifting restrictions to minimize flare ups of her low back pain Repeat lumbar spine x-rays done a couple of years ago showed only mild lumbar spondylotic changes; SI joints were normal bilaterally (6) Gastritis: Code(s): K29.70 - Gastritis, unspecified, without bleeding Category: Medical Qualifiers: Chronicity: unspecified Gastritis bleeding: without bleeding Gastritis type: unspecified gastritis Qualified Code(s): K29.70 - Gastritis, unspecified, without bleeding Plan: Her upper GI series done back in September 2023 revealed (+) granular appearance of the mid esophageal mucosa that likely represent esophagitis. There is mildly disorganized esophageal peristalsis and a thickened appearance of the areae gastricae likely representing gastritis due to H. pylori She was then checked for H. pylori, which came back positive and she was subsequently treated for this with 2 weeks of Bismuth quadruple therapy, which patient was able to complete back in February 2024 She eventually underwent EGD as well when she had her repeat colonoscopy done in March 2024 - EGD revealed (+) mildly tortuous esophagus but no evidence of esophagitis or Chahal's. There is moderate diffuse gastric erythema with nodular appearing mucosa in the gastric body. Biopsies obtained from the body and antrum both came back as mild chronic gastritis without activity and negative for intestinal metaplasia and dysplasia. Immunostains for H pylori were negative. The duodenum was normal in appearance Continue Omeprazole 40 mg QD Follow-up with GI as scheduled (7) Elevated LFTs: Code(s): R79.89 - Other specified abnormal findings of blood chemistry Category: Medical Plan: These were likely related to her weight (steatosis); her LFTs have remained normal on her recent labs Will continue to monitor her LFTs regularly (8) Vitamin D deficiency: Code(s): E55.9 - Vitamin D deficiency, unspecified Category: Medical Plan: Continue OTC Vitamin D supplements daily Will recheck her Vitamin D level in 4 months for follow up (9) Osteopenia: Code(s): M85.80 - Other specified disorders of bone density and structure, unspecified site Category: Medical Qualifiers: Osteopenia location: unspecified Qualified Code(s): M85.80 - Other specified disorders of bone density and structure, unspecified site Plan: Repeat BMD done in April 2021 showed (+) osteopenia with 4.8% decline in AP spine BMD from her previous BMD in 02/2019 and 1.3% decline in left femoral BMD from previous in 02/2019 -? will continue to monitor this regularly Patient is again encouraged to exercise regularly to help slow down the decline of her BMD and she is reminded to continue on her Vitamin D and calcium supplements daily We will recheck her bone density scan again later this year for follow-up (10) Benign microscopic hematuria: Code(s): R31.1 - Benign essential microscopic hematuria Category: Medical Plan: Patient continues to have (+) RBCs in her urine (chronic finding); she remains asymptomatic Renal US last done in 03/2014 revealed (+) right renal cyst that is mostly unchanged from her US in 2007 Repeat renal US done in July 2022 showed the same findings; no further follow up imaging studies is recommended at this point (11) Renal cyst, right: Code(s): N28.1 - Cyst of kidney, acquired Category: Medical Plan: (+) right renal cyst noted on sonogram done in 2007 and in 2013 as well as most recently in July 2022 - no further follow up imaging studies is recommended (12) Insomnia: Code(s): G47.00 - Insomnia, unspecified Category: Medical Qualifiers: Insomnia type: unspecified Qualified Code(s): G47.00 - Insomnia, unspecified Plan: Sleep hygiene reinforced Continue Trazodone 100 mg Q HS (13) Anxiety: Code(s): F41.9 - Anxiety disorder, unspecified Category: Medical Plan: Continue Clonazepam 0.5 mg 1 tablet 2 to 3 times a day as needed for anxiety - Rx refilled (14) Depression: Code(s): F32.9 - Major depressive disorder, single episode, unspecified Category: Medical Qualifiers: Depression Type: unspecified Qualified Code(s): F32.9 - Major depressive disorder, single episode, unspecified Plan: Continue Venlafaxine ER 187.5 mg (150 + 37.5 mg) QD She was not able to tolerate Seroquel in the past Follow-up with Psychiatry as scheduled Plan Follow-up in 4 months Orders: Orders Lipid Panel 4 Months E78.00 - Pure hypercholesterolemia, unspecified Complete Blood Count Auto Diff 4 Months D64.9 - Anemia, unspecified Comprehensive Rupert. Panel Fast 4 Months E78.00 - Pure hypercholesterolemia, unspecified UA CC w/rflx Micro + Cult 4 Months R30.0 - Dysuria TSH reflex Free T4 4 Months E78.00 - Pure hypercholesterolemia, unspecified Vitamin D 25-OH Total 4 Months E55.9 - Vitamin D deficiency, unspecified Medications: New atorvastatin 20 mg PO BEDTIME 90 days 90 tabs 1RF Refilled clonazepam 0.5 mg PO BID PRN 60 tabs 0RF anxiety Discontinued simvastatin Discontinued Reason: Doctor's Order 20 mg PO DAILY 90 days 90 tabs 3RF
== END 2024-05-22 10:12 | disposition home or self-care (01) ==
PROVIDERS: PCP Internal Medicine; Visit Provider Internal Medicine
DX: E78.00 Pure hypercholesterolemia, unspecified (principal); L40.50 Arthropathic psoriasis, unspecified; M79.7 Fibromyalgia; M96.1 Postlaminectomy syndrome, not elsewhere classified; M51.360 Other intervertebral disc degeneration, lumbar region with discogenic back pain only; K29.70 Gastritis, unspecified, without bleeding; R79.89 Other specified abnormal findings of blood chemistry; E55.9 Vitamin D deficiency, unspecified; M85.80 Other specified disorders of bone density and structure, unspecified site; R31.1 Benign essential microscopic hematuria; N28.1 Cyst of kidney, acquired; G47.00 Insomnia, unspecified; F41.9 Anxiety disorder, unspecified; F32.9 Major depressive disorder, single episode, unspecified

== ENCOUNTER → 2024-05-22 09:03 | Outpatient (BNVA) | payer MEDICARE, BC, OTHER, SELFPAY | PROVIDERS: PCP Internal Medicine; Visit Provider Internal Medicine | DX: E78.00 Pure hypercholesterolemia, unspecified (principal); L40.50 Arthropathic psoriasis, unspecified; M79.7 Fibromyalgia; M96.1 Postlaminectomy syndrome, not elsewhere classified; M51.360 Other intervertebral disc degeneration, lumbar region with discogenic back pain only; K29.70 Gastritis, unspecified, without bleeding; R79.89 Other specified abnormal findings of blood chemistry; E55.9 Vitamin D deficiency, unspecified; R31.1 Benign essential microscopic hematuria; M85.80 Other specified disorders of bone density and structure, unspecified site | CPT/HCPCS: 96127; 99212 ==

== ENCOUNTER 2024-06-04 07:19 | Outpatient (AMB) | payer MEDICARE, BC, SELFPAY ==
--- OUTSIDE RECORDS SUMMARY | 2024-06-04 07:21 | XMS_ITS | Clinical Summary ---
Author Organization [employer] [facility] Address [address] [place] [address] Care Team Providers Care Freight Tallier Name Role Phone Jermaine Berg MD Primary Care Provider [phone] Family History Medical History Relation Name Comments Drug abuse Brother Drug abuse Father Other: Other Father Lung cancer Mother Relation Name Status Comments Brother Father Mother Social History Tobacco Use Types Packs/Day Years Used Date Smoking Tobacco: Never Smokeless Tobacco: Never Comments Unknown Sex and Gender Information Value Date Recorded Sex Assigned at Female 06/02/2024 1:46 PM EST Legal Sex Female 7:15 PM EST Gender Identity Female 06/02/2024 1:46 PM EST Sexual Orientation Choose not to disclose 2024 1:46 PM EST Obstetrics History Plan of Treatment Upcoming Encounters Date Type Department Care Team (Late st Contact Info) Description 07/23/2024 8:00 AM EDT [facility]ment [facility] at [address] [address] Health Maintenance Due Date Last Done Comments COVID-19 Vaccine (#1) 1965 DTaP,Tdap,and Td Vaccines (1 - Tdap) 10/26/1979 Pneumococcal Vaccine: 50+ Years (1 of 2 - PCV) 10/26/1979 Pneumococcal Vaccine: Pediatrics (0 to 5 Years) and At-Risk Patients (6 to 64 Years) (1 of 2 - PCV) 10/26/1979 Zoster Vaccines (1 of 2) 10/26/1979 Cervical Cancer Screening: Pap Smear 1981 Colorectal Cancer Screening: Colonoscopy 03/10/2022 Depression Screening 03/10/2022 HIV Screening 03/10/2022 Hepatitis C Screening 03/10/2022 Medicare Annual Wellness Visit 03/10/2022 Social Influencers of Health Screening 03/10/2022 Influenza Vaccine (#1) 2023 Breast Cancer Screening 07/22/2025 07/23/19, 07/22/2022, 07/17/2021, Additional history exists RSV Immunization Patients 60+ Years Old (1 - 1-dose 75+ series) 10/26/2035 HIB Vaccines Aged Out No longer eligi ble based on patient's age to complete this topic HPV Vaccines Aged Out No longer eligi ble based on patient's age to complete this topic Hepatitis A Vaccines Aged Out No long er eligible based on patient's age to complete this topic Hepatitis B Vaccines Aged Out No long er eligible based on patient's age to complete this topic IPV Vaccines Aged Out No longer eligi ble based on patient's age to complete this topic MMR Vaccines Aged Out No longer eligi ble based on patient's age to complete this topic Meningococcal ACWY Vaccine Aged Out N o longer eligible based on patient's age to complete this topic Meningococcal B Vacine Aged Out No lo nger eligible based on patient's age to complete this topic RSV Immunization Patients Under 20 months Aged Out No longer eligible based on patient's age to complete this topic Varicella Vaccines Aged Out No longer eligible based on patient's age to complete this topic Procedures Procedure Name Priority Date/Time Associated Diagnosis Comments [facility] SCREENING DIGITAL Routine 07/23/2023 9:09 AM EDT Encounter for screening mammogram for malignant neoplasm of breast from Last 3 Months or Most Recently Relevant to Health Maintenance Results * [facility] SCREENING DIGITAL (07/23/2023 9:09 AM EDT) Anatomical Region Laterality Modality Mammography 07/23/2023 8:40 AM EDT Narrative 07/23/2023 9:09 AM EDT [facility] Diagnostic Imaging Department [address] [place] [address] Patient: ??DEBI LAU ?/Age/Sex: 1960 - 62 - F Unit#: ??[id number] ? Location/Status: ??SPDIMAM/REG CLI ? Mnemonic/Ordering Site: ??DIGSC/SPMAM Ordering Physician: ??PAULIE PRECIADO MD [facility] Screening Digital - 07/23/23 - 0856 Report Status:Signed EXAM: [facility] Screening Digital EXAM DATE AND TIME: 07/23/2023 8:57 AM HISTORY: ??Screening. COMPARISON: ??07/20/22, 07/17/21, 07/06/20 TECHNIQUE: Bilateral digital breast tomosynthesis was performed in the CC and MLO projections. Computer aided detection with [employer] 3D 3.1 was employed. TISSUE DENSITY: b. There are scattered areas of fibroglandular density. FINDINGS: No suspicious masses, grouped microcalcifications, or areas of architectural distortion are seen. The skin and vascularity are unremarkable. IMPRESSION: Stable mammographic appearance of the breasts. ??No evidence of malignancy is seen. A negative mammogram in the presence of a clinically suspicious palpable abnormality does not preclude the possibility of malignancy or alter the indications for biopsy. BI-RADS: ??Category 1: Negative RECOMMENDATION(S): 1: Routine screening mammogram BILATERAL in 1 year. Dictating Physician: ??ANABELLA COCHRAN MD Electronically Signed by: ??ANABELLA COCHRAN MD Dic Date/Time: ??07/23/23908 Sign date/Time: ??07/23/23908 Procedure Note Anabella Cochran MD - 11/25/2023 [facility] Diagnostic Imaging Department [address] [place] [address] Patient: DEBI LAU /Age/Sex: 1960 - 62 - F Unit#: [id number] Location/Status: SPDIMAM/REG CLI Mnemonic/Ordering Site: [facility] Ordering Physician: PAULIE PRECIADO MD [facility] Screening Digital - 07/23/23 - 0856 Report Status:Signed EXAM: [facility] Screening Digital EXAM DATE AND TIME: 07/23/2023 8:57 AM HISTORY: Screening. COMPARISON: 07/20/22, 07/17/21, 07/06/20 TECHNIQUE: Bilateral digital breast tomosynthesis was performed in the CCand MLO projections. Computer aided detection with [employer] AI 3D 3.1was employed. TISSUE DENSITY: b. There are scattered areas of fibroglandular density. FINDINGS: No suspicious masses, grouped microcalcifications, or areas ofarchitectural distortion are seen. The skin and vascularity are unremarkable. IMPRESSION: Stable mammographic appearance of the breasts. No evidence of malignancyis seen. A negative mammogram in the presence of a clinically suspicious palpable abnormality does not preclude the possibility of malignancy or alter the indications for biopsy. BI-RADS: Category 1: Negative RECOMMENDATION(S): 1: Routine screening mammogram BILATERAL in 1 year. Dictating Physician: ANABELLA COCHRAN MD Electronically Signed by: ANABELLA COCHRAN MD Dic Date/Time: 07/23/23908 Sign date/Time: 07/23/23908 us Paulie Preciado MD IMG BI PROCEDURES Final Result from Last 3 Months or Most Recently Relevant to Health Maintenance Insurance MEDICARE Care Teams Freight Tallier Relationship Specialty Start Date End Date Jermaine Berg MD [address] [place] [address] [address] [place], [place] PCP - General Internal Medicine 02/11/12
--- NOTE | 2024-06-04 07:29 | MHC.OFFVIS ---
Vital Signs 06/04/24 07:37 Height 5 ft 2 in Weight 143 lb 4.807 oz BMI 26.2 BP 116/70 Blood Pressure Location Lt brachial Position Sitting Pulse 63 Pulse Source Pulse Oximeter Pulse Oximetry (%) 99 Oxygen Delivery Method Room Air Intake Visit Reasons: PSA Intake Note: Patient presents for PsA. Allergies No Known Allergies Allergy (Verified 06/04/24 07:36) Medication List - Last Reconciled 06/04/24 by Farzaneh Walker MD adalimumab (Humira(CF) Pen) 40 mg (0.4 mL) subcut Q2W 56 days atorvastatin 20 mg PO BEDTIME 90 days clonazepam 0.5 mg PO BID PRN ibuprofen 800 mg PO BID PRN omeprazole 40 mg PO DAILY 30 days polyethylene glycol 3350 (Miralax) 17 grams PO DAILY 30 days tramadol 1 to 2 tablets every 4 to 6 hours as needed for pain (no more than 3 to 4 times a day); 30 days HPI Comments Details: Patient is a 63-year-old female with hyperlipidemia, polyarticular osteoarthritis (hands, shoulders, lumbar degenerative disc disease), psoriasis/psoriatic arthritis here today for follow up Interval History: Patient last seen 02/03/2024 with Mireya Gomes. At that time her psoriasis and psoriatic arthritis was stable. She was tapering off her Otezla and was down to 30 mg once daily and was not having any flares of either her psoriasis or psoriatic arthritis. Her Otezla was stopped at the last visit. She also complained of bilateral trochanteric bursitis but was recommended to do home exercises. Today, Since stopping her Otezla she has not had any flares of her psoriasis or psoriatic arthritis. She continues to intermittently have tenderness to palpation of her bilateral trochanteric bursa but we will do exercises at home to help this. Complains today: Left shoulder pain Rheumatologic History: PsO/PsA Enbrel 2014- not clearly helpful Otezla: 2017- 2023 Humira 04/2023 - Present. Methotrexate: 2016 - 01/19/2022. LFT elevations - methotrexate discontinued. She did okay until summer 2022 when she had a flare overall joint pains. Current Rheumatology Medication(s): Humira 40mg every other week [facility] Medical History (Updated 06/04/24 @ 08:42 by Farzaneh Wlaker MD) Encounter for monitoring of adalimumab therapy Pain in left shoulder Gastritis Greater trochanteric bursitis of both hips History of colon polyps Insomnia 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 of left lower extremity with inflammation Polymyalgia rheumatica Failed neck syndrome Depression Anxiety Osteopenia Elevated LFTs Vitamin D deficiency Lumbar degenerative disc disease Fibromyalgia Pure hypercholesterolemia 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 of both lower extremities with pain 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 Closed fracture of head of radius with routine healing Fracture of radial head, right, closed Occult fracture of right elbow Psoriatic arthritis Surgical History Hx of colonoscopy Hx of abdominoplasty S/P cervical spinal fusion Hx of section Family History Mother Lung cancer Father Drug addict Other Mental health problem Substance abuse Social History Household Members: Significant Other and Family Housing: House Are you a primary direct care specialist to a significant other at home: No Do you presently have visiting nurse or other home services: No Alcohol intake: never Patient Tobacco Use Status: Never used Tobacco e-Cigarette/Vaping Use: Never Used Second Hand Smoke Exposure: Yes service: No Current occupational status: disabled Cognitive needs: No Hearing needs: No Vision needs: Yes (glasses) Review of Systems Const Details: Review of Systems Constitutional: Denies fever, chills, weight loss ENT: Denies vision changes, eye pain or eye redness, dental caries, dry mouth GI: Denies nausea, vomiting, diarrhea, abdominal pain, change in BM Pulm: Denies SOB, HELLER, hemoptysis, wheezing Cards: Denies chest pain, palpitations Skin: Denies Raynaud's, rash, nail changes, photosensitivity, RECONCILIATION MANAGER: Denies headaches, weakness, paresthesias, recurrent falls MSK: as per HPI All other systems reviewed and are unremarkable except noted above Physical Exam Vital Signs: Last Vital Signs Pulse 63 06/04/24 07:37 BP 116/70 06/04/24 07:37 Pulse Ox 99 06/04/24 07:37 Oxygen Delivery Method Room Air 06/04/24 07:37 BMI result Body Mass Index 26.2 Vital signs reviewed Physical Examination CONSTITUITIONAL Patient alert and cooperative. Well appearing and in no apparent painful distress HEENT Conjunctiva and sclera clear. ?Pupils equal round and reactive to light. ?No lymphadenopathy. ? CHEST/RESPIRATORY SYSTEM Normal respiratory effort and able to speak in complete sentences. ?Clear to auscultation bilaterally. ?No crackles, rales, rhonchi, wheezes heard. CARDIAC SYSTEM Regular rate and rhythm. ?S1 and S2 heard no murmurs. 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 No deformities noted. ?No synovitis noted to the MCPs, PIPs or DIPs. ?No tenderness to palpation of these joints. Heberden's nodes noted bilateral hands. Wrists: ?Full range of motion at the wrists without pain. ?No tenderness to palpation or synovitis noted to the wrists. Elbows: Full range of motion without pain. No tenderness, weakness, swelling, increased warmth or erythema. Shoulders: Full range of motion. Tenderness to palpation of the left subacromial bursa. Hips: Full range of motion without pain. Hip bursa: Mild TTP of bilateral hip bursa Knees: ?Full range of motion. ?No tenderness, swelling, increased warmth or erythema.?No effusion or crepitations Ankles: Full range of motion. ?No tenderness, swelling, increased warmth or erythema.? Feet: ?Negative squeeze test. ?No tenderness to palpation or swelling of the MTPs. Tender points:?No tenderness to palpation of the bilateral trapezius, supraspinatus, anterior costochondral junctions, bilateral gluteal areas, bilateral suboccipital muscle insertions SKIN Skin intact without rashes. Office Procedures AMB Joint Injection/Aspiration Joint Injection/Aspiration Details: Procedure was explained to the patient and consent was obtained. ? The area of interest was identified and confirmed with patient. ?This was subsequently cleaned with chlorhexidine x3. ? The area was then anesthetized using ethyl chloride spray. 40 mg Kenalog with 1 cc 1% lidocaine was injected without issue. ?Minimal to no bleeding. ?Patient tolerated procedure. Primary Site: left shoulder (Left subacromial bursa) Prep: site was prepped using aseptic technique and ethochloride spray was applied Injected: 40 mg of, Kenalog, with 1 mL of, 1% plain lidocaine and in the subcromial space Approach Used: other Procedure: The patient tolerated the procedure well Coding 55857 - Glenohumeral/Tronchanteric Bursa/Intraarticular Procedure code (CPT) selection complete Office Meds lidocaine (PF) 10 mg/mL (1 %) injection solution Performing Provider: Farzaneh Walker MD [place] [facility] [place] Administered by: Farzaneh Walker MD on 06/04/24 08:44 Dose Route Admin Location Dispensed Lot Number Expiration Date NDC [employer]eller 1 mL Infiltration left subacromial bursa 2 mL [id number] 07/07/26 33349-779-94 [facility] Kenalog 40 mg/mL suspension for injection Performing Provider: Farzaneh Walker MD Performing [place] [facility] Administered by: Farzaneh Walker MD on 06/04/24 08:44 Dose Route Admin Location Dispensed Lot Number Expiration Date ND [employer]eller 40 mg intrabursal left subacromial burs 1 mL [id number] 10/06/25 [address]-0 [employer] Results Reviewed Results Reviewed: Laboratory Tests 05/20/24 07:38 WBC 4.4 L RBC 5.43 Hgb 16.0 Hct 49.1 H Plt Count 240 ESR 3 Sodium 142 Potassium 4.8 Chloride 107 Carbon Dioxide 31 H BUN 20 H Creatinine 0.73 Calcium 9.6 Total Bilirubin 0.5 AST 32 H ALT 22 Alkaline Phosphatase 71 C-Reactive Protein 0.20 25-OH Vitamin D Total 41.3 Hepatitis A IgM Ab Nonreactive Hep Bs Antigen Negative Hep Bs Antibody NONREACTIVE Hep B Core Total Ab Nonreactive Hepatitis C Ab (EIA) Nonreactive TB Test (T-Spot) Com Negative Assessment & Plan Assessment & Plan (1) Psoriatic arthritis: Comment: Enbrel not clearly helpful Otezla: 2017- 2023 Humira 04/2023 - Present. Methotrexate: 2016 - 01/19/2022. LFT elevations - methotrexate discontinued. She did okay until summer 2022 when she had a flare overall joint pains. Code(s): L40.50 - Arthropathic psoriasis, unspecified Category: Medical Plan: #PsO/PsA Patient is a 63-year-old female with psoriasis/psoriatic arthritis currently in remission on Humira monotherapy. Doing well off Otezla. Plan - Humira 40mg SC every other week - RTC 4 months - Labs before visit: CBC, CMP, ESR, CRP, hepatitis panel, T spot (2) Subacromial bursitis of left shoulder joint: Code(s): M75.52 - Bursitis of left shoulder Plan: #Subacromial bursitis left shoulder Patient with subacromial bursitis of the left shoulder as evidenced by tenderness to palpation of the left subacromial bursa. Status post steroid injection today (3) Elevated LFTs: Code(s): R79.89 - Other specified abnormal findings of blood chemistry Category: Medical Plan: #Elevated LFTs Patient with mildly elevated LFTs today. Discussed with patient that we can repeat the blood work in 2 weeks to see if it improves. She did note that she recently changed her cholesterol-lowering medication and this may be contributing to it. Advised to avoid Tylenol and ibuprofen as well as alcohol for the time being. Humira is not known to cause LFT abnormalities specifically so I have a lower suspicion that this is due to Humira Plan - CMP in 2 weeks (4) Encounter for monitoring of adalimumab therapy: Code(s): Z51.81 - Encounter for therapeutic drug level monitoring; Z79.620 - intermediate designer (current) use of immunosuppressive biologic Category: Medical Plan: #Long-term Use of TNF Inhibitors: Humira Discussed with the patient the benefits and risks of TNF inhibitors for the management of the rheumatic condition Benefits include reduce pain, maintenance of remission and reduction of flares as well as ?progression of the disease Risks include injection sites/infusion reactions, serious infections (such as bacterial infections, opportunistic infections), malignancy, delaminating syndromes, autoimmune phenomena, CHF exacerbations, palmar plantar psoriasis and cytopenias Recommended rotating injection sites, and holding medication during and for up to 1 week after resolution of a febrile illness or open skin wound Plan I spent 30 minutes reviewing the record and labs, taking a history, examining the patient, discussing the treatment plan and documenting in the medical record Orders: Orders Complete Blood Count Auto Diff 4 Months L40.50 - Arthropathic psoriasis, unspecified Comprehensive Met. Panel 4 Months L40.50 - Arthropathic psoriasis, unspecified C Reactive Protein 4 Months L40.50 - Arthropathic psoriasis, unspecified T Spot TB 4 Months L40.50 - Arthropathic psoriasis, unspecified Comprehensive Met. Panel 2 Weeks R74.01 - Elevation of levels of liver transaminase levels Erythrocyte Sedimentation Rate 4 Months L40.50 - Arthropathic psoriasis, unspecified Hepatitis A,B,C Profile 4 Months L40.50 - Arthropathic psoriasis, unspecified AMB Joint Injection/Aspiration Today M75.52 - Bursitis of left shoulder Medications: New lidocaine (PF) 1 mL Infiltration ONCE 2 mL 0RF M75.52 - Bursitis of left shoulder Kenalog (triamcinolone acetonide) 40 mg intrabursal ONCE 1 mL 0RF NS M75.52 - Bursitis of left shoulder Changed From adalimumab (Humira(CF) Pen) 40 mg (0.4 mL) subcut Q2W 56 days 2 ea 3RF L40.50 - Arthropathic psoriasis, unspecified To adalimumab (Humira(CF) Pen) 40 mg (0.4 mL) subcut Q2W 30 days 2 ea 5RF L40.50 - Arthropathic psoriasis, unspecified Refilled adalimumab (Humira(CF) Pen) 40 mg (0.4 mL) subcut Q2W 2 ea 5RF 30 days L40.50 - Arthropathic psoriasis, unspecified Coding Level of Care Code Est Pt Level 4 (63080) Complex EM visit Add On G2211 Diagnoses Psoriatic arthritis L40.50 Subacromial bursitis of left shoulder joint M75.52 Elevated LFTs R79.89 Encounter for monitoring of adalimumab therapy Z51.81; Z79.620 CPT Codes Coding - Joint 7: 20632 - Glenohumeral/Tronchanteric Bursa/Intraarticular ([id number])
[2024-06-04 07:37] VITALS: BP 116/70; PULSE 63; O2SAT 99; BMI 26.2
== END 2024-06-04 08:04 | disposition home or self-care (01) ==
PROVIDERS: PCP Internal Medicine; Visit Provider Student in an Organized Health Care Education/Training Program
DX: L40.50 Arthropathic psoriasis, unspecified (principal); M75.52 Bursitis of left shoulder; R79.89 Other specified abnormal findings of blood chemistry; Z51.81 Encounter for therapeutic drug level monitoring; Z79.620 Long term (current) use of immunosuppressive biologic
CPT/HCPCS: 20610; 99214

== ENCOUNTER → 2024-06-04 07:19 | Outpatient (BNVA) | payer BC, MEDICARE, SELFPAY | PROVIDERS: PCP Internal Medicine; Visit Provider Student in an Organized Health Care Education/Training Program | DX: L40.50 Arthropathic psoriasis, unspecified (principal); M75.52 Bursitis of left shoulder; R79.89 Other specified abnormal findings of blood chemistry; Z79.620 Long term (current) use of immunosuppressive biologic | CPT/HCPCS: 20610; 99212; J3300 ==

== ENCOUNTER 2024-06-19 06:47 | Outpatient (REF) | payer BC, MEDICARE, SELFPAY ==
--- OUTSIDE RECORDS SUMMARY | 2024-06-19 06:50 | XMS_ITS | Clinical Summary ---
Author Organization [employer] [facility] Address [address] [place] [address] Care Team Providers Care Lining Cementer Name Role Phone Jermaine Berg MD Primary Care Provider Family History Medical History Relation Name Comments [...] AM EDT [facility]ointment [facility] at [address] [address] Health Maintenance Due Date Last [...] Procedure Name Priority Date/Time Associated Diagnosis Comments [facility] SCREENING DIGITAL Routine 07/23/2023 9:09 AM EDT Encounter for screening mammogram for malignant neoplasm of breast from Last 3 Months or Most Recently Relevant to Health Maintenance Results * [facility] SCREENING DIGITAL (07/23/2023 9:09 AM EDT) Anatomical Region Laterality Modality Mammography 07/23/2023 8:40 AM EDT Narrative 07/23/2023 9:09 AM EDT [facility] Diagnostic Imaging Department [address] [place] [address] Patient: ??DEBI LAU ?/Age/Sex: 1960 - 62 - F Unit#: ??[id number] ? Location/Status: ??SPDIMAM/REG CLI ? Mnemonic/Ordering Site: ??DIGSC/SPMAM Ordering Physician: ??PAULIE PRECIADO MD [facility] Screening Digital - 07/23/23 - 0856 Report Status:Signed EXAM: [facility] Screening Digital EXAM DATE AND TIME: 07/23/2023 8:57 AM HISTORY: ??Screening. COMPARISON: ??07/20/22, 07/17/21, 07/06/20 TECHNIQUE: Bilateral digital breast tomosynthesis was performed in the CC and MLO projections. Computer aided detection with [employer] 3D 3.1 was employed. TISSUE DENSITY: b. [...] Procedure Note Anabella Cochran MD - 11/25/2023 [facility] Diagnostic Imaging Department [address] [place] [address] Patient: DEBI LAU /Age/Sex: 1960 - 62 - F Unit#: [id number] Location/Status: SPDIMAM/REG CLI Mnemonic/Ordering Site: [facility] Ordering Physician: PAULIE PRECIADO MD [facility] Screening Digital - 07/23/23 - 0856 Report Status:Signed EXAM: [facility] Screening Digital EXAM DATE AND TIME: 07/23/2023 8:57 AM HISTORY: Screening. COMPARISON: 07/20/22, 07/17/21, 07/06/20 TECHNIQUE: Bilateral digital breast tomosynthesis was performed in the CCand MLO projections. Computer aided detection with [employer] AI 3D 3.1was employed. TISSUE DENSITY: b. [...] to Health Maintenance Insurance MEDICARE Care Teams Lining Cementer Relationship Specialty Start Date End Date Jermaine Berg MD [address] [place] [address] [address] [place], [place] PCP - General Internal Medicine 02/11/12
[2024-06-19 07:49] LABS: Alanine Aminotransferase 27 U/L (0-31); Albumin Level 4.2 g/dL (3.5-5.0); Alkaline Phosphatase 85 U/L (39-117); Anion Gap 12 (12-20); Aspartate Amino Transferase 30 U/L (5-31); Bilirubin Total 0.5 mg/dL (0.0-1.0); Blood Urea Nitrogen 20 mg/dL (9-16); Calcium 9.2 mg/dL (8.4-10.2); Carbon Dioxide 27 mmol/L (22-29); Chloride 106 mmol/L (96-108); Estimated Glomerular Filt Rate > 60; Glucose Random 94 mg/dL (60-115); Potassium 4.7 mmol/L (3.3-5.1); Sodium 140 mmol/L (135-145); Total Protein 7.3 g/dL (6.5-8.0)
== END 2024-06-19 06:48 | disposition home or self-care (01) ==
LOC: HO.LAB 06:47
PROVIDERS: PCP Internal Medicine; Visit Provider Student in an Organized Health Care Education/Training Program
DX: R74.01 Elevation of levels of liver transaminase levels (principal)
CPT/HCPCS: 36415; 80053

== ENCOUNTER 2024-08-13 08:51 | Outpatient (AMB) | payer OTHER, BC, SELFPAY ==
--- NOTE | 2024-08-13 09:07 | MHC.PC.OV ---
Vital Signs 08/13/24 09:08 Height 5 ft 2 in Weight 141 lb 4 oz BMI 25.8 BP 140/82 H Blood Pressure Location Lt brachial Position Sitting Pulse 60 Pulse Source Pulse Oximeter Temp 97.1 F Temp Source Temporal Artery Scan Pulse Oximetry (%) 98 Oxygen Delivery Method Room Air Intake Visit Reasons: worker's comp Intake Note: Patient is here to follow up on Workers Compensation Claim that occurred on 01/04/2004. Telecommunications Officer Required: No Health Service Coordinator: Not Required per policy Accompanied by: Self / Same As Patient Allergies No Known Allergies Allergy (Verified 08/13/24 09:41) Medication List - Last Reconciled 08/13/24 by Jermaine Berg MD adalimumab (Humira(CF) Pen) 40 mg (0.4 mL) subcut Q2W 30 days atorvastatin 20 mg PO BEDTIME 90 days clonazepam 0.5 mg PO BID PRN ibuprofen 800 mg PO BID PRN omeprazole 40 mg PO DAILY 30 days polyethylene glycol 3350 (Miralax) 17 grams PO DAILY 30 days tramadol 1 to 2 tablets every 4 to 6 hours as needed for pain (no more than 3 to 4 times a day); 30 days Tobacco use date assessed: 08/13/24 Dental Screening Dental Screen Date: 05/22/24 HPI worker's comp HPI Details Patient comes in today for her workers' comp follow up visit States that she continues to experience increased chronic neck pain and bilateral shoulder pain (worse on the left side), which she has had for years now and that they are mostly unchanged from before She is currently still on Humira 40 mg Q 2 weeks and appears to be doing very well on her current regimen with regards to her psoriatic arthritis; she was taken off Otezla last year She feels that to some extent, this helps with her chronic neck/cervical and shoulder pains as well Patient reports still feeling fatigued often States that she still has on and off headaches - thinks that her headaches are most likely related to her chronic neck and shoulder pain issues Denies any dizziness She denies any chest pains, no increased SOB No nausea/vomiting, no abdominal pains No change in bowel habits noted She will need her Tramadol and Clonazepam Rx refilled today? 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 Closed fracture of head of radius with routine healing Fracture of radial head, right, closed Occult fracture of right elbow Psoriatic arthritis Surgical History Hx of colonoscopy Hx of abdominoplasty S/P cervical spinal fusion Hx of section Family History Mother Lung cancer Father Drug addict Other Mental health problem Substance abuse Social History Household Members: Significant Other and Family Housing: House Are you a primary home care liaison to a significant other at home: No Do you presently have visiting nurse or other home services: No Alcohol intake: never Patient Tobacco Use Status: Never used Tobacco e-Cigarette/Vaping Use: Never Used Second Hand Smoke Exposure: Yes service: No Current occupational status: disabled Cognitive needs: No Hearing needs: No Vision needs: Yes (glasses) Questionnaire PHQ-9 Over the last 2 weeks, how often have you been bothered by any of the following problems? 1. Little interest or pleasure in doing things: several days 2. Feeling down, depressed, or hopeless: several days 3. Trouble falling or staying asleep, or sleeping too much: nearly every day 4. Feeling tired or having little energy: more than half the days 5. Poor appetite or overeating: more than half the days 6. Feeling bad about yourself - or that you are a failure or have let yourself or your family down: more than half the days 7. Trouble concentrating on things, such as reading the newspaper or watching television: nearly every day 8. Moving or speaking so slowly that other people could have noticed. Or the opposite - being so fidgety or restless that you have been moving around a lot more than usual: nearly every day 9. Thoughts that you would be better off or of hurting yourself in some way: not at all Total score: 17 Depression Screening Interpretation: Positive Depression Screening Follow-up: Existing condition and In treatment Depression Screening Done: Yes 49929 - PHQ-9 Billing: Yes Source: Developed by Drs. Yared Ge, Bella Moore, Ellis Ellis and colleagues, with an educational neil from [employer]. Thrive Questionnaire Date Thrive assessed: 08/13/24 I am a: Patient What is your living situation today?: I have a steady place to live Within the past 12 months, did the food you bought not last and you didn't have the money to get more?: I choose not to answer this question Within the past 12 months, did you worry whether your food would run out before you got money to buy more?: Sometimes True Do you have trouble paying for medicines?: No Do you have trouble getting transportation to medical appointments?: No Do you have trouble paying your heating and electricity bill?: I choose not to answer this question Do you have trouble taking care of your child, family member or friend?: I choose not to answer this question Do you have trouble with day-to-day activities such as bathing, preparing meals, shopping, managing finances, etc.?: No Are you currently unemployed and looking for a job?: I choose not to answer this question Are you interested in more education?: I choose not to answer this question Please select the resources that you would like help with: None Currently or been in a relationship where the following occur: No concerns reported THRIVE Score: 1 AUDIT C Alcohol Use Questionnaire (AUDIT-C) 1. How often do you have a drink containing alcohol?: Never 3. How often do you have six or more drinks on one occasion?: Never Total Score: 0 Score Reviewed/Action Taken: Yes JOSELO-7 AMB Questionnaire JOSELO-7 Date JOSELO - 7 assessed: 05/22/24 Feeling nervous, anxious, or on edge: 3 = Nearly every day Not being able to stop or control worryin = Nearly every day Worrying too much about different things: 3 = Nearly every day Trouble relaxin = Nearly every day Being so restless that it is hard to sit still: 3 = Nearly every day Becoming easily annoyed or irritable: 2 = More than half the days Feeling afraid as if something awful might happen: 0 = Not at all Total JOSELO-7 score (0-4 normal; 5-9 mild; 10-14 moderate; 15-21 severe): 17 Source: Developed by Drs. Yared Ge, Bella Moore, Ellis Ellis and colleagues, with an educational neil from [employer]. Review of Systems Const Denies chills, Reports fatigue, Denies fever(s) and Reports headache(s) (on and off) ENT Denies dysphagia, Denies dizziness, Denies otalgia, Reports headache(s) (on and off), Reports neck pain (chronic), Denies odynophagia and Denies sore throat Card Denies chest pain, Denies palpitations and Denies dyspnea Resp Denies cough and Denies dyspnea GI Denies abdominal pain, Denies constipation, Denies dysphagia, Denies heartburn, Denies diarrhea, Denies nausea, Denies odynophagia and Denies vomiting Denies difficulty voiding, Denies nocturia, Denies dysuria and Denies urinary urgency Musc Reports back pain, Reports arthralgias (left shoulder area - chronic) and Reports neck pain (chronic) Skin/Breast Denies rash Neuro Denies dizziness and Reports headache(s) (on and off) Psych Reports anxiety and Reports depression Endo Reports fatigue and Denies palpitations Physical exam (Primary Care) Vital Signs: Last Vital Signs Temp 97.1 F 08/13/24 09:08 Pulse 60 08/13/24 09:08 BP 140/82 H 08/13/24 09:08 Pulse Ox 98 08/13/24 09:08 Oxygen Delivery Method Room Air 08/13/24 09:08 BMI result Body Mass Index 25.8 Tobacco/Smoking Status: Tobacco use Status Tobacco use date assessed 08/13/24 08/13/24 09:12 Patient Tobacco Use Status Never used Tobacco 08/13/24 09:12 e-Cigarette/Vaping Use Never Used 08/13/24 09:12 PHQ-9: PHQ-9 Score PHQ-9: Total score 17 08/13/24 09:52 Depression Screening Interpretation: Positive Depression Screening Follow-up: Existing condition and In treatment Thrive Assessment: Date of Thrive Assessment Date Thrive assessed 08/13/24 08/13/24 09:52 Currently or been in a relationship where the following occur: No concerns reported Const General: no acute distress and alert HENMT Throat: Yes posterior oropharynx normal and Yes tonsils normal (no TP congestion noted) Neck Neck: Yes no lymphadenopathy and Yes supple Thyroid: Thyroid normal Resp Auscultation: clear to auscultation bilaterally, no rales and no wheezes Cardio Rate: regular rate Rhythm: regular rhythm Heart sounds: no murmurs GI Palpation (GI): Soft to palpation and nontender Auscultation: normal bowel sounds General: Yes no CVA tenderness Back/Spine/Pelvis Back: no CVA tenderness Cervical Spine: cervical muscular tenderness (especially over the left side) and Cervical spine tenderness Thoracic/Lumbar Spine: paraspinal muscle tenderness bilaterally in the upper thoracic and No lumbar spinal tenderness Skin Rashes: no rashes Extrem General: Yes no clubbing, cyanosis or edema Right upper extremity: shoulder/upper arm Details: tenderness; no swelling Left upper extremity: shoulder/upper arm Details: tenderness; no swelling Coding Level of Care Code Est Pt Level 3 (63942) Diagnoses Failed neck syndrome M96.1 Chronic left shoulder pain M25.512; G89.29 Chronicity: chronic Fibromyalgia M79.7 Psoriatic arthritis L40.50 Anxiety F41.9 Depression, unspecified depression type F32.9 Depression Type: unspecified Additional Codes PHQ-9 - 38599 - PHQ-9 Billing: Yes ([id number]) Assessment & Plan Assessment & Plan (1) Failed neck syndrome: Code(s): M96.1 - Postlaminectomy syndrome, not elsewhere classified Category: Medical Plan: Patient reports no changes or developments in her case overall since her last visit and for the past few years as she has not been able to get coverage for any further treatments / management recommended by all of the specialists that she has been seeing, including attempts to go back to pain management in [place] or here locally in [place] She has reportedly been advised by Dr. Yates a while back that they have nothing else to offer her and recommended that she just follow up with pain management (2) Pain in left shoulder: Code(s): M25.512 - Pain in left shoulder Category: Medical Qualifiers: Chronicity: chronic Qualified Code(s): M25.512 - Pain in left shoulder; G89.29 - Other chronic pain Plan: Continue Tramadol 50 mg 1 to 2 tablets every 4 to 6 hours as needed for pain - Rx refilled (3) Fibromyalgia: Code(s): M79.7 - Fibromyalgia Category: Medical Plan: She reports experiencing increased diffuse pain and joint pains often - per rheumatology, she is likely experiencing recurrent flare ups of her fibromyalgia She is currently on Humira, which patient states have been working well for her and she reports (+) improvement of her diffuse pain - Otezla was lowered to QD dosing by rheumatology a few months ago and eventually discontinued Patient states that she has not had any significant change in her condition with discontinuation of her Otezla recently She is encouraged again to continue to stay active and exercise regularly to help manage her fibromyalgia symptoms Continue Tizanidine 4 mg every 8 hours as needed (4) Psoriatic arthritis: Comment: Enbrel not clearly helpful Otezla: 2023 Humira 04/2023 - Present. Methotrexate: 2016 - 01/19/2022. LFT elevations - methotrexate discontinued. She did okay until summer 2022 when she had a flare overall joint pains. Code(s): L40.50 - Arthropathic psoriasis, unspecified Category: Medical Plan: Patient is now only on Humira 40 mg Q 2 weeks Otezla was discontinued by rheumatology a few months ago and she was also taken off Methotrexate over a year ago Follow up with rheumatology as scheduled (5) Anxiety: Code(s): F41.9 - Anxiety disorder, unspecified Category: Medical Plan: Patient feels that she is doing okay on just her Clonazepam 0.5 mg BID as needed (Rx refilled) Follow up with psychiatry as scheduled (6) Depression: Code(s): F32.9 - Major depressive disorder, single episode, unspecified Category: Medical Qualifiers: Depression Type: unspecified Qualified Code(s): F32.9 - Major depressive disorder, single episode, unspecified Plan: She was on Venlafaxine ER 150mg QD and Quetiapine 200 mg Q HS in the past but patient apparently stopped taking these on her own at some point States that she does not feel any worse since stopping her Rx Follow up with psychiatry as scheduled Plan Follow up in 4 months Medications: Refilled clonazepam 0.5 mg PO BID PRN 60 tabs 0RF anxiety tramadol 1 to 2 tablets every 4 to 6 hours as needed for pain (no more than 3 to 4 times a day); 30 days 90 tabs 1RF
[2024-08-13 09:08] VITALS: BP 140/82; PULSE 60; TEMP 36.2; O2SAT 98; BMI 25.8
--- OUTSIDE RECORDS SUMMARY | 2024-08-13 09:14 | XMS_ITS | Continuity of Care Document ---
Author Organization [facility] Address [address] [place] [address] [address] [place] [phone] Phone Care Team Providers Care Postie Name Role Phone Everardo MATSON, HEDY, Yared ROMERO Unavailable U navailable Procedures Procedure Date Office/Oupt E&M New Pt 45 Mins- CT & [place] Duplex Scan-extrem Veins; Comp- CT & [place] Advance Directives Directive Yes / No Effective Date File Name No Information Encounters Encounter Description Practice Location Reason(s) For Visit Diagnoses Date Provider Providers Copied on Encounter Office/Oupt E&M New Pt 45 Mins- CT & [place] [facility], [address] [place] [address] [address]Kael [place], [id number], tel:[phone] CVR - [place] - [place] Chronic venous hypertension (idiopathic) with other complications of bilateral lower extremityCramp and spasm Apr-0 5 Everardo MATSON RVT, RPVI Robert. [address] [place] [address], [facility] [place] [id number] , [place]. tel:[phone] [facility], [address] [place] [address] [address], [id number], tel:[phone] CVR [place] 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 of bilateral lower extremities with pain Apr-0 5 Everardo MATSON RVT, RPVI Robert. [address] [place] [address], [facility] [place], [id number] , [place]. tel:[phone] Referring Provider: Yared Mcgee MD, RVT, RPVI, [address] [facility] [address], [place], [address] . tel:[phone] Family History Family Member Type Diagnosis Age At Onset No Information Payers Payer name Insurance type Covered republican ID Authoriza pedroasad(s) BCBS [facility] [id number] Medicare [facility] [id number] Social History Type Description Quantity Date Captured Comments Alcohol Use Details Unknown Caffeine Use Details Unknown Tobacco Use Status Current non-smoker Smoking Status Never Smoker Non-Smoking Tobacco Use Details : No Details Available : No Details Available Sex Female Vital Signs Date / Time: Height Weight BMI Pulse Rate Blood Pressure Temperature Respiratory Rate Body Surface Area Head Circumference Head Circ. Percentile Wt./Lee. Percentile BMI percentile Pulse Ox Inhaled Ox 61.230 kg (135.00 lbs) 23.9 5 kg/m eter (2) 128/76 mm[Hg] Chief Complaint And Reason For Visit No Information Reason For Referral Reason For Referral No Information Plan Of Treatment Date Type Action Status Goal Diet education completed Referral Ordered: Weight management: Referral to physician timeframe: 3 Months (related to Body mass index (BMI) 23.0-23.9, adult) ordered Appointment Carissa Santos BOOKED Appointment Carissa Santos BOOKED Appointment Carissa Santos BOOKED Appointment Carissa Santos BOOKED Appointment Carissa Santos BOOKED History Of Present Illness Encounter Date Complaint History Of Prese nt Illness No Information Functional Status Date Functional Assessmen t No Information Instructions Date Instruction Additional Infor mation Diet education Related to Body mass index (BMI) 23.0-23.9, adult Giving Encouragement to exercise Related to Body mass index (BMI) 23.0-23.9, adult Lifestyle education Related to B kane mass index (BMI) 23.0-23.9, adult Pre and post instruc tions reviewed and provided Related to Chronic venous hypertension (idiopathic) with other complications of bilateral lower extremity Patient education booklet given Related to Chronic venous hypertension (idiopathic) with other complications of bilateral lower extremity Assessments Type Assessment Date No Information Patient Care Teams Name Effective Dates (start - stop) Status Members No Information
--- OUTSIDE RECORDS SUMMARY | 2024-08-13 09:14 | XMS_ITS | Clinical Summary ---
Author Organization [facility] Address [address] [place] [address] Phone Care Team Providers Care Senior Business Objects Developer Name Role Phone Jermaine Berg MD Primary Care Provider [phone] Encounters Date Type Department Care Team Description 07/23/2024 7:46 AM EDT - 07/23/2024 11:59 PM EDT Hospital [facility] [address] [address] Encounter for screening mammogram for breast cancer Discharge Disposition: Home or Self Care from Last 3 Months Family History Medical History Relation Name Comments Drug abuse Brother Drug abuse Father Other: Other Father Lung cancer Mother Breast cancer Mother's Sister Relation Name Status Comments Brother Father Mother Mother's Sister Social History Tobacco Use Types Packs/Day Years Used Date Smoking Tobacco: Never Smokeless Tobacco: Never Comments No Sex and Gender Information Value Date Recorded Sex Assigned at Female 06/02/2024 1:46 PM EST Legal Sex Female 7:15 PM EST Gender Identity Female 06/02/2024 1:46 PM EST Sexual Orientation Choose not to disclose 2024 1:46 PM EST Obstetrics History Para Term AB IAB SAB Ectopic Multiple Livin g Live Births 2 Last Filed Vital Signs Vital Sign Reading Time Taken Comments Blood Pressure - - Pulse - - Temperature - - Respiratory Rate - - Oxygen Saturation - - Inhaled Oxygen Concentration - - Weight 61.2 kg (135 lb) 07/23/2024 7:56 AM EDT Height 157.5 cm (5' 2 ) 07/23/2024 7:56 AM EDT Body Mass Index 24.69 07/23/2024 7:56 AM EDT Plan of Treatment Health Maintenance Due Date Last Done Comments Pneumococcal Vaccine: 50+ Years (1 of 2 - PCV) 10/26/1979 Pneumococcal Vaccine: Pediatrics (0 to 5 Years) and At-Risk Patients (6 to 64 Years) (1 of 2 - PCV) 10/26/1979 Zoster Vaccines (1 of 2) 10/26/1979 Cervical Cancer Screening: Pap Smear 1981 COVID-19 Vaccine (3 - Pfizer risk series) 09/13/2020 08/16/2020, 07/26/2020 RSV Immunization Adult Patients (1 - Risk 60-74 years 1-dose series) 2020 Colorectal Cancer Screening: Colonoscopy 03/10/2022 Depression Screening 03/10/2022 HIV Screening 03/10/2022 Hepatitis C Screening 03/10/2022 Medicare Annual Wellness Visit 03/10/2022 Social Influencers of Health Screening 03/10/2022 DTaP,Tdap,and Td Vaccines (2 - Td or Tdap) 03/19/2026 03/19/2016 Breast Cancer Screening 07/23/2026 07/24/19 25, 07/23/2023, 07/22/2022, Additional history exists Influenza Vaccine Completed 01/20/2024, , 01/18/2022, Additional history exists HIB Vaccines Aged Out No longer eligi [...] age to complete this topic Meningococcal B Vaccine Aged Out No l onger eligible based on patient's age to complete this topic RSV Immunization Patients Under 20 months Aged Out No longer eligible based on patient's age to complete this topic Varicella Vaccines Aged Out No longer eligible based on patient's age to complete this topic Procedures Procedure Name Priority Date/Time Associated Diagnosis Comments MG MAMMO DIGITAL SCREENING W MARTIR BILAT Routine 07/23/2024 8:01 AM EDT Encounter for screening mammogram for breast cancer from Last 3 Months Results * MG Mammo Digital Screening w Martir bilat (07/23/2024 8:01 AM EDT) Anatomical Region Laterality Modality Breast Bilateral Mammography 07/23/2024 8:38 AM EDT Impressions 07/23/2024 8:43 AM EDT No mammographic evidence of malignancy. A negative mammogram in the presence of a clinically suspicious palpable abnormality does not preclude the possibility of malignancy or alter the indications for biopsy. PQRI CPT II 3342F Code 84615, 20455 PQRI 225 CPT II 7025F TISSUE DENSITY: There are scattered areas of fibroglandular density. (BI-RADS category B) IMPRESSION: Benign. BI-RADS CATEGORY: 2 - BENIGN RECOMMENDATION: Screening bilateral mammogram is recommended in 1 year. Mammo Location: [facility], [address] [place] [address] -------- FINAL REPORT -------- Dictated By: Anjum Mota Dictated Date: 07/23/2024 08:38 ET Assigned Physician: Anjum Mota Reviewed and Electronically Signed By: Anjum Mota Signed Date: 07/23/2024 08:43 ET Workstation ID: [id number] Transcribed By: Self Edit Transcribed Date: 07/23/2024 08:38 ET Narrative 07/23/2024 8:43 AM EDT CLINICAL: The patient is a 63 years Female presenting for routine screening mammography. COMPARISON: Most recently 07/23/2023 and most remotely 02/18/2017. ?? TECHNIQUE: Full-field digital mammography of the breasts bilaterally consisting of tomosynthesis in MLO and CC projection is performed in the Digital Room, Ince 2000-D unit. ??Computer aided detection utilizing the [employer]Net[employer]D system was utilized. FINDINGS: The breasts are again seen to be composed of a combination of fatty and fibroglandular elements. ??A 5 mm oval density at the 12:00 position of the left breast, anterior to middle depth, is stable over many years and is therefore again regarded as being benign. ??There is no suspicious cluster of microcalcifications, mass, or area of architectural distortion. There is no skin thickening or nipple retraction. Procedure Note Anjum Mota MD - 07/23/2024 CLINICAL: The patient is a 63 years Female presenting for routinescreening mammography. COMPARISON: Most recently 07/23/2023 and most remotely 02/18/2017. TECHNIQUE: Full-field digital mammography of the breasts bilaterallyconsisting of tomosynthesis in MLO and CC projection is performed in theCollective Biasographe 2000-D unit. Computer aided detection utilizing the Mont[employer]ystem was utilized. FINDINGS: The breasts are again seen to be composed of a combination offatty and fibroglandular elements. A 5 mm oval density at the 12:00position of the left breast, anterior to middle depth, is stable over manyyears and is therefore again regarded as being benign. There is nosuspicious cluster of microcalcifications, mass, or area of architecturaldistortion. There is no skin thickening or nipple retraction. IMPRESSION: No mammographic evidence of malignancy. A negative mammogram in the presence of a clinically suspicious palpableabnormality does not preclude the possibility of malignancy or alter theindications for biopsy. PQRI CPT II 3342F Code 35036, 11806 PQRI 225 CPT II 7025F TISSUE DENSITY: There are scattered areas of fibroglandular density.(BI-RADS category B) IMPRESSION: Benign. BI-RADS CATEGORY: 2 - BENIGN RECOMMENDATION: Screening bilateral mammogram is recommended in 1 year. Mammo Location: [facility], [address] [place] [id number] -------- FINAL REPORT -------- Dictated By: Anjum Mota Dictated Date: 07/23/2024 08:38 ET Assigned Physician: Anjum Mota Reviewed and Electronically Signed By: Anjum Mota Signed Date: 07/23/2024 08:43 ET Workstation ID: [id number] Transcribed By: Self Edit Transcribed Date: 07/23/2024 08:38 ET us Self Referral Sppl IMG BI PROCEDURES Final Resul t from Last 3 Months Insurance MEDICARE [facility] Care Teams Senior Business Objects Developer Relationship Specialty Start Date End Date Jermaine Berg MD [address] [place] [address] PCP - General Internal Medicine 02/11/12
== END 2024-08-13 09:52 | disposition home or self-care (01) ==
LOC: HO.HMCH 08:52
PROVIDERS: PCP Internal Medicine; Visit Provider Internal Medicine
DX: M25.512 Pain in left shoulder (principal); M96.1 Postlaminectomy syndrome, not elsewhere classified; L40.50 Arthropathic psoriasis, unspecified; G89.29 Other chronic pain; M79.7 Fibromyalgia; F41.9 Anxiety disorder, unspecified; F32.9 Major depressive disorder, single episode, unspecified

== ENCOUNTER → 2024-08-13 08:51 | Outpatient (BNVA) | payer OTHER, BC, SELFPAY | PROVIDERS: PCP Internal Medicine; Visit Provider Internal Medicine | DX: M96.1 Postlaminectomy syndrome, not elsewhere classified (principal); M25.512 Pain in left shoulder; G89.29 Other chronic pain; M79.7 Fibromyalgia; L40.50 Arthropathic psoriasis, unspecified; F41.9 Anxiety disorder, unspecified; F32.9 Major depressive disorder, single episode, unspecified; Z79.891 Long term (current) use of opiate analgesic; Z79.620 Long term (current) use of immunosuppressive biologic | CPT/HCPCS: 96127 ==

== ENCOUNTER 2024-08-27 12:25 | Outpatient (AMB) | payer MEDICARE, SELFPAY ==
--- NOTE | 2024-08-27 12:35 | A.OFFVIS_ITS ---
Vital Signs 08/27/24 12:36 Height 5 ft 2 in Weight 146 lb BMI 26.7 BP 124/60 Blood Pressure Location Lt brachial Position Sitting Pulse 67 Pulse Oximetry (%) 96 Oxygen Delivery Method Room Air Intake Visit Reasons: f/u US abdominal pain Intake Note: Patient follow up for History of colon polyps and US result. Patient cc: constipation, swallowing difficulty on and off and acid reflux. Multifocal Button Inspector Required: No Accompanied by: Self / Same As Patient Allergies No Known Allergies Allergy (Verified 08/27/24 12:35) Medication List - Last Reconciled 08/27/24 by Drew Avila MD adalimumab (Humira(CF) Pen) 40 mg (0.4 mL) subcut Q2W 30 days atorvastatin 20 mg PO BEDTIME 90 days clonazepam 0.5 mg PO BID PRN ibuprofen 800 mg PO BID PRN omeprazole 40 mg PO DAILY 30 days polyethylene glycol 3350 (Miralax) 17 grams PO DAILY 30 days tramadol 1 to 2 tablets every 4 to 6 hours as needed for pain (no more than 3 to 4 times a day); 30 days HPI HPI f/u US abdominal pain: Details: GI clinic visit for this 63 YF for FU after EGD and colon. Pt was previously followed by POLLO Maza Patient is on Humira for psoriatic arthritis TODAY'S VISIT: Patient follow up for History of colon polyps and US result. Patient cc: constipation, swallowing difficulty on and off and acid reflux. Abd pain is not too bad at present - can have epigastric pain once in a while. Last episode was a week ago. Unable to eat late - can have nocturnal regurgitation of acid in her throat. Denies dysphagia. Has a BM every other day and can have small stool BM associated with straining and hard stools Not taking any medication - takes the powder every few days. PAST VISITS: Pt feels everything sits in the upper abdomen and it hurts. Had a bagel yesterday and was burping all day. Feels her belly is huge. Complains of chronic constipation - has a BM every other day associated with straining and hard stools Takes Metamucil every other day if she does not have a BM and has not used Miralax in along time. Patient denies symptoms of acid reflux/heartburn, dysphagia, nausea, vomiting, change in appetite. Weight has been going up. Denies recent diarrhea, black stools or rectal bleeding. Patient denies major cardiac or pulmonary problems, loud snoring or sleep apnea Denies problems with anesthesia in the past. Denies being on chronic anticoagulation. Denies smoking and rare ETOH. Worked at the [employer] for 22 years. Broke her neck at work in and stopped working. Lives with her boyfriend and raising his 2 GK. Patient denies known family history of colon polyps, colon cancer or other GI malignancies. LABS IN [facility] : Reviewed IMAGING STUDIES: 09/23/23 UGI SHOWED: 1. Granular appearance of the mid esophageal mucosa that likely represent esophagitis. 2. Mildly disorganized esophageal peristalsis 3. Thickened appearance of the areae gastricae likely representing gastritis due to H. pylori 4. Status post ACDF C6-C7 ENDOSCOPIC STUDIES: 03/20/24 EGD AND COLON WAS PERFORMED: Endoscopy Findings: ESOPHAGUS: GE junction at 38 cms. Mildly tortuous esophagus No esophagitis or Chahal's. STOMACH: Moderate diffuse gastric erythema with nodular appearing mucosa in the gastric body - biopsies were obtained from the body and antrum. DUODENUM: Normal Colonoscopy Findings: One small polyp was removed Moderate diverticulosis seen in the entire colon Moderate hemorrhoids on retroflexed exam. Plan: Repeat Colonoscopy in 5 years if polyps are adenomatous and due to a hx of adenomatous polyps. Above findings were reviewed with the patient and relevant handouts were given and the discharge area. BIOPSIES SHOWED: A. Gastric antrum, biopsy: Gastric antral mucosa with mild chronic gastritis without activity; negative for intestinal metaplasia and dysplasia. B. Gastric body, biopsy: Gastric body mucosa with mild chronic gastritis without activity; negative for intestinal metaplasia and dysplasia. C. Colon, transverse, polyp: Polypoid colonic mucosa with no specific change seen on initial levels (see comment). Comment: (A and B): Immunostains for H. pylori were negative PAST GI HISTORY BY REVIEW OF MEDICAL RECORDS: 03/09/24 PATIENT HAD A TELEVISIT WITH DR. BERNSTEIN: CC: She states pains in her ribcage -- was told there was a tear in her esophagus during a BA swallow. Was told she had an infection and did a stool sample. She was treated for H Pylori by PCP. Lots of pains in her throat. Burps are burning. Feels a ball in her chest. 63 yr old f been called for f/u She had colonoscopy 2020 and had polyps removed, due another she had treatment for H pylori was checked after c/o a ball like sensation in chest PCP did ba swallow which revealed possible esophagitis and gastritis she has noted constipation, and stool shape she is taking metamucil and feels its is not helping --she has good intake of water she takes tramadol prn, rarely A/P: 1/ Esophagitis on Ba swallow 2/ Abn bowel habit hx of polyps PLAN: 1/ she has Colonoscopy coming up, we can add EGD -already scheduled with Dr Avila--re eval and r/o polyps, neoplasia, persistent H pylori PFS Medical History Encounter for monitoring of adalimumab therapy Pain in left shoulder Gastritis Greater trochanteric bursitis of both hips History of colon polyps Insomnia 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 of left lower extremity with inflammation Polymyalgia rheumatica Failed neck syndrome Depression Anxiety Osteopenia Elevated LFTs Vitamin D deficiency Lumbar degenerative disc disease Fibromyalgia Pure hypercholesterolemia 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 of both lower extremities with pain 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 Closed fracture of head of radius with routine healing Fracture of radial head, right, closed Occult fracture of right elbow Psoriatic arthritis Surgical History Hx of colonoscopy Hx of abdominoplasty S/P cervical spinal fusion Hx of section Family History Mother Lung cancer Father Drug addict Other Mental health problem Substance abuse Social History Household Members: Significant Other and Family Housing: House Are you a primary behavioral health care coordinator to a significant other at home: No Do you presently have visiting nurse or other home services: No Alcohol intake: never Patient Tobacco Use Status: Never used Tobacco e-Cigarette/Vaping Use: Never Used Second Hand Smoke Exposure: Yes service: No Current occupational status: disabled Cognitive needs: No Hearing needs: No Vision needs: Yes (glasses) Review of Systems Const All systems reviewed & are unremarkable except as noted in HPI and below Physical Exam Vital Signs: Last Vital Signs Pulse 67 08/27/24 12:36 BP 124/60 08/27/24 12:36 Pulse Ox 96 08/27/24 12:36 Oxygen Delivery Method Room Air 08/27/24 12:36 BMI result Body Mass Index 26.7 Const General: healthy appearing and no acute distress Nutritional Appearance: average body habitus Orientation/consciousness: patient oriented x3 Limitations: no limitations HEENT Head: Yes normal to inspection Ears: hearing grossly normal bilaterally Mouth: Normal oral and palatal mucosa present Eyes Sclerae: sclerae normal Pupils: Equal, round and reactive pupils present Neck Neck: Yes normal visual inspection Chest Chest palpation & inspection: normal inspection of the chest Resp Effort & Inspection: normal respiratory effort Auscultation: clear to auscultation bilaterally Cardio Palpation: normal PMI Rate: regular rate Rhythm: regular rhythm Heart sounds: S1 normal heart sound present, S2 normal heart sound present and no murmurs GI Palpation (GI): Soft to palpation, nontender and No hepatosplenomegaly present Auscultation: normal bowel sounds Rectal Exam - Female: deferred Skin General skin exam: no rashes or lesions noted Neuro General: patient oriented x3, gait normal and moves all extremities Cranial nerves: Yes Equal, round and reactive pupils present Psych Appearance: grossly normal Mental Status: mental status grossly normal Assessment & Plan Assessment & Plan (1) Elevated LFTs: Code(s): R79.89 - Other specified abnormal findings of blood chemistry Category: Medical (2) History of colon polyps: Comment: Personal history colon adenomas, repeat colonoscopy-a 3 year Discuss family history, FDR begin screening at age 40 Code(s): Z86.010 - Personal history of colon polyps Category: Medical (3) Diverticulosis: Comment: HFD-discuss diverticulosis/diverticulitis Code(s): K57.90 - Diverticulosis of intestine, part unspecified, without perforation or abscess without bleeding Category: Medical (4) Difficulty swallowing: Code(s): R13.10 - Dysphagia, unspecified Category: Medical Qualifiers: Dysphagia type: unspecified Qualified Code(s): R13.10 - Dysphagia, unspecified (5) Gastritis: Code(s): K29.70 - Gastritis, unspecified, without bleeding Category: Medical Qualifiers: Gastritis type: unspecified gastritis Chronicity: unspecified Gastritis bleeding: without bleeding Qualified Code(s): K29.70 - Gastritis, unspecified, without bleeding (6) Esophagitis: Code(s): K20.90 - Esophagitis, unspecified without bleeding Category: Medical (7) Upper abdominal pain: Code(s): R10.10 - Upper abdominal pain, unspecified Category: Medical (8) Cholelithiasis: Code(s): K80.20 - Calculus of gallbladder without cholecystitis without obstruction Category: Medical (9) Chronic constipation: Code(s): K59.09 - Other constipation Category: Medical Plan 63 YF with psoriatic arthritis complains of postprandial abdominal discomfort and constipation. 03/20/24 she and colonoscopy were performed in results as noted Patient was advised repeat colonoscopy in 5 years surveilance for colon polyps - placed on colonoscopy recall list Pt was advised to schedule an abd US and take Miralax every other day for constipation Pt handout on Constipation was given to the patient 08/27/24 Pt advised to schedule a HIDA scan, take Miralax 3 times a week and start taking probiotics for constipation Follow-up in 4 months. Orders: Orders NM hepatobiliary w pharm Today K80.20 - Calculus of gallbladder without cholecystitis without obstruction, R10.10 - Upper abdominal pain, unspecified Medications: New Lactobacillus rhamnosus GG (Culturelle) 1 cap PO DAILY 90 days 90 caps 1RF K59.09 - Other constipation Patient Instructions: Align and Culturelle are 2 probiotics used for GI symptoms Coding Level of Care Code Est Pt Level 4 (97936) Diagnoses Elevated LFTs R79.89 History of colon polyps Z86.010 Diverticulosis K57.90 Dysphagia, unspecified type R13.10 Dysphagia type: unspecified Gastritis without bleeding, unspecified chronicity, unspecified gastritis type K29.70 Gastritis type: unspecified gastritis Chronicity: unspecified Gastritis bleeding: without bleeding Esophagitis K20.90 Upper abdominal pain R10.10 Cholelithiasis K80.20 Chronic constipation K59.09 Time Spent (min) 21
--- OUTSIDE RECORDS SUMMARY | 2024-08-27 12:35 | XMS_ITS | Clinical Summary ---
Author Organization [facility] Address [address] [place] [address] Phone Care Team Providers Care Supervisor Securities Vault Name Role Phone Jermaine Berg MD Primary Care Provider [phone] Encounters Date Type Department Care Team Description 07/23/2024 7:46 AM EDT - 07/23/2024 11:59 PM EDT [facility] [address] [address] Encounter for screening mammogram for [...] - Pfizer risk series) 09/13/2020 08/16/2020, 07/26/2020 Colorectal Cancer Screening: Colonoscopy 03/10/2022 Depression Screening 03/10/2022 HIV Screening 03/10/2022 Hepatitis C Screening 03/10/2022 Medicare Annual Wellness Visit 03/10/2022 Social Influencers of Health Screening 03/10/2022 DTaP,Tdap,and Td Vaccines (2 - Td or Tdap) 03/19/2026 03/19/2016 Breast Cancer Screening 07/23/2026 07/24/19 25, 07/23/2023, 07/22/2022, Additional history exists RSV Immunization Adult Patients (1 - 1-dose 75+ series) 10/26/2035 Influenza Vaccine Completed 01/20/2024, , 01/18/2022, Additional [...] for biopsy. PQRI CPT II 3342F Code 07031, 40150 PQRI 225 CPT II 7025F TISSUE DENSITY: There are scattered areas of fibroglandular density. (BI-RADS category B) IMPRESSION: Benign. BI-RADS CATEGORY: 2 - BENIGN RECOMMENDATION: Screening bilateral mammogram is recommended in 1 year. Mammo Location: [facility], [address] [place] [address] -------- FINAL REPORT -------- Dictated By: Anjum Mota Dictated Date: 07/23/2024 08:38 ET Assigned Physician: Anjum Mota Reviewed and Electronically Signed By: Anjum Mota Signed Date: 07/23/2024 08:43 ET Workstation ID: [id number] Transcribed By: Self Edit Transcribed Date: 07/23/2024 08:38 ET Narrative 07/23/2024 8:43 AM EDT CLINICAL: The patient is a 63 years Female presenting for routine screening mammography. COMPARISON: Most recently 07/23/2023 and most remotely 02/18/2017. ?? TECHNIQUE: Full-field digital mammography of the breasts bilaterally consisting of tomosynthesis in MLO and CC projection is performed in the [employer] 2000-D unit. ??Computer aided detection utilizing the iCAD system was utilized. FINDINGS: The breasts are [...] MLO and CC projection is performed in the[employer] 2000-D unit. Computer aided detection utilizing the [employer]ystem was utilized. FINDINGS: The breasts are again [...] for biopsy. PQRI CPT II 3342F Code 48129, 93801 PQRI 225 CPT II 7025F TISSUE DENSITY: There are scattered areas of fibroglandular density.(BI-RADS category B) IMPRESSION: Benign. BI-RADS CATEGORY: 2 - BENIGN RECOMMENDATION: Screening bilateral mammogram is recommended in 1 year. Mammo Location: [facility], [address] [place] [address] -------- FINAL REPORT -------- Dictated By: Anjum Mota Dictated Date: 07/23/2024 08:38 ET Assigned Physician: Anjum Mota Reviewed and Electronically Signed By: Anjum Mota Signed Date: 07/23/2024 08:43 ET Workstation ID: [id number] Transcribed By: Self Edit Transcribed Date: 07/23/2024 08:38 ET us Self Referral Sppl IMG BI PROCEDURES Final Resul t from Last 3 Months Insurance MEDICARE [facility] Care Teams Supervisor Securities Vault Relationship Specialty Start Date End Date Jermaine Berg MD 2 [facility] [place] PCP - General Internal Medicine 02/11/12
[2024-08-27 12:36] VITALS: BP 124/60; PULSE 67; O2SAT 96; BMI 26.7
== END 2024-08-27 13:28 | disposition home or self-care (01) ==
PROVIDERS: PCP Internal Medicine; Visit Provider Internal Medicine Gastroenterology
DX: R79.89 Other specified abnormal findings of blood chemistry (principal); Z86.0100 Personal history of colon polyps, unspecified; K57.90 Diverticulosis of intestine, part unspecified, without perforation or abscess without bleeding; R13.10 Dysphagia, unspecified; K29.70 Gastritis, unspecified, without bleeding; K20.90 Esophagitis, unspecified without bleeding; R10.10 Upper abdominal pain, unspecified; K80.20 Calculus of gallbladder without cholecystitis without obstruction; K59.09 Other constipation
CPT/HCPCS: 99214

== ENCOUNTER → 2024-08-27 12:25 | Outpatient (BNVA) | payer OTHER, SELFPAY | PROVIDERS: PCP Internal Medicine; Visit Provider Internal Medicine Gastroenterology | DX: K80.20 Calculus of gallbladder without cholecystitis without obstruction (principal); R79.89 Other specified abnormal findings of blood chemistry; K57.90 Diverticulosis of intestine, part unspecified, without perforation or abscess without bleeding; R13.10 Dysphagia, unspecified; Z86.0100 Personal history of colon polyps, unspecified; R10.10 Upper abdominal pain, unspecified; K59.09 Other constipation | CPT/HCPCS: 99212 ==

== ENCOUNTER → 2024-09-21 07:32 | Outpatient (REF) | payer BC, MEDICARE, SELFPAY ==
--- NOTE | ~2024-09-21 | NM_ITS ---
EXAMINATION: NM BILIARY TRACT CLINICAL INFORMATION: Upper abdominal pain, unspecified. COMPARISON: No prior hepatobiliary scan. TECHNIQUE: Hepatobiliary scanning was performed after the IV administration of 5 mCi technetium 99m-mebrofenin. Dynamic images were obtained over a 60 minute period. Subsequently, 1.3 mcg CCK was administered over 30 minutes by syringe pump, and images were obtained during administration to calculate gallbladder ejection fraction. FINDINGS: There was rapid uptake of radiotracer from blood pool into the hepatic parenchyma, and rapid excretion into the common bile duct. There were no hepatic photopenic defects or regions of increased activity identified. The gallbladder was visualized at 10 minutes, and normally filled with increasing activity. The small bowel was visualized at 30 minutes, and radiotracer normally cleared from the hepatic parenchyma. After the administration of CCK, Gallbladder ejection fraction is calculated at 89%. Fractional ejection fraction: 10 minutes = 73% 20 minutes = 81% 30 minutes = 89% NM/NM hepatobiliary w pharm IMPRESSION: 1. Normal hepatobiliary scan. 2. Normal gallbladder ejection fraction 89%. There is no evidence of biliary dyskinesia. Electronically signed by: Sterling Mirza MD 09/21/2024 11:16 AM EDT
--- OUTSIDE RECORDS SUMMARY | 2024-09-21 07:34 | XMS_ITS | Continuity of Care Document ---
Author Organization [facility] Address [address] [place] [address] [address] [place] [address] Phone Care Team Providers Care Phlebotomy Services Representative Name Role Phone Everardo MATSON, HEDY, NICK, Yared Unavailable U navailable Procedures Procedure Date Duplex Scan-extrem Veins; Uni/ CT & [place] M Inj Scleros Solut; Mx Veins 1- CT & [place] M Ultrason Guidan Needle Bx-rad- CT & [place] M Offic/outpt E&m Estab 5 Min Trial- Telem edicine CT & [place] Office/Oupt E&M New Pt 45 Mins- CT & [place] Duplex Scan-extrem Veins; Comp- CT & [place] Advance Directives Directive Yes / No Effective Date File Name No Information Encounters Encounter Description Practice Location Reason(s) For Visit Diagnoses Date Provider Providers Copied on Encounter [facility], [address] [place] [address] [address], [place], [id number], [place] tel:[phone] CVR - [facility] Encounter for follow-up examination after completed treatment for conditions other than malignant neoplasm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 of left lower extremity with pain 5 Everardo MATSON, HEDY, NICK [place]. [address] [facility], [address], [place], [id number], [place]. tel:[phone] Referring Provider: Jermaine Berg MD, [address] [place] [address] Dr [address], [place], [address]. tel:[phone] [facility], [address] [place] [address] Dr [place] [address], [id number], [place] tel:[phone] [place] - [place] 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 of left lower extremity with other complications 5 Everardo MATSON RVT, NICK [place]. [address] [place] [address], [facility] [place], [id number], [place]. tel:[phone] Referring Provider: Jermaine Berg MD, [address] [place] [address] Dr [address], [place], [address]. tel:[phone] Offic/outpt E&m Estab 5 Min Trial- Telemedicine CT & [place] [facility], [address] [place] [address] Dr [place] [address]ael [place], [id number], [place] tel:[phone] CVR - [place] - [place] Cramp and spasmVenous insufficiency (chronic) (peripheral) 5 Martha Katz. [address] [place] [address], [facility] [place], [id number], [place]. tel:[phone] Referring Provider: Jermaine Berg MD, [address] [place] [address] Dr [address], [place], [address]. tel:[phone] Office/Oupt E&M New Pt 45 Mins- CT & [place] [facility], [address] [place] [address] Dr [place] [address]ael [place], [id number], [place] tel:[phone] CVR - [place] Chronic venous hypertension (idiopathic) with other complications of bilateral lower extremityCram p and spasm Jul- 5 Everardo MATSON RVT, NICK [place]. [address] [place] [address], [facility] [place] [place] [id number], [place]. tel:[phone] [facility], [address] [place] [address] Dr [place] [address]SuKael [place], [id number], [place] tel:[phone] CVR - [place] 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 of bilateral lower extremities with pain Everardo MATSON, HEDY, NICK [place]. [address] [facility], [address], [place], [id number], [place]. tel:[phone] Referring Provider: Yared Mcgee MD, HEDY, NICK, [address] [facility] [address], [place], [address] . tel:[phone] Family History Family Member Type Diagnosis Age At Onset No Information Payers Payer name Insurance type Covered democrat ID Authoriza tion(s) [facility] [id number] [place] [id number] Social History Type Description Quantity Date Captured Comments Sex Female Smoking Status No Information Chief Complaint And Reason For Visit No [...] Information Instructions Date Instruction Additional Infor mation Pre and post instruc tions reviewed and provided Related to Cramp and spasm Patient education booklet given Related to Cramp and spasm Pre and post instruc tions reviewed and provided Related to Chronic venous hypertension (idiopathic) with other complications of bilateral lower extremity Patient education booklet given Related to Chronic venous hypertension (idiopathic) with other complications of bilateral lower extremity Lifestyle education Related to B kane mass index (BMI) 23.0-23.9, adult Giving Encouragement to exercise Related to Body mass index (BMI) 23.0-23.9, adult Diet education Related to Body mass index (BMI) 23.0-23.9, adult Assessments Type Assessment Date No Information Patient Care Teams Name Effective Dates (start - stop) Status Members No Information
== END ==
LOC: HO.NUCMED 07:32
PROVIDERS: PCP Internal Medicine; Visit Provider Internal Medicine Gastroenterology
DX: R10.10 Upper abdominal pain, unspecified (principal); K80.20 Calculus of gallbladder without cholecystitis without obstruction
CPT/HCPCS: 78227; A9537; J2805

== ENCOUNTER → 2024-09-21 07:33 | Outpatient (BNV) | payer BC, MEDICARE, SELFPAY | PROVIDERS: PCP Internal Medicine; Visit Provider Radiology Diagnostic Radiology | DX: R10.10 Upper abdominal pain, unspecified (principal) | CPT/HCPCS: 78227 ==

== ENCOUNTER 2024-09-29 08:32 | Outpatient (REF) | payer MEDICARE, BC, SELFPAY ==
--- OUTSIDE RECORDS SUMMARY | 2024-09-29 08:49 | XMS_ITS | Clinical Summary ---
Author Organization [facility] Address [address] [place] [address] Phone Care Team Providers Care Nail Machine Operator Name Role Phone Jermaine Berg MD Primary Care Provider [phone] Encounters Date Type Department Care Team Description 07/23/2024 7:46 AM EDT - 07/23/2024 11:59 PM EDT Hospital [facility] [address] [address] Encounter for screening mammogram for [...] for biopsy. PQRI CPT II 3342F Code 51804, 12439 PQRI 225 CPT II 7025F TISSUE DENSITY: There are scattered areas of fibroglandular density. (BI-RADS category B) IMPRESSION: Benign. BI-RADS CATEGORY: 2 - BENIGN RECOMMENDATION: Screening bilateral mammogram is recommended in 1 year. Mammo Location: [facility], [address] [place] [address] -------- FINAL REPORT -------- Dictated By: Anjum Mota Dictated Date: 07/23/2024 08:38 ET Assigned Physician: Anjum Mota Reviewed and Electronically Signed By: Anjum Mota Signed Date: 07/23/2024 08:43 ET Workstation ID: [id number] Transcribed By: Self Edit Transcribed Date: 07/23/2024 08:38 ET Narrative 07/23/2024 8:43 AM EDT CLINICAL: The patient is a 63 years Female presenting for routine screening mammography. COMPARISON: Most recently 07/23/2023 and most remotely 02/18/2017. TECHNIQUE: Full-field digital mammography of the breasts bilaterally consisting of tomosynthesis in MLO and CC projection is performed in the [employer] 2000-D unit. Computer aided detection utilizing the iCAD system was utilized. FINDINGS: The breasts are again seen to be composed of a combination of fatty and fibroglandular elements. A 5 mm oval density at the 12:00 position of the left breast, anterior to middle depth, is stable over many years and is therefore again regarded as being benign. There is no suspicious cluster of microcalcifications, mass, [...] MLO and CC projection is performed in the[employer] 2000-D unit. Computer aided detection utilizing the Theravascystem was utilized. FINDINGS: The breasts are again [...] for biopsy. PQRI CPT II 3342F Code 23066, 04507 PQRI 225 CPT II 7025F TISSUE DENSITY: There are scattered areas of fibroglandular density.(BI-RADS category B) IMPRESSION: Benign. BI-RADS CATEGORY: 2 - BENIGN RECOMMENDATION: Screening bilateral mammogram is recommended in 1 year. Mammo Location: [facility], [address] [place] [address] -------- FINAL REPORT -------- Dictated By: Anjum Mota Dictated Date: 07/23/2024 08:38 ET Assigned Physician: Anjum Mota Reviewed and Electronically Signed By: Anjum Mota Signed Date: 07/23/2024 08:43 ET Workstation ID: [id number] Transcribed By: Self Edit Transcribed Date: 07/23/2024 08:38 ET us Self Referral Sppl IMG BI PROCEDURES Final Resul t from Last 3 Months Insurance MEDICARE [facility] Care Teams Nail Machine Operator Relationship Specialty Start Date End Date Jermaine Berg MD [address] [place] [address] [address] DIANA Morton PCP - General Internal Medicine 02/11/12
[2024-09-29 08:55] LABS: MANUAL DIFF FLAG NO
[2024-09-29 09:08] LABS: Basophils Percent Auto 0.5 % (0-2); Eosinophils Absolute Auto 0.1 X10*3/uL (0.0-0.4); Eosinophils Percent Auto 1.8 % (0-4); Hematocrit 47.6 % (37.0-47.0); Hemoglobin 15.8 g/dl (12.0-16.0); Imm Gran Abs Auto 0.01 X10*3/uL (0.00-0.03); Imm Gran Pct Auto 0.2 % (0.0-0.4); Lymphocytes Absolute Auto 2.1 X10*3/uL (1.2-4.9); Lymphocytes Percent Auto 37.3 % (20-40); Mean Corpuscular HGB Conc 33.2 g/dl (31.0-35.0); Mean Corpuscular Hemoglobin 30.1 pg (27.0-33.0); Mean Corpuscular Volume 90.7 fL (80.0-98.0); Mean Platelet Volume 9.2 fL (9.4-12.3); Monocytes Absolute Auto 0.4 X10*3/uL (0.1-1.2); Monocytes Percent Auto 6.4 % (2-11); Neutrophils Absolute Auto 3.1 x10*3/uL (2.0-8.3); Neutrophils Percent Auto 53.8 % (45-73); Platelet Count 222 X10*3/uL (160-400); Red Blood Count 5.25 X10*6/uL (4.20-5.50); Red Cell Distribution Width 13.9 % (11.0-16.0); White Blood Count 5.7 X10*3/uL (4.8-10.8)
[2024-09-29 09:41] LABS: Alanine Aminotransferase 45 U/L (0-31); Albumin Level 4.5 g/dL (3.5-5.0); Alkaline Phosphatase 82 U/L (39-117); Anion Gap 12 (12-20); Aspartate Amino Transferase 41 U/L (5-31); Bilirubin Total 0.6 mg/dL (0.0-1.0); Blood Urea Nitrogen 30 mg/dL (9-16); C Reactive Protein 0.14 mg/dL (< or = 0.50); Calcium 9.5 mg/dL (8.4-10.2); Carbon Dioxide 26 mmol/L (22-29); Chloride 108 mmol/L (96-108); Estimated Glomerular Filt Rate > 60; Glucose Random 90 mg/dL (60-115); Potassium 4.6 mmol/L (3.3-5.1); Sodium 141 mmol/L (135-145); Total Protein 7.1 g/dL (6.5-8.0)
[2024-09-29 09:47] LABS: Erythrocyte Sedimentation Rate 5 MM/HR (0-20)
[2024-09-29 09:55] LABS: HBc Num1 0.09 S/CO (0.00-0.79); HBsAGNum1 0.57 S/CO (0.00-0.99); Hepatitis A Antibody IgM 0.56 Index (0-0.79); Hepatitis B Core Antibody Nonreactive (Nonreactive); Hepatitis B Surface Antigen Negative (Negative); ~HepC Num1 0.13 S/CO (0.00-0.79); ~Hepatitis A Antibody IgM Nonreactive (Nonreactive); ~Hepatitis B Surface Antibody NONREACTIVE (Nonreactive); ~Hepatitis C Antibody Nonreactive (Nonreactive)
[2024-10-01 19:54] LABS: TS Negative Control Passed; TS Panel A 0; TS Panel B 0; TS Positive Control Passed; TSpotTB Negative (Negative)
== END 2024-09-29 08:33 | disposition home or self-care (01) ==
LOC: HO.LAB 08:32
PROVIDERS: PCP Internal Medicine; Visit Provider Student in an Organized Health Care Education/Training Program
DX: L40.50 Arthropathic psoriasis, unspecified (principal)
CPT/HCPCS: 36415; 80053; 85025; 85652; 86140; 86481; 86704; 86706; 86709; 86803; 87340

== ENCOUNTER 2024-10-01 07:33 | Outpatient (AMB) | payer MEDICARE, BC, SELFPAY ==
--- OUTSIDE RECORDS SUMMARY | 2024-09-29 06:30 | XMS_ITS | Continuity of Care Document ---
Author Organization [facility] Address [address] [place] [address] Dr [address] [place] [address] Phone Care Team Providers Care Clinical Account Specialist Name Role Phone Everardo MATSON, HEDY, Yared ROMERO Unavailable U navailable Procedures Procedure Date Office/Outpt E&M Established 15 Mins- CT & [place] Duplex Scan-extrem Veins; Uni/ CT & [place] J Duplex Scan-extrem Veins; Uni/ CT & MA [...] Diagnoses Date Provider Providers Copied on Encounter Office/Outpt E&M Established 15 Mins- CT & [place] [facility], [address] [place] [address] Dr Hudson [address]K[place], [id number], [place] tel:[phone] CVR - [place] - Dahinda Chronic venous hypertension (idiopathic) without complications of left lower extremity Everardo MATSON, NICK KNOTT. [address] [facility] 302, [place], [id number], [place]. tel:[phone] Referring Provider: Jermaine Berg MD, [address] [place] [address] Dr [address], [place], [address]. tel:[phone] [facility], [address] [place] [address] Dr Becca [address]Kael [place], [id number], [place] tel:[phone] CVR - [place] - Dahinda 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 of left lower extremity with pain 5 Everardo MATSON RVT, NICK [place]. [address] [place] [address], [address], [place], [id number], [place]. tel:[phone] Referring Provider: Jermaine Berg MD, [address] [place] [address] Dr [address], [place], [address]. tel:[phone] [facility], [address] [place] [address] Dr [address]Kael [place], [id number], [place] tel:[phone] CVR - [place] - Dahinda Encounter for follow-up examination after completed treatment for conditions other than malignant neoplasm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 of left lower extremity with pain 5 Everardo MATSON RVT, NICK [place]. [address] [place] [address], [facility] 302, [place], [id number], [place]. tel:[phone] Referring Provider: Jermaine Berg MD, [address] [place] [address] Dr [address], [place], [address]. tel:[phone] [facility], [address] [place] [address] Dr [address]Kael [place], [id number], [place] tel:[phone] CVR - [place] - Dahinda 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 of left lower extremity with other complications 5 Everardo MATSON RVT, NICK [place]. [address] [place] [address], [address], [place], [id number], [place]. tel:[phone] Referring Provider: Jermaine Berg MD, [address] [place] [address] Dr [address], [place], [address]. tel:[phone] Offic/outpt E&m Estab 5 Min Trial- Telemedicine CT & [place] [facility], [address] [place] [address] Dr [address]Kael [place], [id number], [place] tel:[phone] CVR - [place] - Dahinda Cramp and spasmVenous insufficiency (chronic) (peripheral) 5 Martha Katz. [address] [place] [address], [place], [id number], [place]. tel:[phone] Referring Provider: Jermaine Berg MD, [address] [place] [address] Dr [address], [place], [address]. tel:[phone] Office/Oupt E&M New Pt 45 Mins- CT & [place] [facility], [address] [place] [address] Dr Hudson [address]ael [place], [id number], [place] tel:[phone] CVR - [place] - Dahinda Chronic venous hypertension (idiopathic) with other complications of bilateral lower extremityCram p and spasm 5 Everardo MATSON, RVT, NICK [place]. [address] [place] [address], [place], [id number], [place]. tel:[phone] [facility], [address] [place] [address] Dr Hudson 1000[facility] 1000[place], [id number], [place] tel:[phone] CVR - [place] - Dahinda 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 of bilateral lower extremities with pain 5 Everardo MATSON, ZAIDT, NICK [place]. [address] [place] [address], [place], [id number], [place]. tel:[phone] Referring Provider: Yared Mcgee MD, ZAIDT, NICK, [address] [place] [address], [place], [address] . tel:[phone] Family History Family Member Type Diagnosis Age At Onset No Information Payers Payer name Insurance type Covered green party ID Authoriza tion(s) [facility] [id number] Medicare [facility] [id number] Social History Type Description Quantity Date Captured [...] Type Action Status Goal Diet education completed Goal Diet education completed Referral Ordered: Weight management: Referral to physician timeframe: 3 Months (related to Body mass index (BMI) 23.0-23.9, adult) ordered Referral Ordered: Weight management: Referral to physician [...] No Information Instructions Date Instruction Additional Infor delio Pre and post instruc tions reviewed and provided Related to Chronic venous hypertension (idiopathic) without complications of left lower extremity Patient education booklet given Related to Chronic venous hypertension (idiopathic) without complications of left lower extremity Lifestyle education Related to B kaen mass index (BMI) 23.0-23.9, adult Giving Encouragement to exercise Related to Body mass index (BMI) 23.0-23.9, adult Diet education Related to Body mass index (BMI) 23.0-23.9, adult Pre and post instruc tions reviewed and provided Related to Cramp and spasm Patient education booklet given Related to Cramp and spasm Patient education booklet given Related to Chronic venous hypertension (idiopathic) with other complications of bilateral lower extremity Pre and post instruc tions reviewed and [...]
--- NOTE | 2024-10-01 07:35 | A.OFFVIS_ITS ---
Vital Signs 10/01/24 07:44 Height 5 ft 2 in Weight 144 lb 2.917 oz BMI 26.4 BP 120/70 Blood Pressure Location Lt brachial Position Sitting Pulse 72 Pulse Source Pulse Oximeter Pulse Oximetry (%) 96 Oxygen Delivery Method Room Air Intake Visit Reasons: PSA Intake Note: Patient presents for PsA follow up. 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 At that time she was doing well after stopping her Otezla. No PsO or PsA. Complained of left shoulder pain and received a steroid injection. Today, Continues to do well No PsO or PsA Left shoulder improved after injection Not doing any further exercises for her bilateral greater trochanteric bursitis as they have improved. Rheumatologic History: PsO/PsA Enbrel 2014- not clearly helpful Otezla: 2017- 2023 Humira 04/2023 - Present. Methotrexate: 2016 - 01/19/2022. LFT elevations - methotrexate discontinued. She did okay until summer 2022 when she had a flare overall joint pains. Current Rheumatology Medication(s): Humira 40mg every other week [facility] Medical History Encounter for monitoring of adalimumab therapy Pain in left shoulder Gastritis Greater trochanteric bursitis of both hips History of colon polyps Insomnia 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 of left lower extremity with inflammation Polymyalgia rheumatica Failed neck syndrome Depression Anxiety Osteopenia Elevated LFTs Vitamin D deficiency Lumbar degenerative disc disease Fibromyalgia Pure hypercholesterolemia 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 of both lower extremities with pain intermediate methotrexate user Closed fracture of head of radius with routine healing Fracture of radial head, right, closed Occult fracture of right elbow Psoriatic arthritis Surgical History Hx of colonoscopy Hx of abdominoplasty S/P cervical spinal fusion Hx of section Family History Mother Lung cancer Father Drug addict Other Mental health problem Substance abuse Social History Household Members: Significant Other and Family Housing: House Are you a primary healthcare consulting manager to a significant other at home: No Do you presently have visiting nurse or other home services: No Alcohol intake: never Patient Tobacco Use Status: Never used Tobacco e-Cigarette/Vaping Use: Never Used Second Hand Smoke Exposure: Yes service: No Current occupational status: disabled Cognitive needs: No Hearing needs: No Vision needs: Yes (glasses) Review of Systems Const Details: Review of Systems Constitutional: Denies fever, chills, weight loss ENT: Denies vision changes, eye pain or eye redness, dental caries, dry mouth GI: Denies nausea, vomiting, diarrhea, abdominal pain, change in BM Pulm: Denies SOB, HELLER, hemoptysis, wheezing Cards: Denies chest pain, palpitations Skin: Denies Raynaud's, rash, nail changes, photosensitivity, LIBRARY PARAPROFESSIONAL: Denies headaches, weakness, paresthesias, recurrent falls MSK: as per HPI All other systems reviewed and are unremarkable except noted above Physical Exam Vital Signs: Last Vital Signs Pulse 72 10/01/24 07:44 BP 120/70 10/01/24 07:44 Pulse Ox 96 10/01/24 07:44 Oxygen Delivery Method Room Air 10/01/24 07:44 BMI result Body Mass Index 26.4 Vital signs reviewed Physical Examination CONSTITUITIONAL Patient alert and cooperative. Well appearing and in no apparent painful distress HEENT Conjunctiva and sclera clear. ?Pupils equal round and reactive to light. ?No lymphadenopathy. ? CHEST/RESPIRATORY SYSTEM Normal respiratory effort and able to speak in complete sentences. ?Clear to auscultation bilaterally. ?No crackles, rales, rhonchi, wheezes heard. CARDIAC SYSTEM Regular rate and rhythm. ?S1 and S2 heard no murmurs. ?Radial pulses intact bilaterally MSK Hands: ?Good auto clutch rebuilder strength bilaterally. No deformities noted. ?No synovitis noted to the MCPs, PIPs or DIPs. ?No tenderness to palpation of these joints. Heberden's nodes noted bilateral hands. Wrists: ?Full range of motion at the wrists without pain. ?No tenderness to palpation or synovitis noted to the wrists. Elbows: Full range of motion without pain. No tenderness, weakness, swelling, increased warmth or erythema. Shoulders: Full range of motion. Tenderness to palpation of the left subacromial bursa. Hips: Full range of motion without pain. Hip bursa: No TTP of bilateral hip bursa Knees: ?Full range of motion. ?No tenderness, swelling, increased warmth or erythema.?No effusion or crepitations Ankles: Full range of motion. ?No tenderness, swelling, increased warmth or erythema.? Feet: ?Negative squeeze test. ?No tenderness to palpation or swelling of the MTPs. Tender points:?No tenderness to palpation of the bilateral trapezius, supraspinatus, anterior costochondral junctions, bilateral gluteal areas, bilateral suboccipital muscle insertions SKIN Skin intact without rashes. Results Reviewed Results Reviewed: Laboratory Tests 06/19/24 09/29/24 06:57 08:51 WBC 5.7 RBC 5.25 Hgb 15.8 Hct 47.6 H ESR 5 Sodium 141 Potassium 4.6 Chloride 108 Carbon Dioxide 26 BUN 30 H Creatinine 0.79 Total Bilirubin 0.6 AST 30 41 H ALT 27 45 H C-Reactive Protein 0.14 Infectious serologies 05/20/24 09/29/24 07:38 08:51 Hepatitis A IgM Ab Nonreactive Hep Bs Antigen Negative Hep Bs Antibody NONREACTIVE Hep B Core Total Ab Nonreactive Hepatitis C Ab (EIA) Nonreactive TB Test (T-Spot) Com Negative Pending US Abdomen 04/2024 indings: The visualized pancreas is normal. The aorta and inferior vena cava are normal caliber. The appearance of the liver suggests fatty infiltration without focal lesion.. There is no intrahepatic bile duct dilatation. The common duct is 6.5 mm in diameter. There are gallstones. The gallbladder is otherwise normal. There is no sonographic Hoffmann sign. The main portal vein is antegrade. The right kidney is 11.0 cm in length. There is a thin-walled, likely Bosniak 1, 3.8 x 3.5 x 3.0 cm cyst. The left kidney is 9.3 cm in length. The spleen is normal. No ascites. IMPRESSION: 1. Hepatocytic ptosis. 2. Cholelithiasis Assessment & Plan Assessment & Plan (1) Psoriatic arthritis: Comment: Enbrel not clearly helpful Otezla: 2017- 2023 Humira 04/2023 - Present. Methotrexate: 2016 - 01/19/2022. LFT elevations - methotrexate discontinued. She did okay until summer 2022 when she had a flare overall joint pains. Code(s): L40.50 - Arthropathic psoriasis, unspecified Category: Medical Plan: #PsO/PsA Patient is a 63-year-old female with psoriasis/psoriatic arthritis currently in remission on Humira monotherapy. Doing well off Otezla. Plan - Humira 40mg SC every other week - RTC 6 months - Labs before visit: CBC, CMP, ESR, CRP (2) Subacromial bursitis of left shoulder joint: Code(s): M75.52 - Bursitis of left shoulder Plan: #Subacromial bursitis left shoulder Patient with subacromial bursitis of the left shoulder s/p steroid injection 05/2024 with improvement (3) Elevated LFTs: Code(s): R79.89 - Other specified abnormal findings of blood chemistry Category: Medical Plan: #Elevated LFTs Patient with mildly elevated LFTs today again today. Liver US 04/2024 showed hepatic steatosis. Will check liver elastography Plan - US abdomen with elastography - Printed pamphlet for patient on NAFLD diet recs (4) Encounter for monitoring of adalimumab therapy: Code(s): Z51.81 - Encounter for therapeutic drug level monitoring; Z79.620 - intermediate (current) use of immunosuppressive biologic Category: Medical Plan: #Long-term Use of TNF Inhibitors: Humira Discussed with the patient the benefits and risks of TNF inhibitors for the management of the rheumatic condition Benefits include reduce pain, maintenance of remission and reduction of flares as well as ?progression of the disease Risks include injection sites/infusion reactions, serious infections (such as bacterial infections, opportunistic infections), malignancy, delaminating syndromes, autoimmune phenomena, CHF exacerbations, palmar plantar psoriasis and cytopenias Recommended rotating injection sites, and holding medication during and for up to 1 week after resolution of a febrile illness or open skin wound Plan I spent 30 minutes reviewing the record and labs, taking a history, examining the patient, counseling about fatty liver disease, discussing the treatment plan and documenting in the medical record Orders: Orders Complete Blood Count Auto Diff 6 Months L40.50 - Arthropathic psoriasis, unspecified Erythrocyte Sedimentation Rate 6 Months L40.50 - Arthropathic psoriasis, unspecified US abdomen boss w elastography Today K76.0 - Fatty (change of) liver, not elsewhere classified Comprehensive Met. Panel 6 Months L40.50 - Arthropathic psoriasis, unspecified C Reactive Protein 6 Months L40.50 - Arthropathic psoriasis, unspecified Coding Level of Care Code Est Pt Level 4 (00806) Complex EM visit Add On G2211 Diagnoses Psoriatic arthritis L40.50 Subacromial bursitis of left shoulder joint M75.52 Elevated LFTs R79.89 Encounter for monitoring of adalimumab therapy Z51.81; Z79.620
[2024-10-01 07:44] VITALS: BP 120/70; PULSE 72; O2SAT 96; BMI 26.4
== END 2024-10-01 08:16 | disposition home or self-care (01) ==
LOC: HO.RHE 07:34
PROVIDERS: PCP Internal Medicine; Visit Provider Student in an Organized Health Care Education/Training Program
DX: L40.50 Arthropathic psoriasis, unspecified (principal); M75.52 Bursitis of left shoulder; R79.89 Other specified abnormal findings of blood chemistry; Z51.81 Encounter for therapeutic drug level monitoring; Z79.620 Long term (current) use of immunosuppressive biologic
CPT/HCPCS: 99214; G2211

== ENCOUNTER → 2024-10-01 07:33 | Outpatient (BNVA) | payer BC, MEDICARE, SELFPAY | PROVIDERS: PCP Internal Medicine; Visit Provider Student in an Organized Health Care Education/Training Program | DX: R74.01 Elevation of levels of liver transaminase levels (principal); L40.50 Arthropathic psoriasis, unspecified | CPT/HCPCS: 99212 ==

== ENCOUNTER 2024-10-08 08:52 | Outpatient (REF) | payer BC, MEDICARE, SELFPAY ==
--- OUTSIDE RECORDS SUMMARY | 2024-09-29 06:30 | XMS_ITS | Continuity of Care Document ---
Author Organization [facility] Address [address] [place] [address] Dr [address] [place] [address] Phone Care Team Providers Care Criminal Researcher Name Role Phone Everardo MATSON, HEDY, Yared [...] Mins- CT & [place] [facility], [address] [place] [address] Dr Hudson [address] 1000[place]ael [place], [id number], [place] tel:[phone] CVR - [place] - [place] Chronic venous hypertension (idiopathic) without complications of left lower extremity Everardo MATSON, NICK KNOTT. [address] [facility] 302, [place], [id number], [place]. tel:[phone] Referring Provider: Jermaine Berg MD, [address] [place] [address] Dr [address], [place], [address]. tel:[phone] [facility], [address] [place] [address] Dr Becca [address] 1000Kael [place], [id number], [place] tel:[phone] CVR - [place] - [place] 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 of left lower extremity with pain 5 Everardo MATSON RVT, NICK [place]. [address] [place] [address], [address], [place], [id number], [place]. tel:[phone] Referring Provider: Jermaine Berg MD, [address] [place] [address] Dr [address], [place], [address]. tel:[phone] [facility], [address] [place] [address] Dr [address] 1000Kael [place], [id number], [place] tel:[phone] CVR - [place] - [place] Encounter for follow-up examination after completed treatment for conditions other than malignant neoplasm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 of left lower extremity with pain 5 Everardo MATSON RVT, NICK [place]. [address] [place] [address], [facility] 302, [place], [id number], [place]. tel:[phone] Referring Provider: Jermaine Berg MD, [address] [place] [address] Dr [address], [place], [address]. tel:[phone] [facility], [address] [place] [address] Dr [address] 1000Kael [place], [id number], [place] tel:[phone] CVR - [place] - [place] 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 of left lower extremity with other complications 5 Everardo MATSON RVT, NICK [place]. [address] [place] [address], [address], [place], [id number], [place]. tel:[phone] Referring Provider: Jermaine Berg MD, [address] [place] [address] Dr [address], [place], [address]. tel:[phone] Offic/outpt E&m Estab 5 Min Trial- Telemedicine CT & [place] [facility], [address] [place] [address] Dr [address] 1000Kael [place], [id number], [place] tel:[phone] CVR - [place] - [place] Cramp and spasmVenous insufficiency (chronic) (peripheral) 5 Martha Katz. [address] [place] [address], [place], [id number], [place]. tel:[phone] Referring Provider: Jermaine Berg MD, [address] [place] [address] Dr [address], [place], [address]. tel:[phone] Office/Oupt E&M New Pt 45 Mins- CT & [place] [facility], [address] [place] [address] Dr [address] 1000Kael [place], [id number], [place] tel:[phone] CVR - [place] - [place] Chronic venous hypertension (idiopathic) with other complications of bilateral lower extremityCram p and spasm 5 Everardo MATSON, RVT, NICK [place]. [address] [place] [address], [place], [id number], [place]. tel:[phone] [facility], [address] [place] [address] Dr Hudson [facility] 1000Kael [place], [id number], [place] tel:[phone] CVR - [place] - [place] 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 of bilateral lower extremities with pain 5 Everardo MATSON, ZAIDT, NICK [place]. [address] [place] [address], [place], [id number], [place]. tel:[phone] Referring Provider: Yared Mcgee MD, ZAIDT, NICK, [address] [place] [address], [place], [address] . tel:[phone] Family History Family Member Type Diagnosis Age At Onset No Information Payers Payer name Insurance type Covered green party ID Authoriza tion(s) [facility] [id number] Medicare [facility] [id number] Social History Type Description Quantity Date Captured [...] Information Instructions Date Instruction Additional Infor delio Diet education Related to Body mass index (BMI) 23.0-23.9, adult Giving Encouragement to exercise Related to Body mass index (BMI) 23.0-23.9, adult Lifestyle education Related to B kane mass index (BMI) 23.0-23.9, adult Patient education booklet given Related to Chronic venous hypertension (idiopathic) without complications of left lower extremity Pre and post instruc tions reviewed and provided Related to Chronic venous hypertension (idiopathic) without complications of left lower extremity Patient education booklet given Related to Cramp and spasm Pre and post instruc tions reviewed and provided Related to Cramp and spasm Diet education Related to Body mass index (BMI) 23.0-23.9, adult Giving Encouragement to exercise Related to Body mass index (BMI) 23.0-23.9, adult Lifestyle education Related to B kane mass index (BMI) 23.0-23.9, adult Patient education booklet given Related to Chronic [...]
--- OUTSIDE RECORDS SUMMARY | 2024-10-08 09:03 | XMS_ITS | Clinical Summary ---
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 PQRI CPT II 3342F Code 85928, 00492 PQRI 225 CPT II 7025F TISSUE DENSITY: There are scattered areas of fibroglandular density. (BI-RADS category B) IMPRESSION: Benign. BI-RADS CATEGORY: 2 - BENIGN RECOMMENDATION: Screening bilateral mammogram is recommended in 1 year. Mammo Location: [facility], [address] [place] [address] -------- FINAL REPORT -------- Dictated By: Anjum Mota Dictated Date: 07/23/2024 08:38 ET Assigned Physician: Anjum Mota Reviewed and Electronically Signed By: Anjum Mota Signed Date: 07/23/2024 08:43 ET Workstation ID: [id number] Transcribed By: Self Edit Transcribed Date: 07/23/2024 08:38 ET Narrative 07/23/2024 8:43 AM EDT CLINICAL: The patient is a 63 years Female presenting for routine screening mammography. COMPARISON: Most recently 07/23/2023 and most remotely 02/18/2017. TECHNIQUE: Full-field digital mammography of the breasts bilaterally consisting of tomosynthesis in MLO and CC projection is performed in the Muute 2000-D unit. Computer aided detection utilizing the [...] MLO and CC projection is performed in theKnexxLocalographe 2000-D unit. Computer aided detection utilizing the Tesla Motorsystem was utilized. FINDINGS: The breasts are again [...] for biopsy. PQRI CPT II 3342F Code 04556, 83299 PQRI 225 CPT II 7025F TISSUE DENSITY: There are scattered areas of fibroglandular density.(BI-RADS category B) IMPRESSION: Benign. BI-RADS CATEGORY: 2 - BENIGN RECOMMENDATION: Screening bilateral mammogram is recommended in 1 year. Mammo Location: [facility], [address] [place] [id number] -------- FINAL REPORT -------- Dictated By: Anjum Mota Dictated Date: 07/23/2024 08:38 ET Assigned Physician: Anjum Mota Reviewed and Electronically Signed By: Anjum Mota Signed Date: 07/23/2024 08:43 ET Workstation ID: [id number] Transcribed By: Self Edit Transcribed Date: 07/23/2024 08:38 ET us Self Referral Sppl IMG BI PROCEDURES Final Resul t from Last 3 Months Insurance MEDICARE [facility] Care Teams Glass Crusher Relationship Specialty Start Date End Date Jermaine Berg MD [address] [place] [address] [address] DIANA Morton PCP - General Internal Medicine 02/11/12
[2024-10-08 09:13] LABS: MANUAL DIFF FLAG NO
[2024-10-08 09:40] LABS: Hematocrit 47.2 % (37.0-47.0); Hemoglobin 15.6 g/dl (12.0-16.0); Imm Gran Abs Auto 0.02 X10*3/uL (0.00-0.03); Imm Gran Pct Auto 0.2 % (0.0-0.4); Lymphocytes Absolute Auto 2.3 X10*3/uL (1.2-4.9); Mean Corpuscular HGB Conc 33.1 g/dl (31.0-35.0); Mean Corpuscular Hemoglobin 29.9 pg (27.0-33.0); Mean Corpuscular Volume 90.6 fL (80.0-98.0); NRBC Abs Auto 0.000 X10*3/uL (0.0-0.012); NRBC Pct Auto 0.0 /100WBC (0.0-0.2); Platelet Count 215 X10*3/uL (160-400); Red Blood Count 5.21 X10*6/uL (4.20-5.50); White Blood Count 8.8 X10*3/uL (4.8-10.8)
[2024-10-08 10:21] LABS: Appearance Urine Clear; Glucose Urine UA Negative (Negative); PH 5.5 (5.0-9.0); Specific Gravity - Urine 1.025 (1.005-1.025); UMIC TRIGGER UACC YES
[2024-10-08 10:25] LABS: Alanine Aminotransferase 26 U/L (0-31); Albumin Level 4.5 g/dL (3.5-5.0); Alkaline Phosphatase 70 U/L (39-117); Anion Gap 12 (12-20); Aspartate Amino Transferase 31 U/L (5-31); Blood Urea Nitrogen 24 mg/dL (9-16); Calcium 9.2 mg/dL (8.4-10.2); Carbon Dioxide 27 mmol/L (22-29); Chloride 107 mmol/L (96-108); Cholesterol 180 mg/dL (<200); Estimated Glomerular Filt Rate > 60; HDL Cholesterol 59 mg/dL (>40); Potassium 4.5 mmol/L (3.3-5.1); Sodium 141 mmol/L (135-145); Total Protein 7.0 g/dL (6.5-8.0); Triglycerides 86 mg/dL (<150)
== END 2024-10-08 08:53 | disposition home or self-care (01) ==
LOC: HO.LAB 08:52
PROVIDERS: PCP Internal Medicine; Visit Provider Internal Medicine
DX: D64.9 Anemia, unspecified (principal); E55.9 Vitamin D deficiency, unspecified; E78.00 Pure hypercholesterolemia, unspecified
CPT/HCPCS: 36415; 80053; 80061; 81001; 81003; 82306; 84443; 85025

== ENCOUNTER 2024-10-12 08:52 | Outpatient (AMB) | payer BC, MEDICARE, SELFPAY ==
[2024-10-12 08:54] VITALS: BP 122/86; PULSE 65; O2SAT 98; BMI 26.5
--- NOTE | 2024-10-12 08:54 | A.OFFPC_ITS ---
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 Required: No Accompanied by: Self / Same As Patient Allergies No Known Allergies Allergy (Verified 10/12/24 09:27) Medication List - Last Reconciled 10/12/24 by Jermaine Berg MD adalimumab (Humira(CF) Pen) 40 mg (0.4 mL) subcut Q2W 30 days atorvastatin 20 mg PO BEDTIME 90 days clonazepam 0.5 mg PO BID PRN ibuprofen 800 mg PO BID PRN Lactobacillus rhamnosus GG (Culturelle) 1 cap PO DAILY 90 days omeprazole 40 mg PO DAILY 30 days polyethylene glycol 3350 (Miralax) 17 grams PO DAILY 30 days tramadol 1 to 2 tablets every 4 to 6 hours as needed for pain (no more than 3 to 4 times a day); 30 days Tobacco use date assessed: 10/12/24 Dental Screening Dental Screen Date: 10/12/24 Did you have a dental visit in the last 12 months?: Yes Did you have a dental problem in the last 6 months where you did not have access to dental care?: No Was dental information given to patient?: Patient has dentist HPI 4 month f/u HPI Details Patient comes in today for her follow up visit States that she feels okay She denies any headaches or dizziness Denies any chest pains, no increased SOB No nausea/vomiting; she reports experiencing on and off cramping pains over her lower abdomen over the past couple of days No change in bowel habits noted - denies any loose stools or diarrhea lately in related to her cramping lower abdominal pain She reports that her chronic joint pains are adequately managed on her current regimen of both Humira and Otezla She had her follow up labs done a few days ago - to discuss her results [facility] Medical History Encounter for monitoring of adalimumab therapy Pain in left shoulder Gastritis Greater trochanteric bursitis of both hips History of colon polyps Insomnia 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 of left lower extremity with inflammation Polymyalgia rheumatica Failed neck syndrome Depression Anxiety Osteopenia Elevated LFTs Vitamin D deficiency Lumbar degenerative disc disease Fibromyalgia Pure hypercholesterolemia 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 of both lower extremities with pain [facility] methotrexate user Closed fracture of head of radius with routine healing Fracture of radial head, right, closed Occult fracture of right elbow Psoriatic arthritis Surgical History Hx of colonoscopy Hx of abdominoplasty S/P cervical spinal fusion Hx of section Family History Mother Lung cancer Father Drug addict Other Mental health problem Substance abuse Social History Household Members: Significant Other and Family Housing: House Are you a primary pharmacy customer care specialist to a significant other at home: No Do you presently have visiting nurse or other home services: No Alcohol intake: never Patient Tobacco Use Status: Never used Tobacco e-Cigarette/Vaping Use: Never Used Second Hand Smoke Exposure: Yes service: No Current occupational status: disabled Current occupational exposures/hazards: No Cognitive needs: No Hearing needs: No Vision needs: Yes (glasses) Questionnaire PHQ-9 Over the last 2 weeks, how often have you been bothered by any of the following problems? 1. Little interest or pleasure in doing things: several days 2. Feeling down, depressed, or hopeless: several days 3. Trouble falling or staying asleep, or sleeping too much: nearly every day 4. Feeling tired or having little energy: more than half the days 5. Poor appetite or overeating: more than half the days 6. Feeling bad about yourself - or that you are a failure or have let yourself or your family down: more than half the days 7. Trouble concentrating on things, such as reading the newspaper or watching television: nearly every day 8. Moving or speaking so slowly that other people could have noticed. Or the opposite - being so fidgety or restless that you have been moving around a lot more than usual: nearly every day 9. Thoughts that you would be better off or of hurting yourself in some way: not at all Total score: 17 Depression Screening Interpretation: Positive Depression Screening Follow-up: Existing condition and In treatment Depression Screening Done: Yes 22948 - PHQ-9 Billing: Yes Source: Developed by Drs. Yared Ge, Bella Moore, Ellis Ellis and colleagues, with an educational neil from [employer]. Thrive Questionnaire Date Thrive assessed: 10/12/24 I am a: Patient What is your living situation today?: I have a steady place to live Within the past 12 months, did the food you bought not last and you didn't have the money to get more?: I choose not to answer this question Within the past 12 months, did you worry whether your food would run out before you got money to buy more?: Sometimes True Do you have trouble paying for medicines?: No Do you have trouble getting transportation to medical appointments?: No Do you have trouble paying your heating and electricity bill?: I choose not to answer this question Do you have trouble taking care of your child, family member or friend?: I choose not to answer this question Do you have trouble with day-to-day activities such as bathing, preparing meals, shopping, managing finances, etc.?: No Are you currently unemployed and looking for a job?: I choose not to answer this question Are you interested in more education?: I choose not to answer this question Please select the resources that you would like help with: None Currently or been in a relationship where the following occur: No concerns reported THRIVE Score: 1 AUDIT C Alcohol Use Questionnaire (AUDIT-C) 1. How often do you have a drink containing alcohol?: Never 3. How often do you have six or more drinks on one occasion?: Never Total Score: 0 Score Reviewed/Action Taken: Yes JOSELO-7 AMB Questionnaire JOSELO-7 Date JOSELO - 7 assessed: 10/12/24 Feeling nervous, anxious, or on edge: 3 = Nearly every day Not being able to stop or control worryin = Nearly every day Worrying too much about different things: 3 = Nearly every day Trouble relaxin = Nearly every day Being so restless that it is hard to sit still: 3 = Nearly every day Becoming easily annoyed or irritable: 2 = More than half the days Feeling afraid as if something awful might happen: 0 = Not at all Total JOSELO-7 score (0-4 normal; 5-9 mild; 10-14 moderate; 15-21 severe): 17 Source: Developed by Drs. Yared Ge, Bella Moore, Ellis Ellis and colleagues, with an educational neil from [employer]. Review of Systems Const Denies chills, Reports fatigue, Denies fever(s) and Denies headache(s) ENT Denies dysphagia, Denies dizziness, Denies otalgia, Denies headache(s), Reports neck pain (chronic), Denies odynophagia and Denies sore throat Card Denies chest pain, Denies palpitations and Denies dyspnea Resp Denies chest congestion, Denies cough and Denies dyspnea GI Reports as per HPI, Reports abdominal pain (on and off cramping pain over the lower abdomen for the past 2 days), Denies hematochezia, Denies constipation, Denies dysphagia, Denies heartburn, Denies diarrhea, Denies nausea, Denies odynophagia and Denies vomiting Denies difficulty voiding, Denies nocturia, Denies dysuria and Denies urinary urgency Musc Reports back pain, Reports myalgias (diffuse), Reports arthralgias (left shoulder area - chronic) and Reports neck pain (chronic) Skin/Breast Denies rash Neuro Denies dizziness and Denies headache(s) Psych Reports anxiety and Reports depression (increasing lately) Endo Reports fatigue and Denies palpitations Physical exam (Primary Care) Vital Signs: Last Vital Signs Pulse 65 10/12/24 08:54 BP 122/86 10/12/24 08:54 Pulse Ox 98 10/12/24 08:54 Oxygen Delivery Method Room Air 10/12/24 08:54 BMI result Body Mass Index 26.5 Tobacco/Smoking Status: Tobacco use Status Tobacco use date assessed 10/12/24 10/12/24 08:55 Patient Tobacco Use Status Never used Tobacco 10/12/24 08:55 e-Cigarette/Vaping Use Never Used 10/12/24 08:55 PHQ-9: PHQ-9 Score PHQ-9: Total score 17 10/12/24 09:34 Depression Screening Interpretation: Positive Depression Screening Follow-up: Existing condition and In treatment Thrive Assessment: Date of Thrive Assessment Date Thrive assessed 10/12/24 10/12/24 08:55 Currently or been in a relationship where the following occur: No concerns reported Const General: no acute distress and alert HENMT Ears: TM's normal bilaterally and EAC's normal Throat: Yes posterior oropharynx normal and Yes tonsils normal (no TP congestion noted) Neck Neck: No lymphadenopathy Thyroid: Thyroid normal Resp Auscultation: clear to auscultation bilaterally, no rales and no wheezes Cardio Rate: regular rate Rhythm: regular rhythm Heart sounds: no murmurs GI Palpation (GI): Soft to palpation and nontender Auscultation: normal bowel sounds General: Yes no CVA tenderness Back/Spine/Pelvis Back: no CVA tenderness Cervical Spine: cervical muscular tenderness (especially over the left side) and Cervical spine tenderness Thoracic/Lumbar Spine: paraspinal muscle tenderness bilaterally in the upper thoracic and No lumbar spinal tenderness Skin Rashes: no rashes Extrem General: Yes no clubbing, cyanosis or edema Right upper extremity: shoulder/upper arm Details: tenderness; no swelling Left upper extremity: shoulder/upper arm Details: tenderness; no swelling Results Reviewed Results Reviewed: Laboratory Tests 10/08/24 10/08/24 09:11 09:12 WBC 8.8 Hgb 15.6 Hct 47.2 H Plt Count 215 Sodium 141 Potassium 4.5 Creatinine 0.70 Estimated GFR > 60 Fasting Glucose 90 Calcium 9.2 AST 31 ALT 26 Triglycerides 86 Cholesterol 180 LDL Cholesterol, Calc 104 H HDL Cholesterol 59 25-OH Vitamin D Total 41.4 TSH 1.75 Ur Specific [place] 1.025 Urine Protein Negative Urine Glucose (UA) Negative Urine Blood Small (1+) H Urine Nitrite Negative Ur Leukocyte Esterase Trace H Coding Level of Care Code Est Pt Level 4 (63705) Complex EM visit Add On G2211 Diagnoses Pure hypercholesterolemia E78.00 Psoriatic arthritis L40.50 Fibromyalgia M79.7 Failed neck syndrome M96.1 Degeneration of intervertebral disc of lumbar region with discogenic back pain M51.360 Disc-related pain type: discogenic back pain only Gastritis without bleeding, unspecified chronicity, unspecified gastritis type K29.70 Chronicity: unspecified Gastritis bleeding: without bleeding Gastritis type: unspecified gastritis Elevated LFTs R79.89 Abdominal pain, crampy R10.9 Vitamin D deficiency E55.9 Osteopenia, unspecified location M85.80 Osteopenia location: unspecified Benign microscopic hematuria R31.1 Renal cyst, right N28.1 Insomnia, unspecified type G47.00 Insomnia type: unspecified Anxiety F41.9 Depression, unspecified depression type F32.9 Depression Type: unspecified Additional Codes PHQ-9 - 43983 - PHQ-9 Billing: Yes ([id number]) Assessment & Plan Assessment & Plan (1) Pure hypercholesterolemia: Code(s): E78.00 - Pure hypercholesterolemia, unspecified Category: Medical Plan: Results of her labs done a few days ago reviewed and discussed with patient - she is advised that her cholesterol levels have improved significantly from previous Reinforced low cholesterol diet - goal is LDL cholesterol of at least < 100 mg/dL Continue Atorvastatin 20 mg QD Will recheck her labs and fasting lipids in 4 months for follow-up (2) Psoriatic arthritis: Comment: Enbrel not clearly helpful Otezla: 2023 Humira 04/2023 - Present. Methotrexate: 2016 - 01/19/2022. LFT elevations - methotrexate discontinued. She did okay until summer 2022 when she had a flare overall joint pains. Code(s): L40.50 - Arthropathic psoriasis, unspecified Category: Medical Plan: Continue Humira 40 mg SQ every 2 weeks and Otezla 30 mg QD - states that her pain has been better controlled on both Rx Methotrexate was discontinued by rheumatology last year She had a baseline echocardiogram done back in April 2023 that came out grossly normal Follow-up with rheumatology as scheduled (3) Fibromyalgia: Code(s): M79.7 - Fibromyalgia Category: Medical Plan: Patient is again encouraged to continue to stay active and exercise regularly to help manage her fibromyalgia symptoms Continue Tramadol 50 mg 1-2 tablets every 4-6 hours as needed (Rx refilled) and Baclofen 20 mg TID PRN (4) Failed neck syndrome: Code(s): M96.1 - Postlaminectomy syndrome, not elsewhere classified Category: Medical Plan: She had a cervical spine fusion (ADCF of C5 and C6) back in 2003 but the surgery failed to provide her with any lasting or significant relief of her chronic pain and she is currently on disability because of this issue She has been seen by pain management in the past and has failed trials of several pain meds and opioids as well as interventional treatments Continue Tramadol 50 mg TID PRN for pain (5) Lumbar degenerative disc disease: Code(s): M51.36 - Other intervertebral disc degeneration, lumbar region Category: Medical Qualifiers: Disc-related pain type: discogenic back pain only Qualified Code(s): M51.360 - Other intervertebral disc degeneration, lumbar region with discogenic back pain only Plan: Reinforced activity and weight-lifting restrictions to minimize flare ups of her low back pain Repeat lumbar spine x-rays done a couple of years ago showed only mild lumbar spondylotic changes; SI joints were normal bilaterally (6) Gastritis: Code(s): K29.70 - Gastritis, unspecified, without bleeding Category: Medical Qualifiers: Chronicity: unspecified Gastritis bleeding: without bleeding Gastritis type: unspecified gastritis Qualified Code(s): K29.70 - Gastritis, unspecified, without bleeding Plan: Her upper GI series done back in September 2023 revealed (+) granular appearance of the mid esophageal mucosa that likely represent esophagitis. There is mildly disorganized esophageal peristalsis and a thickened appearance of the areae gastricae likely representing gastritis due to H. pylori She was then checked for H. pylori, which came back positive and she was subsequently treated for this with 2 weeks of Bismuth quadruple therapy, which patient was able to complete back in February 2024 She eventually underwent EGD as well when she had her repeat colonoscopy done in March 2024 - EGD revealed (+) mildly tortuous esophagus but no evidence of esophagitis or Chahal's. There is moderate diffuse gastric erythema with nodular appearing mucosa in the gastric body. Biopsies obtained from the body and antrum both came back as mild chronic gastritis without activity and negative for intestinal metaplasia and dysplasia. Immunostains for H pylori were negative. The duodenum was normal in appearance Continue Omeprazole 40 mg QD Follow-up with GI as scheduled (7) Elevated LFTs: Code(s): R79.89 - Other specified abnormal findings of blood chemistry Category: Medical Plan: These were likely related to her weight (steatosis); her LFTs have remained normal on her recent labs Will continue to monitor her LFTs regularly (8) Abdominal pain, crampy: Code(s): R10.9 - Unspecified abdominal pain Category: Medical Plan: She reports experiencing on and off transient cramping pains over the lower abdomen for the past couple of days She had a HIDA scan done (ordered by GI) a couple of weeks ago that came back normal She is scheduled for abdominal US (ordered by rheumatology) next month for elevated LFTs although her LFTs have returned back to normal on her recent labs Have advised patient that her recent cramping abdominal pains are likely due to bowel cramping and possibly related to conditions like IBS She reports experiencing a lot of increased stress lately (9) Vitamin D deficiency: Code(s): E55.9 - Vitamin D deficiency, unspecified Category: Medical Plan: Corrected - continue OTC Vitamin D supplements daily (10) Osteopenia: Code(s): M85.80 - Other specified disorders of bone density and structure, unspecified site Category: Medical Qualifiers: Osteopenia location: unspecified Qualified Code(s): M85.80 - Other specified disorders of bone density and structure, unspecified site Plan: Repeat BMD done in April 2021 showed (+) osteopenia with 4.8% decline in AP spine BMD from her previous BMD in 02/2019 and 1.3% decline in left femoral BMD from previous in 02/2019 -? will continue to monitor this regularly Patient is again encouraged to exercise regularly to help slow down the decline of her BMD and she is reminded to continue on her Vitamin D and calcium supplements daily Will recheck her bone density scan again for follow-up (11) Benign microscopic hematuria: Code(s): R31.1 - Benign essential microscopic hematuria Category: Medical Plan: Patient continues to have (+) RBCs in her urine (chronic finding); she remains asymptomatic Renal US last done in 03/2014 revealed (+) right renal cyst that is mostly unchanged from her US in 2007 Repeat renal US done in July 2022 showed the same findings; no further follow up imaging studies is recommended at this point (12) Renal cyst, right: Code(s): N28.1 - Cyst of kidney, acquired Category: Medical Plan: (+) right renal cyst noted on sonogram done in 2007 and in 2013 as well as most recently in July 2022 - no further follow up imaging studies is recommended (13) Insomnia: Code(s): G47.00 - Insomnia, unspecified Category: Medical Qualifiers: Insomnia type: unspecified Qualified Code(s): G47.00 - Insomnia, unspecified Plan: Sleep hygiene reinforced Continue Trazodone 100 mg Q HS (14) Anxiety: Code(s): F41.9 - Anxiety disorder, unspecified Category: Medical Plan: Continue Clonazepam 0.5 mg 1 tablet 2 to 3 times a day as needed for anxiety (15) Depression: Code(s): F32.9 - Major depressive disorder, single episode, unspecified Category: Medical Qualifiers: Depression Type: unspecified Qualified Code(s): F32.9 - Major depressive disorder, single episode, unspecified Plan: Continue Venlafaxine ER 187.5 mg (150 + 37.5 mg) QD She was not able to tolerate Seroquel in the past Follow-up with Psychiatry as scheduled Plan Follow-up in 4 months Orders: Orders Lipid Panel 4 Months E78.00 - Pure hypercholesterolemia, unspecified Complete Blood Count Auto Diff 4 Months D64.9 - Anemia, unspecified Comprehensive [place]. Panel Fast 4 Months E78.00 - Pure hypercholesterolemia, unspecified TSH reflex Free T4 4 Months E78.00 - Pure hypercholesterolemia, unspecified UA CC w/rflx Micro + Cult 4 Months R30.0 - Dysuria Vitamin D 25-OH Total 4 Months E55.9 - Vitamin D deficiency, unspecified XR DEXA axial skeleton Today M85.80 - Other specified disorders of bone density and structure, unspecified site, Z78.0 - Asymptomatic menopausal state Medications: Refilled clonazepam 0.5 mg PO BID PRN 60 tabs 0RF anxiety
== END 2024-10-12 09:47 | disposition home or self-care (01) ==
LOC: HO.HMCH 08:52
PROVIDERS: PCP Internal Medicine; Visit Provider Internal Medicine
DX: E78.00 Pure hypercholesterolemia, unspecified (principal); L40.50 Arthropathic psoriasis, unspecified; M79.7 Fibromyalgia; M96.1 Postlaminectomy syndrome, not elsewhere classified; M51.360 Other intervertebral disc degeneration, lumbar region with discogenic back pain only; K29.70 Gastritis, unspecified, without bleeding; R79.89 Other specified abnormal findings of blood chemistry; R10.9 Unspecified abdominal pain; E55.9 Vitamin D deficiency, unspecified; M85.80 Other specified disorders of bone density and structure, unspecified site; R31.1 Benign essential microscopic hematuria; N28.1 Cyst of kidney, acquired; G47.00 Insomnia, unspecified; F41.9 Anxiety disorder, unspecified; F32.9 Major depressive disorder, single episode, unspecified

== ENCOUNTER → 2024-10-12 08:52 | Outpatient (BNVA) | payer BC, MEDICARE, SELFPAY | PROVIDERS: PCP Internal Medicine; Visit Provider Internal Medicine | DX: M79.7 Fibromyalgia (principal); E78.00 Pure hypercholesterolemia, unspecified; L40.50 Arthropathic psoriasis, unspecified; M96.1 Postlaminectomy syndrome, not elsewhere classified; M51.360 Other intervertebral disc degeneration, lumbar region with discogenic back pain only; K29.70 Gastritis, unspecified, without bleeding; R79.89 Other specified abnormal findings of blood chemistry; R10.9 Unspecified abdominal pain; E55.9 Vitamin D deficiency, unspecified; M85.80 Other specified disorders of bone density and structure, unspecified site; R31.1 Benign essential microscopic hematuria; N28.1 Cyst of kidney, acquired; G47.00 Insomnia, unspecified; F41.9 Anxiety disorder, unspecified; F32.9 Major depressive disorder, single episode, unspecified | CPT/HCPCS: 96127 ==

== ENCOUNTER 2024-11-23 08:06 | Outpatient (REF) | payer BC, MEDICARE, SELFPAY ==
--- NOTE | ~2024-11-23 | US_ITS ---
EXAMINATION: US ABDOMEN LIMITED WITH LIVER ELASTOGRAPHY HISTORY: K76.0 - Fatty (change of) liver, not elsewhere classified TECHNIQUE: Real-time grayscale ultrasound imaging of the right upper quadrant was performed and images were reviewed. COMPARISON: Comparison is made with the prior examination dated 04/24/2024. FINDINGS: Liver: The right lobe of the liver measures 14.6 cm in size. The left lobe of the liver measures 7.4 cm in size. The liver demonstrates normal homogeneous echotexture. No focal mass or intrahepatic biliary ductal dilatation is identified. There is normal hepatopedal flow in the portal vein. Ultrasound elastography of the liver was performed with 10 separate measurements of the liver parenchyma with the patient in the supine position. Measurements were obtained approximately 2 cm below Dorothy's capsule and perpendicular to the capsule. The median shear wave velocity is 1.69 m/s. The interquartile range/median (IQR/median) is 0.06. Gallbladder and biliary tree: Multiple shadowing calculi are noted in the gallbladder. There is no wall thickening or pericholecystic fluid. There is no sonographic Hoffmann sign. The common bile duct measures up to 9 mm in diameter. Right Kidney: The right kidney measures 9.6 cm in length and demonstrates a 4.5 x 4.0 x 4.0 cm lower pole cyst. The right kidney is otherwise unremarkable, without evidence of solid masses, hydronephrosis, or calculi. Pancreas: The pancreatic head, neck, and body are unremarkable. The pancreatic tail is obscured by bowel gas. Abdominal aorta and inferior vena cava: The visualized portions of the abdominal aorta and inferior vena cava are normal in caliber. There is no free fluid in the right upper quadrant. US/US abdomen boss w elastography IMPRESSION: 1. 4.5 x 4.0 x 4.0 cm right lower pole renal cyst. 2. Mild dilatation of the common bile duct without evidence of intrahepatic biliary ductal dilatation. If there is clinical concern for choledocholithiasis, MRCP could be performed. The median shear wave velocity in the liver is 1.69 m/s, corresponding to a median liver stiffness of 8.75 kPa. The IQR/median value is 0.07. This is indicative of a quality data set. Findings are indicative of a low elastography value which rules out advanced chronic liver disease in asymptomatic patients. REFERENCE: Society of Radiologists in Ultrasound Liver Stiffness Thresholds (2020): LIVER STIFFNESS THRESHOLDS: *Shear wave velocity less than 1.3 m/s (Liver Stiffness equal or less than 5 kPa): High probability of being normal. *Shear wave velocity less than 1.7 m/s (Liver Stiffness less than 9 kPa): In the absence of other known clinical signs, rules out compensated advanced chronic liver disease. *Shear wave velocity between 1.7-2.1 m/s (Liver Stiffness 9-13 kPa): Suggestive of compensated advanced chronic liver disease but need further test for confirmation. *Shear wave velocity between 2.1-2.4 m/s (Liver Stiffness 13-17 kPa): Rules in compensated advanced chronic liver disease. *Shear wave velocity greater than 2.4 m/s (Liver Stiffness over 17 kPa): Suggestive of clinically significant portal hypertension. QUALITY OF DATA SET: *IQR/Median value equal or less than 0.30 implies a quality data set. *IQR/Median value over 0.30 implies a poor quality data set. SIGNIFICANT CHANGE FROM PRIOR EXAM: Significant change if liver stiffness measurement is 10% or greater from prior exam. OTHER CONSIDERATIONS: The stage of liver fibrosis may be overestimated in the setting of acute hepatitis, liver inflammation, elevated liver function tests, hepatic vascular congestion, obstructive cholestasis, non-fasting state, and infiltrative diseases such as amyloidosis and lymphoma. In some patients with NAFLD, the liver stiffness thresholds for compensated advanced chronic liver disease may be lower. In causes other than viral hepatitis and NAFLD, liver stiffness thresholds are not well established. Electronically signed by: Yared Rose MD 11/23/2024 09:17 AM EDT
--- OUTSIDE RECORDS SUMMARY | 2024-11-23 08:14 | XMS_ITS | Clinical Summary ---
Author Organization [facility] Address [address] [place] [phone] Phone Care Team Providers Care Juvenile Court Judge Name Role Phone Jermaine Berg MD Primary [...] Health Maintenance Due Date Last Done Comments Cervical Cancer Screening: Pap Smear 1981 Pneumococcal Vaccine: 50+ Years (1 of 1 - PCV) 2010 Zoster Vaccines (1 of 2) 2010 COVID-19 Vaccine (3 - Pfizer risk series) 09/13/2020 08/16/2020, 07/26/2020 Colorectal Cancer Screening: Colonoscopy 03/10/2022 HIV Screening 03/10/2022 Hepatitis C Screening 03/10/2022 Medicare Annual Wellness Visit 03/10/2022 Social Influencers of Health Screening 03/10/2022 Depression Screening 04/08/2024 Influenza Vaccine (#1) 2024 , 01/18/2023, 01/18/2022, Additional history exists DTaP,Tdap,and Td Vaccines (2 - Td or Tdap) 03/19/2026 03/19/2016 Breast Cancer Screening 07/23/2026 07/24/19 25, 07/23/2023, 07/22/2022, Additional history exists RSV Immunization Adult Patients (1 - 1-dose 75+ series) 10/26/2035 HIB [...] for breast cancer from Last 3 Months or Most Recently Relevant to Health Maintenance Results * MG Mammo Digital Screening w [...] for biopsy. PQRI CPT II 3342F Code 03255, 65372 PQRI 225 CPT II 7025F TISSUE DENSITY: There are scattered areas of fibroglandular density. (BI-RADS category B) IMPRESSION: Benign. BI-RADS CATEGORY: 2 - BENIGN RECOMMENDATION: Screening bilateral mammogram is recommended in 1 year. Mammo Location: [facility], [facility], [address] [place] [address] -------- FINAL REPORT -------- Dictated By: Anjum Mota Dictated Date: 07/23/2024 08:38 ET Assigned Physician: Anjum Mota Reviewed and Electronically Signed By: Anjum Mota Signed Date: 07/23/2024 08:43 ET Workstation ID: [id number] Transcribed By: Self Edit Transcribed Date: 07/23/2024 08:38 ET Narrative 07/23/2024 8:43 AM EDT CLINICAL: The patient is a 63 years Female presenting for routine screening mammography. COMPARISON: Most recently 07/23/2023 and most remotely 02/18/2017. TECHNIQUE: Full-field digital mammography of the breasts bilaterally consisting of tomosynthesis in MLO and CC projection is performed in the [employer] 2000-D unit. Computer aided detection utilizing the [...] MLO and CC projection is performed in theMomspotographe 2000-D unit. Computer aided detection utilizing the VeriShowystem was utilized. FINDINGS: The breasts are again [...] for biopsy. PQRI CPT II 3342F Code 39217, 96599 PQRI 225 CPT II 7025F TISSUE DENSITY: There are scattered areas of fibroglandular density.(BI-RADS category B) IMPRESSION: Benign. BI-RADS CATEGORY: 2 - BENIGN RECOMMENDATION: Screening bilateral mammogram is recommended in 1 year. Mammo Location: [facility], [facility], [address] [place] [id number] -------- FINAL REPORT -------- Dictated By: Ajnum Mota Dictated Date: 07/23/2024 08:38 ET Assigned Physician: Anjum Mota Reviewed and Electronically Signed By: Anjum Mota Signed Date: 07/23/2024 08:43 ET Workstation ID: [id number] Transcribed By: Self Edit Transcribed Date: 07/23/2024 08:38 ET us Self Referral Sppl IMG BI PROCEDURES Final Resul t from Last 3 Months or Most Recently Relevant to Health Maintenance Insurance MEDICARE [facility] Care Teams Juvenile Court Judge Relationship Specialty Start Date End Date Jermaine Berg MD [address] [place] [address] [address] [place] PCP - General Internal Medicine 02/11/12
== END 2024-11-23 08:07 | disposition home or self-care (01) ==
LOC: HO.US 08:06
PROVIDERS: PCP Internal Medicine; Visit Provider Student in an Organized Health Care Education/Training Program
DX: K76.0 Fatty (change of) liver, not elsewhere classified (principal)
CPT/HCPCS: 76705; 76981

== ENCOUNTER → 2024-11-23 08:08 | Outpatient (BNV) | payer BC, MEDICARE, SELFPAY | PROVIDERS: PCP Internal Medicine; Visit Provider Radiology Diagnostic Radiology | DX: K76.0 Fatty (change of) liver, not elsewhere classified (principal); N28.1 Cyst of kidney, acquired | CPT/HCPCS: 76705 ==

== ENCOUNTER 2024-11-24 08:55 | Outpatient (REF) | payer BC, MEDICARE, SELFPAY ==
--- NOTE | ~2024-11-24 | MM_ITS ---
EXAMINATION: DXA BONE DENSITY AXIAL HISTORY: Z78.0 - Asymptomatic menopausal state TECHNIQUE: [employer] Dual energy absorptiometry (DEXA) of the lumbar spine, total left hip, and femoral neck was performed. COMPARISON: Comparison is made with the prior examination dated 04/26/2021. FINDINGS: The bone mineral density of the lumbar spine is 1.177 g/cm2, corresponding to a T-score of 0.0, and a Z-score of 1.4. This is indicative of normal bone mineral density. This represents a BMD change of 9.8% compared to the prior exam. This is statistically significant. The bone mineral density of the left total hip is 0.961 g/cm2, corresponding to a T-score of -0.4, and a Z-score of 0.7. This is indicative of normal bone mineral density. This represents a BMD change of -1.4% compared to the prior exam. This is not statistically significant. The bone mineral density of the left femoral neck is 0.781 g/cm2, corresponding to a T-score of -1.2, and a Z-score of 0.2. This is indicative of osteopenia. This represents a BMD change of 2.2% compared to the prior exam. FRACTURE RISK: The FRAX index suggests a ten year probability of major osteoporotic fracture of 21.1%, and of hip fracture 2.0%. MM/XR DEXA axial skeleton IMPRESSION: Based on bone mineral density, and according to World Health Organization (WHO) criteria, the diagnosis is consistent with osteopenia. Statistically, 68% of repeat scans fall within 1 SD (+/- 0.010 g/cm2 for AP spine L1-L4) and 1 SD (+/- 0.012 g/cm2 for femur total) FRAX is a trademark of the [employer]'s [place] for Metabolic Bone Disease, a World Health Organization (WHO) Collaborating Center. Electronically signed by: Yared Rose MD 11/24/2024 09:49 AM EDT
--- OUTSIDE RECORDS SUMMARY | 2024-11-24 09:48 | XMS_ITS | Clinical Summary ---
Author Organization [facility] Address [address] [place] [phone] Phone Care Team Providers Care Chronometer Adjuster Name Role Phone Jermaine Berg MD Primary [...] for biopsy. PQRI CPT II 3342F Code 45587, 07114 PQRI 225 CPT II 7025F TISSUE DENSITY: There are scattered areas of fibroglandular density. (BI-RADS category B) IMPRESSION: Benign. BI-RADS CATEGORY: 2 - BENIGN RECOMMENDATION: Screening bilateral mammogram is recommended in 1 year. Mammo Location: [facility], [facility], [address] [place] [address] -------- FINAL REPORT -------- Dictated By: Anjum Mota Dictated Date: 07/23/2024 08:38 ET Assigned Physician: Anjum Mota Reviewed and Electronically Signed By: Anjum Mota Signed Date: 07/23/2024 08:43 ET Workstation ID: [id number] Transcribed By: Self Edit Transcribed Date: 07/23/2024 08:38 ET Narrative 07/23/2024 8:43 AM EDT CLINICAL: The patient is a 63 years Female presenting for routine screening mammography. COMPARISON: Most recently 07/23/2023 and most remotely 02/18/2017. TECHNIQUE: Full-field digital mammography of the breasts bilaterally consisting of tomosynthesis in MLO and CC projection is performed in the [employer] 2000-D unit. Computer aided detection utilizing the [...] MLO and CC projection is performed in theSoshowiseographe 2000-D unit. Computer aided detection utilizing the Brainrackystem was utilized. FINDINGS: The breasts are again [...] for biopsy. PQRI CPT II 3342F Code 00436, 60194 PQRI 225 CPT II 7025F TISSUE DENSITY: There are scattered areas of fibroglandular density.(BI-RADS category B) IMPRESSION: Benign. BI-RADS CATEGORY: 2 - BENIGN RECOMMENDATION: Screening bilateral mammogram is recommended in 1 year. Mammo Location: [facility], [facility], [address] [place] [id number] -------- FINAL REPORT -------- Dictated By: Anjum Mota Dictated Date: 07/23/2024 08:38 ET Assigned Physician: Anjum Mota Reviewed and Electronically Signed By: Anjum Mota Signed Date: 07/23/2024 08:43 ET Workstation ID: [id number] Transcribed By: Self Edit Transcribed Date: 07/23/2024 08:38 ET us Self Referral Sppl IMG BI PROCEDURES Final Resul t from Last 3 Months or Most Recently Relevant to Health Maintenance Insurance MEDICARE [facility] Care Teams Chronometer Adjuster Relationship Specialty Start Date End Date Jermaine Berg MD [address] [place] [address] [address] [place] PCP - General Internal Medicine 02/11/12
== END 2024-11-24 08:56 | disposition home or self-care (01) ==
LOC: HO.MAMMO 08:55
PROVIDERS: PCP Internal Medicine; Visit Provider Internal Medicine
DX: Z13.820 Encounter for screening for osteoporosis (principal); Z78.0 Asymptomatic menopausal state; M85.80 Other specified disorders of bone density and structure, unspecified site
CPT/HCPCS: 77080

== ENCOUNTER → 2024-11-24 09:15 | Outpatient (BNV) | payer BC, MEDICARE, SELFPAY | PROVIDERS: PCP Internal Medicine; Visit Provider Radiology Diagnostic Radiology | DX: E28.39 Other primary ovarian failure (principal) | CPT/HCPCS: 77080 ==

== ENCOUNTER 2024-12-24 08:06 | Outpatient (AMB) | payer MEDICARE, BC, SELFPAY ==
--- NOTE | 2024-12-24 08:16 | A.OFFVIS_ITS ---
Vital Signs 12/24/24 08:21 Height 5 ft 2 in Weight 148 lb BMI 27.1 BP 124/69 Blood Pressure Location Lt brachial Position Sitting Pulse 69 Pulse Oximetry (%) 96 Oxygen Delivery Method Room Air Intake Visit Reasons: 4 hida Intake Note: Patient follow up for Cholelithiasis and NM results. Patient cc: heartburn and abdominal discomfort.Denies any other GI issues for today. Pathology Collector Required: No Accompanied by: Self / Same As Patient Allergies No Known Allergies Allergy (Verified 12/24/24 08:23) Medication List - Last Reconciled 12/24/24 by Drew Avila MD adalimumab (Humira(CF) Pen) 40 mg (0.4 mL) subcut Q2W 30 days atorvastatin 20 mg PO BEDTIME 90 days clonazepam 0.5 mg PO BID PRN ibuprofen 800 mg PO BID PRN Lactobacillus rhamnosus GG (Culturelle) 1 cap PO DAILY 90 days omeprazole 40 mg PO DAILY 30 days polyethylene glycol 3350 (Miralax) 17 grams PO DAILY 30 days tramadol 1 to 2 tablets every 4 to 6 hours as needed for pain (no more than 3 to 4 times a day); 30 days HPI HPI 4 hida: Details: GI clinic visit for this 64 YF for FU after EGD and colon. Pt was previously followed by POLLO Maza Patient is on Humira for psoriatic arthritis TODAY'S VISIT: Patient follow up for History of colon polyps and US result. Patient cc: constipation, swallowing difficulty on and off and acid reflux. Doing OK - notes intermittent abd pain and feels bloated Takes Miralax 3-4 times a week - has a BM daily on most days with incomplete evacuation. Has not tramadol in a long time Took Ibuprofen 2-3 months ago - takes rarely Abd pain is not too bad at present - can have epigastric pain once in a while. Last episode was a week ago. Unable to eat late - can have nocturnal regurgitation of acid in her throat. Denies dysphagia. Has a BM every other day and can have small stool BM associated with straining and hard stools Not taking any medication - takes the powder every few days. PAST VISITS: Pt feels everything sits in the upper abdomen and it hurts. Had a bagel yesterday and was burping all day. Feels her belly is huge. Complains of chronic constipation - has a BM every other day associated with straining and hard stools Takes Metamucil every other day if she does not have a BM and has not used Miralax in along time. Patient denies symptoms of acid reflux/heartburn, dysphagia, nausea, vomiting, change in appetite. Weight has been going up. Denies recent diarrhea, black stools or rectal bleeding. Patient denies major cardiac or pulmonary problems, loud snoring or sleep apnea Denies problems with anesthesia in the past. Denies being on chronic anticoagulation. Denies smoking and rare ETOH. Worked at the [employer] for 22 years. Broke her neck at work in and stopped working. Lives with her boyfriend and raising his 2 GK. Patient denies known family history of colon polyps, colon cancer or other GI malignancies. LABS IN [place] : Reviewed IMAGING STUDIES: 09/23/23 UGI SHOWED: 1. Granular appearance of the mid esophageal mucosa that likely represent esophagitis. 2. Mildly disorganized esophageal peristalsis 3. Thickened appearance of the areae gastricae likely representing gastritis due to H. pylori 4. Status post ACDF C6-C7 ENDOSCOPIC STUDIES: 03/20/24 EGD AND COLON WAS PERFORMED: Endoscopy Findings: ESOPHAGUS: GE junction at 38 cms. Mildly tortuous esophagus No esophagitis or Chahal's. STOMACH: Moderate diffuse gastric erythema with nodular appearing mucosa in the gastric body - biopsies were obtained from the body and antrum. DUODENUM: Normal Colonoscopy Findings: One small polyp was removed Moderate diverticulosis seen in the entire colon Moderate hemorrhoids on retroflexed exam. Plan: Repeat Colonoscopy in 5 years if polyps are adenomatous and due to a hx of adenomatous polyps. Above findings were reviewed with the patient and relevant handouts were given and the discharge area. BIOPSIES SHOWED: A. Gastric antrum, biopsy: Gastric antral mucosa with mild chronic gastritis without activity; negative for intestinal metaplasia and dysplasia. B. Gastric body, biopsy: Gastric body mucosa with mild chronic gastritis without activity; negative for intestinal metaplasia and dysplasia. C. Colon, transverse, polyp: Polypoid colonic mucosa with no specific change seen on initial levels (see comment). Comment: (A and B): Immunostains for H. pylori were negative PAST GI HISTORY BY REVIEW OF MEDICAL RECORDS: 03/09/24 PATIENT HAD A TELEVISIT WITH DR. BERNSTEIN: CC: She states pains in her ribcage -- was told there was a tear in her esophagus during a BA swallow. Was told she had an infection and did a stool sample. She was treated for H Pylori by PCP. Lots of pains in her throat. Burps are burning. Feels a ball in her chest. 63 yr old f been called for f/u She had colonoscopy 2020 and had polyps removed, due another she had treatment for H pylori was checked after c/o a ball like sensation in chest PCP did ba swallow which revealed possible esophagitis and gastritis she has noted constipation, and stool shape she is taking metamucil and feels its is not helping --she has good intake of water she takes tramadol prn, rarely A/P: 1/ Esophagitis on Ba swallow 2/ Abn bowel habit hx of polyps PLAN: 1/ she has Colonoscopy coming up, we can add EGD -already scheduled with Dr Avila--re eval and r/o polyps, neoplasia, persistent H pylori PFSH Medical History Encounter for monitoring of adalimumab therapy Pain in left shoulder Gastritis Greater trochanteric bursitis of both hips History of colon polyps Insomnia 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 of left lower extremity with inflammation Polymyalgia rheumatica Failed neck syndrome Depression Anxiety Osteopenia Elevated LFTs Vitamin D deficiency Lumbar degenerative disc disease Fibromyalgia Pure hypercholesterolemia 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 of both lower extremities with pain FCI methotrexate user Closed fracture of head of radius with routine healing Fracture of radial head, right, closed Occult fracture of right elbow Psoriatic arthritis Surgical History Hx of colonoscopy Hx of abdominoplasty S/P cervical spinal fusion Hx of section Family History Mother Lung cancer Father Drug addict Other Mental health problem Substance abuse Social History Household Members: Significant Other and Family Housing: House Are you a primary personal care attendant to a significant other at home: No Do you presently have visiting nurse or other home services: No Alcohol intake: never Patient Tobacco Use Status: Never used Tobacco e-Cigarette/Vaping Use: Never Used Second Hand Smoke Exposure: Yes service: No Current occupational status: disabled Current occupational exposures/hazards: No Cognitive needs: No Hearing needs: No Vision needs: Yes (glasses) Review of Systems Const All systems reviewed & are unremarkable except as noted in HPI and below Physical Exam Const General: healthy appearing, no acute distress and anxious Nutritional Appearance: overweight Orientation/consciousness: patient oriented x3 Limitations: no limitations HEENT Head: Yes normal to inspection Ears: hearing grossly normal bilaterally Eyes Sclerae: sclerae normal Pupils: Equal, round and reactive pupils present Neck Neck: Yes normal visual inspection Chest Chest palpation & inspection: normal inspection of the chest Resp Effort & Inspection: normal respiratory effort Auscultation: clear to auscultation bilaterally Cardio Palpation: normal PMI Rate: regular rate Rhythm: regular rhythm Heart sounds: S1 normal heart sound present, S2 normal heart sound present and no murmurs GI Palpation (GI): Soft to palpation, nontender and No hepatosplenomegaly present Auscultation: normal bowel sounds Rectal Exam - Female: deferred Skin General skin exam: no rashes or lesions noted Neuro General: patient oriented x3, gait normal and moves all extremities Cranial nerves: Yes Equal, round and reactive pupils present Psych Appearance: grossly normal Mental Status: mental status grossly normal Assessment & Plan Assessment & Plan (1) Elevated LFTs: Code(s): R79.89 - Other specified abnormal findings of blood chemistry Category: Medical (2) History of colon polyps: Comment: Personal history colon adenomas, repeat colonoscopy-a 3 year Discuss family history, FDR begin screening at age 40 Code(s): Z86.010 - Personal history of colon polyps Category: Medical (3) Diverticulosis: Comment: HFD-discuss diverticulosis/diverticulitis Code(s): K57.90 - Diverticulosis of intestine, part unspecified, without perforation or abscess without bleeding Category: Medical (4) Difficulty swallowing: Code(s): R13.10 - Dysphagia, unspecified Category: Medical Qualifiers: Dysphagia type: unspecified Qualified Code(s): R13.10 - Dysphagia, unspecified (5) Gastritis: Code(s): K29.70 - Gastritis, unspecified, without bleeding Category: Medical Qualifiers: Gastritis type: unspecified gastritis Chronicity: unspecified Gastritis bleeding: without bleeding Qualified Code(s): K29.70 - Gastritis, unspecified, without bleeding (6) Cholelithiasis: Code(s): K80.20 - Calculus of gallbladder without cholecystitis without obstruction Category: Medical (7) Dilated cbd, acquired: Code(s): K83.8 - Other specified diseases of biliary tract Category: Medical Plan 64 YF with psoriatic arthritis complains of postprandial abdominal discomfort and constipation. 03/20/24 she and colonoscopy were performed in results as noted Patient was advised repeat colonoscopy in 5 years surveilance for colon polyps - placed on colonoscopy recall list Pt was advised to schedule an abd US and take Miralax every other day for constipation Pt handout on Constipation was given to the patient 08/27/24 Pt advised to schedule a HIDA scan, take Miralax 3 times a week and start taking probiotics for constipation 12/24/24 patient advised to take MiraLax daily for constipation. Schedule MRCP to follow up on CBD dilation seen on recent ultrasound with elastography. Follow-up in 3 months Orders: Orders MR MRCP Today K83.8 - Other specified diseases of biliary tract Medications: Changed From polyethylene glycol 3350 (Miralax) 17 grams PO DAILY 30 days 510 grams 3RF K59.09 - Other constipation To polyethylene glycol 3350 (Miralax) 17 grams PO DAILY 1,020 grams 3RF 60 days K59.09 - Other constipation Coding Level of Care Code Est Pt Level 4 (24675) Diagnoses Elevated LFTs R79.89 History of colon polyps Z86.010 Diverticulosis K57.90 Dysphagia, unspecified type R13.10 Dysphagia type: unspecified Gastritis without bleeding, unspecified chronicity, unspecified gastritis type K29.70 Gastritis type: unspecified gastritis Chronicity: unspecified Gastritis bleeding: without bleeding Cholelithiasis K80.20 Dilated cbd, acquired K83.8 Time Spent (min) 22
[2024-12-24 08:21] VITALS: BP 124/69; PULSE 69; O2SAT 96; BMI 27.1
== END 2024-12-24 08:46 | disposition home or self-care (01) ==
PROVIDERS: PCP Internal Medicine; Visit Provider Internal Medicine Gastroenterology
DX: R79.89 Other specified abnormal findings of blood chemistry (principal); Z86.0100 Personal history of colon polyps, unspecified; K57.90 Diverticulosis of intestine, part unspecified, without perforation or abscess without bleeding; R13.10 Dysphagia, unspecified; K29.70 Gastritis, unspecified, without bleeding; K80.20 Calculus of gallbladder without cholecystitis without obstruction; K83.8 Other specified diseases of biliary tract
CPT/HCPCS: 99214

== ENCOUNTER → 2024-12-24 08:06 | Outpatient (BNVA) | payer BC, MEDICARE, SELFPAY | PROVIDERS: PCP Internal Medicine; Visit Provider Internal Medicine Gastroenterology | DX: K57.90 Diverticulosis of intestine, part unspecified, without perforation or abscess without bleeding (principal); K29.70 Gastritis, unspecified, without bleeding; K80.20 Calculus of gallbladder without cholecystitis without obstruction; R79.89 Other specified abnormal findings of blood chemistry; R13.10 Dysphagia, unspecified; K83.8 Other specified diseases of biliary tract; Z86.0100 Personal history of colon polyps, unspecified | CPT/HCPCS: 99212 ==

== ENCOUNTER 2024-12-25 09:02 | Outpatient (AMB) | payer OTHER, BC, SELFPAY ==
[2024-12-25 09:09] VITALS: BP 132/78; PULSE 54; O2SAT 97; BMI 27.2
--- NOTE | 2024-12-25 09:09 | MHC.PC.OV ---
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 Required: No Accompanied by: Self / Same As Patient Allergies No Known Allergies Allergy (Verified 12/25/24 09:42) Medication List - Last Reconciled 12/25/24 by Jermaine Berg MD adalimumab (Humira(CF) Pen) 40 mg (0.4 mL) subcut Q2W 30 days atorvastatin 20 mg PO BEDTIME 90 days clonazepam 0.5 mg PO BID PRN ibuprofen 800 mg PO BID PRN Lactobacillus rhamnosus GG (Culturelle) 1 cap PO DAILY 90 days omeprazole 40 mg PO DAILY 30 days polyethylene glycol 3350 (Miralax) 17 grams PO DAILY 60 days tramadol 1 to 2 tablets every 4 to 6 hours as needed for pain (no more than 3 to 4 times a day); 30 days Tobacco use date assessed: 12/25/24 Fall risk assessment: No Falls in past year Last assessed Fall Risk: 12/25/24 Dental Screening Dental Screen Date: 12/25/24 Did you have a dental visit in the last 12 months?: Yes Did you have a dental problem in the last 6 months where you did not have access to dental care?: No Was dental information given to patient?: Patient has dentist HPI Workers Comp HPI Details Patient comes in today for her workers' comp follow up visit States that she continues to experience increased chronic neck pain and bilateral shoulder pain (worse on the left side), which she has had for years now and that her symptoms are all mostly unchanged from before She is currently still on Humira 40 mg Q 2 weeks and has been doing very well on her current regimen with regards to her psoriatic arthritis; she was taken off Otezla last year She feels that to some extent, this helps with her chronic neck/cervical and shoulder pains as well Patient still reports that she feels fatigued often and still has on and off headaches - thinks that her headaches are most likely related to her chronic neck and shoulder pain issues She denies any dizziness She denies any chest pains, no increased SOB No nausea/vomiting, no abdominal pains No change in bowel habits noted [facility] Medical History Encounter for monitoring of adalimumab therapy Pain in left shoulder Gastritis Greater trochanteric bursitis of both hips History of colon polyps Insomnia 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 of left lower extremity with inflammation Polymyalgia rheumatica Failed neck syndrome Depression Anxiety Osteopenia Elevated LFTs Vitamin D deficiency Lumbar degenerative disc disease Fibromyalgia Pure hypercholesterolemia 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 of both lower extremities with pain 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 Closed fracture of head of radius with routine healing Fracture of radial head, right, closed Occult fracture of right elbow Psoriatic arthritis Surgical History Hx of colonoscopy Hx of abdominoplasty S/P cervical spinal fusion Hx of section Family History Mother Lung cancer Father Drug addict Other Mental health problem Substance abuse Social History Household Members: Significant Other and Family Housing: House Are you a primary health care aide to a significant other at home: No Do you presently have visiting nurse or other home services: No Alcohol intake: never Patient Tobacco Use Status: Never used Tobacco e-Cigarette/Vaping Use: Never Used Second Hand Smoke Exposure: Yes service: No Current occupational status: disabled Current occupational exposures/hazards: No Cognitive needs: No Hearing needs: No Vision needs: Yes (glasses) Questionnaire PHQ-9 Over the last 2 weeks, how often have you been bothered by any of the following problems? Depression Screening Interpretation: Positive Depression Screening Follow-up: Existing condition and In treatment Depression Screening Done: Yes Source: Developed by Drs. Yared Ge, Bella Moore, Ellis Ellis and colleagues, with an educational neil from [employer]. Thrive Questionnaire Date Thrive assessed: 10/12/24 I am a: Patient What is your living situation today?: I have a steady place to live Within the past 12 months, did the food you bought not last and you didn't have the money to get more?: I choose not to answer this question Within the past 12 months, did you worry whether your food would run out before you got money to buy more?: Sometimes True Do you have trouble paying for medicines?: No Do you have trouble getting transportation to medical appointments?: No Do you have trouble paying your heating and electricity bill?: I choose not to answer this question Do you have trouble taking care of your child, family member or friend?: I choose not to answer this question Do you have trouble with day-to-day activities such as bathing, preparing meals, shopping, managing finances, etc.?: No Are you currently unemployed and looking for a job?: I choose not to answer this question Are you interested in more education?: I choose not to answer this question Please select the resources that you would like help with: None Currently or been in a relationship where the following occur: No concerns reported THRIVE Score: 1 AUDIT C Alcohol Use Questionnaire (AUDIT-C) 1. How often do you have a drink containing alcohol?: Never 3. How often do you have six or more drinks on one occasion?: Never Total Score: 0 Score Reviewed/Action Taken: Yes JOSELO-7 AMB Questionnaire JOSELO-7 Date JOSELO - 7 assessed: 10/12/24 Source: Developed by Drs. Yared Ge, Bella Moore, Ellis Ellis and colleagues, with an educational neil from [employer]. Review of Systems Const Denies chills, Reports fatigue, Denies fever(s) and Reports headache(s) (on and off) ENT Denies dysphagia, Denies dizziness, Denies otalgia, Reports headache(s) (on and off), Reports neck pain (chronic), Denies odynophagia and Denies sore throat Card Denies chest pain, Denies palpitations and Denies dyspnea Resp Denies cough and Denies dyspnea GI Denies abdominal pain, Denies constipation, Denies dysphagia, Denies heartburn, Denies diarrhea, Denies nausea, Denies odynophagia and Denies vomiting Denies difficulty voiding, Denies nocturia, Denies dysuria and Denies urinary urgency Musc Reports back pain, Reports arthralgias (left shoulder area - chronic) and Reports neck pain (chronic) Skin/Breast Denies rash Neuro Denies dizziness and Reports headache(s) (on and off) Psych Reports anxiety and Reports depression Endo Reports fatigue and Denies palpitations Physical exam (Primary Care) Vital Signs: Last Vital Signs Pulse 54 12/25/24 09:09 BP 132/78 12/25/24 09:09 Pulse Ox 97 12/25/24 09:09 Oxygen Delivery Method Room Air 12/25/24 09:09 BMI result Body Mass Index 27.2 Tobacco/Smoking Status: Tobacco use Status Tobacco use date assessed 12/25/24 12/25/24 09:19 Patient Tobacco Use Status Never used Tobacco 12/25/24 09:17 e-Cigarette/Vaping Use Never Used 12/25/24 09:17 Depression Screening Interpretation: Positive Depression Screening Follow-up: Existing condition and In treatment Thrive Assessment: Date of Thrive Assessment Date Thrive assessed 10/12/24 12/25/24 09:17 Currently or been in a relationship where the following occur: No concerns reported Const General: no acute distress and alert HENMT Throat: Yes posterior oropharynx normal and Yes tonsils normal (no TP congestion noted) Neck Neck: Yes supple and No lymphadenopathy Thyroid: Thyroid normal Resp Auscultation: clear to auscultation bilaterally, no rales and no wheezes Cardio Rate: regular rate Rhythm: regular rhythm Heart sounds: no murmurs GI Palpation (GI): Soft to palpation and nontender Auscultation: normal bowel sounds General: Yes no CVA tenderness Back/Spine/Pelvis Back: no CVA tenderness Cervical Spine: cervical muscular tenderness (especially over the left side) and Cervical spine tenderness Thoracic/Lumbar Spine: paraspinal muscle tenderness bilaterally in the upper thoracic and No lumbar spinal tenderness Skin Rashes: no rashes Extrem General: Yes no clubbing, cyanosis or edema Right upper extremity: shoulder/upper arm Details: tenderness; no swelling Left upper extremity: shoulder/upper arm Details: tenderness; no swelling Coding Level of Care Code Est Pt Level 3 (21964) Diagnoses Failed neck syndrome M96.1 Chronic left shoulder pain M25.512; G89.29 Chronicity: chronic Fibromyalgia M79.7 Psoriatic arthritis L40.50 Anxiety F41.9 Depression, unspecified depression type F32.9 Depression Type: unspecified Assessment & Plan Assessment & Plan (1) Failed neck syndrome: Code(s): M96.1 - Postlaminectomy syndrome, not elsewhere classified Category: Medical Plan: Patient reports no changes or new developments in her case overall since her last visit and over the past few years as she has not been able to get coverage for any further treatments or managements recommended by all of the specialists that she has been seeing, including attempts to go back to pain management in [place] or here locally in [place] She has reportedly been advised by Dr. Yates a while back that they have nothing else to offer her and recommended that she just follow up with pain management, which she has not been able to do because of no coverage (2) Pain in left shoulder: Code(s): M25.512 - Pain in left shoulder Category: Medical Qualifiers: Chronicity: chronic Qualified Code(s): M25.512 - Pain in left shoulder; G89.29 - Other chronic pain Plan: Continue Tramadol 50 mg 1 to 2 tablets every 4 to 6 hours as needed for pain (3) Fibromyalgia: Code(s): M79.7 - Fibromyalgia Category: Medical Plan: She reports experiencing increased diffuse pain and joint pains often - per rheumatology, she is likely experiencing recurrent flare ups of her fibromyalgia She is currently on Humira, which patient states have been working well for her and she reports (+) improvement of her diffuse pain She is encouraged again to continue to stay active and exercise regularly to help manage her fibromyalgia symptoms better Continue Tizanidine 4 mg every 8 hours as needed (4) Psoriatic arthritis: Comment: Enbrel not clearly helpful Otezla: 2017- 2023 Humira 04/2023 - Present. Methotrexate: 2016 - 01/19/2022. LFT elevations - methotrexate discontinued. She did okay until summer 2022 when she had a flare overall joint pains. Code(s): L40.50 - Arthropathic psoriasis, unspecified Category: Medical Plan: Continue Humira 40 mg Q 2 weeks Follow up with rheumatology as scheduled (5) Anxiety: Code(s): F41.9 - Anxiety disorder, unspecified Category: Medical Plan: Patient feels that she is doing okay on Clonazepam 0.5 mg BID as needed Follow up with psychiatry as scheduled (6) Depression: Code(s): F32.9 - Major depressive disorder, single episode, unspecified Category: Medical Qualifiers: Depression Type: unspecified Qualified Code(s): F32.9 - Major depressive disorder, single episode, unspecified Plan: She was on Venlafaxine ER 150mg QD and Quetiapine 200 mg Q HS in the past but patient stopped taking these on her own at some point States that she does not feel any worse since stopping her Rx Follow up with psychiatry as scheduled Plan Follow up in 4 months
--- OUTSIDE RECORDS SUMMARY | 2024-12-25 09:44 | XMS_ITS | Clinical Summary ---
Author Organization [facility] Address [address] [place] [phone] Phone Care Team Providers Care Real Estate Analyst Name Role Phone Jermaine Berg MD Primary [...] for biopsy. PQRI CPT II 3342F Code 85331, 81782 PQRI 225 CPT II 7025F TISSUE DENSITY: There are scattered areas of fibroglandular density. (BI-RADS category B) IMPRESSION: Benign. BI-RADS CATEGORY: 2 - BENIGN RECOMMENDATION: Screening bilateral mammogram is recommended in 1 year. Mammo Location: [facility], [address] [place] [address] -------- FINAL REPORT -------- Dictated By: Anjum Mota Dictated Date: 07/23/2024 08:38 ET Assigned Physician: Anjum Mota Reviewed and Electronically Signed By: Anjum Mota Signed Date: 07/23/2024 08:43 ET Workstation ID: [id number] Transcribed By: Self Edit Transcribed Date: 07/23/2024 08:38 ET Narrative 07/23/2024 8:43 AM EDT CLINICAL: The patient is a 63 years Female presenting for routine screening mammography. COMPARISON: Most recently 07/23/2023 and most remotely 02/18/2017. TECHNIQUE: Full-field digital mammography of the breasts bilaterally consisting of tomosynthesis in MLO and CC projection is performed in the Prospere 2000-D unit. Computer aided detection utilizing the [...] MLO and CC projection is performed in the[employer] Se[employer] 2000-D unit. Computer aided detection utilizing the Cheersystem was utilized. FINDINGS: The breasts are again [...] for biopsy. PQRI CPT II 3342F Code 71928, 06419 PQRI 225 CPT II 7025F TISSUE DENSITY: There are scattered areas of fibroglandular density.(BI-RADS category B) IMPRESSION: Benign. BI-RADS CATEGORY: 2 - BENIGN RECOMMENDATION: Screening bilateral mammogram is recommended in 1 year. Mammo Location: [facility], [address] [place] [id number] -------- FINAL REPORT -------- Dictated By: Anjum Mota Dictated Date: 07/23/2024 08:38 ET Assigned Physician: Anjum Mota Reviewed and Electronically Signed By: Anjum Mota Signed Date: 07/23/2024 08:43 ET Workstation ID: [id number] Transcribed By: Self Edit Transcribed Date: 07/23/2024 08:38 ET us Self Referral Sppl IMG BI PROCEDURES Final Resul t from Last 3 Months or Most Recently Relevant to Health Maintenance Insurance MEDICARE [facility] Care Teams Real Estate Analyst Relationship Specialty Start Date End Date Jermaine Berg MD [address] [place] [address] [address] [place] PCP - General Internal Medicine 02/11/12
== END 2024-12-25 09:55 | disposition home or self-care (01) ==
LOC: HO.HMCH 09:02
PROVIDERS: PCP Internal Medicine; Visit Provider Internal Medicine
DX: M25.512 Pain in left shoulder (principal); M96.1 Postlaminectomy syndrome, not elsewhere classified; L40.50 Arthropathic psoriasis, unspecified; G89.29 Other chronic pain; M79.7 Fibromyalgia; F41.9 Anxiety disorder, unspecified; F32.9 Major depressive disorder, single episode, unspecified

== ENCOUNTER → 2025-01-19 07:57 | Outpatient (BNV) | payer MEDICARE, BC, SELFPAY | PROVIDERS: PCP Internal Medicine; Visit Provider Radiology Diagnostic Radiology | DX: K80.20 Calculus of gallbladder without cholecystitis without obstruction (principal) | CPT/HCPCS: 74181 ==

== ENCOUNTER 2025-01-19 08:03 | Outpatient (REF) | payer MEDICARE, BC, SELFPAY ==
--- NOTE | ~2025-01-19 | MR_ITS ---
EXAMINATION: MRCP HISTORY: K83.8 - Other specified diseases of biliary tract COMPARISON: Correlation is made with an abdominal ultrasound dated 1825. TECHNIQUE: Axial gradient echo in and out of phase T1, axial T2 and fat suppressed T2, and coronal haste T2 with fat saturation images were obtained through the abdomen. 3D MRCP Reconstructed images and thick slab imaging of the biliary tree were obtained. FINDINGS: There is no significant loss of signal intensity in the liver on opposed phase imaging to suggest steatosis. There is no intrahepatic biliary ductal dilatation. There is cholelithiasis. The common bile duct measures up to 6 mm in diameter. No intraluminal filling defects are identified to suggest choledocholithiasis. The pancreas and spleen have an unremarkable unenhanced appearance. The adrenals are unremarkable. There is a 3.9 cm cyst at the lower pole of the right kidney. The left kidney is unremarkable. No retroperitoneal lymphadenopathy or ascites is identified in the upper abdomen. The visualized bones demonstrate normal marrow signal intensity. MR/MR MRCP IMPRESSION: Cholelithiasis. No evidence of choledocholithiasis. Electronically signed by: Yared Rose MD 01/19/2025 09:13 AM EDT
--- OUTSIDE RECORDS SUMMARY | 2025-01-19 08:09 | XMS_ITS | Clinical Summary ---
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 Name Role Phone Jermaine Berg [...] Health Maintenance Due Date Last Done Comments Colorectal Cancer Screening: Colonoscopy 1960 Cervical Cancer Screening: Pap Smear 1981 Pneumococcal Vaccine: 50+ Years (1 of 1 - PCV) 2010 Zoster Vaccines (1 of 2) 2010 HIV Screening 03/10/2022 Hepatitis C Screening 03/10/2022 Medicare Annual Wellness Visit 03/10/2022 Social Influencers of Health Screening 03/10/2022 Depression Screening 04/08/2024 COVID-19 Vaccine (3 - season) 2024 08/16/2020, 07/26/2020 Influenza Vaccine (#1) 2024 , 01/18/2023, 01/18/2022, Additional history exists DTaP,Tdap,and Td Vaccines (2 - Td or Tdap) 03/19/2026 03/19/2016 Breast Cancer Screening 07/23/2026 07/24/19, 07/23/2023, 07/22/2022, Additional history exists RSV Immunization [...] for biopsy. PQRI CPT II 3342F Code 82703, 50617 PQRI 225 CPT II 7025F TISSUE DENSITY: There are scattered areas of fibroglandular density. (BI-RADS category B) IMPRESSION: Benign. BI-RADS CATEGORY: 2 - BENIGN RECOMMENDATION: Screening bilateral mammogram is recommended in 1 year. Mammo Location: [facility], [address] [place] [address] -------- FINAL REPORT -------- Dictated By: Anjum Mota Dictated Date: 07/23/2024 08:38 ET Assigned Physician: Anjum Mota Reviewed and Electronically Signed By: Anjum Mota Signed Date: 07/23/2024 08:43 ET Workstation ID: [id number] Transcribed By: Self Edit Transcribed Date: 07/23/2024 08:38 ET Narrative 07/23/2024 8:43 AM EDT CLINICAL: The patient is a 63 years Female presenting for routine screening mammography. COMPARISON: Most recently 07/23/2023 and most remotely 02/18/2017. TECHNIQUE: Full-field digital mammography of the breasts bilaterally consisting of tomosynthesis in MLO and CC projection is performed in the C3L3B Dig[employer]ale 2000-D unit. Computer aided detection utilizing the [...] MLO and CC projection is performed in theCyntellectographe 2000-D unit. Computer aided detection utilizing the DNA Responseystem was utilized. FINDINGS: The breasts are again [...] for biopsy. PQRI CPT II 3342F Code 25791, 93488 PQRI 225 CPT II 7025F TISSUE DENSITY: There are scattered areas of fibroglandular density.(BI-RADS category B) IMPRESSION: Benign. BI-RADS CATEGORY: 2 - BENIGN RECOMMENDATION: Screening bilateral mammogram is recommended in 1 year. Mammo Location: [facility], [facility], [address] [place] [id number] -------- FINAL REPORT -------- Dictated By: Anjum Mota Dictated Date: 07/23/2024 08:38 ET Assigned Physician: Anjum Mota Reviewed and Electronically Signed By: Anjum Mota Signed Date: 07/23/2024 08:43 ET Workstation ID: [id number] Transcribed By: Self Edit Transcribed Date: 07/23/2024 08:38 ET us Self Referral Sppl IMG BI PROCEDURES Final Resul t from Last 3 Months or Most Recently Relevant to Health Maintenance Insurance MEDICARE [facility] Care Teams Sole Leather Cutting Machine Operator Relationship Specialty Start Date End Date Jermaine Berg MD [address] [place] [address] [address] [place] PCP - General Internal Medicine 02/11/12
== END 2025-01-19 08:04 | disposition home or self-care (01) ==
LOC: HO.MRI 08:03
PROVIDERS: PCP Internal Medicine; Visit Provider Internal Medicine Gastroenterology
DX: K83.8 Other specified diseases of biliary tract (principal)
CPT/HCPCS: 74181

== ENCOUNTER 2025-01-21 08:33 | Outpatient (AMB) | payer BC, MEDICARE, SELFPAY ==
[2025-01-21 08:42] VITALS: BP 124/80; PULSE 67; O2SAT 97; BMI 27.4
--- NOTE | 2025-01-21 08:43 | AM.OFFVISMDC ---
Intake Vital Signs 01/21/25 08:42 Height 5 ft 2 in Weight 150 lb BMI 27.4 BP 124/80 Blood Pressure Location Lt brachial Position Sitting Pulse 67 Pulse Source Pulse Oximeter Pulse Oximetry (%) 97 Oxygen Delivery Method Room Air Intake Visit Reasons: DIMITRY G0439 Reed Polisher Required: No Accompanied by: Self / Same As Patient Allergies No Known Allergies Allergy (Verified 01/21/25 09:28) Medication List - Last Reconciled 01/21/25 by Jermaine Berg MD adalimumab (Humira(CF) Pen) 40 mg (0.4 mL) subcut Q2W 30 days atorvastatin 20 mg PO BEDTIME 90 days clonazepam 0.5 mg PO BID PRN ibuprofen 800 mg PO BID PRN Lactobacillus rhamnosus GG (Culturelle) 1 cap PO DAILY 90 days omeprazole 40 mg PO DAILY 30 days polyethylene glycol 3350 (Miralax) 17 grams PO DAILY 60 days tramadol 1 to 2 tablets every 4 to 6 hours as needed for pain (no more than 3 to 4 times a day); 30 days HPI DIMITRY G0439 HPI Details Patient comes in today for her Annual Medicare Wellness Exam States that she feels okay She denies any headaches or dizziness Denies any chest pains, no increased SOB No nausea/vomiting, still has on and off epigastric pain that usually occur when she eats something, most often bread No change in bowel habits noted She had an MRI done a couple of days ago and will be seeing GI for follow up on this in a couple of months Needs her Clonazepam Rx refilled today Would also like to get her flu shot today She is up-to-date with her annual mammogram and pap smear/gynecology exam She had her repeat colonoscopy last done in March 2024 and will be due for repeat colonoscopy in 5 years (2028) Repeat BMD last done on 11/24/2024 [place] of care was reviewed and updated today Patient has a healthcare proxy in place and on file IPPE/AWV: c/o of Annual Wellness Visit, subsequent visit. Medical / Social History Reviewed Past Medical History Yes . [place] of Care / Care Team list updated Yes . Surgical/Hospitalization History Yes . Current Medications (including OTC and supplements) Yes . Family History Yes . Tobacco Control form Yes . AUDIT-C (Alcohol use) form Yes . Illicit drug use in Social History Yes . Current diagnosis of depression? No Appropriate PHQ2/PHQ9 completed Yes . Data entered by [employer] and reviewed by provider Home Safety Throw rugs? No Grab bars? No Raised toilet seats? No Working smoke detectors? Yes Working carbon monoxide detectors? Yes Data entered by [employer] and reviewed by provider Activities of Daily Living (ADLs) Difficulty bathing or showering? No Difficulty dressing? No Difficulty using the toilet? No Difficulty getting in and out of bed? No Difficulty walking? No Receives help from another person with any of the above tasks? No Instrumental Activities of Daily Living (IADLs) Uses the telephone without help Gets to places out of walking distance without help Goes shopping for groceries without help Prepares own meals without help Does own minor home maintenance without help Does own laundry without help Does own housework without help Manages own money without help Currently takes medications? Yes Takes medication without help End-of-Life Planning Discussed advance directive Yes Advance directive on file Discussed wishes expressed in advance directive agreed to following patient's wishes Fall Risk: Fall History Have you had any falls with injury in the past year? No . Have you had two or more falls in the past year? No . Fall Risk Assessment: No falls in the past year . HRA filled out by the patient, reviewed by Provider and scanned. 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 Closed fracture of head of radius with routine healing Fracture of radial head, right, closed Occult fracture of right elbow Psoriatic arthritis Surgical History Hx of colonoscopy Hx of abdominoplasty S/P cervical spinal fusion Hx of section Family History Mother Lung cancer Father Drug addict Other Mental health problem Substance abuse Social History Household Members: Significant Other and Family Housing: House Are you a primary reproductive healthcare assistant to a significant other at home: No Do you presently have visiting nurse or other home services: No Alcohol intake: never Patient Tobacco Use Status: Never used Tobacco e-Cigarette/Vaping Use: Never Used Second Hand Smoke Exposure: Yes service: No Current occupational status: disabled Current occupational exposures/hazards: No Cognitive needs: No Hearing needs: No Vision needs: Yes (glasses) Questionnaire Medicare Wellness Checkup What gender do you identify with?: female During the past 4 weeks, how much have you been bothered by emotional problems such as feeling anxious, depressed, irritable, sad or downhearted, and blue?: extremely During the past 4 weeks, has your physical & emotional health limited your social activities with family, friends, neighbors, or groups?: moderately During the past 4 weeks, how much bodily pain have you generally had?: severe pain During the past 4 weeks, was someone available to help you if you needed & wanted help?: yes, as much as I wanted During the past 4 weeks, what was the hardest physical activity you could do for at least 2 minutes?: moderate Can you get to places out of walking distance without help? (For eg., can you travel alone on buses, taxis or drive your car?): Yes Can you go shopping for groceries or clothes without someone's help?: Yes Can you prepare your own meals?: Yes Can you do your housework without help?: Yes Because of any health problems, do you need the help of another person with your personal care needs such as eating, bathing, dressing or getting around the house?: No Can you handle your own money without help?: Yes During the past 4 weeks, how would you rate your health in general?: good During the past 4 weeks how have things been going for you?: good & bad parts about equal Are you having difficulties driving your car?: no Do you always fasten your seat belt when you are in a car?: yes, usually During past 4 weeks, have you been bothered by the following: never: Falling or dizzy when standing up and Problems using the telephone?, sometimes: Sexual problems?, Trouble eating well? and Teeth or denture problems? and always: Tiredness or fatigue? Have you fallen 2 or more times in the past year?: No Are you afraid of falling?: No Are you a smoker?: no During the past 4 weeks, how many drinks of wine, beer, or other alcoholic beverages did you have?: no alcohol at all Do you exercise for about 20 minutes 3 or more times a week?: no, I usually do not exercise this much Have you been given information to help with the following?: no: Hazards in your house that might hurt you? and no: Keeping track of your medications? How often do you have trouble taking medicines the way you have been told to take them?: I always take medicine as prescribed How confident are you that you can control & manage most of your health problems?: very confident What is your race?: White Mini Mental State Exam (MMSE) Orientation What is the (year) (season) (date) (day) (month)?: year, season, date, day and month Where are we (state) (county) (town or city) (hospital) (floor)?: state, county, town or city, hospital/clinic and floor Score Score: 10 Activity of Daily Living Bathing - sponge bath, tub bath or shower: receives no assistance (gets in/out by self, if usual bathing means Dressing - getting clothes from closets & drawers, including inner/outer garments & fasteners.: gets clothes & gets completely dressed without help Toileting - going to the 'toilet room' for urine/bowel elimination & cleaning self/arranging clothes: goes to toilet room, cleans self, arranges clothes without help Transfer: moves in & out of bed and chair without help (may use support object) Continence: controls urination/bowel movements completely by self Feeding: feeds self without help Total Score: 0 Information obtained from: patient Using telephone: independent Traveling: independent Shopping: independent Preparing meals: independent Housework: independent Taking medicine: independent Managing money: independent PHQ-9 Over the last 2 weeks, how often have you been bothered by any of the following problems? 1. Little interest or pleasure in doing things: several days 2. Feeling down, depressed, or hopeless: more than half the days 3. Trouble falling or staying asleep, or sleeping too much: nearly every day 4. Feeling tired or having little energy: more than half the days 5. Poor appetite or overeating: more than half the days 6. Feeling bad about yourself - or that you are a failure or have let yourself or your family down: nearly every day 7. Trouble concentrating on things, such as reading the newspaper or watching television: nearly every day 8. Moving or speaking so slowly that other people could have noticed. Or the opposite - being so fidgety or restless that you have been moving around a lot more than usual: more than half the days 9. Thoughts that you would be better off or of hurting yourself in some way: not at all Total score: 18 Depression Screening Interpretation: Positive Depression Screening Follow-up: Existing condition and In treatment Depression Screening Done: Yes 63533 - PHQ-9 Billing: Yes Source: Developed by Drs. Yared Ge, Bella Moore, Ellis Ellis and colleagues, with an educational neil from [employer]. PHQ-2/PHQ-9 PHQ-2 Over the last 2 weeks, how often have you been bothered by any of the following problems? 1. Little interest or pleasure in doing things: several days 2. Feeling down, depressed, or hopeless: more than half the days Total score: 3 If score is 3 or greater, continue 3. Trouble falling or staying asleep, or sleeping too much: nearly every day 4. Feeling tired or having little energy: more than half the days 5. Poor appetite or overeating: more than half the days 6. Feeling bad about yourself - or that you are a failure or have let yourself or your family down: nearly every day 7. Trouble concentrating on things, such as reading the newspaper or watching television: nearly every day 8. Moving or speaking so slowly that other people could have noticed. Or the opposite - being so fidgety or restless that you have been moving around a lot more than usual: more than half the days 9. Thoughts that you would be better off or of hurting yourself in some way: not at all Total score: 18 0-4 None-Minimal, 5-9 Mild, 10-14 Moderate, 15-19 Moderately Severe, 20-27 Severe Source: Developed by Drs. Yared Ge, Bella Moore, Ellis Ellis and colleagues, with an educational neil from [employer]. Thrive Questionnaire Date Thrive assessed: 01/21/25 I am a: Patient What is your living situation today?: I have a steady place to live Within the past 12 months, did the food you bought not last and you didn't have the money to get more?: I choose not to answer this question Within the past 12 months, did you worry whether your food would run out before you got money to buy more?: Sometimes True Do you have trouble paying for medicines?: No Do you have trouble getting transportation to medical appointments?: No Do you have trouble paying your heating and electricity bill?: I choose not to answer this question Do you have trouble taking care of your child, family member or friend?: I choose not to answer this question Do you have trouble with day-to-day activities such as bathing, preparing meals, shopping, managing finances, etc.?: No Are you currently unemployed and looking for a job?: I choose not to answer this question Are you interested in more education?: I choose not to answer this question Please select the resources that you would like help with: None Currently or been in a relationship where the following occur: No concerns reported THRIVE Score: 1 JOSELO-7 AMB Questionnaire JOSELO-7 Date JOSELO - 7 assessed: 01/21/25 Feeling nervous, anxious, or on edge: 1 = Several days Not being able to stop or control worryin = Several days Worrying too much about different things: 1 = Several days Trouble relaxin = Several days Being so restless that it is hard to sit still: 0 = Not at all Becoming easily annoyed or irritable: 0 = Not at all Feeling afraid as if something awful might happen: 0 = Not at all Total JOSELO-7 score (0-4 normal; 5-9 mild; 10-14 moderate; 15-21 severe): 4 Source: Developed by Drs. Yared Ge, Bella Moore, Ellis Ellis and colleagues, with an educational neil from [employer]. Review of Systems Const Denies chills, Reports fatigue, Denies fever(s) and Denies headache(s) ENT Denies dysphagia, Denies dizziness, Denies otalgia, Denies headache(s), Reports neck pain (chronic), Denies odynophagia and Denies sore throat Card Denies chest pain, Denies palpitations and Denies dyspnea Resp Denies chest congestion, Denies cough and Denies dyspnea GI Reports abdominal pain (on and off, usually triggered when she eats), Denies constipation, Denies dysphagia, Denies heartburn, Denies diarrhea, Denies nausea, Denies odynophagia and Denies vomiting Denies difficulty voiding, Denies nocturia, Denies dysuria and Denies urinary urgency Musc Reports back pain, Reports myalgias (diffuse), Reports arthralgias (left shoulder area - chronic) and Reports neck pain (chronic) Skin/Breast Denies rash Neuro Denies dizziness and Denies headache(s) Psych Reports anxiety and Reports depression Endo Reports fatigue and Denies palpitations Physical Exam Vital Signs: Last Vital Signs Pulse 67 01/21/25 08:42 BP 124/80 01/21/25 08:42 Pulse Ox 97 01/21/25 08:42 Oxygen Delivery Method Room Air 01/21/25 08:42 BMI result Body Mass Index 27.4 IPPE/AWV: Balance Romberg Yes . Tandem walk Yes . Walk and Turn Yes . Rise from sit to stand Yes . Vision Corrective lens No Vision screen pass Hearing Whisper test pass . Urinary incont. no. EKG Not clinically necessary. Const General: no acute distress and alert Orientation/consciousness: patient oriented x3 HEENT Ears: TM normal on the left, EAC's normal and TM abnormal bulging on the right and with fluid behind the TM on the right; not with effusion Throat: Yes posterior oropharynx normal and Yes tonsils normal (no TP congestion) Neck Neck: Yes no lymphadenopathy and Yes tender (on the left side) Thyroid: Thyroid normal Resp Auscultation: clear to auscultation bilaterally, no rales and no wheezes Cardio Rate: regular rate Rhythm: regular rhythm Heart sounds: no murmurs GI Palpation (GI): Soft to palpation and nontender Auscultation: normal bowel sounds General: Yes no CVA tenderness Back/Spine/Pelvis Back: no CVA tenderness Cervical Spine: Cervical spine tenderness Thoracic/Lumbar Spine: No lumbar spinal tenderness Skin Rashes: no rashes Neuro General: patient oriented x3 Cognition (Neuro): normal cognition Extrem General: Yes no clubbing, cyanosis or edema Psych Thought process: Normal thought process present Office Procedures Flu Questionnaire Does the patient have a severe egg allergy?: No Does the patient have severe life threatening allergies?: No Does the patient have a fever or illness today?: No Has the patient ever had Guillain-Railroad Syndrome?: No Has the patient ever had any past reaction to a flu shot?: No Immunizations Fluarix [id number] (PF) 45 mcg (15 mcg x 3)/0.5 mL IM syringe Performing Provider: Jermaine Berg MD Performing [facility] [place] [facility] Administered by: AMANDA Fu on 01/21/25 09:43 Dose Route Admin Location Dispensed Lot Number Expiration Date NDC Cns 0.5 mL IM Left Deltoid 0.5 mL [id number] 10/05/25 [id number] [employer] VIS Given Date VIS Provided VIS Publication Date 01/21/25 Single Vaccine 24 Eligibility Eligibility Date Funding Source Not [facility] Eligible 01/21/25 Private Assessment & Plan Assessment & Plan (1) Medicare annual wellness visit, subsequent: Code(s): Z00.00 - Encounter for general adult medical examination without abnormal findings Plan: HRA form discussed and completed with patient; form will be scanned into patient's chart PEPE updated She is up-to-date with her annual mammogram and pap smear/gynecology exam She had her repeat colonoscopy last done in March 2024 and will be due for repeat colonoscopy in 5 years (2028) Repeat BMD last done on 11/24/2024 (2) Anxiety: Code(s): F41.9 - Anxiety disorder, unspecified Plan: Continue Clonazepam 0.5 mg 1 tablet 2 to 3 times a day as needed for anxiety - Rx refilled (3) Depression: Code(s): F32.9 - Major depressive disorder, single episode, unspecified Qualifiers: Depression Type: unspecified Qualified Code(s): F32.9 - Major depressive disorder, single episode, unspecified Plan: Continue Venlafaxine ER 187.5 mg (150 + 37.5 mg) QD She was not able to tolerate Seroquel in the past Follow-up with Psychiatry as scheduled Plan As requested, flu vaccine given to patient today Follow up as scheduled next month Orders: Orders Influenza [id number] Immunization Today Z23 - Encounter for immunization Medications: Refilled clonazepam 0.5 mg PO BID PRN 60 tabs 0RF anxiety Quality Reporting (2019) Depression/Bipolar (159/160/161/177) PHQ-9: Total score: 18 Coding Level of Care Code Medicare Subsequent (G0439) Diagnoses Medicare annual wellness visit, subsequent Z00.00 Anxiety F41.9 Depression, unspecified depression type F32.9 Depression Type: unspecified Additional Codes PHQ-9 - 04800 - PHQ-9 Billing: Yes ([id number])
--- OUTSIDE RECORDS SUMMARY | 2025-01-21 08:59 | XMS_ITS | Clinical Summary ---
Author Organization [facility] Address [address] [place] [phone] Phone Care Team Providers Care Senior Mobile Developer Name Role Phone Jermaine Berg MD [...] for biopsy. PQRI CPT II 3342F Code 76408, 24314 PQRI 225 CPT II 7025F TISSUE DENSITY: There are scattered areas of fibroglandular density. (BI-RADS category B) IMPRESSION: Benign. BI-RADS CATEGORY: 2 - BENIGN RECOMMENDATION: Screening bilateral mammogram is recommended in 1 year. Mammo Location: [facility], [address] [place] [address] -------- FINAL REPORT -------- Dictated By: Anjum Mota Dictated Date: 07/23/2024 08:38 ET Assigned Physician: Anjum Mota Reviewed and Electronically Signed By: Anjum Mota Signed Date: 07/23/2024 08:43 ET Workstation ID: [id number] Transcribed By: Self Edit Transcribed Date: 07/23/2024 08:38 ET Narrative 07/23/2024 8:43 AM EDT CLINICAL: The patient is a 63 years Female presenting for routine screening mammography. COMPARISON: Most recently 07/23/2023 and most remotely 02/18/2017. TECHNIQUE: Full-field digital mammography of the breasts bilaterally consisting of tomosynthesis in MLO and CC projection is performed in the [employer] 2000-D unit. Computer aided detection utilizing the [...] MLO and CC projection is performed in the[employer] 2000-D unit. Computer aided detection utilizing the [facility] [employer] was utilized. FINDINGS: The breasts are again [...] for biopsy. PQRI CPT II 3342F Code 96095, 32036 PQRI 225 CPT II 7025F TISSUE DENSITY: There are scattered areas of fibroglandular density.(BI-RADS category B) IMPRESSION: Benign. BI-RADS CATEGORY: 2 - BENIGN RECOMMENDATION: Screening bilateral mammogram is recommended in 1 year. Mammo Location: [facility], [address] [place] [id number] -------- FINAL REPORT -------- Dictated By: Anjum Mota Dictated Date: 07/23/2024 08:38 ET Assigned Physician: Anjum Mota Reviewed and Electronically Signed By: Anjum Mota Signed Date: 07/23/2024 08:43 ET Workstation ID: [id number] Transcribed By: Self Edit Transcribed Date: 07/23/2024 08:38 ET us Self Referral Sppl IMG BI PROCEDURES Final Resul t from Last 3 Months or Most Recently Relevant to Health Maintenance Insurance MEDICARE [employer] Care Teams Senior Mobile Developer Relationship Specialty Start Date End Date Jermaine Berg MD [address] [place] [address] [address] [place] PCP - General Internal Medicine 02/11/12
== END 2025-01-21 09:44 | disposition home or self-care (01) ==
LOC: HO.HMCH 08:33
PROVIDERS: PCP Internal Medicine; Visit Provider Internal Medicine
DX: F41.9 Anxiety disorder, unspecified (principal); F32.9 Major depressive disorder, single episode, unspecified; Z23 Encounter for immunization

== ENCOUNTER → 2025-01-21 08:33 | Outpatient (BNVA) | payer BC, MEDICARE, SELFPAY | PROVIDERS: PCP Internal Medicine; Visit Provider Internal Medicine | DX: Z00.00 Encounter for general adult medical examination without abnormal findings (principal); F41.9 Anxiety disorder, unspecified; F32.9 Major depressive disorder, single episode, unspecified; Z23 Encounter for immunization | CPT/HCPCS: 90471; 90656; 96127 ==

== ENCOUNTER 2025-02-02 12:43 | Outpatient (AMB) | payer BC, MEDICARE, SELFPAY ==
[2025-02-02 12:50] VITALS: BP 112/70; PULSE 76; RESP 18; TEMP 36.3; O2SAT 98; BMI 27.5
--- NOTE | 2025-02-02 12:50 | MHC.PC.OV ---
Vital Signs 02/02/25 12:50 Height 5 ft 2 in Weight 150 lb 6 oz BMI 27.5 BP 112/70 Blood Pressure Location Lt brachial Position Sitting Respiration 18 Pulse 76 Pulse Source Pulse Oximeter Temp 97.3 F Temp Source Temporal Artery Scan Pulse Oximetry (%) 98 Oxygen Delivery Method Room Air Intake Visit Reasons: (L) arm redness, swelling and warm to touch On Site Services Specialist Required: No Accompanied by: Self / Same As Patient Allergies No Known Allergies Allergy (Verified 02/02/25 12:51) Tobacco use date assessed: 02/02/25 Fall risk assessment: No Falls in past year Last assessed Fall Risk: 02/02/25 Dental Screening Dental Screen Date: 02/02/25 Did you have a dental visit in the last 12 months?: Yes Did you have a dental problem in the last 6 months where you did not have access to dental care?: No Was dental information given to patient?: Patient has dentist HPI HPI Comments History of Present Illness Details Patient is a 63-year-old female with hyperlipidemia, polyarticular osteoarthritis (hands, shoulders, lumbar degenerative disc disease), psoriasis/psoriatic arthritis on Humira who presents today for redness and swelling of left forearm. Patient states that yesterday she was playing with her dog and dog playfully placed his mouth on her forearm but did not bite down. No skin cuts. However, following this, the area has become red, swollen, itchy, burning and spreading. Approximately 2 weeks ago, she experienced a reaction after Humira injection on her belly at the site of injection which resolved on its own. She tried cold compresses her forearm but did not help. Patient is due for Humira shot tomorrow. 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 Closed fracture of head of radius with routine healing Fracture of radial head, right, closed Occult fracture of right elbow Psoriatic arthritis Surgical History Hx of colonoscopy Hx of abdominoplasty S/P cervical spinal fusion Hx of section Family History Mother Lung cancer Father Drug addict Other Mental health problem Substance abuse Social History Household Members: Significant Other and Family Housing: House Are you a primary child care teacher to a significant other at home: No Do you presently have visiting nurse or other home services: No Alcohol intake: never Patient Tobacco Use Status: Never used Tobacco e-Cigarette/Vaping Use: Never Used Second Hand Smoke Exposure: Yes service: No Current occupational status: disabled Current occupational exposures/hazards: No Cognitive needs: No Hearing needs: No Vision needs: Yes (glasses) Questionnaire Thrive Questionnaire Date Thrive assessed: 08/06/24 I am a: Patient What is your living situation today?: I have a steady place to live Within the past 12 months, did the food you bought not last and you didn't have the money to get more?: I choose not to answer this question Within the past 12 months, did you worry whether your food would run out before you got money to buy more?: Sometimes True Do you have trouble paying for medicines?: No Do you have trouble getting transportation to medical appointments?: No Do you have trouble paying your heating and electricity bill?: I choose not to answer this question Do you have trouble taking care of your child, family member or friend?: I choose not to answer this question Do you have trouble with day-to-day activities such as bathing, preparing meals, shopping, managing finances, etc.?: No Are you currently unemployed and looking for a job?: I choose not to answer this question Are you interested in more education?: I choose not to answer this question Please select the resources that you would like help with: None Currently or been in a relationship where the following occur: No concerns reported THRIVE Score: 1 JOSELO-7 AMB Questionnaire JOSELO-7 Date JOSELO - 7 assessed: 01/21/25 Source: Developed by Drs. Yared Ge, Bella Moore, Ellis Ellis and colleagues, with an educational neil from [employer]. Review of Systems Narrative as per HPI Physical exam (Primary Care) Vital Signs: Last Vital Signs Temp 97.3 F 02/02/25 12:50 Resp 18 02/02/25 12:50 Oxygen Delivery Method Room Air 02/02/25 12:50 General: Well-appearing, alert, oriented ?3, in no acute distress. MSK: Normal range of motion in arms, wrists and hands. Skin: Left forearm-skin intact, no cuts or abrasions. About a 16 cm erythematous and swollen, warm to touch area on the ventral forearm is present. Neurologic: Strength and sensation intact in bilateral arms and hands BMI result Body Mass Index 27.5 Tobacco/Smoking Status: Tobacco use Status Tobacco use date assessed 02/02/25 02/02/25 12:54 Patient Tobacco Use Status Never used Tobacco 02/02/25 12:54 e-Cigarette/Vaping Use Never Used 02/02/25 12:54 Thrive Assessment: Date of Thrive Assessment Date Thrive assessed 08/06/24 02/02/25 12:54 Currently or been in a relationship where the following occur: No concerns reported Coding Level of Care Code Est Pt Level 3 (88748) Diagnoses Cellulitis of left forearm L03.114 Assessment & Plan Assessment & Plan (1) Cellulitis of left forearm: Code(s): L03.114 - Cellulitis of left upper limb Category: Medical Plan: Patient presents with symptoms suggestive of cellulitis, in the setting of a recent interaction with her dog. Start Augmentin 875 mg q.12 hours for 5 days. Patient may use cetirizine 10 mg daily to help with itchiness. Patient should RTC if no improvement within 48-72 hours. Medications: New amoxicillin 875 mg PO Q12H 10 tabs 0RF
--- OUTSIDE RECORDS SUMMARY | 2025-02-02 16:02 | XMS_ITS | Clinical Summary ---
Author Organization [facility] Address [address] [place] [phone] Phone Care Team Providers Care White Metal Corrosion Proofer Name Role Phone Jermaine Berg MD Primary Care Provider [phone] Family History Medical History Relation Name Comments [...] for biopsy. PQRI CPT II 3342F Code 45681, 15530 PQRI 225 CPT II 7025F TISSUE DENSITY: There are scattered areas of fibroglandular density. (BI-RADS category B) IMPRESSION: Benign. BI-RADS CATEGORY: 2 - BENIGN RECOMMENDATION: Screening bilateral mammogram is recommended in 1 year. Mammo Location: [facility], [address] [place] [address] -------- FINAL REPORT -------- Dictated By: Anjum Mota Dictated Date: 07/23/2024 08:38 ET Assigned Physician: Anjum Mota Reviewed and Electronically Signed By: Anjum Mota Signed Date: 07/23/2024 08:43 ET Workstation ID: [id number] Transcribed By: Self Edit Transcribed Date: 07/23/2024 08:38 ET Narrative 07/23/2024 8:43 AM EDT CLINICAL: The patient is a 63 years Female presenting for routine screening mammography. COMPARISON: Most recently 07/23/2023 and most remotely 02/18/2017. TECHNIQUE: Full-field digital mammography of the breasts bilaterally consisting of tomosynthesis in MLO and CC projection is performed in the Bventse 2000-D unit. Computer aided detection utilizing the [...] MLO and CC projection is performed in theSeatIDographe 2000-D unit. Computer aided detection utilizing the [email or web address] was utilized. FINDINGS: The breasts are again [...] for biopsy. PQRI CPT II 3342F Code 80353, 38237 PQRI 225 CPT II 7025F TISSUE DENSITY: There are scattered areas of fibroglandular density.(BI-RADS category B) IMPRESSION: Benign. BI-RADS CATEGORY: 2 - BENIGN RECOMMENDATION: Screening bilateral mammogram is recommended in 1 year. Mammo Location: [facility], [address] [place] [id number] -------- FINAL REPORT -------- Dictated By: Anjum Mota Dictated Date: 07/23/2024 08:38 ET Assigned Physician: Anjum Mota Reviewed and Electronically Signed By: Anjum Mota Signed Date: 07/23/2024 08:43 ET Workstation ID: [id number] Transcribed By: Self Edit Transcribed Date: 07/23/2024 08:38 ET us Self Referral Sppl IMG BI PROCEDURES Final Resul t from Last 3 Months or Most Recently Relevant to Health Maintenance Insurance MEDICARE [employer] Care Teams White Metal Corrosion Proofer Relationship Specialty Start Date End Date Jermaine Berg MD [address] [place] [address] [address] [place] PCP - General Internal Medicine 02/11/12
== END 2025-02-02 13:33 | disposition home or self-care (01) ==
LOC: HO.HMCH 12:45
PROVIDERS: PCP Internal Medicine; Visit Provider Student in an Organized Health Care Education/Training Program
DX: L03.114 Cellulitis of left upper limb (principal)

== ENCOUNTER 2025-02-12 07:49 | Outpatient (REF) | payer BC, MEDICARE, SELFPAY ==
--- OUTSIDE RECORDS SUMMARY | 2025-01-25 04:00 | XMS_ITS | Continuity of Care Document ---
Author Organization [facility] Address [address] [place] [address] Phone Care Team Providers Care Cant Gang Sawyer Name Role Phone Everardo MATSON, RVMaryse, NICK, Yared Unavailable U navailable Allergies, Adverse Reactions, Alerts Substance Reaction Status Criticality No Known Allergies Active No Inform ation Procedures Procedure Date Office/Outpt E&M Established 15 Mins- CT & [place] Duplex Scan-extrem Veins; Uni/ CT & [place] O Duplex Scan-extrem Veins; Uni/ CT & [place] S Surgical Stockings Mediven Leggings - Inj Scleros Solut; Mx Veins 1- CT & [place] S Ultrason Guidan Needle Bx-rad- CT & [place] S Duplex Scan-extrem Veins; Uni/ CT & [place] S Endovenous Laser, 1st Vein- CT & [place] Office/Outpt E&M Established 15 Mins- CT & [...] Mins- [place] & [place] [facility], [address] [place] [address] [address]Kael [place], [id number], [place] tel:[phone] CVR - [place] Venous insufficiency (chronic) (peripheral) Oct- 5 Everardo MATSON RVT, NICK [place]. [address] [place] [address], [place], [place], [id number], [place]. tel:[phone] Referring Provider: Jermaine Berg MD, [address] [place] [address] [address], [place], [address]. tel:[phone] [place] [facility], [address] [place] [address] Dr [address]Kael [place], [id number], [place] tel:[phone] CVR - [place] - [place] 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 of left lower extremity with pain Jan- 5 Everarod MATSON RVT, NICK [place]. [address] [place] [address], [facility] [place], [id number], [place]. tel:[phone] Referring Provider: Jermaine Berg MD, [address] [place] [address] [address], [place], [address]. tel:[phone] [place] [facility], [address] [place] [address] [address]Kael [place], [id number], [place] tel:[phone] CVR - [place] Encounter for follow-up examination after completed treatment for conditions other than malignant neoplasm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 of left lower extremity with pain Dec- 5 Everardo MATSON RVT, NICK [place]. [address] [place] [address], [facility] [place], [id number], [place]. tel:[phone] Referring Provider: Jermaine Berg MD, [address] [place] [address] Dr [address], [place], [address]. tel:[phone] [facility], [address] [place] [address] Dr [address]Suite Kael Tyler MD, [id number], [place] tel:[phone] CVR [place] Chronic venous hypertension (idiopathic) with other complications of bilateral lower extremity Sep-1 5 Everardo MATSON RVT, NICK [place]. [address] [place] [address], Suite [facility], [place], [place], [id number], [place]. tel:[phone] [place] [facility], [address] [place] [address] Dr [address]Suite Kael Tyler [place], [id number], [place] tel:[phone] CV[place] 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 of left lower extremity with other complications Sep-1 5 Everardo MATSON RVT, NICK [place]. [address] [facility], [place] [address], [place], [place], [id number], [place]. tel:[phone] Referring Provider: Jermaine Berg MD, [address] [place] [address] Dr [address], [place], [address]. tel:[phone] [place] [facility], [address] [place] [address] Dr [address]Suite Kael Tyler MD, [id number], [place] tel:[phone] CVR [place] Encounter for follow-up examination after completed treatment for conditions other than malignant neoplasmChron ic venous hypertension (idiopathic) with other complications of left lower extremity Sep-1 5 Everardo MATSON RVT, RPVI Robert. [address] [facility], [address], [place], [place], [id number], [place]. tel:[phone] Referring Provider: Jermaine Berg MD, [address] [place] [address] Dr [address], [place], [address]. tel:[phone] [place] [facility], [address] [place] [address] Dr [address] 1000SuKael giron MD, [id number], [place] tel:[phone] CV[place] 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 of left lower extremity with other complications Sep-0 5 Everardo MATSON RVT, NICK [place]. [address] [facility], [place], [place], [id number], [place]. tel:[phone] Referring Provider: Jermaine Berg MD, [address], [place], [address]. tel:[phone] [facility], [address] [place] [address] Dr [address]Suite Kael Tyler MD, [id number], [place] tel:[phone] CVR - [place] - [place] No Information 5 Everardo MATSON RVT, NICK [place]. [address] [place] [address], [place] [address], [facility] [place], [id number], [place]. tel:[phone] Office/Outpt E&M Established 15 Mins- CT & [facility], [address] [place] [address] Dr [address]Suite Kael Tyler MD, [id number], [place] tel:[phone] CVR - [place] - [place] Chronic venous hypertension (idiopathic) without complications of left lower extremity 5 Everardo MATSON RVT, NICK [place]. [address] [place] [address], [place] [address], [facility] [place], [id number], [place]. tel:[phone] Referring Provider: Jermaine Berg MD, [address] [facility] [address], [place], [address]. tel:[phone] [facility], [address] [place] [address] [address] Kael Tyler MD, [id number], [place] tel:[phone] CVR - [place] - [place] 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 of left lower extremity with pain 5 Everardo MATSON RVT, NICK [place]. [address] [place] [address], [place] [address], [facility] [place], [id number], [place]. tel:[phone] Referring Provider: Jermaine Berg MD, [address] [facility] [address], [place], [address]. tel:[phone] [facility], [address] [place] [address] Dr [address]Suite Kael Tyler MD, [id number], [place] tel:[phone] CVR - [place] - [place] Encounter for follow-up examination after completed treatment for conditions other than malignant neoplasm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 of left lower extremity with pain 5 Everardo MATSON RVT, NICK [place]. [address] [place] [address], [place], [place], [id number], [place]. tel:[phone] Referring Provider: Jermaine Berg MD, [address] [place] [address] Dr [address], [place], [address]. tel:[phone] [place] [facility], [address] [place] [address] Dr [address] 1000Kael MD, [id number], [place] tel:[phone] CVR - [place] - [place] 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 of left lower extremity with other complications 5 Everardo MATSON RVT, NICK [place]. [address] [place] [address], [place], [place], [id number], [place]. tel:[phone] Referring Provider: Jermaine Berg MD, [address] [place] [address] Dr [address], [place], [address]. tel:[phone] Offic/outpt E&m Estab 5 Min Trial- Telemedicine CT & [place] [facility], [address] [place] [address] [address] 1000Kael MD, [id number], [place] tel:[phone] CVR - [facility] Cramp and spasmVenous insufficiency (chronic) (peripheral) 5 Martha Katz. [address] [place] [address] [address], [place], [place], [id number], [place]. tel:[phone] Referring Provider: Jermaine Berg MD, [address] [place] [address] Dr [address], [place], [address]. tel:[phone] Office/Oupt E&M New Pt 45 Mins- [place] & [place] [facility], [address] [place] [address] Dr [address]Suite Kael Tyler MD, [id number], [place] tel:[phone] CVR - [facility] Chronic venous hypertension (idiopathic) with other complications of bilateral lower extremityCram p and spasm 5 Everardo MATSON RVT, NICK [place]. [address] [facility], [address], [facility] [place], [id number], [place]. tel:[phone] [facility], [address] [facility] [address], [place], [id number], [place] tel:[phone] CVR - [place] - [place] 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 of bilateral lower extremities with pain 5 Everardo MATSON RVT, NICK [place]. [address] [facility], [address], [place], [id number], [place]. tel:[phone] Referring Provider: Yared Mcgee MD, RVT, NICK, Replaced by [facility] [place] [address], [place], [address] . tel:[phone] Family History Family Member Type Diagnosis Age At Onset No Information Payers Payer name Insurance type Covered constitution party ID Authoriza genoveva(s) [facility] [id number] [place] [id number] Social History Type Description Quantity Date Captured [...] Diet education completed Goal Diet education completed Goal Diet education [...] Information Instructions Date Instruction Additional Infor delio Lifestyle education Related to B kane mass index (BMI) 23.0-23.9, adult Giving Encouragement to exercise Related to Body mass index (BMI) 23.0-23.9, adult Diet education Related to Body mass index (BMI) 23.0-23.9, adult Pre and post instruc tions reviewed and provided Related to Venous insufficiency (chronic) (peripheral) Patient education booklet given Related to Venous insufficiency (chronic) (peripheral) Pre and post instruc tions reviewed and [...]
--- OUTSIDE RECORDS SUMMARY | 2025-02-12 07:51 | XMS_ITS | Clinical Summary ---
Author Organization [facility] Address [address] [place] [phone] Phone Care Team Providers Care Theatrical Scenic Designer Name Role Phone Jermaine Berg MD Primary [...] for biopsy. PQRI CPT II 3342F Code 81970, 36396 PQRI 225 CPT II 7025F TISSUE DENSITY: There are scattered areas of fibroglandular density. (BI-RADS category B) IMPRESSION: Benign. BI-RADS CATEGORY: 2 - BENIGN RECOMMENDATION: Screening bilateral mammogram is recommended in 1 year. Mammo Location: [facility], [address] [place] [address] -------- FINAL REPORT -------- Dictated By: Anjum Mota Dictated Date: 07/23/2024 08:38 ET Assigned Physician: Anjum Mota Reviewed and Electronically Signed By: Anjum Mota Signed Date: 07/23/2024 08:43 ET Workstation ID: [id number] Transcribed By: Self Edit Transcribed Date: 07/23/2024 08:38 ET Narrative 07/23/2024 8:43 AM EDT CLINICAL: The patient is a 63 years Female presenting for routine screening mammography. COMPARISON: Most recently 07/23/2023 and most remotely 02/18/2017. TECHNIQUE: Full-field digital mammography of the breasts bilaterally consisting of tomosynthesis in MLO and CC projection is performed in the IEMOe 2000-D unit. Computer aided detection utilizing the [...] MLO and CC projection is performed in [email or web address] Applicationographe 2000-D unit. Computer aided detection utilizing the CHIC.TVystem was utilized. FINDINGS: The breasts are again [...] for biopsy. PQRI CPT II 3342F Code 99773, 13353 PQRI 225 CPT II 7025F TISSUE DENSITY: There are scattered areas of fibroglandular density.(BI-RADS category B) IMPRESSION: Benign. BI-RADS CATEGORY: 2 - BENIGN RECOMMENDATION: Screening bilateral mammogram is recommended in 1 year. Mammo Location: [facility], [address] [place] [id number] -------- FINAL REPORT -------- Dictated By: Anjum Mota Dictated Date: 07/23/2024 08:38 ET Assigned Physician: Anjum Mota Reviewed and Electronically Signed By: Anjum Mota Signed Date: 07/23/2024 08:43 ET Workstation ID: [id number] Transcribed By: Self Edit Transcribed Date: 07/23/2024 08:38 ET us Self Referral Sppl IMG BI PROCEDURES Final Resul t from Last 3 Months or Most Recently Relevant to Health Maintenance Insurance MEDICARE [facility] Care Teams Theatrical Scenic Designer Relationship Specialty Start Date End Date Jermaine Berg MD [address] [place] [address] [address] [place] PCP - General Internal Medicine 02/11/12
[2025-02-12 08:45] LABS: Appearance Urine Clear; Glucose Urine UA Negative (Negative); PH 5.5 (5.0-9.0); Specific Gravity - Urine 1.020 (1.005-1.025); UMIC TRIGGER UACC YES
[2025-02-12 09:31] LABS: Alanine Aminotransferase 45 U/L (0-31); Albumin Level 4.6 g/dL (3.5-5.0); Alkaline Phosphatase 91 U/L (39-117); Anion Gap 14 (12-20); Aspartate Amino Transferase 40 U/L (5-31); Blood Urea Nitrogen 20 mg/dL (9-16); Calcium 9.5 mg/dL (8.4-10.2); Carbon Dioxide 27 mmol/L (22-29); Chloride 106 mmol/L (96-108); Cholesterol 204 mg/dL (<200); Estimated Glomerular Filt Rate > 60; HDL Cholesterol 56 mg/dL (>40); Potassium 4.5 mmol/L (3.3-5.1); Sodium 142 mmol/L (135-145); Total Protein 7.4 g/dL (6.5-8.0); Triglycerides 89 mg/dL (<150)
== END 2025-02-12 07:50 | disposition home or self-care (01) ==
LOC: HO.LAB 07:49
PROVIDERS: PCP Internal Medicine; Visit Provider Internal Medicine
DX: E78.00 Pure hypercholesterolemia, unspecified (principal); E55.9 Vitamin D deficiency, unspecified
CPT/HCPCS: 36415; 80053; 80061; 81001; 82306; 84443

== ENCOUNTER 2025-02-15 09:13 | Outpatient (AMB) | payer BC, MEDICARE, SELFPAY ==
--- NOTE | 2025-02-15 09:15 | MHC.PC.OV ---
Vital Signs 02/15/25 09:16 Height 5 ft 2 in Weight 151 lb 8 oz BMI 27.7 BP 110/82 Blood Pressure Location Lt brachial Position Sitting Pulse 68 Pulse Source Pulse Oximeter Pulse Oximetry (%) 98 Oxygen Delivery Method Room Air Intake Visit Reasons: psoriatic arthritis, hyperlipidemia. lumbar DDD, O Radiology Supervisor Required: No Accompanied by: Self / Same As Patient Allergies No Known Allergies Allergy (Verified 02/15/25 09:55) Medication List - Last Reconciled 02/15/25 by Jermaine Berg MD adalimumab (Humira(CF) Pen) 40 mg (0.4 mL) subcut Q2W 30 days atorvastatin 20 mg PO BEDTIME 90 days clonazepam 0.5 mg PO BID PRN ibuprofen 800 mg PO BID PRN omeprazole 40 mg PO DAILY PRN polyethylene glycol 3350 (Miralax) 17 grams PO DAILY PRN tramadol 1 to 2 tablets every 4 to 6 hours as needed for pain (no more than 3 to 4 times a day); 30 days Tobacco use date assessed: 02/15/25 Fall risk assessment: No Falls in past year Last assessed Fall Risk: 02/15/25 Dental Screening Dental Screen Date: 02/15/25 Did you have a dental visit in the last 12 months?: Yes Did you have a dental problem in the last 6 months where you did not have access to dental care?: No Was dental information given to patient?: Patient has dentist HPI psoriatic arthritis, hyperlipidemia. lumbar DDD, O HPI Details Patient comes in today for her follow up visit States that she has been under a lot of stress/experiencing a lot of anxiety lately due to some family issues and admits to poor compliance with her diet recently She denies any headaches or dizziness Denies any chest pains, no increased SOB No nausea/vomiting, still has on and off abdominal pain and states that she has a follow up appointment with Dr. Avila in April 2025 for this States that she just had an MRI of the abdomen done last month and will be discussing her results with Dr. Avila at her upcoming appointment No change in bowel habits noted She reports that her chronic joint pains are adequately managed on her current regimen of both Humira and Otezla Needs her Clonazepam Rx refilled She had her follow up labs done a few days ago - to discuss her results [facility] Medical History Encounter for monitoring of adalimumab therapy Pain in left shoulder Gastritis Greater trochanteric bursitis of both hips History of colon polyps Insomnia 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 of left lower extremity with inflammation Polymyalgia rheumatica Failed neck syndrome Depression Anxiety Osteopenia Elevated LFTs Vitamin D deficiency Lumbar degenerative disc disease Fibromyalgia Pure hypercholesterolemia 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 of both lower extremities with pain 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 Closed fracture of head of radius with routine healing Fracture of radial head, right, closed Occult fracture of right elbow Psoriatic arthritis Surgical History Hx of colonoscopy Hx of abdominoplasty S/P cervical spinal fusion Hx of section Family History Mother Lung cancer Father Drug addict Other Mental health problem Substance abuse Social History Household Members: Significant Other and Family Housing: House Are you a primary healthcare corporate account director to a significant other at home: No Do you presently have visiting nurse or other home services: No Alcohol intake: never Patient Tobacco Use Status: Never used Tobacco e-Cigarette/Vaping Use: Never Used Second Hand Smoke Exposure: Yes service: No Current occupational status: disabled Current occupational exposures/hazards: No Cognitive needs: No Hearing needs: No Vision needs: Yes (glasses) Questionnaire PHQ-9 Over the last 2 weeks, how often have you been bothered by any of the following problems? 1. Little interest or pleasure in doing things: several days 2. Feeling down, depressed, or hopeless: more than half the days 3. Trouble falling or staying asleep, or sleeping too much: nearly every day 4. Feeling tired or having little energy: more than half the days 5. Poor appetite or overeating: more than half the days 6. Feeling bad about yourself - or that you are a failure or have let yourself or your family down: nearly every day 7. Trouble concentrating on things, such as reading the newspaper or watching television: nearly every day 8. Moving or speaking so slowly that other people could have noticed. Or the opposite - being so fidgety or restless that you have been moving around a lot more than usual: more than half the days 9. Thoughts that you would be better off or of hurting yourself in some way: not at all Total score: 18 Depression Screening Interpretation: Positive Depression Screening Follow-up: Existing condition and Follow-up Visit Requested Depression Screening Done: Yes 57780 - PHQ-9 Billing: Yes Source: Developed by Drs. Yared Ge, Bella Moore, Ellis Ellis and colleagues, with an educational neil from [employer]. Thrive Questionnaire Date Thrive assessed: 02/15/25 I am a: Patient What is your living situation today?: I have a steady place to live Within the past 12 months, did the food you bought not last and you didn't have the money to get more?: I choose not to answer this question Within the past 12 months, did you worry whether your food would run out before you got money to buy more?: Sometimes True Do you have trouble paying for medicines?: No Do you have trouble getting transportation to medical appointments?: No Do you have trouble paying your heating and electricity bill?: I choose not to answer this question Do you have trouble taking care of your child, family member or friend?: I choose not to answer this question Do you have trouble with day-to-day activities such as bathing, preparing meals, shopping, managing finances, etc.?: No Are you currently unemployed and looking for a job?: I choose not to answer this question Are you interested in more education?: I choose not to answer this question Please select the resources that you would like help with: None Currently or been in a relationship where the following occur: No concerns reported THRIVE Score: 1 AUDIT C Alcohol Use Questionnaire (AUDIT-C) 1. How often do you have a drink containing alcohol?: Never 3. How often do you have six or more drinks on one occasion?: Never Total Score: 0 Score Reviewed/Action Taken: Yes JOSELO-7 AMB Questionnaire JOSELO-7 Date JOSELO - 7 assessed: 02/15/25 Feeling nervous, anxious, or on edge: 0 = Not at all Not being able to stop or control worryin = Not at all Worrying too much about different things: 0 = Not at all Trouble relaxin = Not at all Being so restless that it is hard to sit still: 0 = Not at all Becoming easily annoyed or irritable: 0 = Not at all Feeling afraid as if something awful might happen: 0 = Not at all Total JOSELO-7 score (0-4 normal; 5-9 mild; 10-14 moderate; 15-21 severe): 0 Source: Developed by Drs. Yared Ge, Bella Moore, Ellis Ellis and colleagues, with an educational neil from [employer]. Review of Systems Const Denies chills, Reports fatigue, Denies fever(s) and Denies headache(s) ENT Denies dysphagia, Denies dizziness, Denies otalgia, Denies headache(s), Reports neck pain (chronic), Denies odynophagia and Denies sore throat Card Denies chest pain, Denies palpitations and Denies dyspnea Resp Denies chest congestion, Denies cough and Denies dyspnea GI Reports abdominal pain (on and off), Denies constipation, Denies dysphagia, Denies heartburn, Denies diarrhea, Denies nausea, Denies odynophagia and Denies vomiting Denies difficulty voiding, Denies nocturia, Denies dysuria and Denies urinary urgency Musc Reports back pain, Reports myalgias (diffuse), Reports arthralgias (left shoulder area - chronic) and Reports neck pain (chronic) Skin/Breast Denies rash Neuro Denies dizziness and Denies headache(s) Psych Reports anxiety (increased lately, mostly due to some family situation) and Reports depression Endo Reports fatigue and Denies palpitations Physical exam (Primary Care) Vital Signs: Last Vital Signs Pulse 68 02/15/25 09:16 BP 110/82 02/15/25 09:16 Pulse Ox 98 02/15/25 09:16 Oxygen Delivery Method Room Air 02/15/25 09:16 BMI result Body Mass Index 27.7 Tobacco/Smoking Status: Tobacco use Status Tobacco use date assessed 02/15/25 02/15/25 09:18 Patient Tobacco Use Status Never used Tobacco 02/15/25 09:18 e-Cigarette/Vaping Use Never Used 02/15/25 09:18 PHQ-9: PHQ-9 Score PHQ-9: Total score 18 02/15/25 09:18 Depression Screening Interpretation: Positive Depression Screening Follow-up: Existing condition and Follow-up Visit Requested Thrive Assessment: Date of Thrive Assessment Date Thrive assessed 02/15/25 02/15/25 09:18 Currently or been in a relationship where the following occur: No concerns reported Const General: no acute distress and alert HENMT Ears: TM's normal bilaterally and EAC's normal Throat: Yes posterior oropharynx normal and Yes tonsils normal (no TP congestion noted) Neck Neck: No lymphadenopathy Thyroid: Thyroid normal Resp Auscultation: clear to auscultation bilaterally, no rales and no wheezes Cardio Rate: regular rate Rhythm: regular rhythm Heart sounds: no murmurs GI Palpation (GI): Soft to palpation and nontender Auscultation: normal bowel sounds General: Yes no CVA tenderness Back/Spine/Pelvis Back: no CVA tenderness Cervical Spine: cervical muscular tenderness (especially over the left side) and Cervical spine tenderness Thoracic/Lumbar Spine: paraspinal muscle tenderness bilaterally in the upper thoracic and No lumbar spinal tenderness Skin Rashes: no rashes Extrem General: Yes no clubbing, cyanosis or edema Right upper extremity: shoulder/upper arm Details: tenderness; no swelling Left upper extremity: shoulder/upper arm Details: tenderness; no swelling Results Reviewed Results Reviewed: Laboratory Tests 02/12/25 02/12/25 07:59 08:00 Sodium 142 Potassium 4.5 Creatinine 0.67 Estimated GFR > 60 Fasting Glucose 89 Calcium 9.5 AST 40 H ALT 45 H Triglycerides 89 Cholesterol 204 H LDL Cholesterol, Calc 131 H HDL Cholesterol 56 25-OH Vitamin D Total 38.3 TSH 1.63 Ur Specific [place] 1.020 Urine Protein Negative Urine Glucose (UA) Negative Urine Blood Moderate (2+) H Urine Nitrite Negative Ur Leukocyte Esterase Trace H Coding Level of Care Code Est Pt Level 4 (37660) Diagnoses Pure hypercholesterolemia E78.00 Psoriatic arthritis L40.50 Fibromyalgia M79.7 Failed neck syndrome M96.1 Lumbar degenerative disc disease M51.36 Gastritis without bleeding, unspecified chronicity, unspecified gastritis type K29.70 Gastritis type: unspecified gastritis Chronicity: unspecified Gastritis bleeding: without bleeding Elevated LFTs R79.89 Abdominal pain, crampy R10.9 Vitamin D deficiency E55.9 Osteopenia, unspecified location M85.80 Osteopenia location: unspecified Benign microscopic hematuria R31.1 Renal cyst, right N28.1 Insomnia, unspecified type G47.00 Insomnia type: unspecified Anxiety F41.9 Depression, unspecified depression type F32.9 Depression Type: unspecified Additional Codes PHQ-9 - 63626 - PHQ-9 Billing: Yes ([id number]) Assessment & Plan Assessment & Plan (1) Pure hypercholesterolemia: Code(s): E78.00 - Pure hypercholesterolemia, unspecified Category: Medical Plan: Results of her labs done a few days ago reviewed and discussed with patient - her cholesterol levels have increased slightly from previous Reinforced low cholesterol diet - she admits to poor compliance with her diet recently Continue Atorvastatin 20 mg QD for now Will recheck her labs and fasting lipids in 4 months for follow-up (2) Psoriatic arthritis: Comment: Enbrel not clearly helpful Otezla: 2023 Humira 04/2023 - Present. Methotrexate: 2016 - 01/19/2022. LFT elevations - methotrexate discontinued. She did okay until summer 2022 when she had a flare overall joint pains. Code(s): L40.50 - Arthropathic psoriasis, unspecified Category: Medical Plan: Continue Humira 40 mg SQ every 2 weeks and Otezla 30 mg QD - states that her pain has been better controlled on both Rx Methotrexate was discontinued by rheumatology last year She had a baseline echocardiogram done back in April 2023 that came out grossly normal Follow-up with rheumatology as scheduled (3) Fibromyalgia: Code(s): M79.7 - Fibromyalgia Category: Medical Plan: Patient is again encouraged to continue to stay active and exercise regularly to help manage her fibromyalgia symptoms Continue Tramadol 50 mg 1-2 tablets every 4-6 hours as needed and Baclofen 20 mg TID PRN (4) Failed neck syndrome: Code(s): M96.1 - Postlaminectomy syndrome, not elsewhere classified Category: Medical Plan: She had a cervical spine fusion (ADCF of C5 and C6) back in 2003 but the surgery failed to provide her with any lasting or significant relief of her chronic pain and she is currently on disability because of this issue She has been seen by pain management in the past and has failed trials of several pain meds and opioids as well as interventional treatments Continue Tramadol 50 mg TID PRN for pain (5) Lumbar degenerative disc disease: Code(s): M51.36 - Other intervertebral disc degeneration, lumbar region Category: Medical Plan: Reinforced activity and weight-lifting restrictions to minimize flare ups of her low back pain Repeat lumbar spine x-rays done a couple of years ago showed only mild lumbar spondylotic changes; SI joints were normal bilaterally (6) Gastritis: Code(s): K29.70 - Gastritis, unspecified, without bleeding Category: Medical Qualifiers: Gastritis type: unspecified gastritis Chronicity: unspecified Gastritis bleeding: without bleeding Qualified Code(s): K29.70 - Gastritis, unspecified, without bleeding Plan: Her upper GI series done back in September 2023 revealed (+) granular appearance of the mid esophageal mucosa that likely represent esophagitis. There is mildly disorganized esophageal peristalsis and a thickened appearance of the areae gastricae likely representing gastritis due to H. pylori She was then checked for H. pylori, which came back positive and she was subsequently treated for this with 2 weeks of Bismuth quadruple therapy, which patient was able to complete back in February 2024 She eventually underwent EGD as well when she had her repeat colonoscopy done in March 2024 - EGD revealed (+) mildly tortuous esophagus but no evidence of esophagitis or Chahal's. There is moderate diffuse gastric erythema with nodular appearing mucosa in the gastric body. Biopsies obtained from the body and antrum both came back as mild chronic gastritis without activity and negative for intestinal metaplasia and dysplasia. Immunostains for H pylori were negative. The duodenum was normal in appearance Continue Omeprazole 40 mg QD Follow-up with GI as scheduled (7) Elevated LFTs: Code(s): R79.89 - Other specified abnormal findings of blood chemistry Category: Medical Plan: Her LFTs are again slightly elevated on her recent labs - these are again likely related to her weight (hepatosteatosis) but also due to the rise in her cholesterol levels recently Will continue to monitor her LFTs regularly (8) Abdominal pain, crampy: Code(s): R10.9 - Unspecified abdominal pain Category: Medical Plan: She reports that she is still experiencing on and off cramping abdominal pains She had a HIDA scan done (ordered by GI) a few months ago that came back normal Abdominal US done earlier this year (April 2024) revealed (+) hepatocytic ptosis and cholelithiasis States that she had an abdominal MRI done last month and she will be seeing Dr. Avila in a couple of months for her GI follow up (9) Vitamin D deficiency: Code(s): E55.9 - Vitamin D deficiency, unspecified Category: Medical Plan: Corrected - continue OTC Vitamin D supplements daily (10) Osteopenia: Code(s): M85.80 - Other specified disorders of bone density and structure, unspecified site Category: Medical Qualifiers: Osteopenia location: unspecified Qualified Code(s): M85.80 - Other specified disorders of bone density and structure, unspecified site Plan: BMD done in April 2021 showed (+) osteopenia with 4.8% decline in AP spine BMD from her previous BMD in 02/2019 and 1.3% decline in left femoral BMD from previous in 02/2019 Her most recent BMD done in November 2024 revealed (+) improvement of her lumbar spine BMD by 9.8% from previous, with the BMD in the left total hip and left femoral neck mostly unchanged from previous -?will continue to monitor this regularly Overall, her most recent BMD is still consistent with osteopenia, with a FRAX index suggesting a ten year probability of a major osteoporotic fracture of 21.2% and hip fracture of 2.0% Patient is again encouraged to exercise regularly to help slow down the decline of her BMD and she is reminded to continue on her Vitamin D and calcium supplements daily Fall precautions also reinforced (11) Benign microscopic hematuria: Code(s): R31.1 - Benign essential microscopic hematuria Category: Medical Plan: Patient continues to have (+) RBCs in her urine (chronic finding); she remains asymptomatic Renal US last done in 03/2014 revealed (+) right renal cyst that is mostly unchanged from her US in 2007 Repeat renal US done in July 2022 showed the same findings; no further follow up imaging studies is recommended at this point (12) Renal cyst, right: Code(s): N28.1 - Cyst of kidney, acquired Category: Medical Plan: (+) right renal cyst noted on sonogram done in 2007 and in 2013 as well as most recently in July 2022 - no further follow up imaging studies is recommended (13) Insomnia: Code(s): G47.00 - Insomnia, unspecified Category: Medical Qualifiers: Insomnia type: unspecified Qualified Code(s): G47.00 - Insomnia, unspecified Plan: Sleep hygiene reinforced Continue Trazodone 100 mg Q HS (14) Anxiety: Code(s): F41.9 - Anxiety disorder, unspecified Category: Medical Plan: Continue Clonazepam 0.5 mg 1 tablet 2 to 3 times a day as needed for anxiety - Rx refilled (15) Depression: Code(s): F32.9 - Major depressive disorder, single episode, unspecified Category: Medical Qualifiers: Depression Type: unspecified Qualified Code(s): F32.9 - Major depressive disorder, single episode, unspecified Plan: Continue Venlafaxine ER 187.5 mg (150 + 37.5 mg) QD She was not able to tolerate Seroquel in the past Follow-up with Psychiatry as scheduled Plan Follow-up in 4 months Orders: Orders Complete Blood Count Auto Diff 4 Months D64.9 - Anemia, unspecified Comprehensive [place]. Panel Fast 4 Months E78.00 - Pure hypercholesterolemia, unspecified UA CC w/rflx Micro + Cult 4 Months R30.0 - Dysuria Vitamin D 25-OH Total 4 Months E55.9 - Vitamin D deficiency, unspecified Lipid Panel 4 Months E78.00 - Pure hypercholesterolemia, unspecified TSH reflex Free T4 4 Months E78.00 - Pure hypercholesterolemia, unspecified Medications: Refilled clonazepam 0.5 mg PO BID PRN 60 tabs 0RF anxiety
[2025-02-15 09:16] VITALS: BP 110/82; PULSE 68; O2SAT 98; BMI 27.7
--- OUTSIDE RECORDS SUMMARY | 2025-02-15 10:03 | XMS_ITS | Clinical Summary ---
Author Organization [facility] Address [address] [place] [phone] Phone Care Team Providers Care Deck Specialist Name Role Phone Jermaine Berg MD Primary [...] for biopsy. PQRI CPT II 3342F Code 07726, 88726 PQRI 225 CPT II 7025F TISSUE DENSITY: There are scattered areas of fibroglandular density. (BI-RADS category B) IMPRESSION: Benign. BI-RADS CATEGORY: 2 - BENIGN RECOMMENDATION: Screening bilateral mammogram is recommended in 1 year. Mammo Location: [facility], [address] [place] [address] -------- FINAL REPORT -------- Dictated By: Anjum Mota Dictated Date: 07/23/2024 08:38 ET Assigned Physician: Anjum Mota Reviewed and Electronically Signed By: Anjum Mota Signed Date: 07/23/2024 08:43 ET Workstation ID: [id number] Transcribed By: Self Edit Transcribed Date: 07/23/2024 08:38 ET Narrative 07/23/2024 8:43 AM EDT CLINICAL: The patient is a 63 years Female presenting for routine screening mammography. COMPARISON: Most recently 07/23/2023 and most remotely 02/18/2017. TECHNIQUE: Full-field digital mammography of the breasts bilaterally consisting of tomosynthesis in MLO and CC projection is performed in the [employer] 2000-D unit. Computer aided detection utilizing the [...] MLO and CC projection is performed in the[employer]he 2000-D unit. Computer aided detection utilizing the [employer] was utilized. FINDINGS: The breasts are again [...] for biopsy. PQRI CPT II 3342F Code 01231, 03969 PQRI 225 CPT II 7025F TISSUE DENSITY: There are scattered areas of fibroglandular density.(BI-RADS category B) IMPRESSION: Benign. BI-RADS CATEGORY: 2 - BENIGN RECOMMENDATION: Screening bilateral mammogram is recommended in 1 year. Mammo Location: [facility], [address] [place] [id number] -------- FINAL REPORT -------- Dictated By: Anjum Mota Dictated Date: 07/23/2024 08:38 ET Assigned Physician: Anjum Mota Reviewed and Electronically Signed By: Anjum Mota Signed Date: 07/23/2024 08:43 ET Workstation ID: [id number] Transcribed By: Self Edit Transcribed Date: 07/23/2024 08:38 ET us Self Referral Sppl IMG BI PROCEDURES Final Resul t from Last 3 Months or Most Recently Relevant to Health Maintenance Insurance MEDICARE [facility] Care Teams Deck Specialist Relationship Specialty Start Date End Date Jermaine Berg MD [address] [place] [address] [address] [place] PCP - General Internal Medicine 02/11/12
== END 2025-02-15 10:09 | disposition home or self-care (01) ==
LOC: HO.HMCH 09:14
PROVIDERS: PCP Internal Medicine; Visit Provider Internal Medicine
DX: E78.00 Pure hypercholesterolemia, unspecified (principal); L40.50 Arthropathic psoriasis, unspecified; M79.7 Fibromyalgia; M96.1 Postlaminectomy syndrome, not elsewhere classified; M51.369 Other intervertebral disc degeneration, lumbar region without mention of lumbar back pain or lower extremity pain; K29.70 Gastritis, unspecified, without bleeding; R79.89 Other specified abnormal findings of blood chemistry; R10.9 Unspecified abdominal pain; E55.9 Vitamin D deficiency, unspecified; M85.80 Other specified disorders of bone density and structure, unspecified site; R31.1 Benign essential microscopic hematuria; N28.1 Cyst of kidney, acquired; G47.00 Insomnia, unspecified; F41.9 Anxiety disorder, unspecified; F32.9 Major depressive disorder, single episode, unspecified

== ENCOUNTER → 2025-02-15 09:13 | Outpatient (BNVA) | payer BC, MEDICARE, SELFPAY | PROVIDERS: PCP Internal Medicine; Visit Provider Internal Medicine | DX: M51.369 Other intervertebral disc degeneration, lumbar region without mention of lumbar back pain or lower extremity pain (principal); L40.50 Arthropathic psoriasis, unspecified; E78.00 Pure hypercholesterolemia, unspecified; M79.7 Fibromyalgia; M96.1 Postlaminectomy syndrome, not elsewhere classified; K29.70 Gastritis, unspecified, without bleeding; R79.89 Other specified abnormal findings of blood chemistry; R10.9 Unspecified abdominal pain; E55.9 Vitamin D deficiency, unspecified; M85.80 Other specified disorders of bone density and structure, unspecified site; R31.1 Benign essential microscopic hematuria; N28.1 Cyst of kidney, acquired; G47.00 Insomnia, unspecified; F41.9 Anxiety disorder, unspecified; F32.9 Major depressive disorder, single episode, unspecified | CPT/HCPCS: 96127 ==

== ENCOUNTER 2025-03-16 07:37 | Outpatient (REF) | payer BC, MEDICARE, SELFPAY ==
[2025-03-16 07:59] LABS: MANUAL DIFF FLAG NO
--- OUTSIDE RECORDS SUMMARY | 2025-03-16 07:59 | XMS_ITS | Clinical Summary ---
Author Organization [facility] Address [address] [place] [phone] Phone Care Team Providers Care Director Of Consulting Services Name Role Phone Jermaine Berg MD Primary [...] for biopsy. PQRI CPT II 3342F Code 79079, 20214 PQRI 225 CPT II 7025F TISSUE DENSITY: There are scattered areas of fibroglandular density. (BI-RADS category B) IMPRESSION: Benign. BI-RADS CATEGORY: 2 - BENIGN RECOMMENDATION: Screening bilateral mammogram is recommended in 1 year. Mammo Location: [facility], [address] [place] [address] -------- FINAL REPORT -------- Dictated By: Anjum Mota Dictated Date: 07/23/2024 08:38 ET Assigned Physician: Anjum Mota Reviewed and Electronically Signed By: Anjum Mota Signed Date: 07/23/2024 08:43 ET Workstation ID: [id number] Transcribed By: Self Edit Transcribed Date: 07/23/2024 08:38 ET Narrative 07/23/2024 8:43 AM EDT CLINICAL: The patient is a 63 years Female presenting for routine screening mammography. COMPARISON: Most recently 07/23/2023 and most remotely 02/18/2017. TECHNIQUE: Full-field digital mammography of the breasts bilaterally consisting of tomosynthesis in MLO and CC projection is performed in the [employer] 2000-D unit. Computer aided detection utilizing the [...] MLO and CC projection is performed in the[employer]he 2000-D unit. Computer aided detection utilizing the [employer] was utilized. FINDINGS: The breasts are again [...] for biopsy. PQRI CPT II 3342F Code 21851, 61513 PQRI 225 CPT II 7025F TISSUE DENSITY: There are scattered areas of fibroglandular density.(BI-RADS category B) IMPRESSION: Benign. BI-RADS CATEGORY: 2 - BENIGN RECOMMENDATION: Screening bilateral mammogram is recommended in 1 year. Mammo Location: [facility], [facility], [address] [place] [id number] -------- FINAL REPORT -------- Dictated By: Anjum Mota Dictated Date: 07/23/2024 08:38 ET Assigned Physician: Anjum Mota Reviewed and Electronically Signed By: Anjum Mota Signed Date: 07/23/2024 08:43 ET Workstation ID: [id number] Transcribed By: Self Edit Transcribed Date: 07/23/2024 08:38 ET us Self Referral Sppl IMG BI PROCEDURES Final Resul t from Last 3 Months or Most Recently Relevant to Health Maintenance Insurance MEDICARE [facility] Care Teams Director Of Consulting Services Relationship Specialty Start Date End Date Jermaine Berg MD [address] [place] [address] [address] [place] PCP - General Internal Medicine 02/11/12
[2025-03-16 08:36] LABS: Hematocrit 48.3 % (37.0-47.0); Hemoglobin 15.9 g/dl (12.0-16.0); Imm Gran Abs Auto 0.01 X10*3/uL (0.00-0.03); Imm Gran Pct Auto 0.2 % (0.0-0.4); Lymphocytes Absolute Auto 2.1 X10*3/uL (1.2-4.9); Mean Corpuscular HGB Conc 32.9 g/dl (31.0-35.0); Mean Corpuscular Hemoglobin 29.7 pg (27.0-33.0); Mean Corpuscular Volume 90.1 fL (80.0-98.0); NRBC Abs Auto 0.000 X10*3/uL (0.0-0.012); NRBC Pct Auto 0.0 /100WBC (0.0-0.2); Platelet Count 210 X10*3/uL (160-400); Red Blood Count 5.36 X10*6/uL (4.20-5.50); White Blood Count 5.6 X10*3/uL (4.8-10.8)
[2025-03-16 09:07] LABS: Alanine Aminotransferase 38 U/L (0-31); Albumin Level 4.6 g/dL (3.5-5.0); Alkaline Phosphatase 84 U/L (39-117); Anion Gap 8 (12-20); Aspartate Amino Transferase 30 U/L (5-31); Blood Urea Nitrogen 19 mg/dL (9-16); Calcium 9.9 mg/dL (8.4-10.2); Carbon Dioxide 30 mmol/L (22-29); Chloride 106 mmol/L (96-108); Estimated Glomerular Filt Rate > 60; Potassium 4.8 mmol/L (3.3-5.1); Sodium 139 mmol/L (135-145); Total Protein 7.2 g/dL (6.5-8.0)
[2025-03-16 09:15] LABS: Erythrocyte Sedimentation Rate 4 MM/HR (0-20)
== END 2025-03-16 07:38 | disposition home or self-care (01) ==
LOC: HO.LAB 07:37
PROVIDERS: PCP Internal Medicine; Visit Provider Student in an Organized Health Care Education/Training Program
DX: L40.50 Arthropathic psoriasis, unspecified (principal)
CPT/HCPCS: 36415; 80053; 85025; 85652; 86140

== ENCOUNTER 2025-03-18 09:30 | Outpatient (AMB) | payer BC, MEDICARE, SELFPAY ==
--- NOTE | 2025-03-18 09:41 | A.OFFVIS_ITS ---
Vital Signs 03/18/25 09:49 Height 5 ft 2 in Weight 155 lb 3.287 oz BMI 28.4 BP 130/72 Blood Pressure Location Lt brachial Position Sitting Pulse 64 Pulse Source Pulse Oximeter Pulse Oximetry (%) 98 Oxygen Delivery Method Room Air Intake Visit Reasons: follow up Intake Note: Patient presents today for PsA follow up and test results. Hunter Skin Diver Required: No Information Interpreted: non-clinical & clinical Accompanied by: Self / Same As Patient Allergies No Known Allergies Allergy (Verified 03/18/25 09:49) HPI Comments Details: Patient is a 64-year-old female with hyperlipidemia, polyarticular osteoarthritis (hands, shoulders, lumbar degenerative disc disease), psoriasis/psoriatic arthritis here today for follow up Interval History: Patient last seen 10/01/24 with me. - On Humira every other week SC - Continues to do well - No PsO or PsA - Left shoulder improved after injection - Not doing any further exercises for her bilateral greater trochanteric bursitis as they have improved. Today - On Humira every other week SC - Presenting for a follow-up visit for psoriatic arthritis and evaluation of new joint pains and a skin lesion. - She has a history of psoriatic arthritis and psoriasis, for which she is treated with Humira every two weeks, and osteoarthritis. - At her last visit in September, her condition was stable. - She now reports new areas of significant pain, including her left shoulder, and she is unable to lie on that side. - She also notes pain in her right first thumb and right knee. - For the past six to nine months, she has experienced intermittent pain and occasional swelling in her right ankle, which is not consistently related to activity. - A skin lesion has developed on her right leg in an area, below the area where she administers her Humira injections, which she reports edmonds and itches. - Past medical history is significant for osteopenia of the hip, specifically at the femoral neck, identified on a bone density scan, though her spine was normal. - Her lab work from February showed elevated liver function tests, which have since been trending down toward normal. Rheumatologic History: PsO/PsA Enbrel 2014- not clearly helpful Otezla: 2017- 2023 Humira 04/2023 - Present. Methotrexate: 2016 - 01/19/2022. LFT elevations - methotrexate discontinued. She did okay until summer 2022 when she had a flare overall joint pains. 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 Closed fracture of head of radius with routine healing Fracture of radial head, right, closed Occult fracture of right elbow Psoriatic arthritis Surgical History Hx of colonoscopy Hx of abdominoplasty S/P cervical spinal fusion Hx of section Family History Mother Lung cancer Father Drug addict Other Mental health problem Substance abuse Social History Household Members: Significant Other and Family Housing: House Are you a primary cattle care worker to a significant other at home: No Do you presently have visiting nurse or other home services: No Alcohol intake: never Patient Tobacco Use Status: Never used Tobacco e-Cigarette/Vaping Use: Never Used Second Hand Smoke Exposure: Yes service: No Current occupational status: disabled Current occupational exposures/hazards: No Cognitive needs: No Hearing needs: No Vision needs: Yes (glasses) Review of Systems Narrative Review of Systems - Musculoskeletal: Reports severe right shoulder pain, right first thumb pain, and right knee pain. Also reports intermittent right ankle pain with occasional swelling. Denies pain in the left thumb. - Integumentary: Reports a warm lesion on the right perez that edmonds and itches. All other systems reviewed and are unremarkable except noted above Physical Exam Exam Exam: Vital signs reviewed Physical Examination CONSTITUITIONAL Patient alert and cooperative. Well appearing and in no apparent painful distress MSK Hands * Right Hand: Able to make a fist. No swelling or tenderness to palpation of the MCPs, PIPs or DIPs. Tenderness over the tendon of the first digit, with no tenderness of the joint itself. * Left Hand: Able to make a fist. No swelling or tenderness to palpation of the MCPs, PIPs or DIPs. Wrists * Right Wrist: Full ROM to flexion and extension. No swelling or TTP * Left Wrist: Full ROM to flexion and extension. No swelling or TTP Elbows * Right Elbow: Full ROM. No swelling or TTP. No TTP of the medial epicondyle. No TTP of the lateral epicondyle * Left Elbow: Full ROM. No swelling or TTP. No TTP of the medial epicondyle. No TTP of the lateral epicondyle Shoulders * Right shoulder: Full ROM. No swelling noted. No TTP of the AC joint. No TTP of the subacromial bursa. No TTP of the posterior shoulder * Left shoulder: Full ROM. No swelling noted. No TTP of the AC joint. TTP of the subacromial bursa. No TTP of the posterior shoulder Knees * Right knee: Full ROM. No swelling noted. No TTP of the knee joint line. No TTP of pes anserine bursa * Left knee: Full ROM. No swelling noted. No TTP of the knee joint line. No TTP of pes anserine bursa. Ankles * Right ankle: Good ankle dorsiflexion and plantar flexion. No swelling. No TTP of the ankle joint * Left ankle: Good ankle dorsiflexion and plantar flexion. No swelling. No TTP of the ankle joint Feet * Right foot: Negative squeeze test * Left foot: Negative squeeze test Tender points? * No tenderness to palpation of the bilateral trapezius, supraspinatus, anterior costochondral junctions, bilateral suboccipital muscle insertions SKIN A 3-inch circular, warm, tender area with defined borders is present on the anterior aspect of the right perez, inferior to the knee. It does not have raised edges. Vital Signs: Last Vital Signs Pulse 64 03/18/25 09:49 BP 130/72 03/18/25 09:49 Pulse Ox 98 03/18/25 09:49 Oxygen Delivery Method Room Air 03/18/25 09:49 BMI result Body Mass Index 28.4 Office Procedures AMB Joint Injection/Aspiration Joint Injection/Aspiration Details: Procedure was explained to the patient and informed consent was obtained. ? Risks associated with the procedure were discussed with the patient including but not limited to bleeding, infection, drug reactions and reactions to the topical anesthetic. Patient made aware of signs to look out for infectious complications. The area of interest was identified and confirmed with patient. ?This was subsequently cleaned with chlorhexidine x 2. ? The area was then anesthetized using ethyl chloride spray. 40 mg Kenalog with 1 cc 1% lidocaine was injected without issue. ?Minimal to no bleeding. ?Patient tolerated procedure. Primary Site: Left Shoulder Prep: site was prepped using aseptic technique and ethochloride spray was applied Injected: 40 mg of, Kenalog, with 1 mL of, 1% plain Lidocaine and in the subcromial space Procedure: The patient tolerated the procedure well Coding 54255 - Glenohumeral/Tronchanteric Bursa/Intraarticular Procedure code (CPT) selection complete Office Meds lidocaine (PF) 10 mg/mL (1 %) injection solution Performing Provider: Farzaneh Walker MD Performing Location[place] [facility] [place] [facility] Administered by: Farzaneh Walker MD on 03/18/25 11:35 Dose Route Admin Location Dispensed Lot Number Expiration Date [facility] Roll [employer] Stitcher Hand 1 mL Infiltration left shoulder bursa 2 mL [id number] 09/05/26 21066- 492-04 [employer] Total Dispensed Waste 2 mL 50 % Kenalog 40 mg/mL suspension for injection Performing Provider: Farzaneh Walker MD Performing Location: [facility] [place] [facility] Administered by: Farzaneh Walker MD on 03/18/25 11:35 Dose Route Admin Location Dispensed Lot Number Expiration Date [facility] Roll Edge Stitcher Hand 40 mg intrabursal left shoulder bursa 1 mL [id number] 10/05/26 98366- 1049-1 [employer] 2 Total Dispensed Waste 1 mL 0 % Results Reviewed Results Reviewed: Laboratory Tests 03/16/25 07:58 WBC 5.6 RBC 5.36 Hgb 15.9 Hct 48.3 H Plt Count 210 ESR 4 Sodium 139 Potassium 4.8 Chloride 106 Carbon Dioxide 30 H BUN 19 H Creatinine 0.65 AST 30 ALT 38 H C-Reactive Protein 0.12 Laboratory Tests 09/29/24 08:51 Hepatitis A IgM Ab Nonreactive Hep Bs Antigen Negative Hep Bs Antibody NONREACTIVE Hep B Core Total Ab Nonreactive Hepatitis C Ab (EIA) Nonreactive TB Test (T-Spot) Com Negative DEXA 11/2024 FINDINGS: The bone mineral density of the lumbar spine is 1.177 g/cm2, corresponding to a T-score of 0.0, and a Z-score of 1.4. This is indicative of normal bone mineral density. This represents a BMD change of 9.8% compared to the prior exam. This is statistically significant. The bone mineral density of the left total hip is 0.961 g/cm2, corresponding to a T-score of -0.4, and a Z-score of 0.7. This is indicative of normal bone mineral density. This represents a BMD change of -1.4% compared to the prior exam. This is not statistically significant. The bone mineral density of the left femoral neck is 0.781 g/cm2, corresponding to a T-score of -1.2, and a Z-score of 0.2. This is indicative of osteopenia. This represents a BMD change of 2.2% compared to the prior exam. FRACTURE RISK: The FRAX index suggests a ten year probability of major osteoporotic fracture of 21.1%, and of hip fracture 2.0%. Assessment & Plan Assessment & Plan (1) Psoriatic arthritis: Comment: Enbrel not clearly helpful Otezla: 2023 Humira 04/2023 - Present. Methotrexate: 2016 - 01/19/2022. LFT elevations - methotrexate discontinued. She did okay until summer 2022 when she had a flare overall joint pains. Code(s): L40.50 - Arthropathic psoriasis, unspecified Category: Medical Plan: #PsO/PsA Patient is a 64-year-old female with psoriasis/psoriatic arthritis currently in remission on Humira monotherapy. The patient will continue her current treatment with Humira every two weeks. She was advised that if the skin lesion on her leg is diagnosed as an infection and requires antibiotics, she should hold her Humira dose. Plan - Humira 40mg SC every other week - RTC 6 months - Labs before visit: CBC, CMP, ESR, CRP, Hep B/C, T spot (2) Rash: Code(s): R21 - Rash and other nonspecific skin eruption Plan: #Rash The etiology of the skin lesion is unclear. Ringworm was considered unlikely due to the lack of a raised edge. A prescription for a topical steroid cream was sent, with instructions to apply it twice daily for one week. If the lesion does not improve, she is to follow up with her primary care provider for further evaluation, as it could be cellulitis requiring antibiotics. Plan - Clotrimazole-betamethasone bid x 14 days (3) Osteopenia: Code(s): M85.80 - Other specified disorders of bone density and structure, unspecified site Category: Medical Qualifiers: Osteopenia location: unspecified Qualified Code(s): M85.80 - Other specified disorders of bone density and structure, unspecified site Plan: #Osteopenia The patient has osteopenia of the femoral neck but does not currently meet the criteria for medical treatment. It was recommended that she perform weight- bearing exercises, such as squats with weights, to help strengthen her hip and thigh muscles. (4) Subacromial bursitis of left shoulder joint: Code(s): M75.52 - Bursitis of left shoulder Plan: #Subacromial bursitis left shoulder Patient with subacromial bursitis of the left shoulder S/p steroid injection today (5) Encounter for monitoring of adalimumab therapy: Code(s): Z51.81 - Encounter for therapeutic drug level monitoring; Z79.620 - jail (current) use of immunosuppressive biologic Category: Medical Plan: #Long-term Use of TNF Inhibitors: Humira Discussed with the patient the benefits and risks of TNF inhibitors for the management of the rheumatic condition Benefits include reduce pain, maintenance of remission and reduction of flares as well as ?progression of the disease Risks include injection sites/infusion reactions, serious infections (such as bacterial infections, opportunistic infections), malignancy, delaminating syndromes, autoimmune phenomena, CHF exacerbations, palmar plantar psoriasis and cytopenias Recommended rotating injection sites, and holding medication during and for up to 1 week after resolution of a febrile illness or open skin wound Plan I discussed the new skin lesion on the patient's right perez, noting its warmth and tenderness. I explained that while I am not certain of the diagnosis, it does not appear to be ringworm. I provided her with a prescription for a topical steroid cream to use twice a day and advised her to see her primary care doctor if it does not improve within a week, as it could be an infection like cellulitis. I instructed her to hold her Humira if she is diagnosed with an infe ction and prescribed antibiotics. We also reviewed her bone density results, which show osteopenia in her hip. I explained that this doesn't require medication at this time but recommended weight-bearing exercises to strengthen her muscles and support bone health. We briefly discussed that her thumb pain seems to be related to a tendon rather than the joint itself. I spent 30 minutes reviewing the record and labs, taking a history, examining the patient, counseling about fatty liver disease, discussing the treatment plan and documenting in the medical record Orders: Orders Erythrocyte Sedimentation Rate 6 Months Z - Other residential (current) drug therapy T Spot TB 6 Months Z. - Other intermediate project manager (current) drug therapy AMB Joint Injection/Aspiration Today M75.52 - Bursitis of left shoulder Complete Blood Count Auto Diff 6 Months Z - Other intermediate project manager (current) drug therapy Comprehensive Met. Panel 6 Months Z - Other intermediate project manager (current) drug therapy C Reactive Protein 6 Months Z. - Other residential (current) drug therapy Hepatitis B,C Profile 6 Months Z. - Other residential (current) drug therapy Medications: New clotrimazole-betamethasone 1-0.05 % 1 appl topical BID 15 grams 0RF 2 weeks R21 - Rash and other nonspecific skin eruption Coding Level of Care Code Est Pt Level 4 (46142) Add On Problem Visit Only Diagnoses Psoriatic arthritis L40.50 Rash R21 Osteopenia, unspecified location M85.80 Osteopenia location: unspecified Subacromial bursitis of left shoulder joint M75.52 Encounter for monitoring of adalimumab therapy Z51.81; Z79.620 CPT Codes Coding - Joint 7: 42842 - Glenohumeral/Tronchanteric Bursa/Intraarticular ([id number])
[2025-03-18 09:49] VITALS: BP 130/72; PULSE 64; O2SAT 98; BMI 28.4
== END 2025-03-18 10:28 | disposition home or self-care (01) ==
LOC: HO.RHES 09:32
PROVIDERS: PCP Internal Medicine; Visit Provider Student in an Organized Health Care Education/Training Program
DX: L40.50 Arthropathic psoriasis, unspecified (principal); R21 Rash and other nonspecific skin eruption; M75.52 Bursitis of left shoulder; M85.88 Other specified disorders of bone density and structure, other site; Z51.81 Encounter for therapeutic drug level monitoring; Z79.620 Long term (current) use of immunosuppressive biologic
CPT/HCPCS: 20610; 99214

== ENCOUNTER → 2025-03-18 09:30 | Outpatient (BNVA) | payer BC, MEDICARE, SELFPAY | PROVIDERS: PCP Internal Medicine; Visit Provider Student in an Organized Health Care Education/Training Program | DX: L40.50 Arthropathic psoriasis, unspecified (principal); R21 Rash and other nonspecific skin eruption; M85.80 Other specified disorders of bone density and structure, unspecified site; M75.52 Bursitis of left shoulder; Z51.81 Encounter for therapeutic drug level monitoring; Z79.620 Long term (current) use of immunosuppressive biologic | CPT/HCPCS: 20610; J2003; J3301 ==

== ENCOUNTER 2025-03-25 14:33 | Outpatient (AMB) | payer MEDICARE, BC, SELFPAY ==
[2025-03-25 14:47] VITALS: PULSE 115; TEMP 37.7; O2SAT 95; BMI 27.8
--- NOTE | 2025-03-25 14:47 | AM.OFFWIN_ITS ---
Intake Vital Signs 03/25/25 14:47 Height 5 ft 2 in Weight 152 lb BMI 27.8 Pulse 115 H Pulse Source Pulse Oximeter Temp 100 F Temp Source Oral Pulse Oximetry (%) 95 Oxygen Delivery Method Room Air Intake Visit Reasons: EP-body rash, chest pain Intake Note: pt re Patient Tobacco Use Status: Never used Tobacco Allergies No Known Allergies Allergy (Verified 03/18/25 09:49) HPI HPI Comments History of Present Illness Details History of Present Illness - The patient is a 64 year old female pr esenting with a widespread rash and chest pain. - She reports the onset of a rash two we eks ago, which started as a large circular on the right lower leg. - She was seen by a die reamer and wa s prescribed a steroid cream, after which the rash worsened and spread. - This morning at 1 a.m., she was awaken ed by chest pain. - She was having sharp chest pain in the anterior chest. - She states that the pain was radiating to her neck and jaw. - Associated symptoms today include feel ing lightheaded, nauseous, shaky, sweaty, and reporting that her skin feels like it is on fire. - Her rash is spreading all over, chest, abdomen, back and her face. - She denies any shortness of breath, th roat itching, wheezing, vomiting, or exposure to new foods, detergents, lotions, soaps, medications, or clothes. - She reports taking a medication for he artburn today but denies taking Benadryl. - Her usual blood pressure is around 120 /70 mmHg. - She states that she just doesn't feel right. - She does care for her grandkids. - No recent travel, big bites, pets, or sick contacts. Physical Exam General: Cooperative, healthy appearing, uncomfortable, pale, diaphoretic Orientation: Patient oriented x3 Limitations: No limitations Head: Normal to inspection Ears: Hearing grossly normal bilaterally. Pinnae bilaterally erythematous and swollen. Nose: Normal external nose present Face and sinus: Normal facial exam Eyes: Appearance normal, both eyes and all related structures Neck: Normal visual inspection and Yes full ROM. No lymphadenoapthy noted. Respiratory: Normal respiratory effort and able to speak in complete sentences. Clear to auscultation bilaterally. No w/r/r noted. No stridor noted. Cardiovascular: Tachycardic. Normal S1 and S2. No m/r/g noted. GI: Normal to inspection. Soft to palpation and nontender. No guarding or rebound tenderness noted. Skin: Rash present, welts all over back, chest, abdomen, face, neck and ears. Erythema noted on the neck laterally. Neuro: Patient oriented x3, CN II-XII intact. Extremities: Normal to inspection Patient was informed and verbally consented to the use of an ambient scribe for clinic note documentation during this visit. 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 Closed fracture of head of radius with routine healing Fracture of radial head, right, closed Occult fracture of right elbow Psoriatic arthritis Surgical History Hx of colonoscopy Hx of abdominoplasty S/P cervical spinal fusion Hx of section Family History Mother Lung cancer Father Drug addict Other Mental health problem Substance abuse Social History Household Members: Significant Other and Family Housing: House Are you a primary hemodialysis patient care specialist to a significant other at home: No Do you presently have visiting nurse or other home services: No Alcohol intake: never Patient Tobacco Use Status: Never used Tobacco e-Cigarette/Vaping Use: Never Used Second Hand Smoke Exposure: Yes service: No Current occupational status: disabled Current occupational exposures/hazards: No Cognitive needs: No Hearing needs: No Vision needs: Yes (glasses) Review of Systems Const All systems reviewed & are unremarkable except as noted in HPI and below Physical Exam Vital Signs: Last Vital Signs Temp 100 F 03/25/25 14:47 Pulse 115 H 03/25/25 14:47 Pulse Ox 95 03/25/25 14:47 Oxygen Delivery Method Room Air 03/25/25 14:47 BMI result Body Mass Index 27.8 Assessment & Plan Assessment & Plan (1) Chest pain: Code(s): R07.9 - Chest pain, unspecified Qualifiers: Chest pain type: unspecified Qualified Code(s): R07.9 - Chest pain, unspecified (2) Rash: Code(s): R21 - Rash and other nonspecific skin eruption (3) Hypotension: Code(s): I95.9 - Hypotension, unspecified Qualifiers: Hypotension type: unspecified hypotension type Qualified Code(s): I95.9 - Hypotension, unspecified Plan Most likely allergic reaction vs ?Anaphylaxis while assessing the patient, she got diaphortic and SOB and thought she was going to pass out. She was laid on the table in the room and given some ice packs. Pt was able to maintain mentation. plan - The patient presents with a constellation of symptoms including hypotension, tachycardia, diffuse urticaria, and chest pain, which are highly concerning for a severe systemic allergic reaction or anaphylaxis. - Given the clinical instability, manifested by a blood pressure of 80/40 mmHg and a heart rate of 120 bpm, the decision was made to facilitate an emergency transfer to the hospital via ambulance for immediate higher-level care. - Will call in an expect to [facility] - The patient was instructed on controlled breathing techniques to manage her symptoms while awaiting transport. Coding Level of Care Code Est Pt Level 3 (55764) Diagnoses Chest pain, unspecified type R07.9 Chest pain type: unspecified Rash R21 Hypotension, unspecified hypotension type I95.9 Hypotension type: unspecified hypotension type
--- OUTSIDE RECORDS SUMMARY | 2025-03-25 18:43 | XMS_ITS | Clinical Summary ---
Author Organization [facility] Address [address] [place] [id number] Phone Care Team Providers Care Dinkey Engine Operator Name Role Phone Jermaine Berg MD Primary Care Provider [phone] Family History Medical History Relation Name Comments [...] for biopsy. PQRI CPT II 3342F Code 59411, 78947 PQRI 225 CPT II 7025F TISSUE DENSITY: There are scattered areas of fibroglandular density. (BI-RADS category B) IMPRESSION: Benign. BI-RADS CATEGORY: 2 - BENIGN RECOMMENDATION: Screening bilateral mammogram is recommended in 1 year. Mammo Location: [facility], [address] [place] [address] -------- FINAL REPORT -------- Dictated By: Anjum Mota Dictated Date: 07/23/2024 08:38 ET Assigned Physician: Anjum Mota Reviewed and Electronically Signed By: Anjum Mota Signed Date: 07/23/2024 08:43 ET Workstation ID: [id number] Transcribed By: Self Edit Transcribed Date: 07/23/2024 08:38 ET Narrative 07/23/2024 8:43 AM EDT CLINICAL: The patient is a 63 years Female presenting for routine screening mammography. COMPARISON: Most recently 07/23/2023 and most remotely 02/18/2017. TECHNIQUE: Full-field digital mammography of the breasts bilaterally consisting of tomosynthesis in MLO and CC projection is performed in the [employer] 2000-D unit. Computer aided detection utilizing the [...] MLO and CC projection is performed in theSplashtop, Incographe 2000-D unit. Computer aided detection utilizing the Skycheckinystem was utilized. FINDINGS: The breasts are again [...] for biopsy. PQRI CPT II 3342F Code 40065, 81956 PQRI 225 CPT II 7025F TISSUE DENSITY: There are scattered areas of fibroglandular density.(BI-RADS category B) IMPRESSION: Benign. BI-RADS CATEGORY: 2 - BENIGN RECOMMENDATION: Screening bilateral mammogram is recommended in 1 year. Mammo Location: [facility], [address] [place] [id number] -------- FINAL REPORT -------- Dictated By: Anjum Mota Dictated Date: 07/23/2024 08:38 ET Assigned Physician: Anjum Mota Reviewed and Electronically Signed By: Anjum Mota Signed Date: 07/23/2024 08:43 ET Workstation ID: [id number] Transcribed By: Self Edit Transcribed Date: 07/23/2024 08:38 ET us Self Referral Sppl IMG BI PROCEDURES Final Resul t from Last 3 Months or Most Recently Relevant to Health Maintenance Insurance MEDICARE [facility] Care Teams Dinkey Engine Operator Relationship Specialty Start Date End Date Jermaine Berg MD [address] [place] [address] [address] [place] PCP - General Internal Medicine 02/11/12
== END 2025-03-25 15:21 | disposition home or self-care (01) ==
PROVIDERS: PCP Internal Medicine; Visit Provider Physician Assistant Medical
DX: R07.9 Chest pain, unspecified (principal); R21 Rash and other nonspecific skin eruption; I95.9 Hypotension, unspecified

== ENCOUNTER 2025-03-25 15:26 | Emergency (ER) | payer BC, MEDICARE, SELFPAY ==
--- NOTE | 2025-03-25 | ECG_ITS ---
Test Reason : HYPOTENSION Blood Pressure : */* mmHG Vent. Rate : 97 BPM Atrial Rate : 97 BPM P-R Int : 152 ms QRS Dur : 80 ms QT Int : 336 ms P-R-T Axes : 20 -66 5 degrees QTcB Int : 426 ms Normal sinus rhythm Left anterior fascicular block Poor R waves progression Abnormal ECG No previous ECGs available Referred By: Generic ED Physician Electronically Signed By: Lalo Fitzgerald
--- NOTE | ~2025-03-25 | XR_ITS ---
EXAMINATION: XR CHEST CLINICAL INFORMATION: chest pain COMPARISON: None available. TECHNIQUE: Frontal view of the chest was obtained. FINDINGS: No focal lung consolidation. Minimal subsegmental atelectasis over the left lung base. No evidence of pulmonary edema. No pneumothorax or pleural effusion. Cardiopulmonary process] is within normal limits. Fusion hardware in the lower cervical spine. XR/XR chest 1V IMPRESSION: No acute cardiopulmonary process. Electronically signed by: Genaro Chatterjee MD 03/25/2025 04:36 PM EST
[2025-03-25 15:31] VITALS: BP 134/75; PULSE 96; O2SAT 98
[2025-03-25 15:34] VITALS: BP 141/50; PULSE 96; RESP 16; TEMP 37.2; O2SAT 99
[2025-03-25 15:44] VITALS: BMI 30.7
--- NOTE | 2025-03-25 16:08 | PC.NURSE ---
to ED from urgent care. she states that over the past two days she has had a strong chest pain in the center, radiating up through her neck. it comes and goes. sometimes it feels like she needs to vomit. she states that the pain had gone but returned in the middle of the night last night and was severe which is why she went to today. Additionally, pt had a red and itchy rash on her ears, face, neck and abdomen. she states that has been going on for about 1 week. airway is clear, no difficulty breahting or swallowing. pt unclear why she might be reacting to. NSR on tele, EMS 20g IV in left AC.
[2025-03-25 16:09] LABS: Hemoglobin 16.9 g/dl (12.0-16.0); Imm Gran Abs Auto 0.02 X10*3/uL (0.00-0.03); Imm Gran Pct Auto 0.3 % (0.0-0.4); MANUAL DIFF FLAG SCAN; NRBC Abs Auto 0.000 X10*3/uL (0.0-0.012); NRBC Pct Auto 0.0 /100WBC (0.0-0.2); PLT CLUMP 1; SCAN SMEAR FLAG 1
[2025-03-25 16:10] LABS: Hematocrit 51.1 % (37.0-47.0); Lymphocytes Absolute Auto 0.6 X10*3/uL (1.2-4.9); Mean Corpuscular HGB Conc 33.1 g/dl (31.0-35.0); Mean Corpuscular Hemoglobin 30.0 pg (27.0-33.0); Mean Corpuscular Volume 90.6 fL (80.0-98.0); Red Blood Count 5.64 X10*6/uL (4.20-5.50)
[2025-03-25 16:12] LABS: White Blood Count 5.8 X10*3/uL (4.8-10.8)
--- NOTE | 2025-03-25 16:15 | ED_ITS ---
HPI - Chest Pain General Chief Complaint: Allergic Reaction Stated Complaint: coming from Urgent, ?allergic reaction Time Seen by Provider: 03/25/25 15:39 Source: patient, family, RN notes reviewed and old records reviewed Mode of arrival: EMS Limitations: no limitations History of Present Illness ED Provider: Rosie Diaz PA-C HPI narrative: The patient is a female with a history of celiac disease who was referred from Urgent Care primarily for evaluation of chest pain that began yesterday and recurred today around 01:00 AM. She describes the pain as a tightness and burning sensation in the chest, similar to severe heartburn. Yesterday she also experienced mid-back pain for a couple of hours. Two days ago she developed an erythematous, pruritic, ring-shaped rash that began around her ears and is now also on her chest; the lesions fluctuate in size and appearance (?look like hearts?). She denies prior history of hives. No new medications. She reports significant recent stress related to legal issues involving family members. She felt woozy after a blood draw earlier today, consistent with a vasovagal reaction; she denies feeling woozy before the draw. She reports mild nausea this morning, decreased appetite (ate only a small portion of corn chowder), and recent weight gain. No vomiting, no diarrhea, and no abdominal pain. No cough or shortness of breath. No lip or tongue swelling or numbness. She received 50 mg IV diphenhydramine and 150 mL NS in the ambulance and an additional 0.5 L NS in the ED with improvement in pruritus. Review of Systems: - Constitutional: Denies fever; notes mild nausea, decreased appetite, recent weight gain. - Skin: Pruritic ring-shaped rash on ears and chest; fluctuates in size. - HEENT: Denies lip or tongue swelling or numbness. - Cardiovascular: Reports chest tightness/burning since case operator; no palpitations reported. - Respiratory: Denies cough or shortness of breath. - Gastrointestinal: Reports heartburn-like sensation; denies vomiting, diarrhea, or abdominal pain. - Musculoskeletal: Mid-back pain yesterday for ~2 hours, resolved. - Neurologic: [place] woozy after blood draw; denies dizziness prior. Related Data Home Medications ?Medication ?Instructions ?Recorded ?Confirmed omeprazole 40 mg capsule,delayed 40 mg PO DAILY PRN Ac id Reflux 02/02/25 03/27/25 release polyethylene glycol 3350 17 17 g PO DAILY PRN Constipa tion 02/02/25 03/27/25 gram/dose oral powder (Miralax) calcium 600 mg (as 1 tab PO DAILY 03/27/25 12/2 carbonate)-vitamin D3 5 mcg (200 unit) tablet cetirizine 10 mg tablet 10 mg PO DAILY PRN Allergy S ymptoms 03/27/25 03/27/25 ketoconazole 2 % shampoo 1 appl topical 2XW PRN Scalp 03/27/25 03/27/25 Previous Rx's ?Medication ?Instructions ?Recorded atorvastatin 20 mg tablet 20 mg PO BEDTIME 90 days #90 tabs 11/16/24 clonazepam 0.5 mg tablet 0.5 mg PO BID PRN anxiety #6 0 tabs 02/15/25 adalimumab 40 mg/0.4 mL 40 mg (0.4 mL) subcut Q2W 30 days 03/18/25 subcutaneous pen kit (Humira(CF) #2 ea Pen) clotrimazole-betamethasone 1 1 appl topical BID 2 week s #15 03/18/25 %-0.05 % topical cream grams nirmatrelvir 300 mg (150 mg See Rx Instructions PO .CO MPLEX 03/25/25 x2)-ritonavir 100 mg tablet,dose #30 ea pack (Paxlovid) Allergies Allergy/AdvReac Type Severity Reaction Status Date / Time No Known Allergies Allergy Verified 03/26/25 15:16 Review of Systems 2 Review of Systems: Yes all other systems are reviewed and are negative PMFSH Past Medical History Attestation statement: The following information was validated with the patient. 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 Closed fracture of head of radius with routine healing Fracture of radial head, right, closed Occult fracture of right elbow Psoriatic arthritis Surgical History Hx of colonoscopy Hx of abdominoplasty S/P cervical spinal fusion Hx of section Family History Family History Mother Lung cancer Father Drug addict Other Mental health problem Substance abuse Social History Social History Household Members: Significant Other and Family Housing: House Are you a primary before and after school daycare worker to a significant other at home: No Do you presently have visiting nurse or other home services: No Alcohol intake: current Alcohol intake frequency: holidays/special occasions only Alcohol type: beer Patient Tobacco Use Status: Never used Tobacco e-Cigarette/Vaping Use: Never Used Second Hand Smoke Exposure: Yes service: No Current occupational status: disabled Current occupational exposures/hazards: No Cognitive needs: No Hearing needs: No Vision needs: Yes (glasses) Physical Exam 2 Exam: Exam: - General: Alert and conversational, no acute distress. - Skin: Multiple erythematous, ring-shap ed wheals on ears and anterior chest, consistent with urticaria. No angioedema. - HEENT: Oropharynx clear; no lip or ton mary ann swelling. - Lungs: Clear to auscultation bilateral ly. - Cardiovascular: Regular rate and rhyth m; no murmurs appreciated - Abdomen: Soft, nontender to palpation, no guarding or rebound. - Extremities: IV site without tendernes s. Vital Signs: Vital Signs: Last Vital Signs Temp 98.2 F 03/25/25 19:53 Pulse 93 03/25/25 19:53 Resp 18 03/25/25 19:53 BP 116/56 L 03/25/25 19:53 Pulse Ox 100 03/25/25 19:53 O2 Del Method Room Air 03/25/25 19:53 BMI result Body Mass Index 30.7 Medications Administered Discontinued Medications Generic Name Dose Route Start Last Admin Trade Name Freq PRN Reason Stop Dose Admin Sodium Chloride 1,000 mls @ 999 mls/hr 03/25/25 16:57 03/25/25 18:22 Ns IV 03/25/25 17:57 Infused .Q1H1M ONE Infusion Medical Decision Making Medical Decision Making MDM Narrative: This is a middle-aged female presenting with moderate complexity medical decision making involving three distinct problems: acute urticaria, chest pain, and newly diagnosed COVID-19. The patient presented with ring-shaped urticarial lesions without angioedema or systemic allergic features; she was appropriately treated with diphenhydramine and IV fluids for mild dehydration, with no indication for epinephrine or corticosteroids given the absence of anaphylaxis. Chest pain was evaluated with a moderate level of data review including cardiac enzymes and continuous monitoring, with symptoms most consistent with GERD given the burning quality and response to GI cocktail; cardiac etiology was considered but deemed low risk based on clinical presentation and negative workup. COVID-19 PCR returned positive, and given her eligibility for antiviral therapy, Paxlovid (nirmatrelvir/ritonavir) was prescribed with specific instructions to hold her statin during treatment and resume 3 days after completion due to significant [id number] drug interactions that increase risk of statin-related myopathy. The patient remained hemodynamically stable throughout her 4-hour observation period with improvement in symptoms. The overall risk of complications was moderate given the need to rule out cardiac pathology and manage potential drug interactions. She was deemed safe for discharge with return precautions for worsening chest pain, shortness of breath, or signs of allergic progression. Differential Diagnosis Differential Diagnoses: The differential diagnosis associated with the presentation includes allergic reaction/ anaphylaxis/ angiodemia, urticaria cp/ sob COVID dehydration Admission/Observation Consideration of admission/observation: Escalation of care including admission/observation considered Patient would have been admitted to the hospital had her work up had any findings where hospital admission was appropriate and her clinical presentation warranted hospital admission. Lab Data MDM Lab Attestation statement: I reviewed the patient's lab results. ? Hemoconcentration noted. ? No leukocytosis. ? No kidney or liver dysfunction. ? COVID-19 PCR: Positive. 03/25/25 15:54 03/25/25 15:54 Labs: Lab Results 03/25/25 Range/Units 15:54 WBC 5.8 (4.8-10.8) X10*3/uL RBC 5.64 H (4.20-5.50) X10*6/uL Hgb 16.9 H (12.0-16.0) g/dl Hct 51.1 H (37.0-47.0) % MCV 90.6 (80.0-98.0) fL MCH 30.0 (27.0-33.0) pg MCHC 33.1 (31.0-35.0) g/dl RDW 13.6 (11.0-16.0) % Plt Count TNP MPV Not Reportable Immature Gran % (Auto) 0.3 (0.0-0.4) % Neut % (Auto) 80.9 H (45-73) % Lymph % (Auto) 10.7 L (20-40) % Hardy % (Auto) 7.6 (2-11) % Eos % (Auto) 0.3 (0-4) % Baso % (Auto) 0.2 (0-2) % Lymph # (Auto) 0.6 L (1.2-4.9) X10*3/uL Hardy # (Auto) 0.4 (0.1-1.2) X10*3/uL Eos # (Auto) 0.0 (0.0-0.4) X10*3/uL Baso # (Auto) 0.0 (0.0-0.2) X10*3/uL Abs Immat Gran (auto) 0.02 (0.00-0.03) X10*3/uL Absolute Neuts (auto) 4.7 (2.0-8.3) x10*3/uL Absolute Nucleated RBC 0.000 (0.0-0.012) X10*3/uL Nucleated RBC % (auto) 0.0 (0.0-0.2) /100WBC Smear Tech's Comments VERIFIED Sodium 138 (135-145) mmol/L Potassium 3.8 D (3.3-5.1) mmol/L Chloride 105 (96-108) mmol/L Carbon Dioxide 20 L (22-29) mmol/L Anion Gap 17 (12-20) BUN 21 H (9-16) mg/dL Creatinine 0.85 (0.5-1.4) mg/dL Estim Creat Clear Calc 63.8 Estimated GFR > 60 Random Glucose 95 (60-115) mg/dL Calcium 9.0 D (8.4-10.2) mg/dL Total Bilirubin 0.9 (0.0-1.0) mg/dL AST 39 H (5-31) U/L ALT 28 (0-31) U/L Alkaline Phosphatase 87 (39-117) U/L Troponin I High Sens < 2.7 (<3.5-17.0) ng/L Total Protein 7.1 (6.5-8.0) g/dL Albumin 4.4 (3.5-5.0) g/dL Influenza Type A (PCR) NEGATIVE (Negative) Influenza Type B (PCR) NEGATIVE (Negative) RSV RNA Qual (PCR) NEGATIVE (Negative) SARS-CoV-2 RNA (RT-PCR) POSITIVE A (Negative) Independent Interpretation I performed an independent interpretation of an: EKG and Plain X-Ray Interpretation: CXR: no acute findings EKG: no malignant arrhythmia or dysrhythmia/ No obvious ischemia Radiology Impression Discussion of test interpretation with radiology: I have reviewed the radiologist's reading. Radiologist Impression: IMPRESSION: No acute cardiopulmonary process. External Record Review External record reviewed: Outpatient record Tests considered The following testing was considered but not selected: CTA, not concern for PE today Prescription Management I considered prescription management with: Antiviral Chronic Conditions Patient?s care impacted by: Other Social Determinants Patient?s care significantly limited by Social Determinants of Health including: Other Social Determinant of Health Discharge Plan Discharge Clinical Impression: COVID-19, Urticaria, Chest pain, Vaso-vagal reaction Patient Disposition: Home, Self-Care Instructions: Chest Pain (DC), Urticaria (ED) Additional Instructions: Discharge Summary - Carissa Milner Patient Name: Carissa Milner Date of Service: 2025-03-25 Provider: Rosie Diaz PA-C DISCHARGE DIAGNOSES: 1. Acute urticaria (hives) 2. COVID-19 infection 3. Gastroesophageal reflux (GERD)/chest discomfort HOSPITAL COURSE: You were evaluated in the Emergency Department for chest tightness and burning, along with an itchy rash. You received diphenhydramine (Benadryl) IV and intravenous fluids, which improved your itching. A GI cocktail was given for your heartburn-like chest discomfort. Lab work showed no evidence of kidney, heart, or liver problems, and you tested positive for COVID-19. You were observed for 4 hours with stable vital signs and no signs of a severe allergic reaction.Your chest xray was clear. TREATMENTS PROVIDED: - Diphenhydramine (Benadryl) 50 mg IV for itching from EMS. - Intravenous fluids (0.65 L total) MEDICATIONS PRESCRIBED: Paxlovid (nirmatrelvir/ritonavir) for COVID-19: - Take 300 mg nirmatrelvir (two 150 mg tablets) with 100 mg ritonavir (one 100 mg tablet) twice daily for 5 days - Take all three tablets together at the same time, with or without food - Complete the full 5-day course even if you feel better - If you miss a dose within 8 hours of when you usually take it, take it as soon as you remember. If more than 8 hours have passed, skip the missed dose and take the next dose at the regular time. Do not double up - Important: Do not take your statin medication while on Paxlovid. Resume your statin 3 days after finishing the 5-day Paxlovid course Antihistamine for hives: - Continue taking diphenhydramine (Benadryl) 50 mg every 6 hrs or another antihistamine as needed for itching until its been 24 hours without itching. See handout for additional instructions. Avoid heat, hot water and wear loose clothing. This is likely stress (illness) reaction. HOME CARE INSTRUCTIONS: For your hives: - Continue antihistamines as directed for itching relief - The rash should improve over the next several days with treatment - Avoid any triggers you identify (note: your hives were likely stress-related) For COVID-19: - Complete the full 5-day course of Paxlovid as prescribed - Continue isolation per current public health recommendations - Rest and maintain good hydration - Monitor your symptoms For your chest discomfort: - Avoid foods that trigger heartburn (spicy, fatty, or acidic foods) - Eat smaller, more frequent meals - Avoid lying down immediately after eating WHEN TO SEEK IMMEDIATE MEDICAL ATTENTION: Call 911 or return to the Emergency Department immediately if you experience: - Severe or worsening chest pain or pressure - Shortness of breath or difficulty breathing - Swelling of your lips, tongue, or throat - Dizziness, lightheadedness, or fainting - Chest pain that radiates to your jaw, neck, arms, or back - Rapid or irregular heartbeat with chest discomfort - Severe abdominal pain - Worsening rash with difficulty breathing FOLLOW-UP: - Follow up with your primary care provider within 7 days to discuss your test results and ongoing symptoms - Resume your statin medication 3 days after completing your Paxlovid course - If your hives persist beyond a few days or worsen despite antihistamines, contact your provider ACTIVITY: - Rest as needed - Gradually resume normal activities as tolerated - Continue isolation per COVID-19 guidelines Prescriptions: New Paxlovid 300 mg (150 mg x 2)-100 mg tablets,dose pack See Rx Instructions .ROUTE .COMPLEX Qty: 30 0RF Patient Comments: Patient is on Day 3 of 5 for medication regimen. Rx Instructions: take TWO 150 mg tablets of nirmatrelvir with ONE 100 mg tablet of ritonavir twice daily for 5 days, discontinue statin while on this, resume statin medication three days after finishing this No Action atorvastatin 20 mg tablet 20 mg PO BEDTIME 90 Days Qty: 90 1RF ketoconazole 2 % shampoo 1 appl TOPICAL 2XW PRN (Reason: Scalp) calcium carbonate-vitamin D3 600 mg-5 mcg (200 unit) Tablet 1 tab PO DAILY cetirizine 10 mg tablet 10 mg PO DAILY PRN (Reason: Allergy Symptoms) clotrimazole-betamethasone 1-0.05 % cream 1 appl topical BID 14 Days Qty: 15 0RF Humira(CF) Pen 40 mg/0.4 mL pen injector kit 40 mg subcut Q2W 30 Days Qty: 2 5RF clonazepam 0.5 mg tablet 0.5 mg PO BID PRN (Reason: anxiety) Qty: 60 0RF omeprazole 40 mg capsule,delayed release(DR/EC) 40 mg PO DAILY PRN (Reason: Acid Reflux) polyethylene glycol 3350 [Miralax] 17 gram/dose powder 17 g PO DAILY PRN (Reason: Constipation) Referrals: Jermaine Berg MD [Primary Care Provider, Internal Medicine] Clinical Impression: COVID-19; Urticaria; Vaso-vagal reaction; Chest pain Stand Alone Forms: Work/School Release Interventions: ED Discharge Assessment Last Done: 03/25/25 19:53 Discharge Date/Time: 03/25/25 19:53 Print Language: Jamaican
[2025-03-25 16:19] LABS: Alanine Aminotransferase 28 U/L (0-31); Albumin Level 4.4 g/dL (3.5-5.0); Alkaline Phosphatase 87 U/L (39-117); Anion Gap 17 (12-20); Aspartate Amino Transferase 39 U/L (5-31); Blood Urea Nitrogen 21 mg/dL (9-16); Calcium 9.0 mg/dL (8.4-10.2); Carbon Dioxide 20 mmol/L (22-29); Chloride 105 mmol/L (96-108); Creatinine Clr Calc Pharmacy 63.8; Estimated Glomerular Filt Rate > 60; Potassium 3.8 mmol/L (3.3-5.1); Sodium 138 mmol/L (135-145); Total Protein 7.1 g/dL (6.5-8.0)
[2025-03-25 16:32] LABS: Troponin-I High Sensitivity < 2.7 ng/L (<3.5-17.0)
[2025-03-25 16:49] LABS: Resp Syncy Virus RNA Qual PCR NEGATIVE (Negative); SARS COV2 PCR INHOUSE POSITIVE (Negative)
[2025-03-25 18:32] VITALS: BP 100/55; PULSE 92; RESP 16; TEMP 36.8; O2SAT 96
[2025-03-25 19:17] VITALS: BP 116/56; PULSE 93; RESP 18; TEMP 36.8; O2SAT 100
[2025-03-25 19:53] VITALS: BP 116/56; PULSE 93; RESP 18; TEMP 36.8; O2SAT 100
== END 2025-03-25 19:53 | disposition home or self-care (01) ==
PROVIDERS: Emergency Provider Emergency Medicine; PCP Internal Medicine
DX: U07.1 COVID-19 (principal); R07.9 Chest pain, unspecified; R55 Syncope and collapse
CPT/HCPCS: 71045; 80053; 84484; 85025; 87637; 93005; 96360; 99212; 99284; 99285

== ENCOUNTER → 2025-03-25 15:35 | Outpatient (BNV) | payer BC, MEDICARE, SELFPAY | PROVIDERS: Emergency Provider Emergency Medicine; PCP Internal Medicine; Visit Provider Internal Medicine Cardiovascular Disease | DX: I49.9 Cardiac arrhythmia, unspecified (principal); R00.1 Bradycardia, unspecified | CPT/HCPCS: 93010 ==

== ENCOUNTER → 2025-03-25 16:15 | Outpatient (BNV) | payer MEDICARE, BC, SELFPAY | PROVIDERS: Emergency Provider Emergency Medicine; PCP Internal Medicine; Visit Provider Radiology Body Imaging | DX: R07.9 Chest pain, unspecified (principal) | CPT/HCPCS: 71045 ==

== ENCOUNTER 2025-03-26 14:50 | Observation (INO) | payer BC, MEDICARE, SELFPAY ==
--- OUTSIDE RECORDS SUMMARY | 2025-01-25 04:00 | XMS_ITS | Continuity of Care Document ---
Author Organization [facility] Address [address] [place] [address] [address] [place] [address] Phone Care Team Providers Care Surgical Rn Name Role Phone Everardo MATSON, HEDY, Yared ROMERO Unavailable U navailable Allergies, Adverse Reactions, Alerts Substance Reaction Status Criticality No Known Allergies Active No Inform ation Procedures Procedure Date Office/Outpt E&M Established 15 Mins- CT & [place] Advance Directives Directive Yes / No Effective Date File Name No Information Encounters Encounter Description Practice Location Reason(s) For Visit Diagnoses Date Provider Encounter Disposition Office/Outpt E&M Established 15 Mins- [place] & [place] [facility], [address] [place] [address] Dr [address] 1000SuKael giron MD, [id number], [place] tel:[phone] CVR - [place] [facility] Venous insufficienc y (chronic) (peripheral) Jan-2 5 Everardo MATSON RVT, RPVI [place]. [address] [place] [address], [facility] [place] [place], [id number], [place]. tel:[phone] [place] [facility], [address] [place] [address] Dr [address] 1000SuKael giron MD, [id number], [place] tel:[phone] CVR - [place] - [facility] 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 of left lower extremity with pain Oct-2 0 5 Everardo MATSON RVT, RPVI [place]. [address] [place] [address], [facility] [place] [place], [id number], [place]. tel:[phone] [facility], [address] [place] [address] Dr [address] 1000Suite 1000Kael [place], [id number], [place] tel:[phone] CVR - [place] [facility] Encounter for follow-up examination after completed treatment for conditions other than malignant neoplasm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 of left lower extremity with pain Sep- 5 Everardo MATSON RVT, NICK [place]. [address] [place] [address], [facility] [address], [place], [place], [id number], [place]. tel:[phone] [facility], [address] [place] [address] Dr [address] 1000Suite 1000Kael [place], [id number], [place] tel:[phone] CVR - [facility] Chronic venous hypertension (idiopathic) with other complication s of bilateral lower extremity Sep- 5 Everardo MATSON RVT, NICK [place]. [address] [place] [address], [place] [address], [place], [place], [id number], [place]. tel:[phone] [place] [facility], [address] [place] [address] Dr [address] 1000Suite 1000Kael [place], [id number], [place] tel:[phone] CVR - [facility] 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 of left lower extremity with other complication s Sep- 5 Everardo MATSON RVT, NICK [place]. [address] [place] [address], [address], [place], [place], [id number], [place]. tel:[phone] [facility], [address] [place] [address] Dr [address]Suite 1000Kael MD, [id number], [place] tel:[phone] CVR - [place] [facility] Encounter for follow-up examination after completed treatment for conditions other than malignant neoplasmChro harpal venous hypertension (idiopathic) with other complication s of left lower extremity Sep- 5 Everardo MATSON RVT, NICK [place]. [address] [place] [address], [address], [place], [place], [id number], [place]. tel:[phone] [facility], [address] [place] [address] Dr [address]Suite 1000Kael MD, [id number], [place] tel:[phone] CVR - [place] [facility] 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 of left lower extremity with other complication s 5 Everardo MATSON RVT, NICK [place]. [address] [place] [address], [place] [address], [place], [id number], [place]. tel:[phone] [facility], [address] [place] [address] [address] 1000Kael MD, [id number], [place] tel:[phone] CVR - [place] - [facility] No Information 5 Everardo MATSON RVT, NICK [place]. [address] [place] [address], [place] [address], [place], [id number], [place]. tel:[phone] [place] [facility], [address] [place] [address] Dr [address]Suite 1000Kael MD, [id number], [place] tel:[phone] CVR - [place] - [facility] Chronic venous hypertension (idiopathic) without complication s of left lower extremity 5 Everardo MATSON RVT, NICK [place]. [address] [place] [address], [place], [id number], [place]. tel:[phone] [place] [facility], [address] [place] [address] Dr [address] 1000Suite 1000Kael MD, [id number], [place] tel:[phone] CVR - [place] - [facility] 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 of left lower extremity with pain 5 Everardo MATSON RVT, NICK [place]. [address] [place] [address], [place], [id number], [place]. tel:[phone] [place] [facility], [address] [place] [address] Dr [address]Suite 1000Kael MD, [id number], [place] tel:[phone] CVR - [place] [facility] Encounter for follow-up examination after completed treatment for conditions other than malignant neoplasm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 of left lower extremity with pain 5 Everardo MATSON RVT, NICK [place]. [address] [place] [address], [place] [address], [place], [id number], [place]. tel:[phone] [facility], [address] [place] [address] Dr [address]Suite 1000Kael MD, [id number], [place] tel:[phone] [place] [facility] 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 of left lower extremity with other complication s 5 Everardo MATSON RVT, NICK [place]. [address] [place] [address], [place], [id number], [place]. tel:[phone] [facility], [address] [place] [address] [address] 1000Kael MD, [id number], [place] tel:[phone] CVR [place] [facility] Cramp and spasmVenous insufficienc y (chronic) (peripheral) 5 Martha Katz. [address] [place] [address], [place], [id number], [place]. tel:[phone] [facility], [address] [place] [address] Dr [address] 1000Kael [place], [id number], [place] tel:[phone] [place] [facility] Chronic venous hypertension (idiopathic) with other complication s of bilateral lower extremityCra mp and spasm 5 Everardo MATSON RVT, NICK [place]. [address] [place] [address], [place], [id number], [place]. tel:[phone] [facility] MD KAMARA, [address] [place] [address] Dr [address] 1000[facility] 1000Kael [place], [id number], [place] tel:[phone] CVR - [place] [facility] 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 of bilateral lower extremities with pain 5 Everardo MATSON RVT, NICK [place]. [address] [place] [address], [place], [id number], [place]. tel:[phone] Family History Family Member Type Diagnosis Age At Onset No Information Payers Payer name Insurance type Identifiers Authorization(s) Com yung CUNHA [place] Federal BL ID: [id number] Name: Coverage Status Eligibility Check on: [id number] nship to Subscriber: selfPayer Address: [address], [place], [address], [place]ayer Phone: [phone] [place] MB er ID: [id number] Name: Coverage Status Eligibility Check on: [id number] nship to Subscriber: selfPayer Address: [address], [place], [place], [id number], USPayer Phone: [phone] Social History Type Description Quantity Date Captured Comments Alcohol Use Details Unknown Caffeine Use Details Unknown Tobacco Use Status Current non-smoker Smoking Status Never Smoker Non-Smoking Tobacco Use Details : No Details Available : No Details Available Sex Female Current Gender Female (finding) Vital Signs Date / Time: Height Weight BMI Pulse Rate Blood Pressure Temperature Respiratory Rate Body Surface Area Head Circumference Head Circ. Percentile Wt./Lee. Percentile BMI percentile Pulse Ox Inhaled Ox 61.230 kg (135.00 lbs) 23.9 5 kg/m eter (2) 128/76 mm[Hg] Chief Complaint And Reason For Visit No Information Plan Of Treatment Date Type [...] nt Illness No Information Functional Status Date Description Comments No Information Instructions Date Instruction Additional Infor mation Lifestyle education Related to B kane mass [...] booklet given Related to Cramp and spasm Diet education [...]
--- NOTE | ~2025-03-26 | CT_ITS ---
CLINICAL HISTORY: abd pain nausea CT abdomen and pelvis with contrast Comparison: None provided Findings: Bibasilar dependent subsegmental atelectasis. Cholelithiasis. Right renal lower pole cortical low-attenuation lesion, 3.7 cm; renal cysts. The liver and spleen, left kidney, adrenals and pancreas are within normal limits. There is diffuse fecal material seen throughout the colon. The appendix is within normal limits. The uterus is within normal limits. The bones are intact. IMPRESSION: 1. Cholelithiasis. 2. Right renal lower pole cortical low-attenuation lesion, 3.7 cm. 3. Renal cysts. 4. Bibasilar dependent subsegmental atelectasis. 5. No acute intraabdominal or pelvic findings. This document has been electronically signed by: Emmanuel Ordaz MD on 03/26/2025 23:34:00
--- NOTE | ~2025-03-26 | CT_ITS ---
CLINICAL HISTORY: sob CT angiography chest with contrast. 3D Postprocessing. Comparison: None provided Findings: The heart size is normal. RV/LV ratio is normal. The thoracic aorta is normal caliber. No main or segmental pulmonary emboli identified. The visualized thyroid and mediastinum are unremarkable. Bibasilar dependent subsegmental atelectasis. Cholelithiasis. The bones are intact. IMPRESSION: 1. No main or segmental pulmonary emboli identified. 2. Cholelithiasis. This document has been electronically signed by: Emmanuel Ordaz MD on 03/26/2025 23:32:24
[2025-03-26 15:04] VITALS: BP 156/108; PULSE 87; O2SAT 99
--- NOTE | 2025-03-26 15:04 | ED.CHESTPAIN ---
HPI - Chest Pain General Chief Complaint: Chest Pain Stated Complaint: BACK PAIN + COVID Time Seen by Provider: 03/26/25 19:41 History of Present Illness HPI narrative: Patient is 64 years old history of testing positive for COVID yesterday. Had chest pain. Yesterday had diffuse rash. The rash is red itchy over the chest over the neck over the legs. There is no fever. There is no diaphoresis. There is no coughing even there is actually back pain chest pain that is sharp. Worse when she takes a deep breath. It is associated with some nausea vomiting. Patient is from home. History of fibromyalgia. History of gastritis. History of diverticulosis. Patient is from home. Positive history of high cholesterol. No history of diabetes, mi, family history of [place]. No history of smoking. Related Data Home Medications ?Medication ?Instructions ?Recorded ?Confirmed ibuprofen 800 mg tablet 800 mg PO BID PRN 02/12/23 03/18/25 omeprazole 40 mg capsule,delayed 40 mg PO DAILY PRN 02/02/25 03/18/25 release polyethylene glycol 3350 17 17 g PO DAILY PRN 02/02/25 03/18/25 gram/dose oral powder (Miralax) Previous Rx's ?Medication ?Instructions ?Recorded tramadol 50 mg tablet See Rx Instructions .Route 08/13/24 .COMPLEX 30 days #90 tabs atorvastatin 20 mg tablet 20 mg PO BEDTIME 90 days #90 tabs 11/16/24 clonazepam 0.5 mg tablet 0.5 mg PO BID PRN anxiety #60 tabs 02/15/25 adalimumab 40 mg/0.4 mL 40 mg (0.4 mL) subcut Q2W 30 days 03/18/25 subcutaneous pen kit (Humira(CF) #2 ea Pen) clotrimazole-betamethasone 1 1 appl topical BID 2 weeks #15 03/18/25 %-0.05 % topical cream grams nirmatrelvir 300 mg (150 mg See Rx Instructions PO .COMPLEX 03/25/25 x2)-ritonavir 100 mg tablet,dose #30 ea pack (Paxlovid) prednisone 5 mg tablet 5 mg PO .COMPLEX #42 tabs 03/26/25 Allergies Allergy/AdvReac Type Severity Reaction Status Date / Time No Known Allergies Allergy Verified 03/26/25 15:16 Review of Systems Review of Systems: Positive chest pain Yes all other systems are reviewed and are negative [facility] Past Medical History Attestation statement: The following information was validated with the patient. 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 Closed fracture of head of radius with routine healing Fracture of radial head, right, closed Occult fracture of right elbow Psoriatic arthritis Surgical History Hx of colonoscopy Hx of abdominoplasty S/P cervical spinal fusion Hx of section Family History Family History Mother Lung cancer Father Drug addict Other Mental health problem Substance abuse Social History Social History Household Members: Significant Other and Family Housing: House Are you a primary acute care nurse practitioner to a significant other at home: No Do you presently have visiting nurse or other home services: No Alcohol intake: never Patient Tobacco Use Status: Never used Tobacco e-Cigarette/Vaping Use: Never Used Second Hand Smoke Exposure: Yes Advance Directives: No Advance Directives Information Provided: No service: No Current occupational status: disabled Current occupational exposures/hazards: No Cognitive needs: No Hearing needs: No Vision needs: Yes (glasses) Physical Exam Exam: Exam: Appearance: Alert. Oriented X3. No acute distress. Eyes: Pupils equal, round and reactive to light. ENT: Pharynx normal. Neck: Normal inspection. Neck supple. No lymph nodes noted. No crepitus CVS: Normal heart rate and rhythm. Pulses normal. Normal S1 and S2 Respiratory: No respiratory distress. Breath sounds normal. No Wheezing. No rales Abdomen: Soft and nontender. No rigidity. No distention. good BS x4 Skin: Skin warm and dry. Normal skin color. Normal skin turgor. Extremities: No lower extremity edema. Neurovascular intact to all extremities. No Lacerations. No Rash Neuro: Oriented X 3. No motor deficit. No sensory deficit. Moving all extermities. No slurred speech Vital Signs: Vital Signs: Last Vital Signs Temp 98.2 F 03/26/25 22:00 Pulse 70 03/26/25 22:00 Resp 16 03/26/25 15:16 BP 144/69 H 03/26/25 22:00 Pulse Ox 96 03/26/25 22:00 O2 Del Method Room Air 03/26/25 22:00 BMI result Body Mass Index 28.0 Course Course Course Narrative: This is a Rapid Medical Exam performed in triage by Evelyn Almanza PA-C. Full HPI, ROS and PE to be performed by primary ED provider. 64-year-old female with a past medical history fibromyalgia, HLD, gastritis, psoriatic arthritis, COVID-19 positive as of yesterday presenting to the ED c/o low back pain, hives, sweats, myalgias, nausea and 6 episodes of emesis today. was seen in our ED yesterday for similar sx. denies SOB at present PE: +diffuse hives, talking in compete sentences, ambulating with steady gait Plan: EKG, labs Medications Administered Discontinued Medications Generic Name Dose Route Start Last Admin Trade Name Freq PRN Reason Stop Dose Admin Sodium Chloride 1,000 mls @ 999 mls/hr 03/26/25 22:30 03/26/25 22:31 Ns IV 03/26/25 23:30 999 mls/hr .Q1H1M FABIOLA Administration Iohexol 85 ml 03/26/25 22:52 03/26/25 23:00 Iohexol 350 Mg/Ml 100 Ml Infus..Btl IV 03/26/25 22:53 85 ml ONCE ONE Administration Methylprednisolone Sodium Succinate 125 mg 03/26/25 22:19 03/26/25 22:31 Methylprednisolone Sod Succ 125 Mg/2 Ml Vial IVPUSH 03/26/25 22:20 125 mg ONCE ONE Administration Medical Decision Making Medical Decision Making [facility] Narrative: Patient positive for COVID yesterday. Presents today with having chest tightness. Was given aspirin and sublingual nitro prior to arrival with good relief of symptoms also have pain in the posterior aspect of the chest. A CTA angio was done. The CTA was negative for PE. No pneumonia. Patient has had troponin that every significantly increased. Yesterday was 2.7 today it is in the 40s on the 2nd checked. Case consulted with Cardiology. Okay with admission observation and possibly an echo in the morning. Currently in stable condition. Differential Diagnosis Differential Diagnoses: The differential diagnosis associated with the presentation includes ACS, pneumonia, COVID Admission/Observation Consideration of admission/observation: Escalation of care including admission/observation considered Consult Healthcare Provider Management of the patient was discussed with: Hospitalist and Pulper Tender (Cardiology) Lab Data MDM Lab Attestation statement: I reviewed the patient's lab results. 03/26/25 15:32 03/26/25 15:32 Labs: Lab Results 03/26/25 03/26/25 Range/Units 15:32 21:49 WBC 3.8 L (4.8-10.8) X10*3/uL RBC 5.34 (4.20-5.50) X10*6/uL Hgb 15.8 (12.0-16.0) g/dl Hct 47.1 H (37.0-47.0) % MCV 88.2 (80.0-98.0) fL MCH 29.6 (27.0-33.0) pg MCHC 33.5 (31.0-35.0) g/dl RDW 13.6 (11.0-16.0) % Plt Count 220 (160-400) X10*3/uL MPV 9.1 L (9.4-12.3) fL Immature Gran % (Auto) 0.3 (0.0-0.4) % Neut % (Auto) 72.6 (45-73) % Lymph % (Auto) 21.6 (20-40) % [place] % (Auto) 5.2 (2-11) % Eos % (Auto) 0.3 (0-4) % Baso % (Auto) 0.0 (0-2) % Lymph # (Auto) 0.8 L (1.2-4.9) X10*3/uL [place] # (Auto) 0.2 (0.1-1.2) X10*3/uL Eos # (Auto) 0.0 (0.0-0.4) X10*3/uL Baso # (Auto) 0.0 (0.0-0.2) X10*3/uL Abs Immat Gran (auto) 0.01 (0.00-0.03) X10*3/uL Absolute Neuts (auto) 2.8 (2.0-8.3) x10*3/uL Absolute Nucleated RBC 0.000 (0.0-0.012) X10*3/uL Nucleated RBC % (auto) 0.0 (0.0-0.2) /100WBC Sodium 138 (135-145) mmol/L Potassium 4.4 (3.3-5.1) mmol/L Chloride 105 (96-108) mmol/L Carbon Dioxide 26 (22-29) mmol/L Anion Gap 11 L (12-20) BUN 24 H (9-16) mg/dL Creatinine 0.74 (0.5-1.4) mg/dL Estim Creat Clear Calc 70.1 Estimated GFR > 60 Random Glucose 108 (60-115) mg/dL Calcium 9.1 (8.4-10.2) mg/dL Magnesium 2.1 (1.6-2.6) mg/dL Total Bilirubin 0.9 (0.0-1.0) mg/dL Direct Bilirubin 0.3 (0.0-0.5) mg/dL AST 45 H (5-31) U/L ALT 26 (0-31) U/L Alkaline Phosphatase 78 (39-117) U/L Troponin I High Sens 10.4 D 45.8 H D (<3.5-17.0) ng/L Total Protein 6.9 (6.5-8.0) g/dL Albumin 4.3 (3.5-5.0) g/dL Lipase 15 (8-78) U/L Independent Interpretation I performed an independent interpretation of an: EKG (Sinus heart rate is 60 OR QRS QTC normal no acute ST segment elevation) and CT Scan (CTA negative for PE, CTA abdomen showed no obstruction it did show a right renal cyst) Radiology Impression Discussion of test interpretation with radiology: I have reviewed the radiologist's reading. External Record Review External record reviewed: Office record Social Determinants Patient?s care significantly limited by Social Determinants of Health including: Problems related to primary support group Critical Care Time Critical Care Time Critical Care Time: Yes Total Critical Care Time: 40 Attestation: I have personally provided 40 minutes of critical care time exclusive of time spent on separately billable procedures. ?Time includes review of lab data, radiology results, discussion with consultants, and monitoring for potential decompensation. ?Interventions were performed as documented above Discharge Plan Discharge Clinical Impression: Elevated troponin, COVID Patient Disposition: Admitted As Inpatient
--- NOTE | 2025-03-26 15:06 | ECG_ITS ---
Test Reason : back pain Blood Pressure : */* mmHG Vent. Rate : 69 BPM Atrial Rate : 69 BPM P-R Int : 154 ms QRS Dur : 76 ms QT Int : 400 ms P-R-T Axes : 59 -38 56 degrees QTcB Int : 428 ms Normal sinus rhythm Left axis deviation Abnormal ECG When compared with ECG of 25-Mar-2025 15:35, Criteria for Anterior infarct are no longer Present Nonspecific T wave abnormality no longer evident in Inferior leads Nonspecific T wave abnormality, improved in Anterior leads Referred By: Evelyn Almanza Electronically Signed By: Lalo Fitzgerald
[2025-03-26 15:16] VITALS: BP 196/97; PULSE 82; RESP 16; TEMP 36.3; O2SAT 99; BMI 28.0
[2025-03-26 15:37] LABS: MANUAL DIFF FLAG NO
[2025-03-26 15:40] LABS: Hematocrit 47.1 % (37.0-47.0); Hemoglobin 15.8 g/dl (12.0-16.0); Imm Gran Abs Auto 0.01 X10*3/uL (0.00-0.03); Imm Gran Pct Auto 0.3 % (0.0-0.4); Lymphocytes Absolute Auto 0.8 X10*3/uL (1.2-4.9); Mean Corpuscular HGB Conc 33.5 g/dl (31.0-35.0); Mean Corpuscular Hemoglobin 29.6 pg (27.0-33.0); Mean Corpuscular Volume 88.2 fL (80.0-98.0); NRBC Abs Auto 0.000 X10*3/uL (0.0-0.012); NRBC Pct Auto 0.0 /100WBC (0.0-0.2); Platelet Count 220 X10*3/uL (160-400); Red Blood Count 5.34 X10*6/uL (4.20-5.50); White Blood Count 3.8 X10*3/uL (4.8-10.8)
[2025-03-26 15:53] LABS: Alanine Aminotransferase 26 U/L (0-31); Albumin Level 4.3 g/dL (3.5-5.0); Alkaline Phosphatase 78 U/L (39-117); Anion Gap 11 (12-20); Aspartate Amino Transferase 45 U/L (5-31); Blood Urea Nitrogen 24 mg/dL (9-16); Calcium 9.1 mg/dL (8.4-10.2); Carbon Dioxide 26 mmol/L (22-29); Chloride 105 mmol/L (96-108); Creatinine Clr Calc Pharmacy 70.1; Estimated Glomerular Filt Rate > 60; Lipase 15 U/L (8-78); Magnesium 2.1 mg/dL (1.6-2.6); Potassium 4.4 mmol/L (3.3-5.1); Sodium 138 mmol/L (135-145); Total Protein 6.9 g/dL (6.5-8.0)
[2025-03-26 16:00] LABS: Troponin-I High Sensitivity 10.4 ng/L (<3.5-17.0)
--- OUTSIDE RECORDS SUMMARY | 2025-03-26 18:03 | XMS_ITS | Clinical Summary ---
Author Organization [facility] Address [address] [place] [id number] Phone Care Team Providers Care Data Center Consultant Name Role Phone Jermaine Berg MD Primary Care Provider [phone] Family History Medical History Relation Name Comments [...] for biopsy. PQRI CPT II 3342F Code 32039, 66868 PQRI 225 CPT II 7025F TISSUE DENSITY: There are scattered areas of fibroglandular density. (BI-RADS category B) IMPRESSION: Benign. BI-RADS CATEGORY: 2 - BENIGN RECOMMENDATION: Screening bilateral mammogram is recommended in 1 year. Mammo Location: [facility], [address] [place] [address] -------- FINAL REPORT -------- Dictated By: Anjum Mota Dictated Date: 07/23/2024 08:38 ET Assigned Physician: Anjum Mota Reviewed and Electronically Signed By: Anjum Mota Signed Date: 07/23/2024 08:43 ET Workstation ID: [id number] Transcribed By: Self Edit Transcribed Date: 07/23/2024 08:38 ET Narrative 07/23/2024 8:43 AM EDT CLINICAL: The patient is a 63 years Female presenting for routine screening mammography. COMPARISON: Most recently 07/23/2023 and most remotely 02/18/2017. TECHNIQUE: Full-field digital mammography of the breasts bilaterally consisting of tomosynthesis in MLO and CC projection is performed in the BonaYoue 2000-D unit. Computer aided detection utilizing the [...] MLO and CC projection is performed in thevozeroographe 2000-D unit. Computer aided detection utilizing the StyleCasterystem was utilized. FINDINGS: The breasts are again [...] for biopsy. PQRI CPT II 3342F Code 56997, 88753 PQRI 225 CPT II 7025F TISSUE DENSITY: There are scattered areas of fibroglandular density.(BI-RADS category B) IMPRESSION: Benign. BI-RADS CATEGORY: 2 - BENIGN RECOMMENDATION: Screening bilateral mammogram is recommended in 1 year. Mammo Location: [facility], [address] [place] [id number] -------- FINAL REPORT -------- Dictated By: Anjum Mota Dictated Date: 07/23/2024 08:38 ET Assigned Physician: Anjum Mota Reviewed and Electronically Signed By: Anjum Mota Signed Date: 07/23/2024 08:43 ET Workstation ID: [id number] Transcribed By: Self Edit Transcribed Date: 07/23/2024 08:38 ET us Self Referral Sppl IMG BI PROCEDURES Final Resul t from Last 3 Months or Most Recently Relevant to Health Maintenance Insurance MEDICARE [facility] Care Teams Data Center Consultant Relationship Specialty Start Date End Date Jermaine Berg MD [address] [place] [address] [address] [place] PCP - General Internal Medicine 02/11/12
[2025-03-26 19:55] VITALS: BP 158/94; PULSE 67; TEMP 36.8; O2SAT 96
[2025-03-26 22:00] VITALS: BP 144/69; PULSE 70; TEMP 36.8; O2SAT 96
[2025-03-26 22:21] LABS: Troponin-I High Sensitivity 45.8 ng/L (<3.5-17.0)
--- NOTE | 2025-03-26 22:27 | ECG_ITS ---
Test Reason : REPEAT Blood Pressure : */* mmHG Vent. Rate : 58 BPM Atrial Rate : 58 BPM P-R Int : 162 ms QRS Dur : 74 ms QT Int : 452 ms P-R-T Axes : 45 -40 12 degrees QTcB Int : 443 ms Sinus bradycardia with sinus arrhythmia Left axis deviation Abnormal ECG When compared with ECG of 26-Mar-2025 15:22, Nonspecific T wave abnormality now evident in Inferior leads Referred By: Shirlene Scott Electronically Signed By: Lalo Fitzgerald
[2025-03-26] MEDS: iohexoL 350 MG/ML 100 ML INFUS..BTL 85 ML IV (23:00)
--- NOTE | 2025-03-26 23:58 | P.HPHOSP_ITS ---
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 Closed fracture of head of radius with routine healing Fracture of radial head, right, closed Occult fracture of right elbow Psoriatic arthritis Family History Mother Lung cancer Father Drug addict Other Mental health problem Substance abuse Surgical History Hx of colonoscopy Hx of abdominoplasty S/P cervical spinal fusion Hx of section Social History Household Members: Significant Other and Family Housing: House Are you a primary healthcare market consultant to a significant other at home: No Do you presently have visiting nurse or other home services: No Alcohol intake: never Patient Tobacco Use Status: Never used Tobacco e-Cigarette/Vaping Use: Never Used Second Hand Smoke Exposure: Yes Advance Directives: No Advance Directives Information Provided: No service: No Current occupational status: disabled Current occupational exposures/hazards: No Cognitive needs: No Hearing needs: No Vision needs: Yes (glasses) Meds Allergies Allergy/AdvReac Type Severity Reaction Status Date / Time No Known Allergies Allergy Verified 03/26/25 15:16 Home Medications ?Medication ?Instructions ?Recorded ?Confirmed ?Last Taken ?Type ibuprofen 800 mg tablet 800 mg PO BID PRN 02/12/23 1 05/19/24 Unknown History omeprazole 40 mg capsule,delayed 40 mg PO DAILY PRN 03/18/25 Unknown History release polyethylene glycol 3350 17 17 g PO DAILY PRN 02/02/25 03/18/25 Unknown History gram/dose oral powder (Miralax) Physical Exam 2 Vital Signs and Narrative: Vital Signs: Last Vital Signs Temp 98.2 F 03/26/25 22:00 Pulse 70 03/26/25 22:00 Resp 16 03/26/25 15:16 BP 144/69 H 03/26/25 22:00 Pulse Ox 96 03/26/25 22:00 O2 Del Method Room Air 03/26/25 22:00 BMI result Body Mass Index 28.0 Results Labs 03/26/25 15:32 03/26/25 15:32 Labs: Laboratory Results - last 24 hr 03/26/25 03/26/25 15:32 21:49 MCV 88.2 MCH 29.6 MCHC 33.5 RDW 13.6 Plt Count 220 MPV 9.1 L Immature Gran % (Auto) 0.3 Neut % (Auto) 72.6 Lymph % (Auto) 21.6 [place] % (Auto) 5.2 Eos % (Auto) 0.3 Baso % (Auto) 0.0 Lymph # (Auto) 0.8 L [place] # (Auto) 0.2 Eos # (Auto) 0.0 Baso # (Auto) 0.0 Abs Immat Gran (auto) 0.01 Absolute Neuts (auto) 2.8 Absolute Nucleated RBC 0.000 Nucleated RBC % (auto) 0.0 Anion Gap 11 L Estim Creat Clear Calc 70.1 Estimated GFR > 60 Random Glucose 108 Calcium 9.1 Magnesium 2.1 Total Bilirubin 0.9 Direct Bilirubin 0.3 AST 45 H ALT 26 Alkaline Phosphatase 78 Troponin I High Sens 10.4 D 45.8 H D Total Protein 6.9 Albumin 4.3 Lipase 15
--- NOTE | 2025-03-27 00:14 | PM.IMHP ---
History of Present Illness Date of Service: 03/27/25 Chief Complaint: Chest pain A 64-year-old female with PMH of fibromyalgia, gastritis, diverticulosis, and hyperlipidemia among others who presents from home with chest and posterior thoracic pain in the setting of a recent COVID-19 infection, confirmed positive yesterday. She reports the onset of sharp posterior chest/back pain that is pleuritic in nature, worse with deep inspiration, and associated with nausea and vomiting. She denies cough, fever, diaphoresis, or shortness of breath. She also noted the development of a diffuse, erythematous, pruritic rash yesterday involving the chest, neck, and lower extremities. No mucosal involvement has been reported. Initial evaluation yesterday demonstrated a troponin <2.7. On repeat testing today, troponin increased into the 40s, prompting further evaluation. The case was discussed with cardiology. A CTA of the chest was obtained and showed no evidence of pulmonary embolism or pneumonia. Cardiology recommended hospital admission for monitoring with consideration of transthoracic echocardiography in the morning. 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 Closed fracture of head of radius with routine healing Fracture of radial head, right, closed Occult fracture of right elbow Psoriatic arthritis Family History Mother Lung cancer Father Drug addict Other Mental health problem Substance abuse Surgical History Hx of colonoscopy Hx of abdominoplasty S/P cervical spinal fusion Hx of section Social History Household Members: Significant Other and Family Housing: House Are you a primary acute care assistant to a significant other at home: No Do you presently have visiting nurse or other home services: No Alcohol intake: never Patient Tobacco Use Status: Never used Tobacco e-Cigarette/Vaping Use: Never Used Second Hand Smoke Exposure: Yes Advance Directives: No Advance Directives Information Provided: No service: No Current occupational status: disabled Current occupational exposures/hazards: No Cognitive needs: No Hearing needs: No Vision needs: Yes (glasses) Meds Allergies Allergy/AdvReac Type Severity Reaction Status Date / Time No Known Allergies Allergy Verified 03/26/25 15:16 Home Medications ?Medication ?Instructions ?Recorded ?Confirmed ?Last Taken ?Type ibuprofen 800 mg tablet 800 mg PO BID PRN 02/12/23 03/18/25 Unknown History omeprazole 40 mg capsule,delayed 40 mg PO DAILY PRN 02/02/25 03/18/25 Unknown History release polyethylene glycol 3350 17 17 g PO DAILY PRN 02/02/25 03/18/25 Unknown History gram/dose oral powder (Miralax) Physical Exam Vital Signs and Narrative: Vital Signs: Last Vital Signs Temp 98.2 F 03/26/25 22:00 Pulse 70 03/26/25 22:00 Resp 16 03/26/25 15:16 BP 144/69 H 03/26/25 22:00 Pulse Ox 96 03/26/25 22:00 O2 Del Method Room Air 03/26/25 22:00 BMI result Body Mass Index 28.0 Const: Other: Constitutional : Awake, interactive, not in distress Neck : Normal inspection, Supple Cardiovascular : RRR, no JVP, no lower extremity edema Respiratory : good bilateral air entry, no crackles, wheezes or rhonchi Gastrointestinal: soft, lax, Normal bowel sounds, Non tender Skin : Warm, Dry Neurological : Alert & oriented x3, No focal deficit Results Labs 03/26/25 15:32 03/26/25 15:32 Labs: Laboratory Results - last 24 hr 03/26/25 03/26/25 15:32 21:49 MCV 88.2 MCH 29.6 MCHC 33.5 RDW 13.6 Plt Count 220 MPV 9.1 L Immature Gran % (Auto) 0.3 Neut % (Auto) 72.6 Lymph % (Auto) 21.6 [place] % (Auto) 5.2 Eos % (Auto) 0.3 Baso % (Auto) 0.0 Lymph # (Auto) 0.8 L [place] # (Auto) 0.2 Eos # (Auto) 0.0 Baso # (Auto) 0.0 Abs Immat Gran (auto) 0.01 Absolute Neuts (auto) 2.8 Absolute Nucleated RBC 0.000 Nucleated RBC % (auto) 0.0 Anion Gap 11 L Estim Creat Clear Calc 70.1 Estimated GFR > 60 Random Glucose 108 Calcium 9.1 Magnesium 2.1 Total Bilirubin 0.9 Direct Bilirubin 0.3 AST 45 H ALT 26 Alkaline Phosphatase 78 Troponin I High Sens 10.4 D 45.8 H D Total Protein 6.9 Albumin 4.3 Lipase 15 Assessment and Plan (1) Elevated troponin: Status: Acute (2) Chest discomfort: Status: Acute (3) Atelectasis: Status: Acute (4) COVID-19 virus infection: Status: Acute Plan A 64-year-old female with PMH of fibromyalgia, gastritis, diverticulosis, and hyperlipidemia among others who presents from home with chest and posterior thoracic pain in the setting of a recent COVID-19 infection, confirmed positive yesterday. Chest pain with Trop leak Pain is mainly mid-back radiating to epigastric area with reported vomiting episode CTA showed normal thoracic Aorta Concern of Unstable angina vs type 2 NSTEMI given delta change in Trop from acute Covid infx. Could be side effect of Paxlovid she just started for Covid infection EKG no ST\T wave changes to suggest ACS could be related to Covid infectionl; muscoskeletal vs Myocarditis (would expect higher Trop leak) Keep on Tele Cardiology evaluation get an Echo Hold on full dose anticoagulation per cardiology recommendations Covid19 infx No respiratory symptoms Hold Paxlovid for now supportive measures Right renal lower pole cortical low-attenuation lesion, 3.7 cm. Defer to Urology for further eval (inpt\outpatient) ? Bibasilar dependent subsegmental atelectasis. Incentive spirometry Gastritis PPI pending MED REC DVT PPx Lovenox Quality Stroke Does the patient have a stroke diagnosis?: No VTE Prior VTE?: No VTE Risk Level:: Medical - moderate - high VTE Device Contraindication: Treatment Not Indicated VTE Drug Contraindication: N/A - Med Ordered
[2025-03-27 01:43] VITALS: PULSE 90
[2025-03-27 04:40] LABS: MANUAL DIFF FLAG NO
[2025-03-27 04:58] VITALS: BP 125/70; PULSE 71; RESP 14; TEMP 36.7; O2SAT 96
[2025-03-27 05:01] LABS: Anion Gap 15 (12-20); Blood Urea Nitrogen 16 mg/dL (9-16); Carbon Dioxide 21 mmol/L (22-29); Chloride 109 mmol/L (96-108); Creatinine Clr Calc Pharmacy 86.4; Estimated Glomerular Filt Rate > 60; Potassium 4.3 mmol/L (3.3-5.1); Sodium 141 mmol/L (135-145)
[2025-03-27 05:02] LABS: Alanine Aminotransferase 21 U/L (0-31); Albumin Level 4.0 g/dL (3.5-5.0); Alkaline Phosphatase 72 U/L (39-117); Aspartate Amino Transferase 36 U/L (5-31); Calcium 8.8 mg/dL (8.4-10.2); Total Protein 6.6 g/dL (6.5-8.0)
[2025-03-27 05:42] LABS: Hematocrit 44.1 % (37.0-47.0); Hemoglobin 14.9 g/dl (12.0-16.0); Imm Gran Abs Auto 0.01 X10*3/uL (0.00-0.03); Imm Gran Pct Auto 0.2 % (0.0-0.4); Lymphocytes Absolute Auto 0.6 X10*3/uL (1.2-4.9); Mean Corpuscular HGB Conc 33.8 g/dl (31.0-35.0); Mean Corpuscular Hemoglobin 29.9 pg (27.0-33.0); Mean Corpuscular Volume 88.4 fL (80.0-98.0); NRBC Abs Auto 0.000 X10*3/uL (0.0-0.012); NRBC Pct Auto 0.0 /100WBC (0.0-0.2); Platelet Count 205 X10*3/uL (160-400); Red Blood Count 4.99 X10*6/uL (4.20-5.50); White Blood Count 5.1 X10*3/uL (4.8-10.8)
--- NOTE | 2025-03-27 07:00 | CA_ITS ---
Transthoracic Echocardiogram Patient (Last, First, Middle): Carissa Santos M Gender: Female Date of : 1960 Age: 64 Procedure Date: 03/27/2025 Procedure Type: Transthoracic Echocardiogram Location: ER Height: 157.48 cm Weight: 69.4 kg BSA: 1.71 m2 Heart Rate: bpm Ear Nose Throat Surgeon: Referring MD: Cisco Amin MD Symptoms: chest pain, trop leak Study Quality: Good ECG Rhythm: Sinus Conclusions: - Normal left ventricular size and systolic function. There is mildly increased left ventricular wall thickness. The visually estimated ejection fraction is between 55-60%. - E/E prime ratio is <8, consistent with normal filling pressures. - Normal right ventricular cavity size and systolic function. - There is no evidence of pericardial effusion. Findings Left Ventricle Normal left ventricular size and systolic function. There is mildly increased left ventricular wall thickness. The visually estimated ejection fraction is between 55-60%. There is no evidence of regional wall motion abnormalities. Abnormal diastolic function is noted. Spectral Doppler is indicative of an impaired relaxation filling pattern. E/E prime ratio is <8, consistent with normal filling pressures. Right Ventricle Normal right ventricular cavity size and systolic function. Atria The left atrium is normal in size. The right atrium is normal in size. Aortic Valve Normal aortic valve structure and function. There is no aortic valve stenosis. There is trace (trivial) aortic valve regurgitation. Mitral Valve The mitral valve appears normal. There is no mitral valve regurgitation. There is no mitral valve stenosis. Pulmonic Valve The pulmonic valve is normal. There is trace pulmonic valve regurgitation. Tricuspid Valve Normal tricuspid valve structure. There is trace tricuspid valve regurgitation. The right ventricular systolic pressure is 28 mmHg. Normal right atrial pressure. There is no evidence of pulmonary hypertension. Great Vessels All visible segments of the aorta are normal in size. Venous The inferior vena cava is normal in size and collapses greater than 50% with inspiration. Pericardium/Pleural There is no evidence of pericardial effusion. Prior Study Comparison No significant change compared to prior study dated: 04/09/2023. Measurements 2D Linear Measurements IVSd: 1.03 0.6-0.9/0.6-1.0 cm LVIDd: 4.55 3.9-5.3/4.2-5.9 cm LVIDd Index: 2.66 2.4-3.2/2.2-3.1 cm/m2 LVIDs: 2.57 2.0-3.6 cm LVPWd: 1.10 0.7-1.1 cm Ao Root: 2.90 2.1-3.5 cm LA Diam: 4.00 2.7-3.8/3.0-4.0 cm LAIDs Index: 2.34 1.5-2.3 cm/m2 LV Mass: 212.04 67-162/88-224 g LV Mass Index: 124.00 43-95/49-115 g/m2 LVOT Diam: 2.00 3.0+(-)1.3 cm Mitral Valve MV Pk E: 0.72 MV PK A: 0.77 MV Decel Time: 159.00 E/A: 0.90 E'Lateral: 11.20 E'Medial: 6.53 E/E' Med: 11.10 E/E' Lat: 6.50 PHT: 47.00 MVA PHT: 4.68 Decel Hall: 4.54 Aortic Valve AoV Pk Sorin: 1.25 AoV Mn Sorin: 0.73 AoV VTI: 0.28 AoV Pk Grad: 6.00 Aov Mn Grad: 3.00 LONNIE Cont.VTI: 2.67 LVOT LVOT Pk Sorin: 0.89 LVOT Mn Sorin: 0.53 LVOT VTI: 0.24 LVOT Pk Grad: 3.00 LVOT Mn Grad: 1.00 LVOT Diam: 2.00 LVOT Area: 3.14 Diastolic Function MV Pk E: 0.72 MV Pk A: 0.77 E/A: 0.90 E'Medial: 6.53 E/E' Med: 11.10 E' Laterial: 11.20 E/E' Lat: 6.50 Right Ventricle TAPSE (mm): 27.00 TVS' Sorin: 14.00 Tricuspid Valve TR Pk Sorin: 2.43 TR Pk Grad: 24.00 RVSP: 28.00 Great Vessels Aorta Ao Root-2D: 2.90 2.0-3.7 cm Ao Asc: 3.00 2.1-3.4 cm Pulmonary Valve PV Pk Sorin: 0.99 Peak PV Grad: 4.00 Updated in Other Vendor System with Status of Final Lalo Fitzgerald MD electronically signed on 03/27/2025 3:05:06 PM with status of Final
--- NOTE | 2025-03-27 07:26 | PC.NURSE ---
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
[2025-03-27] MEDS: 0.9 % Sodium Chloride Flush 3 ML SYRINGE IVFLUSH (08:08)
[2025-03-27 08:32] VITALS: BP 131/74; PULSE 73; RESP 18; TEMP 36.8; O2SAT 96
[2025-03-27 08:52] LABS: Troponin-I High Sensitivity 37.7 ng/L (<3.5-17.0)
--- NOTE | 2025-03-27 09:41 | PM.DS ---
DS: Providers Provider Date of admission: 03/26/25 23:57 Date of discharge: 03/27/25 Primary care physician: Unknown Physician Consults: 03/27/25 00:21 Consult to Cardiology Routine Consulting Provider: [facility] [place] [facility] Reason for consultation: chest pain, elevated Trop DS: Diagnosis Discharge Diagnosis (1) Elevated troponin: Status: Acute (2) Chest discomfort: Status: Acute (3) Atelectasis: Status: Acute (4) COVID-19 virus infection: Status: Acute DS: Summary Hospital Course Hospital Course: admission hpi Chief Complaint: Chest pain A 64-year-old female with PMH of fibromyalgia, gastritis, diverticulosis, and hyperlipidemia among others who presents from home with chest and posterior thoracic pain in the setting of a recent COVID-19 infection, confirmed positive yesterday. She reports the onset of sharp posterior chest/back pain that is pleuritic in nature, worse with deep inspiration, and associated with nausea and vomiting. She denies cough, fever, diaphoresis, or shortness of breath. She also noted the development of a diffuse, erythematous, pruritic rash yesterday involving the chest, neck, and lower extremities. No mucosal involvement has been reported. Initial evaluation yesterday demonstrated a troponin <2.7. On repeat testing today, troponin increased into the 40s, prompting further evaluation. The case was discussed with cardiology. A CTA of the chest was obtained and showed no evidence of pulmonary embolism or pneumonia. Cardiology recommended hospital admission for monitoring with consideration of transthoracic echocardiography in the morning. hospital course: She presented with chest pain, troponin was slightly high, chest pain has resolved. Echo was normal. Cardiology saw her and will see in office for further testing as needed. She described some sort of urticaria rash without specific triger, the rash seems to have resolved. Time Attestation Discharge Coordination Time (in mins): 35 Quality: Safe Use of Opioids Does Pt have an Active Cancer Diagnosis on the Problem List?: No Quality: Stroke Does the patient have a stroke diagnosis?: No Physical Exam Vital Signs: Vital Signs: Last Vital Signs Temp 98.2 F 03/27/25 08:32 Pulse 73 03/27/25 08:32 Resp 18 03/27/25 08:32 BP 131/74 03/27/25 08:32 Pulse Ox 96 03/27/25 08:32 O2 Del Method Room Air 03/27/25 08:32 BMI result Body Mass Index 28.0 DS: Data Data Completed and Pending Labs on day of discharge: Laboratory Results - last 24 hr 03/26/25 03/26/25 03/27/25 15:32 21:49 04:20 WBC 3.8 L RBC 5.34 Hgb 15.8 Hct 47.1 H MCV 88.2 MCH 29.6 MCHC 33.5 RDW 13.6 Plt Count 220 MPV 9.1 L Immature Gran % (Auto) 0.3 Neut % (Auto) 72.6 Lymph % (Auto) 21.6 [place] % (Auto) 5.2 Eos % (Auto) 0.3 Baso % (Auto) 0.0 Lymph # (Auto) 0.8 L [place] # (Auto) 0.2 Eos # (Auto) 0.0 Baso # (Auto) 0.0 Abs Immat Gran (auto) 0.01 Absolute Neuts (auto) 2.8 Absolute Nucleated RBC 0.000 Nucleated RBC % (auto) 0.0 Sodium 138 141 Potassium 4.4 4.3 Chloride 105 109 H Carbon Dioxide 26 21 L Anion Gap 11 L 15 BUN 24 H 16 Creatinine 0.74 0.60 Estim Creat Clear Calc 70.1 86.4 Estimated GFR > 60 > 60 Random Glucose 108 123 H Calcium 9.1 8.8 Magnesium 2.1 Total Bilirubin 0.9 0.5 Direct Bilirubin 0.3 AST 45 H 36 H D ALT 26 21 Alkaline Phosphatase 78 72 Troponin I High Sens 10.4 D 45.8 H D Total Protein 6.9 6.6 Albumin 4.3 4.0 Lipase 15 03/27/25 03/27/25 04:21 08:21 WBC 5.1 RBC 4.99 Hgb 14.9 Hct 44.1 MCV 88.4 MCH 29.9 MCHC 33.8 RDW 13.7 Plt Count 205 MPV 9.5 Immature Gran % (Auto) 0.2 Neut % (Auto) 86.6 H Lymph % (Auto) 12.2 L [place] % (Auto) 0.8 L Eos % (Auto) 0.0 Baso % (Auto) 0.2 Lymph # (Auto) 0.6 L [place] # (Auto) 0.0 L Eos # (Auto) 0.0 Baso # (Auto) 0.0 Abs Immat Gran (auto) 0.01 Absolute Neuts (auto) 4.4 Absolute Nucleated RBC 0.000 Nucleated RBC % (auto) 0.0 Sodium Potassium Chloride Carbon Dioxide Anion Gap BUN Creatinine Estim Creat Clear Calc Estimated GFR Random Glucose Calcium Magnesium Total Bilirubin Direct Bilirubin AST ALT Alkaline Phosphatase Troponin I High Sens 37.7 H Total Protein Albumin Lipase Discharge Plan Discharge Anticipated Discharge Date/Time: 03/27/25 09:47 Patient Disposition: Home, Self-Care Discharge Diagnosis: chest pain Referrals: Physician,Unknown J [Primary Care Provider, Medical] - 1 Week Discharge Medications: Continued atorvastatin 20 mg tablet 20 mg PO BEDTIME 90 Days Qty: 90 1RF Paxlovid 300 mg (150 mg x 2)-100 mg tablets,dose pack See Rx Instructions .ROUTE .COMPLEX Qty: 30 0RF Patient Comments: Patient is on Day 3 of 5 for medication regimen. Rx Instructions: take TWO 150 mg tablets of nirmatrelvir with ONE 100 mg tablet of ritonavir twice daily for 5 days, discontinue statin while on this, resume statin medication three days after finishing this ketoconazole 2 % shampoo 1 appl TOPICAL 2XW PRN (Reason: Scalp) calcium carbonate-vitamin D3 600 mg-5 mcg (200 unit) Tablet 1 tab PO DAILY cetirizine 10 mg tablet 10 mg PO DAILY PRN (Reason: Allergy Symptoms) clotrimazole-betamethasone 1-0.05 % cream 1 appl topical BID 14 Days Qty: 15 0RF Humira(CF) Pen 40 mg/0.4 mL pen injector kit 40 mg subcut Q2W 30 Days Qty: 2 5RF clonazepam 0.5 mg tablet 0.5 mg PO BID PRN (Reason: anxiety) Qty: 60 0RF omeprazole 40 mg capsule,delayed release(DR/EC) 40 mg PO DAILY PRN (Reason: Acid Reflux) polyethylene glycol 3350 [Miralax] 17 gram/dose powder 17 g PO DAILY PRN (Reason: Constipation) Discharge Orders: Discharge Order (Routine); Ordered 03/27/25 Ordered By: Jorge Corado Diet: Advance to usual diet Activity on Discharge: As tolerated Stand Alone Forms: Patient Portal Discharge page Print Language: Cook Islander Care Plan Goals: recovery from chest pain Health Concerns: chest pain Plan of Treatment: outpatient follow up the heart doctor Assessment: see above
--- NOTE | 2025-03-27 09:50 | PHA.MEDREC ---
Addendum entered by Lisa Alas RPh 03/27/25 10:03: Reviewed by [facility] Original Note: Pharmacy Consult ? Medication Reconciliation Pharmacy has completed the medication reconciliation. Confirmed medication list with patient and against pharmacy claims. Patient last used Humira on 03/17, but claims her PCC wants her to stop using it for the foreseeable future. Patient took half tablet of clonazepam on Saturday. Patient was recently prescribed a Prednisone 5 mg tablet regimen, but has not started the regimen. Patient last took atorvastatin 20 mg on Saturday and was instructed by PCC to not take while on Paxlovid regimen. Patient is on day 3 of 5 of Paxlovid regimen, and took day 3 today. Patient was instructed to not start taking Atorvastatin again until 3 days after Paxlovid regimen has ended. Note that Patient refers to Atorvastatin as Simvastatin, but when asked to clarify she said she was taking the generic for lipitor, which is atorvastatin, and the strength she mentioned she takes matches claims history. patient takes Fish oil and Biotin supplements at home. Patient last took all supplements yesterday morning. Patient uses Ketoconazole shampoo as needed.
--- NOTE | 2025-03-27 11:06 | P.CONCA_ITS ---
History of Present Illness History of Present Illness Date of Service: 03/27/25 Requesting physician: Jorge Corado Chief complaint: chest discomfort Narrative: 64-year-old lady presenting with chest discomfort. She was in the emergency department 2 nights ago when she presented with urticarial rash all over the body and chest tightness. She was found to be COVID positive and was started on Paxlovid and sent home. She is saying the rash started improving but she started having upper back sharp pains. This brought her back to the emergency department. Her EKG has nonspecific changes when she initially presented with a urticarial rash and chest tightness but on 2nd presentations the EKGs are completely normal. She is saying the pain has resolved at this stage. Her high sensitivity troponin levels were 10.4, 45.8 and 37.7. We were asked to see her for elevated troponins. 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 Closed fracture of head of radius with routine healing Fracture of radial head, right, closed Occult fracture of right elbow Psoriatic arthritis Family History Family History Mother Lung cancer Father Drug addict Other Mental health problem Substance abuse Surgical History Surgical History Hx of colonoscopy Hx of abdominoplasty S/P cervical spinal fusion Hx of section Social History Social History Household Members: Significant Other and Family Housing: House Are you a primary resident care coordinator to a significant other at home: No Do you presently have visiting nurse or other home services: No Alcohol intake: current Alcohol intake frequency: holidays/special occasions only Alcohol type: beer Patient Tobacco Use Status: Never used Tobacco Smoked in Last 30 Days: No e-Cigarette/Vaping Use: Never Used Second Hand Smoke Exposure: Yes Use of substances other than those prescribed or required for medical reasons: No Advance Directives: No Advance Directives Information Provided: No Nutrition Risks: No Nutritional Risk Patient : No service: No Current occupational status: disabled Current occupational exposures/hazards: No Cognitive needs: No Hearing needs: No Vision needs: Yes (glasses) Meds Allergies Allergy/AdvReac Type Severity Reaction Status Date / Time No Known Allergies Allergy Verified 03/26/25 15:16 Active Medications: Current Medications Acetaminophen (Acetaminophen 325 Mg Tablet) 650 mg PO Q6H PRN PRN Reason: Pain, Mild 1-3,fever,headache Benzonatate (Benzonatate 100 Mg Capsule) 100 mg PO TID PRN PRN Reason: Cough Calcium Carbonate (Calcium Carbonate 750 Mg Tab.Chew) 750 mg PO Q4H PRN PRN Reason: Heartburn Enoxaparin Sodium (Enoxaparin Sodium 40 Mg/0.4 Ml Syringe) 40 mg SUBCUT Q24H [facility] Last Admin: 03/27/25 01:38 Dose: 40 mg Magnesium Hydroxide (Milk Of Magnesia 30 Ml Oral.Susp) 30 ml PO DAILY PRN PRN Reason: Constipation Melatonin (Melatonin 3 Mg Tablet) 6 mg PO BEDTIME PRN PRN Reason: Insomnia Ondansetron HCl (Ondansetron Hcl 4 Mg/2 Ml Vial) 4 mg IVPUSH Q8H PRN PRN Reason: Nausea and Vomiting Sodium Chloride (0.9 % Sodium Chloride Flush 3 Ml Syringe) 3 ml IVFLUSH QSHIFT [facility] Last Admin: 03/27/25 08:08 Dose: 3 ml Home Medications ?Medication ?Instructions ?Recorded ?Confirmed ?Last Taken ?Type omeprazole 40 mg capsule,delayed 40 mg PO DAILY PRN Ac id Reflux 02/02/25 03/27/25 03/24/25 History release polyethylene glycol 3350 17 17 g PO DAILY PRN Constipa tion 02/02/25 03/27/25 Unknown History gram/dose oral powder (Miralax) calcium 600 mg (as 1 tab PO DAILY 03/27/25 12/03/26/25 History carbonate)-vitamin D3 5 mcg (200 unit) tablet cetirizine 10 mg tablet 10 mg PO DAILY PRN Allergy S ymptoms 03/27/25 03/27/25 Unknown History ketoconazole 2 % shampoo 1 appl topical 2XW PRN Scalp 03/27/25 03/27/25 Unknown History Physical Exam 2 Vital Signs: Vital Signs: Last Vital Signs Temp 98.2 F 03/27/25 08:32 Pulse 73 03/27/25 08:32 Resp 18 03/27/25 08:32 BP 131/74 03/27/25 08:32 Pulse Ox 96 03/27/25 08:32 O2 Del Method Room Air 03/27/25 08:32 BMI result Body Mass Index 28.0 GENERAL APPEARANCE: in no acute distress, pleasant. NECK: no carotid bruit, no jugular venous distention. SKIN: Improving urticarial rash of the abdomen. HEART: no murmurs, regular rate and rhythm. LUNGS: clear to auscultation bilaterally. ABDOMEN: soft, nontender. EXTREMITIES: no edema. PERIPHERAL PULSES: equal. NEUROLOGIC: No gross deficits, AAO X 3 Objective Labs and Meds 03/27/25 04:21 03/27/25 04:20 Lab results: Laboratory Results - last 24 hr 03/26/25 03/26/25 03/27/25 15:32 21:49 04:20 WBC 3.8 L RBC 5.34 Hgb 15.8 Hct 47.1 H MCV 88.2 MCH 29.6 MCHC 33.5 RDW 13.6 Plt Count 220 MPV 9.1 L Immature Gran % (Auto) 0.3 Neut % (Auto) 72.6 Lymph % (Auto) 21.6 [place] % (Auto) 5.2 Eos % (Auto) 0.3 Baso % (Auto) 0.0 Lymph # (Auto) 0.8 L [place] # (Auto) 0.2 Eos # (Auto) 0.0 Baso # (Auto) 0.0 Abs Immat Gran (auto) 0.01 Absolute Neuts (auto) 2.8 Absolute Nucleated RBC 0.000 Nucleated RBC % (auto) 0.0 Sodium 138 141 Potassium 4.4 4.3 Chloride 105 109 H Carbon Dioxide 26 21 L Anion Gap 11 L 15 BUN 24 H 16 Creatinine 0.74 0.60 Estim Creat Clear Calc 70.1 86.4 Estimated GFR > 60 > 60 Random Glucose 108 123 H Calcium 9.1 8.8 Magnesium 2.1 Total Bilirubin 0.9 0.5 Direct Bilirubin 0.3 AST 45 H 36 H D ALT 26 21 Alkaline Phosphatase 78 72 Troponin I High Sens 10.4 D 45.8 H D Total Protein 6.9 6.6 Albumin 4.3 4.0 Lipase 15 03/27/25 03/27/25 04:21 08:21 WBC 5.1 RBC 4.99 Hgb 14.9 Hct 44.1 MCV 88.4 MCH 29.9 MCHC 33.8 RDW 13.7 Plt Count 205 MPV 9.5 Immature Gran % (Auto) 0.2 Neut % (Auto) 86.6 H Lymph % (Auto) 12.2 L [place] % (Auto) 0.8 L Eos % (Auto) 0.0 Baso % (Auto) 0.2 Lymph # (Auto) 0.6 L [place] # (Auto) 0.0 L Eos # (Auto) 0.0 Baso # (Auto) 0.0 Abs Immat Gran (auto) 0.01 Absolute Neuts (auto) 4.4 Absolute Nucleated RBC 0.000 Nucleated RBC % (auto) 0.0 Sodium Potassium Chloride Carbon Dioxide Anion Gap BUN Creatinine Estim Creat Clear Calc Estimated GFR Random Glucose Calcium Magnesium Total Bilirubin Direct Bilirubin AST ALT Alkaline Phosphatase Troponin I High Sens 37.7 H Total Protein Albumin Lipase Assessment and Plan (1) Chest discomfort: Status: Acute (2) Elevated troponin: Status: Acute (3) COVID-19: Status: Acute Plan Pleasant 64 year lady presenting for sharp chest pains in the back. She is COVID positive and was diagnosed 2 days ago when she presented with chest tightness and urticarial rash all over the body. She was given Paxlovid which improved her symptoms but she started having sharp pains in the back. Her troponins are slightly abnormal. EKGs not showing any dynamic changes. Her symptoms have resolved. She had CTA done to rule out PE. Atelectasis is noted on the CT scan but no evidence of pneumonia or PE. We will do echocardiography to assess for any wall motion abnormalities. Troponins are quite low and I doubt that this is myocarditis. If echo is normal she can be discharged home and can see us in the office for further assessment. Thank you for allowing me to participate in the care of your patient. Please feel free to contact me if you have any questions. Procedures Date of Service Date of Service: 03/27/25
[2025-03-27 12:07] VITALS: BP 136/71; PULSE 76; RESP 16; TEMP 36.6; O2SAT 95
--- NOTE | 2025-03-27 14:07 | MHC.CM.PN ---
Addendum entered by Valencia Castaneda RN 03/27/25 16:04: Patient medically cleared for dc home self care via private transport Original Note: [facility] DELIVERED. PATIENT LIVES IN A HOME W/ GRANDDAUGHTER, BUT ALSO FREQUENTLY STAYS W/ HER S.O. KIRBY. INDEPENDENT W/ ALL CARE. DENIES USE OF SERVICES OR DME. PCP DR MERISSA TAYLOR HCP. CM PROVIDED EDUCATION AND OFFERED ASSISTANCE. PATIENT DECLINED. DP: GOAL IS HOME SELF CARE. DOES NOT FEEL SHE WILL NEED SERVICES. [facility] TO TRANSPORT. CM WILL CONTINUE TO FOLLOW.
[2025-03-27 16:18] VITALS: BP 136/71; PULSE 76; RESP 16; TEMP 36.6; O2SAT 95
== END 2025-03-27 17:54 | disposition home or self-care (01) ==
LOC: HO.ED 19:41 → HO.EDOVER 03-27 00:01 → HO.IMC 03-27 14:37
PROVIDERS: Physician Assistant; Student in an Organized Health Care Education/Training Program; Admitting Provider Family Medicine; Emergency Provider Emergency Medicine Emergency Medical Services; PCP Internal Medicine; Visit Provider Internal Medicine
DX: R07.89 Other chest pain (principal); R79.89 Other specified abnormal findings of blood chemistry; J98.11 Atelectasis; U07.1 COVID-19; R21 Rash and other nonspecific skin eruption; R11.2 Nausea with vomiting, unspecified; R00.1 Bradycardia, unspecified; I49.8 Other specified cardiac arrhythmias; R06.02 Shortness of breath; R10.9 Unspecified abdominal pain; R94.31 Abnormal electrocardiogram [ECG] [EKG]; M79.7 Fibromyalgia; E78.5 Hyperlipidemia, unspecified; M54.9 Dorsalgia, unspecified; F41.9 Anxiety disorder, unspecified; E78.00 Pure hypercholesterolemia, unspecified; Z79.899 Other long term (current) drug therapy
CPT/HCPCS: 36415; 71275; 74177; 80048; 80053; 80076; 83690; 83735; 84484; 85025; 93005; 93306; 96361; 96372; 96374; 99222; 99285; J1650; J2919; Q9957; Q9967

== ENCOUNTER → 2025-03-26 22:12 | Outpatient (BNV) | payer BC, MEDICARE, SELFPAY | PROVIDERS: Admitting Provider Family Medicine; Emergency Provider Emergency Medicine Emergency Medical Services; Visit Provider Radiology Diagnostic Radiology | DX: R06.02 Shortness of breath (principal); K80.20 Calculus of gallbladder without cholecystitis without obstruction; N28.1 Cyst of kidney, acquired; J98.11 Atelectasis; R10.84 Generalized abdominal pain; R11.0 Nausea | CPT/HCPCS: 71275; 74177 ==

== ENCOUNTER 2025-03-26 23:57 | Outpatient (BNV) | payer BC, MEDICARE, SELFPAY | END 2025-03-27 07:00 | PROVIDERS: Admitting Provider Family Medicine; Emergency Provider Emergency Medicine Emergency Medical Services; Visit Provider Internal Medicine Cardiovascular Disease | DX: R93.1 Abnormal findings on diagnostic imaging of heart and coronary circulation (principal) | CPT/HCPCS: 93306 ==

== ENCOUNTER → 2025-03-26 23:57 | Outpatient (BNV) | payer BC, MEDICARE, SELFPAY | PROVIDERS: Admitting Provider Family Medicine; Emergency Provider Emergency Medicine Emergency Medical Services; Visit Provider Student in an Organized Health Care Education/Training Program | DX: U07.1 COVID-19 (principal); R79.89 Other specified abnormal findings of blood chemistry; R07.89 Other chest pain; J98.11 Atelectasis | CPT/HCPCS: 99234; 99499 ==

== ENCOUNTER → 2025-03-26 23:57 | Outpatient (BNV) | payer BC, MEDICARE, SELFPAY | PROVIDERS: Admitting Provider Family Medicine; Emergency Provider Emergency Medicine Emergency Medical Services; Visit Provider Internal Medicine Cardiovascular Disease | DX: R07.89 Other chest pain (principal); R79.89 Other specified abnormal findings of blood chemistry; U07.1 COVID-19 | CPT/HCPCS: 93010; 99253 ==